=== PATIENT | female | born 1960 | race American Indian/Alaskan Native ===

== ENCOUNTER 2016-05-25 00:20 | Inpatient (IN) | payer MEDICAID ==
[2016-05-25] MEDS ORDERED: DILAUDID ONE ×2 (00:39→05:03)
[2016-05-25] MEDS ORDERED: ZOFRAN ONE (00:39)
[2016-05-25] MEDS ORDERED: DILAUDID IV ONE ×4 (00:43→17:12)
[2016-05-25] MEDS ORDERED: ZOFRAN IV ONE (00:43)
[2016-05-25] MEDS ORDERED: HEPARIN 10,000 UNITS/10 ML IV ONE (01:00)
--- NOTE | 2016-05-25 01:03 | Emergency Department Report ---
ED Chest Pain HPI - General Chief Complaint: Chest Pain Stated Complaint: CP/SOB Time Seen by Provider: 05/25/16 00:33 Source: patient, old records reviewed Mode of arrival: Stretcher Limitations: No Limitations - History of Present Illness Initial Comments: 55-year-old female with a past medical history obesity, CAD/MA, diabetes, hypertension, and elevated cholesterol presents to the hospital with complaints of abdominal pain and chest pain. Abdominal pain has been ongoing for 2 days, aching, and constant. Pain is primarily in the mid and upper abdomen and radiates to the right flank. Worse palpation. No alleviating factors. Pain is moderate to severe in intensity. She denies associated melena, hematochezia , hematemesis, fever, or diarrhea. Patient as she complains of constipation with last bowel movement 2 days ago. Patient developed chest pain today approximately 6 PM. Pain is in the right lower chest and radiates across the middle and to the left side. This pain is intermittent and described as a pressure. Positive associated shortness of breath. Patient's cardiologists affiliated with [facility]. Patient has a history of MA in 2005 and 2008 but denies bypass or stent placement. Patient was seen and evaluated here in October 2015. Had negative stress test , echocardiogram with an EF 55%, and normal EKG. MD Complaint: other Severity scale (0 -10): 5 - Related Data Home Medications Medication Instructions Recorded Confirmed Last Taken Atorvastatin [Lipitor] 40 mg PO QHS 05/19/13 05/25/16 10/13/13 21:00 Insulin NPH Hum/Reg Insulin Hm 80 unit SQ QAM 05/19/13 05/25/16 05/18/13 [NovoLIN 70-30 100 Unit/ml Vial] Insulin NPH/Regular [NovoLIN 70/30] 70 units SUB-Q QHS 05/19/13 05/25/16 Isosorbide Mononitrate 10 mg PO DAILY 05/19/13 05/25/16 10/14/13 10:30 10 Sertraline [Zoloft] 50 mg PO QDAY 05/19/13 05/25/16 10/14/13 10:30 50 metFORMIN XR [Glucophage XR] 1,000 mg PO BID 05/19/13 05/25/16 05/18/13 AtorvaSTATin [Lipitor] 40 mg PO QDAY 11/01/15 05/25/16 Unknown Furosemide [Lasix TAB] 40 mg PO DAILY 11/01/15 05/25/16 Unknown Gabapentin [Neurontin] 400 mg PO Q8HR 11/01/15 05/25/16 Unknown Promethazine [Phenergan TAB] 25 mg PO Q6HR PRN 11/01/15 05/25/16 Unknown Vitamin D 1 tab PO DAILY 11/01/15 05/25/16 Unknown Previous Rx's Medication Instructions Recorded Last Taken Type Hyoscyamine Subl [Levsin Sl 0.125 0.125 mg SL Q6HR PRN #14 tablet 05/20/13 Unknown Rx TAB] Promethazine [Phenergan TAB] 25 mg PO Q6H PRN #10 tablet 05/20/13 Unknown Rx HYDROcodone/APAP 5-325 [[place] 1 each PO Q6HR PRN #14 tablet 09/14/15 Unknown Rx 5-325 mg TAB] Aspirin EC [Aspirin Enteric Coated 81 mg PO QDAY #30 tablet. 11/03/15 Unknown Rx TAB] Carvedilol [Coreg] 3.125 mg PO BID #60 tablet 11/03/15 Unknown Rx Famotidine [Pepcid] 20 mg PO BID #60 tablet 11/03/15 Unknown Rx Allergies Allergy/AdvReac Type Severity Reaction Status Date / Time No Known Allergies Allergy Verified 05/25/16 00:37 GREGG score - Gregg Score Age > 65: (1) Yes Aspirin use within the Past 7 Days: (1) Yes 3 or more CAD Risk Factors: (1) Yes 2 or more Angina events in past 24 hrs: (1) Yes Known CAD with more than 50% Stenosis: (0) No Elevated Cardiac Markers: (0) No ST Deviation Greater than 0.5mm: (0) No GREGG Score: 4 ED Review of Systems ROS: Stated complaint: CP/SOB Other details as noted in HPI Comment: All other systems reviewed and negative Other: Constitutional: No fevers chills Eyes: No eye pain visual changes ENT: No ear pain or throat pain Neck: Denies pain Respiratory: Denies cough wheezing shortness of breath Cardiovascular: As per HPI GI: As per HPI : Denies dysuria Musculoskeletal: Denies back pain Skin: Denies rash, lesions, erythema Neurologic: Denies headache, numbness, weakness Psychiatric: Denies suicidal ideation, hallucinations ED Past Medical Hx - Past Medical History Hx Hypertension: Yes Hx Heart Attack/AMI: Yes Hx Congestive Heart Failure: Yes Hx Diabetes: Yes Hx Asthma: No Hx COPD: Yes Hx HIV: No Additional medical history: neuropathy - Surgical History Hx Coronary Stent: No Additional Surgical History: Infection right great toe. Cataract surgery - Social History Smoking Status: Never Smoker Substance Use Type: None - Medications Home Medications: Home Medications Medication Instructions Recorded Confirmed Last Taken Type Atorvastatin [Lipitor] 40 mg PO QHS 05/19/13 05/25/16 10/13/13 21:00 History Insulin NPH Hum/Reg Insulin Hm 80 unit SQ QAM 05/19/13 05/25/16 05/18/13 History [NovoLIN 70-30 100 Unit/ml Vial] Insulin NPH/Regular [NovoLIN 70/30] 70 units SUB-Q QHS 05/19/13 05/25/16 History Isosorbide Mononitrate 10 mg PO DAILY 05/19/13 05/25/16 10/14/13 10:30 History 10 Sertraline [Zoloft] 50 mg PO QDAY 05/19/13 05/25/16 10/14/13 10:30 History 50 metFORMIN XR [Glucophage XR] 1,000 mg PO BID 05/19/13 05/25/16 05/18/13 History Hyoscyamine Subl [Levsin Sl 0.125 0.125 mg SL Q6HR PRN #14 tablet 05/20/1305/25 Unknown Rx TAB] Promethazine [Phenergan TAB] 25 mg PO Q6H PRN #10 tablet 05/20/13 05/25/16 Unknown Rx HYDROcodone/APAP 5-325 [[place] 1 each PO Q6HR PRN #14 tablet 09/14/15 05/25/16 Unknown Rx 5-325 mg TAB] AtorvaSTATin [Lipitor] 40 mg PO QDAY 11/01/15 05/25/16 Unknown History Furosemide [Lasix TAB] 40 mg PO DAILY 11/01/15 05/25/16 Unknown History Gabapentin [Neurontin] 400 mg PO Q8HR 11/01/15 05/25/16 Unknown History Promethazine [Phenergan TAB] 25 mg PO Q6HR PRN 11/01/15 05/25/16 Unknown History Vitamin D 1 tab PO DAILY 11/01/15 05/25/16 Unknown History Aspirin EC [Aspirin Enteric Coated 81 mg PO QDAY #30 tablet. 11/03/15 Unknown Rx TAB] Carvedilol [Coreg] 3.125 mg PO BID #60 tablet 11/03/15 05/25/16 Unknown Rx Famotidine [Pepcid] 20 mg PO BID #60 tablet 11/03/15 05/25/16 Unknown Rx ED Physical Exam - General Limitations: No Limitations - Other Other exam information: General: No limitations, patient is alert in no acute distress Head exam: Atraumatic, normocephalic Eyes exam: Normal appearance ENT: Moist mucous membrane, normal oropharynx Neck exam: Normal inspection, full range of motion, no meningismus nontender Respiratory exam: Basilar crackles, no tachypnea or accessory muscle use Cardiovascular: Normal rate and rhythm, normal heart sounds Abdomen: Soft, nondistended, right upper quadrant and epigastric tenderness. Normal bowel sounds. No rebound or guarding. Actively vomiting during evaluation Extremity: Full range of motion normal inspection no deformity Back: Normal Inspection, full range of motion, no tenderness Neurologic: Alert, oriented x3, cranial nerves intact, no motor or sensory deficit Psychiatric: normal affect, normal mood Skin: Warm, dry, intact ED Course Vital Signs 05/25/16 05/25/16 00:40 02:07 Temperature 98 F Pulse Rate 74 80 Respiratory 16 16 Rate Blood Pressure 105/70 Blood Pressure 105/60 [Left] O2 Sat by Pulse 95 97 Oximetry - Reevaluation(s) Reevaluation #1: 05/25/16 04:59 Patient receives multiple doses of Dilaudid for pain, Zofran, and regular insulin for hyperglycemia. Heparin drip initiated - Consultations Consultation #1: 05/25/16 01:[address] Ramires. He reviewed EKG. Recommends heparin drip and cardiac evaluation as an outpt ED Medical Decision Making - Lab Data Result diagrams: 05/25/16 00:57 05/25/16 00:57 Lab Results 05/25/16 05/25/16 05/25/16 Range/Units 00:31 00:57 00:57 WBC 13.2 H (4.5-11.0) K/mm3 RBC 4.49 (3.65-5.03) M/mm3 Hgb 11.3 (10.1-14.3) gm/dl Hct 35.2 (30.3-42.9) % MCV 78 L (79-97) fl MCH 25 L (28-32) pg MCHC 32 (30-34) % RDW 14.1 (13.2-15.2) % Plt Count 178 (140-440) K/mm3 Lymph % (Auto) 17.7 (13.4-35.0) % [place] % (Auto) 9.1 H (0.0-7.3) % Eos % (Auto) 0.6 (0.0-4.3) % Baso % (Auto) 0.6 (0.0-1.8) % Lymph # 2.3 (1.2-5.4) K/mm3 [place] # 1.2 H (0.0-0.8) K/mm3 Eos # 0.1 (0.0-0.4) K/mm3 Baso # 0.1 (0.0-0.1) K/mm3 Seg Neutrophils % 72.0 H (40.0-70.0) % Seg Neutrophils # 9.5 H (1.8-7.7) K/mm3 PT 13.6 (12.2-14.9) Sec. INR 1.05 (0.87-1.13) APTT 30.6 (24.2-36.6) Sec. Sodium (137-145) mmol/L Potassium (3.6-5.0) mmol/L Chloride (98-107) mmol/L Carbon Dioxide (22-30) mmol/L Anion Gap mmol/L BUN (7-17) mg/dL Creatinine (0.7-1.2) mg/dL Estimated GFR ml/min BUN/Creatinine Ratio % Glucose (65-100) mg/dL POC Glucose 383 H (70-105) Calcium (8.4-10.2) mg/dL Total Bilirubin (0.1-1.2) mg/dL Direct Bilirubin (0-0.2) mg/dL Indirect Bilirubin mg/dL AST (5-40) units/L ALT (7-56) units/L Alkaline Phosphatase (35-129) units/L Total Creatine Kinase (30-135) units/L CK-MB (CK-2) (0.0-4.0) ng/mL CK-MB (CK-2) Rel Index (0-4) Troponin T (0.00-0.029) ng/mL NT-Pro-B Natriuret Pep (0-900) pg/mL Total Protein (6.3-8.2) g/dL Albumin (3.9-5) g/dL Albumin/Globulin Ratio % Triglycerides (2-149) mg/dL Cholesterol (50-199) mg/dL LDL Cholesterol Direct (50-130) mg/dL HDL Cholesterol (40-59) mg/dL Cholesterol/HDL Ratio % Lipase (13-60) units/L Urine Color (Yellow) Urine Turbidity (Clear) Urine pH (5.0-7.0) Ur Specific [place] (1.003-1.030) Urine Protein (Negative) mg/dL Urine Glucose (UA) (Negative) mg/dL Urine Ketones (Negative) mg/dL Urine Blood (Negative) Urine Nitrite (Negative) Urine Bilirubin (Negative) Urine Urobilinogen (<2.0) mg/dL Ur Leukocyte Esterase (Negative) Urine WBC (Auto) (0.0-6.0) /HPF Urine RBC (Auto) (0.0-6.0) /HPF U Epithel Cells (Auto) (0-13.0) /HPF 05/25/16 05/25/16 05/25/16 Range/Units 00:57 00:57 00:57 WBC (4.5-11.0) K/mm3 RBC (3.65-5.03) M/mm3 Hgb (10.1-14.3) gm/dl Hct (30.3-42.9) % MCV (79-97) fl MCH (28-32) pg MCHC (30-34) % RDW (13.2-15.2) % Plt Count (140-440) K/mm3 Lymph % (Auto) (13.4-35.0) % [place] % (Auto) (0.0-7.3) % Eos % (Auto) (0.0-4.3) % Baso % (Auto) (0.0-1.8) % Lymph # (1.2-5.4) K/mm3 [place] # (0.0-0.8) K/mm3 Eos # (0.0-0.4) K/mm3 Baso # (0.0-0.1) K/mm3 Seg Neutrophils % (40.0-70.0) % Seg Neutrophils # (1.8-7.7) K/mm3 PT (12.2-14.9) Sec. INR (0.87-1.13) APTT (24.2-36.6) Sec. Sodium 126 L (137-145) mmol/L Potassium 4.4 (3.6-5.0) mmol/L Chloride 90.5 L (98-107) mmol/L Carbon Dioxide 26 (22-30) mmol/L Anion Gap 14 mmol/L BUN 25 H (7-17) mg/dL Creatinine 0.9 (0.7-1.2) mg/dL Estimated GFR > 60 ml/min BUN/Creatinine Ratio 27.77 % Glucose 352 H (65-100) mg/dL POC Glucose (70-105) Calcium 8.4 (8.4-10.2) mg/dL Total Bilirubin 0.2 (0.1-1.2) mg/dL Direct Bilirubin < 0.2 (0-0.2) mg/dL Indirect Bilirubin 0.0 mg/dL AST 19 (5-40) units/L ALT 10 (7-56) units/L Alkaline Phosphatase 81 (35-129) units/L Total Creatine Kinase 163 H (30-135) units/L CK-MB (CK-2) 5.8 H (0.0-4.0) ng/mL CK-MB (CK-2) Rel Index 3.5 (0-4) Troponin T 0.311 H* (0.00-0.029) ng/mL NT-Pro-B Natriuret Pep (0-900) pg/mL Total Protein 7.0 (6.3-8.2) g/dL Albumin 3.4 L (3.9-5) g/dL Albumin/Globulin Ratio 0.9 % Triglycerides 284 H (2-149) mg/dL Cholesterol 231 H (50-199) mg/dL LDL Cholesterol Direct 144 H (50-130) mg/dL HDL Cholesterol 31 L (40-59) mg/dL Cholesterol/HDL Ratio 7.45 % Lipase 9 L (13-60) units/L Urine Color (Yellow) Urine Turbidity (Clear) Urine pH (5.0-7.0) Ur Specific [place] (1.003-1.030) Urine Protein (Negative) mg/dL Urine Glucose (UA) (Negative) mg/dL Urine Ketones (Negative) mg/dL Urine Blood (Negative) Urine Nitrite (Negative) Urine Bilirubin (Negative) Urine Urobilinogen (<2.0) mg/dL Ur Leukocyte Esterase (Negative) Urine WBC (Auto) (0.0-6.0) /HPF Urine RBC (Auto) (0.0-6.0) /HPF U Epithel Cells (Auto) (0-13.0) /HPF 05/25/16 05/25/16 Range/Units 00:57 04:16 WBC (4.5-11.0) K/mm3 RBC (3.65-5.03) M/mm3 Hgb (10.1-14.3) gm/dl Hct (30.3-42.9) % MCV (79-97) fl MCH (28-32) pg MCHC (30-34) % RDW (13.2-15.2) % Plt Count (140-440) K/mm3 Lymph % (Auto) (13.4-35.0) % [place] % (Auto) (0.0-7.3) % Eos % (Auto) (0.0-4.3) % Baso % (Auto) (0.0-1.8) % Lymph # (1.2-5.4) K/mm3 [place] # (0.0-0.8) K/mm3 Eos # (0.0-0.4) K/mm3 Baso # (0.0-0.1) K/mm3 Seg Neutrophils % (40.0-70.0) % Seg Neutrophils # (1.8-7.7) K/mm3 PT (12.2-14.9) Sec. INR (0.87-1.13) APTT (24.2-36.6) Sec. Sodium (137-145) mmol/L Potassium (3.6-5.0) mmol/L Chloride (98-107) mmol/L Carbon Dioxide (22-30) mmol/L Anion Gap mmol/L BUN (7-17) mg/dL Creatinine (0.7-1.2) mg/dL Estimated GFR ml/min BUN/Creatinine Ratio % Glucose (65-100) mg/dL POC Glucose (70-105) Calcium (8.4-10.2) mg/dL Total Bilirubin (0.1-1.2) mg/dL Direct Bilirubin (0-0.2) mg/dL Indirect Bilirubin mg/dL AST (5-40) units/L ALT (7-56) units/L Alkaline Phosphatase (35-129) units/L Total Creatine Kinase (30-135) units/L CK-MB (CK-2) (0.0-4.0) ng/mL CK-MB (CK-2) Rel Index (0-4) Troponin T (0.00-0.029) ng/mL NT-Pro-B Natriuret Pep 987.1 H (0-900) pg/mL Total Protein (6.3-8.2) g/dL Albumin (3.9-5) g/dL Albumin/Globulin Ratio % Triglycerides (2-149) mg/dL Cholesterol (50-199) mg/dL LDL Cholesterol Direct (50-130) mg/dL HDL Cholesterol (40-59) mg/dL Cholesterol/HDL Ratio % Lipase (13-60) units/L Urine Color Yellow (Yellow) Urine Turbidity Clear (Clear) Urine pH 5.0 (5.0-7.0) Ur Specific [place] 1.017 (1.003-1.030) Urine Protein 100 mg/dl (Negative) mg/dL Urine Glucose (UA) >=500 (Negative) mg/dL Urine Ketones Neg (Negative) mg/dL Urine Blood Sm (Negative) Urine Nitrite Neg (Negative) Urine Bilirubin Neg (Negative) Urine Urobilinogen < 2.0 (<2.0) mg/dL Ur Leukocyte Esterase Neg (Negative) Urine WBC (Auto) 2.0 (0.0-6.0) /HPF Urine RBC (Auto) 3.0 (0.0-6.0) /HPF U Epithel Cells (Auto) 5.0 (0-13.0) /HPF - EKG Data -: EKG Interpreted by Me (sinus rate 81 ST depressions inferior and lateral no ST elevation MA) - EKG Data When compared to previous EKG there are: changes noted (compared to October 2015) - Radiology Data Radiology results: report reviewed, image reviewed (cxr: mild pulm edema/chf read by me) - Medical Decision Making CT abdomen and pelvis IV contrast only: Bilateral pleural effusions larger on the right. Calcified plaque in the abdominal aorta. Calcified and soft plaque of the superior mesenteric artery with partial occlusion of the lumen. There is no evidence of acute bowel ischemia. Large pelvic mass which appears to arise from the uterine fundus and extends superiorly an to the left. This mass is solid and measures 15 x 13 x 14 cm likely a exophytic subserosal uterine fibroid. Ovarian tumor is considered less likely - Differential Diagnosis MA, gastritis, hepatitis, gallstones, unstable angina Critical Care Time: No Critical care attestation.: If time is entered above; I have spent that time in minutes in the direct care of this critically ill patient, excluding procedure time. ED Disposition Clinical Impression: Chest pain, Abdominal pain, ST segment depression, Acute on chronic diastolic ( congestive) heart failure, Bilateral pleural effusion, Uncontrolled diabetes mellitus, Uterine fibroid Disposition: OP ADMITTED IP TO THIS HOSP Is pt being admited?: Yes Condition: Stable Instructions: Chest Pain (ED) Time of Disposition: 04:59 (Dr Pimentel/hosp)
[2016-05-25] MEDS: HEPARIN/ 0.45% NACL-25,000 UNIT/500 ML 25,000 UNIT/500 ML BAG IV SCH (01:11)
[2016-05-25 01:23] LABS: Basophils % (Auto) 0.6 % (0.0-1.8); Eosinophils % (Auto) 0.6 % (0.0-4.3); Hematocrit 35.2 % (30.3-42.9); Hemoglobin 11.3 gm/dl (10.1-14.3); Mean Corpuscular HGB Conc 32 % (30-34); Mean Corpuscular Volume 78 fl (79-97); Platelet Count 178 K/mm3 (140-440); Red Blood Count 4.49 M/mm3 (3.65-5.03); Red Cell Distribution Width 14.1 % (13.2-15.2); White Blood Count 13.2 K/mm3 (4.5-11.0)
[2016-05-25 01:24] LABS: Anion Gap 14 mmol/L; BUN/Creatinine Ratio 27.77; Blood Urea Nitrogen 25 mg/dL (7-17); Calcium 8.4 mg/dL (8.4-10.2); Carbon Dioxide 26 mmol/L (22-30); Chloride 90.5 mmol/L (98-107); Glucose 352 mg/dL (65-100); Potassium 4.4 mmol/L (3.6-5.0); Sodium 126 mmol/L (137-145)
[2016-05-25 01:29] LABS: Alanine Aminotransferase 10 units/L (7-56); Albumin 3.4 g/dL (3.9-5); Albumin/Globulin Ratio 0.9 %; Alkaline Phosphatase 81 units/L (35-129); Bilirubin,Direct < 0.2 mg/dL (0-0.2); Bilirubin,Total 0.2 mg/dL (0.1-1.2); Lipase 9 units/L (13-60); Mean Corpuscular Hemoglobin 25 pg (28-32)
[2016-05-25 01:41] LABS: Creatine Kinase MB 5.8 ng/mL (0.0-4.0); INR 1.05 (0.87-1.13); Partial Thromboplastin Time 30.6 Sec. (24.2-36.6)
[2016-05-25] MEDS ORDERED: NACL ONE (03:03)
[2016-05-25 04:33] LABS: Bilirubin,Urine NEG (Negative); Blood,Urine SM (Negative); Ketones,Urine NEG (Negative); Leukocyte Esterase,Urine NEG (Negative); Nitrite,Urine NEG (Negative); Urobilinogen,Urine < 2.0 mg/dL (<2.0)
--- NOTE | 2016-05-25 04:39 | Cat Scan Report ---
FINAL REPORT PROCEDURE: CT ABDOMEN PELVIS W CON TECHNIQUE: Computerized axial tomography of the abdomen and pelvis was performed after the IV injection of iodinated nonionic contrast. HISTORY: upper abd pain, n,v COMPARISON: No prior studies are available for comparison. FINDINGS: Visualized lower thorax: There are bilateral pleural effusions larger on the right.. Liver: Liver is enlarged and fatty. There is no mass.. Spleen: Normal size and attenuation. Gallbladder and biliary system: Normal. Pancreas: Normal. Adrenals: Normal. Kidneys: There are no kidney stones. There is no hydronephrosis.. GI tract: There is no bowel obstruction, colitis or enteritis. The appendix is normal.. Lymph nodes and mesentery: Normal. Vasculature: There is calcified plaque in the abdominal aorta. There is no aortic aneurysm or dissection. There is calcified and soft plaque of the superior mesenteric artery with partial occlusion of the lumen. There is no evidence of acute bowel ischemia.. Bladder: Normal. Reproductive organs: There is the large pelvic mass which appears to arise from the uterine fundus and extends superiorly and to the left. The mass is solid and measures 15 x 13 x 14 centimeters. There are numerous calcifications. This is most likely an exophytic sub serosal uterine fibroid. Ovarian tumor is considered less likely.. Peritoneum: There is no ascites, free air, abscess or adenopathy.. Musculoskeletal structures: No significant abnormality. Other: None. IMPRESSION: There are bilateral pleural effusions larger on the right.. Liver is enlarged and fatty. There is no mass.. There are no kidney stones. There is no hydronephrosis.. There is no bowel obstruction, colitis or enteritis. The appendix is normal.. There is calcified plaque in the abdominal aorta. There is no aortic aneurysm or dissection. There is calcified and soft plaque of the superior mesenteric artery with partial occlusion of the lumen. There is no evidence of acute bowel ischemia.. There is the large pelvic mass which appears to arise from the uterine fundus and extends superiorly and to the left. The mass is solid and measures 15 x 13 x 14 centimeters. There are numerous calcifications. This is most likely an exophytic sub serosal uterine fibroid. Ovarian tumor is considered less likely.. There is no ascites, free air, abscess or adenopathy..
[2016-05-25] MEDS ORDERED: D50W (25GM) IV PRN (05:40)
[2016-05-25] MEDS: NITRO-BID 2% TP SCH ×3 (06:56→13:13)
--- NOTE | 2016-05-25 07:14 | History and Physical Report ---
CHIEF COMPLAINT: Chest pain. Other complaint includes abdominal pain. HISTORY OF PRESENT ILLNESS: The patient is a 55-year-old female who has been having abdominal pain going on for about 2-3 days. Pain is in the epigastric and right upper quadrant, and right flank area. Pain is moderate to severe in intensity and associated with nausea and vomiting. Also, the patient had chest pain in the retrosternal area associated with shortness of breath and also the patient's chest pain is associated with dizziness and diaphoresis. The patient was seen in the Emergency Room where she was evaluated and found to have elevated troponin and based on that resident services manager, Dr. Rondon was consulted and requested to start the patient on IV heparin. The patient had a CAT scan done that shows a pelvic mass suspicious to be uterine fibroid. PAST MEDICAL HISTORY: The patient's past medical history is pertinent for hypertension, diabetes mellitus, COPD, gastritis, neuropathy. Also the patient has past medical history of coronary artery disease status post acute myocardial infarction and congestive heart failure. PAST SURGICAL HISTORY: Pertinent for surgery involving the right big toe and cataract surgery. FAMILY HISTORY: There is family history of coronary artery disease in the father. SOCIAL HISTORY: The patient does not smoke, does not drink alcohol and does not use illicit drug. MEDICATIONS: The patient is on atorvastatin 40 mg at bedtime, insulin NPH/regular insulin, Novolin 70/30 80 units in the morning and 70 units at the evening, isosorbide mononitrate 10 mg daily, Zoloft 50 mg daily, metformin 1000 mg twice daily, hyoscyamine sublingual 0.125 q.6h. p.r.n. Also, the patient is on Phenergan 25 mg by mouth every 6 hours as needed for nausea and vomiting and [place] 5/325 mg one by mouth every 6 hours as needed for pain. Also, the patient is on Lasix 40 mg by mouth daily; Neurontin 400 mg by mouth every 8 hours; vitamin D, dose unknown, but frequency is 1 daily. The patient is also on aspirin enteric coated 81 mg by mouth daily and carvedilol 3.125 mg by mouth twice daily as well as famotidine 20 mg by mouth twice daily. ALLERGIES: There are no known drug allergies. REVIEW OF SYSTEMS: CONSTITUTIONAL: There is no fever, no chills. Diaphoresis present. HEENT: There is no headache or sore throat. CARDIOVASCULAR: There is chest pain but no orthopnea. RESPIRATORY: There is shortness of breath and no cough. GASTROINTESTINAL: There is nausea, vomiting, and abdominal pain but no diarrhea, no constipation. NEUROLOGIC: There is dizziness but no altered mental status. MUSCULOSKELETAL: There is no joint pain or swelling. DERMATOLOGICAL: There is no skin rash or itching. GENITOURINARY: There is no dysuria, hematuria or flank pain. Rest of system review is normal. PHYSICAL EXAMINATION: GENERAL: At the time of exam, the patient was found to be alert, oriented x 3 and not in acute distress. VITAL SIGNS: Shows temperature of 98 degrees Fahrenheit, pulse of 80, respirations 16, blood pressure 105/60, O2 sat of 97% on room air. HEENT: Eyes show pupils to be equal, round, reactive to light and accommodation. Extraocular muscles are intact. NECK: Supple with no JVD or carotid bruit. CARDIOVASCULAR SYSTEM: Show first and second heart sounds with no gallops or murmur. RESPIRATORY: Showed good air entry on both sides of the lung with no abnormal breath sounds. GASTROINTESTINAL SYSTEM: Show abdomen to be full, soft with tenderness in the epigastric area, but no rigidity, no organomegaly was elicited. NEUROLOGIC: Showed no focal deficit. MUSCULOSKELETAL: Show no joint swelling or tenderness. DERMATOLOGICAL SYSTEM: Show no skin rash. GENITOURINARY: Showing no costovertebral angle tenderness. PERTINENT LABORATORY AND IMAGING STUDIES: The patient had the following lab test done: CBC showed elevated white count with normal hemoglobin and normal hematocrit. CBC differential shows slightly elevated neutrophil count of 72%. Coagulation studies were unremarkable. Chemistry showed low sodium of 126 and a slightly elevated BUN of 25 with low chloride of 90.5 and elevated glucose of 352. Cardiac enzymes showed elevated total CK of 163 with elevated CK-MB of 5.8 and elevated troponin of 0.311. ProBNP or brain natriuretic peptide is slightly elevated with a value of 987. The patient's lipid panel showed high triglyceride of 284, high total cholesterol of 231, high LDL cholesterol of 144 and low HDL of 31 with low lipase of 9. DIAGNOSES: 1. Chest pain. 2. Non-ST elevation myocardial infarction. 3. Abdominal pain. 4. Hyponatremia, low sodium. PLAN: The patient will be admitted to medical floor and continue IV heparin as ordered by the Emergency Room. Also, continue Cardiology consult with Dr. Rondon. The patient will have cardiac enzymes, troponin, total CK and CK-MB checked q.6h. x 2 more levels. The patient will be on nitro paste 1 inch to anterior chest wall q.6h. and will be on Dilaudid 0.5 mg IV q.4h. as needed for pain. The patient will be on IV Zofran 4 mg every 6 hours as needed for nausea and vomiting and Tylenol 650 mg by mouth every 4 hours for fever and headache. The patient will be n.p.o. for possible cardiac catheterization and will be on Accu-Chek q.4h., followed by low-dose sliding scale using regular insulin dose. The patient will also be on monitoring analyst and will remain n.p.o. JOB# [id number] OCN/NTS
[2016-05-25] MEDS: ZOFRAN IV PRN ×2 (07:57→20:12)
[2016-05-25] MEDS ORDERED: COMPAZINE IV PRN (09:57)
[2016-05-25] MEDS ORDERED: PROTONIX IV SCH (10:00)
--- NOTE | 2016-05-25 10:04 | XRay Report ---
Single view chest: Compared to 11/01/15. History: Shortness of breath. Findings: Cardiomegaly. Trachea is midline. Pulmonary venous congestion bilaterally. No consolidation or pleural effusion. Impression: Probable early CHF.
[2016-05-25] MEDS: PEPCID IV SCH ×2 (11:00→21:07)
--- NOTE | 2016-05-25 11:59 | Consultation ---
History of Present Illness Consult date: 05/25/16 Requesting physician: KANDICE CARUSO Consult reason: chest pain History of present illness: The patient is a 55YO female with a past medical history significant for HTN, HLP, DM, [place] x 2, nonobstructive CAD, obesity. She presented with c/o abdominal pain, n/v x 4 days [employer] and chest pain x 2 days [employer]. She describes her abdominal pain as a diffuse aching pain. She describes her chest pain as a constant, nonexertional, nonradiating, right-sided stabbing pain and left-sided pressure. The left-sided chest pressure is aggravated by palpation. She denies any precipitating factors associated with her symptoms and reports that she was at rest when she noted the onset of her chest pain. She reports that the pain is sometimes associated with SOB, n/v, and palpitations. She denies any diaphoresis , dizziness, or syncope. She has not been compliant with her OP cardiology follow up. She underwent LHC in 09/[address] Jacinto which revealed distal LAD diffuse disease, 60% mid LAD stenosis, luminal irregularities in left circ and RCA. Past History Past Medical History: acute [place], CAD, diabetes, heart failure, hypertension, hyperlipidemia Social history: denies: smoking, alcohol abuse, prescription drug abuse Medications and Allergies Allergies Allergy/AdvReac Type Severity Reaction Status Date / Time No Known Allergies Allergy Verified 05/25/16 00:37 Home Medications Medication Instructions Recorded Confirmed Last Taken Type Atorvastatin [Lipitor] 40 mg PO QHS 05/19/13 05/25/16 10/13/13 21:00 History Insulin NPH Hum/Reg Insulin Hm 80 unit SQ QAM 05/19/13 05/25/16 05/18/13 History [NovoLIN 70-30 100 Unit/ml Vial] Insulin NPH/Regular [NovoLIN 70/30] 70 units SUB-Q QHS 05/19/13 05/25/16 History Isosorbide Mononitrate 10 mg PO DAILY 05/19/13 05/25/16 10/14/13 10:30 History 10 Sertraline [Zoloft] 50 mg PO QDAY 05/19/13 05/25/16 10/14/13 10:30 History 50 metFORMIN XR [Glucophage XR] 1,000 mg PO BID 0405/25/16 05/18/13 History Hyoscyamine Subl [Levsin Sl 0.125 0.125 mg SL Q6HR PRN #14 tablet 05/20/1305/25 Unknown Rx TAB] Promethazine [Phenergan TAB] 25 mg PO Q6H PRN #10 tablet 05/20/13 05/25/16 Unknown Rx HYDROcodone/APAP 5-325 [[place] 1 each PO Q6HR PRN #14 tablet 09/14/15 05/25/16 Unknown Rx 5-325 mg TAB] AtorvaSTATin [Lipitor] 40 mg PO QDAY 11/01/15 05/25/16 Unknown History Furosemide [Lasix TAB] 40 mg PO DAILY 11/01/15 05/25/16 Unknown History Gabapentin [Neurontin] 400 mg PO Q8HR 11/01/15 05/25/16 Unknown History Promethazine [Phenergan TAB] 25 mg PO Q6HR PRN 11/01/15 05/25/16 Unknown History Vitamin D 1 tab PO DAILY 11/01/15 05/25/16 Unknown History Aspirin EC [Aspirin Enteric Coated 81 mg PO QDAY #30 tablet. 11/03/15 Unknown Rx TAB] Carvedilol [Coreg] 3.125 mg PO BID #60 tablet 11/03/15 05/25/16 Unknown Rx Famotidine [Pepcid] 20 mg PO BID #60 tablet 11/03/15 05/25/16 Unknown Rx Active Meds: Active Medications Acetaminophen (Tylenol) 650 mg PO Q4H PRN PRN Reason: For Pain/Fever/Headache Dextrose (D50w (25gm)) 50 ml IV PRN PRN PRN Reason: Hypoglycemia Famotidine (Pepcid) 20 mg IV BID BRINA Last Admin: 05/25/16 11:00 Dose: 20 mg Hydromorphone HCl (Dilaudid) 0.5 mg IV Q4H PRN PRN Reason: Pain Heparin Sodium/Sodium Chloride (Heparin/ 0.45% Nacl-25,000 Unit/500 Ml) 25,000 unit in 500 mls @ 20 mls/hr IV TITRATE BRINA; 1,000 UNITS/HR PRN Reason: Protocol Last Titration: 05/25/16 09:49 Dose: 1,200 units/hr, 24 mls/hr Sodium Chloride (Nacl 0.9% 1000 Ml) 1,000 mls @ 100 mls/hr IV DIRECT BRINA Insulin Human Regular (Novolin R) 0 units SUB-Q Q4HR BRINA PRN Reason: Protocol Last Admin: 05/25/16 10:58 Dose: 6 units Nitroglycerin (Nitrostat) 0.4 mg SL Q5M PRN PRN Reason: Chest pain Nitroglycerin (Nitro-Bid 2%) 1 inch TP QIDNTG BRINA PRN Reason: Protocol Last Admin: 05/25/16 10:59 Dose: 1 inch Ondansetron HCl (Zofran) 4 mg IV Q6H PRN PRN Reason: Nausea Last Admin: 05/25/16 07:57 Dose: 4 mg Prochlorperazine Edisylate (Compazine) 10 mg IV Q6H PRN PRN Reason: Nausea And Vomiting Review of Systems Constitutional: no weight loss, no weight gain, no fever, no chills, no sweats Ears, nose, mouth and throat: no ear pain, no nose pain, no nasal congestion, no nasal discharge, no sinus pressure, no sinus pain, no dental pain, no mouth pain, no dysphagia, no hoarseness, no sore throat Cardiovascular: chest pain, palpitations, shortness of breath, high blood pressure, no orthopnea, no rapid/irregular heart beat, no edema, no syncope, no lightheadedness, no dyspnea on exertion, no paroxysmal nocturnal dyspnea, no leg edema Respiratory: shortness of breath, no cough, no dyspnea on exertion, no congestion, no wheezing, no pain Gastrointestinal: abdominal pain, nausea, vomiting, no diarrhea, no constipation , no change in bowel habits, no hematemesis, no coffee ground emesis, no melena , no hematochezia Genitourinary Female: no pelvic pain, no flank pain, no dysuria, no urinary frequency, no urgency Musculoskeletal: no neck stiffness, no neck pain Integumentary: no rash, no pruritis, no redness, no sores, no wounds Neurological: no paralysis, no weakness, no parathesias, no numbness, no tingling, no seizures Endocrine: no cold intolerance, no heat intolerance Hematologic/Lymphatic: no easy bruising, no easy bleeding, no lymphadenopathy Allergic/Immunologic: no urticaria, no wheezing, no persistent infections Physical Examination Last Vital Signs Temp 99.1 F 05/25/16 08:00 Pulse 78 05/25/16 11:21 Resp 18 05/25/16 10:47 BP 105/60 05/25/16 08:00 Pulse Ox 97 05/25/16 10:00 General appearance: no acute distress HEENT: Positive: PERRL, Normocephaly, Mucus Membranes Moist Neck: Positive: neck supple, trachea midline Cardiac: Positive: Reg Rate and Rhythm, S1/S2 Lungs: Positive: Normal Exam, clear to auscultation, Normal Breath Sounds Neuro: Positive: Grossly Intact, Cranial Nerve 2-12 Intact Abdomen: Positive: Unremarkable, Soft, Active Bowel Sounds Skin: Positive: Clear. Negative: Rash, Wound Musculoskeletal: No Fluid Collection, No Pain, Normal Range of Motion Extremities: Present: normal, upper extr. pulses, lower extr. pulses. Absent: edema Results 05/25/16 00:57 05/25/16 00:57 Cardiac Enzymes 05/25/16 Range/Units 07:07 CK-MB (CK-2) 4.0 (0.0-4.0) ng/mL - Imaging and Cardiology Echo: report reviewed (03/2015: EF 50 - 55%, mild MR, RVSP 46.7) Cardiac cath: report reviewed EKG: report reviewed, image reviewed EKG interpretations - Telemetry EKG Rhythm: Sinus Rhythm - EKG Sinus rhythms and dysrhythmias: sinus rhythm Repolarization changes or abnormalities: ST or T wave suggestive of ischemia, ST suggestive of injury Myocardial infarction: inferior [place] (old age inde Assessment and Plan Assessment: NSTEMI Abdominal pain / n/v - abdominal CT with NAF, large pelvic mass most likely uterine fibroid per radiology. Nonobstructive CAD H/o HTN HLP DM Obesity Noncompliance with OP follow up Plan: Agree with heparin gtt. Initiate ASA 81, plavix, and lipitor. Hold on BB at this time in setting of borderline hypotension. F/u echo. Cont tele. Repeat EKG in AM. Plan for lexiscan MPI stress test on Saturday, 05/27. Will consider LHC if troponins trend upwards and/or pt becomes clinically or hemodynamically unstable. Assessment and plan reviewed with pt at bedside. The patient has been seen in conjunction with Dr. LEILA Carolina who agrees with the assessment and plan of care.
--- NOTE | 2016-05-25 12:31 | Admit Criteria Form ---
Admission Criteria Documentation: MYOCARDIAL INFARCTION Clinical Indications for Admission to Inpatient Care (Place 'X' for any and all applicable criteria): Admission is indicated for 1 or more of the following (1)(2)(3)(4): [X ]I. Acute IL [ ]II. Contraindications and/or Inappropriate clinical situations for Observational Care in patients with Myocardial Infarction, when ANY ONE of the following is required: [ ]a) Patient with High risk of cardiac embolism (e.g, patients with previous cardiac embolism, LVEF < 40%, age >75 and patients with prosthetic valve) 18 [ ]b) Patient with Moderate risk including DM patient, CAD and patient aged 65-75 18 [ ]c) Patient with any change in cardiac biomarker especially troponin should be managed as high risk in an inpatient setting 19 [ ]d) Physician judgement irrespective of ECG and other diagnostic findings 20 [ ]III.General contraindications and/or Inappropriate clinical situations for Observational Care in patients with Myocardial Infarction, when ANY ONE of the following is required: [ ]a) Prediction of prolongation of LOS based on ANY ONE of the following may be considered as a contraindication for observational care 2, 3, 4, 5, 6, 7, 8, 9, 10, 11 [ ]i) Age > 65 yrs. [ ]ii) Patient arriving by ambulance [ ]iii) Patient with high acuity [ ]iv) Patient requiring vital sign monitoring [ ]v) Patient on IV medication [ ]b) Systolic blood pressures greater than or equal to 180mmHg 3,12 [ ]c) Patient with altered mental status including delirium and other alteration of consciousness, (3) [ ]d) Patient whose discharge disposition will be to a snf home or rehabilitation home should not be managed in Emergency Department Observation Unit. CMS rule requires 3 days hospital stay before such placement. 3,13 [ ]e) Patient with failure to thrive due to broad array of etiologies 3 ,16,17 [ ]f) Inability to ambulate 3,14 Extended stay beyond goal length of stay may be needed for (1)(18)(20)(24)(25): [ ]a) Hemodynamic instability, persisting symptoms after intensive medical management, or recurring severe, prolonged symptoms [ ]b) Intravascular procedural complications such as acute vessel closure, stent thrombosis, stent malposition, or vessel dissection (26)(27)(28) [ ]c) Extravascular procedural complications such as retroperitoneal hematoma , pericardial effusion, or cardiac tamponade [ ]d) Entry site complications causing bleeding, hematoma or distal ischemia and requiring ongoing monitoring, surgical repair or surgical thrombectomy. Dangerous arrhythmia [ ]e) Complicated percutaneous coronary intervention (e.g., unsuccessful percutaneous coronary intervention or percutaneous coronary intervention of non- [place] vessel) [ ]f) Urgent or emergent surgery for complications of IL (e.g., ventricular rupture, valvular insufficiency) [ ]g) Surgical revascularization via coronary artery bypass graft [ ]h) Heart failure (e.g., pulmonary edema) [ ]i) Unstable pulmonary comorbidities, including COPD or pneumonia (31) [ ]j) Acute renal failure The original [employer] content created by [employer] has been revised. The portions of the content which have been revised are identified through the use of italic text or in bold, and [employer] has neither reviewed nor approved the modified material. All other unmodified content is copyright [facility] Please see references footnoted in the original [facility] edition 2016 Admission Criteria Met: Yes
[2016-05-25 12:33] LABS: Creatine Kinase MB 5.6 ng/mL (0.0-4.0)
[2016-05-25] MEDS: NITROSTAT SL PRN ×3 (13:10→13:22)
[2016-05-25] MEDS: PLAVIX PO SCH (13:11)
[2016-05-25] MEDS: BABY ASPIRIN PO SCH (13:11)
--- NOTE | 2016-05-25 14:31 | Event Note ---
Date: 05/25/16 Patient reevaluated at primary MDs request due to persistent chest pain. On initial examination, patient reports that she is experiencing "intense" left- sided chest pressure, 8/10 on a 0-10 numerical pain scale. The patient ate a full lunch tray 15 minutes prior to evaluation. In setting of elevated cardiac enzymes, abnormal EKG, and persistent chest pain, coronary angiography this afternoon was recommended to patient. However, patient was informed that she would be unable to receive sedation for the procedure due to recent food consumption. The patient states, "I don't want to have the procedure if I can' t have sedation. I've had a cath before and know what the procedure involves. I understand your recommendation and refuse this procedure right now without sedation. I am willing to wait until Saturday morning for cath. I just received nitroglycerin under my tongue and my pain is getting better come to think of it. " Will initiate nitro gtt and tx to ICU. Obtain STAT 12-lead EKG. Cont tele and close observation. Maintain NPO status in the event that pt becomes clinically or hemodynamically unstable and emergent LHC is warranted. Primary MD updated. Sherrill ALBRIGHT, CONSTRUCTION ACCOUNTANT / DR. LEILA KERR
--- NOTE | 2016-05-25 14:36 | Progress Note ---
Assessment and Plan Assessment and plan: 55F with pmh of CAD who presents with chest pain 1. NSTEMI continue heparin drip, CP is worsening and troponin is trending up, she is refusing cath today, therefore will transfer to ICU and initiate nitrate drip, keep NPO for now as might need emergent Cath should she clinically decline 2. DM continue insulins 3. HTN monitor BP, optimize meds 4,. HLD continue statin Critical care time: 32 minutes Hospitalist Physical - Physical exam Narrative exam: General: Moderate distress due to pain HEENT: MMM, EOMI cardiac: S1-S2 heard lungs: clear to auscultation, abdomen: soft, nontender, nondistended bowel sounds positive extremities: no edema clubbing or cyanosis Skin: no rash or lesion Neuro: no focal deficit Psych: appropriate behavior and mood, cognition intact - Constitutional Vitals: Temp Pulse Resp BP Pulse Ox 99.1 F 78 18 105/60 97 05/25/16 08:00 05/25/16 11:21 05/25/16 10:47 05/25/16 08:00 05/25/16 10:00 General appearance: Present: no acute distress Results - Labs CBC & Chem 7: 05/25/16 00:57 05/25/16 00:57 Labs: Laboratory Last Values WBC 13.2 K/mm3 (4.5-11.0) H 05/25/16 00:57 RBC 4.49 M/mm3 (3.65-5.03) 05/25/16 00:57 Hgb 11.3 gm/dl (10.1-14.3) 05/25/16 00:57 Hct 35.2 % (30.3-42.9) 05/25/16 00:57 MCV 78 fl (79-97) L 05/25/16 00:57 MCH 25 pg (28-32) L 05/25/16 00:57 MCHC 32 % (30-34) 05/25/16 00:57 RDW 14.1 % (13.2-15.2) 05/25/16 00:57 Plt Count 178 K/mm3 (140-440) 05/25/16 00:57 Lymph % (Auto) 17.7 % (13.4-35.0) 05/25/16 00:57 [place] % (Auto) 9.1 % (0.0-7.3) H 05/25/16 00:57 Eos % (Auto) 0.6 % (0.0-4.3) 05/25/16 00:57 Baso % (Auto) 0.6 % (0.0-1.8) 05/25/16 00:57 Lymph # 2.3 K/mm3 (1.2-5.4) 05/25/16 00:57 [place] # 1.2 K/mm3 (0.0-0.8) H 05/25/16 00:57 Eos # 0.1 K/mm3 (0.0-0.4) 05/25/16 00:57 Baso # 0.1 K/mm3 (0.0-0.1) 05/25/16 00:57 Seg Neutrophils % 72.0 % (40.0-70.0) H 05/25/16 00:57 Seg Neutrophils # 9.5 K/mm3 (1.8-7.7) H 05/25/16 00:57 PT 13.6 Sec. (12.2-14.9) 05/25/16 00:57 INR 1.05 (0.87-1.13) 05/25/16 00:57 APTT 30.6 Sec. (24.2-36.6) 05/25/16 00:57 Heparin Anti-Xa Level 0.13 U.I./ml (0.3-0.7) L 05/25/16 13:23 Sodium 126 mmol/L (137-145) L 05/25/16 00:57 Potassium 4.4 mmol/L (3.6-5.0) 05/25/16 00:57 Chloride 90.5 mmol/L (98-107) L 05/25/16 00:57 Carbon Dioxide 26 mmol/L (22-30) 05/25/16 00:57 Anion Gap 14 mmol/L 05/25/16 00:57 BUN 25 mg/dL (7-17) H 05/25/16 00:57 Creatinine 0.9 mg/dL (0.7-1.2) 05/25/16 00:57 Estimated GFR > 60 ml/min 05/25/16 00:57 BUN/Creatinine Ratio 27.77 % 05/25/16 00:57 Glucose 352 mg/dL (65-100) H 05/25/16 00:57 POC Glucose 383 (70-105) H 05/25/16 00:31 Calcium 8.4 mg/dL (8.4-10.2) 05/25/16 00:57 Total Bilirubin 0.2 mg/dL (0.1-1.2) 05/25/16 00:57 Direct Bilirubin < 0.2 mg/dL (0-0.2) 05/25/16 00:57 Indirect Bilirubin 0.0 mg/dL 05/25/16 00:57 AST 19 units/L (5-40) 05/25/16 00:57 ALT 10 units/L (7-56) 05/25/16 00:57 Alkaline Phosphatase 81 units/L (35-129) 05/25/16 00:57 Total Creatine Kinase 167 units/L (30-135) H 05/25/16 11:41 CK-MB (CK-2) 5.6 ng/mL (0.0-4.0) H 05/25/16 11:41 CK-MB (CK-2) Rel Index 3.3 (0-4) 05/25/16 11:41 Troponin T 0.381 ng/mL (0.00-0.029) H* D 05/25/16 11:41 NT-Pro-B Natriuret Pep 987.1 pg/mL (0-900) H 05/25/16 00:57 Total Protein 7.0 g/dL (6.3-8.2) 05/25/16 00:57 Albumin 3.4 g/dL (3.9-5) L 05/25/16 00:57 Albumin/Globulin Ratio 0.9 % 05/25/16 00:57 Triglycerides 284 mg/dL (2-149) H 05/25/16 00:57 Cholesterol 231 mg/dL (50-199) H 05/25/16 00:57 LDL Cholesterol Direct 144 mg/dL (50-130) H 05/25/16 00:57 HDL Cholesterol 31 mg/dL (40-59) L 05/25/16 00:57 Cholesterol/HDL Ratio 7.45 % 05/25/16 00:57 Lipase 9 units/L (13-60) L 05/25/16 00:57 Urine Color Yellow (Yellow) 05/25/16 04:16 Urine Turbidity Clear (Clear) 05/25/16 04:16 Urine pH 5.0 (5.0-7.0) 05/25/16 04:16 Ur Specific [place] 1.017 (1.003-1.030) 05/25/16 04:16 Urine Protein 100 mg/dl mg/dL (Negative) 05/25/16 04:16 Urine Glucose (UA) >=500 mg/dL (Negative) 05/25/16 04:16 Urine Ketones Neg mg/dL (Negative) 05/25/16 04:16 Urine Blood Sm (Negative) 05/25/16 04:16 Urine Nitrite Neg (Negative) 05/25/16 04:16 Urine Bilirubin Neg (Negative) 05/25/16 04:16 Urine Urobilinogen < 2.0 mg/dL (<2.0) 05/25/16 04:16 Ur Leukocyte Esterase Neg (Negative) 05/25/16 04:16 Urine WBC (Auto) 2.0 /HPF (0.0-6.0) 05/25/16 04:16 Urine RBC (Auto) 3.0 /HPF (0.0-6.0) 05/25/16 04:16 U Epithel Cells (Auto) 5.0 /HPF (0-13.0) 05/25/16 04:16
--- NOTE | 2016-05-25 15:03 | Event Note ---
Date: 05/25/16 12-lead EKG reviewed - no acute changes when compared to EKG from 0:30 this AM. Pt now states, "I can't tell if I'm in pain or just having a panic attack." Continues to decline [facility]. Sherrill ALBRIGHT, VISHAL / DR. LEILA KERR
[2016-05-25] MEDS ORDERED: TRIDIL DRIP 50MG/250ML 50 MG/250 ML BOTTLE IV SCH (16:00)
[2016-05-25] MEDS: DILAUDID IV PRN ×2 (16:23→20:30)
[2016-05-25 20:30] LABS: Creatine Kinase MB 7.3 ng/mL (0.0-4.0)
[2016-05-25 20:31] LABS: Anion Gap 17 mmol/L; Blood Urea Nitrogen 29 mg/dL (7-17); Carbon Dioxide 25 mmol/L (22-30); Chloride 93.6 mmol/L (98-107); Creatine Kinase 234 units/L (30-135); Glucose 221 mg/dL (65-100); Potassium 4.7 mmol/L (3.6-5.0); Sodium 131 mmol/L (137-145)
[2016-05-26] MEDS: TYLENOL PO PRN (00:35)
[2016-05-26] MEDS: DILAUDID IV PRN ×7 (00:41→21:02)
[2016-05-26] MEDS ORDERED: MYLICON PO ONE (03:02)
[2016-05-26] MEDS: ZOFRAN IV PRN ×3 (03:15→21:02)
[2016-05-26 08:12] LABS: Anion Gap 19 mmol/L; BUN/Creatinine Ratio 28.18; Blood Urea Nitrogen 31 mg/dL (7-17); Calcium 8.6 mg/dL (8.4-10.2); Carbon Dioxide 22 mmol/L (22-30); Chloride 95.9 mmol/L (98-107); Glucose 289 mg/dL (65-100); Potassium 5.3 mmol/L (3.6-5.0); Sodium 132 mmol/L (137-145)
[2016-05-26] MEDS: PEPCID IV SCH ×2 (09:51→21:03)
[2016-05-26] MEDS: PLAVIX PO SCH (09:52)
[2016-05-26] MEDS: BABY ASPIRIN PO SCH (09:52)
[2016-05-26] MEDS ORDERED: DILAUDID IV STA (12:21)
[2016-05-26] MEDS: ATIVAN IV PRN ×2 (13:07→17:30)
[2016-05-26] MEDS ORDERED: LEVSIN SL SL PRN (13:24)
--- NOTE | 2016-05-26 13:24 | Progress Note ---
Assessment and Plan Assessment and plan: 55F with pmh of CAD who presents with chest pain 1. NSTEMI continue heparin drip, she refused cath on Saturday, but is willing to do it on Saturday, Cardiology input appreciated, Nitrate drip on standby as needed 2. DM continue insulins 3. HTN monitor BP, optimize meds 4,. HLD continue statin 5. Abdominal Pain has a hx of gastritis rx with pain meds, pepcid, hyoscamine, - will benefit from GI consult CT A/P image reviewed; no acute abnormalities Critical care time: 32 minutes History Interval history: She denies shortness of breath, continues to complain of abdominal pain which is in the hypogastrium, the pain is 10 out of 10 sharp and exacerbated by eating. Hospitalist Physical - Physical exam Narrative exam: General: Moderate distress due to pain HEENT: MMM, EOMI cardiac: S1-S2 heard lungs: clear to auscultation, abdomen: soft, nontender, nondistended bowel sounds positive extremities: no edema clubbing or cyanosis Skin: no rash or lesion Neuro: no focal deficit Psych: appropriate behavior and mood, cognition intact - Constitutional Vitals: Temp Pulse Resp BP Pulse Ox 98.2 F 86 20 143/98 92 05/26/16 08:00 05/26/16 12:00 05/26/16 12:00 05/26/16 12:00 05/26/16 12:00 General appearance: Present: no acute distress Results - Labs CBC & Chem 7: 05/28/16 05:23 05/28/16 09:10 Labs: Laboratory Last Values WBC 13.2 K/mm3 (4.5-11.0) H 05/25/16 00:57 RBC 4.49 M/mm3 (3.65-5.03) 05/25/16 00:57 Hgb 11.3 gm/dl (10.1-14.3) 05/25/16 00:57 Hct 35.2 % (30.3-42.9) 05/25/16 00:57 MCV 78 fl (79-97) L 05/25/16 00:57 MCH 25 pg (28-32) L 05/25/16 00:57 MCHC 32 % (30-34) 05/25/16 00:57 RDW 14.1 % (13.2-15.2) 05/25/16 00:57 Plt Count 178 K/mm3 (140-440) 05/25/16 00:57 Lymph % (Auto) 17.7 % (13.4-35.0) 05/25/16 00:57 Early % (Auto) 9.1 % (0.0-7.3) H 05/25/16 00:57 Eos % (Auto) 0.6 % (0.0-4.3) 05/25/16 00:57 Baso % (Auto) 0.6 % (0.0-1.8) 05/25/16 00:57 Lymph # 2.3 K/mm3 (1.2-5.4) 05/25/16 00:57 Early # 1.2 K/mm3 (0.0-0.8) H 05/25/16 00:57 Eos # 0.1 K/mm3 (0.0-0.4) 05/25/16 00:57 Baso # 0.1 K/mm3 (0.0-0.1) 05/25/16 00:57 Seg Neutrophils % 72.0 % (40.0-70.0) H 05/25/16 00:57 Seg Neutrophils # 9.5 K/mm3 (1.8-7.7) H 05/25/16 00:57 PT 13.6 Sec. (12.2-14.9) 05/25/16 00:57 INR 1.05 (0.87-1.13) 05/25/16 00:57 APTT 30.6 Sec. (24.2-36.6) 05/25/16 00:57 Heparin Anti-Xa Level < 0.10 U.I./ml (0.3-0.7) L 05/26/16 04:59 Sodium 132 mmol/L (137-145) L 05/26/16 07:32 Potassium 5.3 mmol/L (3.6-5.0) H 05/26/16 07:32 Chloride 95.9 mmol/L (98-107) L 05/26/16 07:32 Carbon Dioxide 22 mmol/L (22-30) 05/26/16 07:32 Anion Gap 19 mmol/L 05/26/16 07:32 BUN 31 mg/dL (7-17) H 05/26/16 07:32 Creatinine 1.1 mg/dL (0.7-1.2) 05/26/16 07:32 Estimated GFR > 60 ml/min 05/26/16 07:32 BUN/Creatinine Ratio 28.18 % 05/26/16 07:32 Glucose 289 mg/dL (65-100) H 05/26/16 07:32 POC Glucose 246 (70-105) H 05/26/16 05:34 Calcium 8.6 mg/dL (8.4-10.2) 05/26/16 07:32 Total Bilirubin 0.2 mg/dL (0.1-1.2) 05/25/16 00:57 Direct Bilirubin < 0.2 mg/dL (0-0.2) 05/25/16 00:57 Indirect Bilirubin 0.0 mg/dL 05/25/16 00:57 AST 19 units/L (5-40) 05/25/16 00:57 ALT 10 units/L (7-56) 05/25/16 00:57 Alkaline Phosphatase 81 units/L (35-129) 05/25/16 00:57 Total Creatine Kinase 234 units/L (30-135) H 05/25/16 19:42 CK-MB (CK-2) 7.3 ng/mL (0.0-4.0) H 05/25/16 19:42 CK-MB (CK-2) Rel Index 3.1 (0-4) 05/25/16 19:42 Troponin T 0.455 ng/mL (0.00-0.029) H* 05/25/16 19:42 NT-Pro-B Natriuret Pep 987.1 pg/mL (0-900) H 05/25/16 00:57 Total Protein 7.0 g/dL (6.3-8.2) 05/25/16 00:57 Albumin 3.4 g/dL (3.9-5) L 05/25/16 00:57 Albumin/Globulin Ratio 0.9 % 05/25/16 00:57 Triglycerides 284 mg/dL (2-149) H 05/25/16 00:57 Cholesterol 231 mg/dL (50-199) H 05/25/16 00:57 LDL Cholesterol Direct 144 mg/dL (50-130) H 05/25/16 00:57 HDL Cholesterol 31 mg/dL (40-59) L 05/25/16 00:57 Cholesterol/HDL Ratio 7.45 % 05/25/16 00:57 Lipase 9 units/L (13-60) L 05/25/16 00:57 Urine Color Yellow (Yellow) 05/25/16 04:16 Urine Turbidity Clear (Clear) 05/25/16 04:16 Urine pH 5.0 (5.0-7.0) 05/25/16 04:16 Ur Specific [place] 1.017 (1.003-1.030) 05/25/16 04:16 Urine Protein 100 mg/dl mg/dL (Negative) 05/25/16 04:16 Urine Glucose (UA) >=500 mg/dL (Negative) 05/25/16 04:16 Urine Ketones Neg mg/dL (Negative) 05/25/16 04:16 Urine Blood Sm (Negative) 05/25/16 04:16 Urine Nitrite Neg (Negative) 05/25/16 04:16 Urine Bilirubin Neg (Negative) 05/25/16 04:16 Urine Urobilinogen < 2.0 mg/dL (<2.0) 05/25/16 04:16 Ur Leukocyte Esterase Neg (Negative) 05/25/16 04:16 Urine WBC (Auto) 2.0 /HPF (0.0-6.0) 05/25/16 04:16 Urine RBC (Auto) 3.0 /HPF (0.0-6.0) 05/25/16 04:16 U Epithel Cells (Auto) 5.0 /HPF (0-13.0) 05/25/16 04:16
[2016-05-26] MEDS ORDERED: ISOSORBIDE MONONITRATE 10 MG PO SCH (13:30)
[2016-05-26] MEDS: ALUM-MAG HYDROX-SIMETH 200-200-20MG/5ML PO PRN (14:13)
[2016-05-26] MEDS: NEURONTIN PO SCH ×2 (14:13→21:04)
--- NOTE | 2016-05-26 15:54 | Progress Note ---
Assessment and Plan The patient is a 55YO female with a past medical history significant for HTN, HLP, DM, CO x 2, nonobstructive CAD, obesity. She presented with c/o abdominal pain, n/v x 4 days [employer] and chest pain x 2 days [employer]. She describes her abdominal pain as a diffuse aching pain. She describes her chest pain as a constant, nonexertional, nonradiating, right-sided stabbing pain and left-sided pressure. The left-sided chest pressure is aggravated by palpation. She denies any precipitating factors associated with her symptoms and reports that she was at rest when she noted the onset of her chest pain. She reports that the pain is sometimes associated with SOB, n/v, and palpitations. She denies any diaphoresis , dizziness, or syncope. She has not been compliant with her OP cardiology follow up. She underwent LHC in 09/[address] Jacinto which revealed distal LAD diffuse disease, 60% mid LAD stenosis, luminal irregularities in left circ and RCA. Assessment: NSTEMI Abdominal pain / n/v - abdominal CT with NAF, large pelvic mass most likely uterine fibroid per radiology. Nonobstructive CAD H/o HTN HLP DM Obesity Noncompliance with OP follow up Plan: Agree with heparin gtt. Initiate ASA 81, plavix, and lipitor. Hold on BB at this time in setting of borderline hypotension. F/u echo. 05/26/2016>patient continues to epigastric/chest pain intermittently,after adjusting her medications including Ativan/Narco,dilaudid her symptoms are better .denies any chest pain at this time,has mildly elevated,significance o fthis is not clear. Would plan for cath on Saturday. Subjective Date of service: 05/26/16 Objective Vital Signs Temp Pulse Pulse Resp BP Pulse Ox 05/26/16 15:11 79 25 H 129/76 92 05/26/16 15:09 20 05/26/16 15:00 82 27 H 129/76 91 05/26/16 14:51 83 27 H 120/72 95 05/26/16 14:41 82 27 H 120/72 94 05/26/16 14:30 80 17 120/72 80 L 05/26/16 14:21 78 17 133/63 93 05/26/16 14:15 22 05/26/16 14:11 78 20 133/63 89 04/15/17 14:01 79 22 133/63 90 05/26/16 14:00 82 20 98 05/26/16 13:51 77 25 H 117/73 87 05/26/16 13:41 75 29 H 117/73 92 05/26/16 13:30 77 25 H 117/73 93 05/26/16 13:21 78 26 H 125/74 94 05/26/16 13:11 79 28 H 125/74 91 05/26/16 13:00 79 11 L 125/74 96 05/26/16 12:51 78 18 127/75 96 05/26/16 12:41 77 28 H 127/75 94 05/26/16 12:30 78 28 H 127/75 94 05/26/16 12:21 83 10 L 143/98 92 05/26/16 12:11 87 16 143/98 91 05/26/16 12:00 84 86 28 H 143/98 95 05/26/16 11:51 89 26 H 141/89 95 05/26/16 11:41 81 30 H 141/89 93 05/26/16 11:30 87 28 H 141/89 95 05/26/16 11:21 80 28 H 132/77 92 05/26/16 11:11 81 22 132/77 93 05/26/16 11:00 81 24 132/77 95 05/26/16 10:51 83 25 H 120/65 93 05/26/16 10:41 81 18 120/65 95 05/26/16 10:31 84 33 H 120/65 91 05/26/16 10:21 84 28 H 137/84 93 05/26/16 10:11 81 18 137/84 94 05/26/16 10:00 83 87 33 H 137/84 91 05/26/16 09:51 94 H 11 L 152/86 98 05/26/16 09:41 88 18 152/86 94 05/26/16 09:31 84 27 H 152/86 93 05/26/16 09:21 84 31 H 135/81 91 05/26/16 09:11 80 22 135/81 92 05/26/16 09:00 86 24 144/82 92 05/26/16 08:51 82 30 H 135/81 86 05/26/16 08:40 82 36 H 127/79 91 04/15/17 08:30 80 17 135/81 94 05/26/16 08:21 87 16 127/79 05/26/16 08:13 81 18 127/79 05/26/16 08:00 98.2 F 79 87 33 H 127/79 95 05/26/16 07:51 81 23 118/73 95 05/26/16 07:41 82 23 118/73 97 05/26/16 07:31 80 28 H 115/67 93 05/26/16 07:21 78 28 H 115/67 93 05/26/16 07:11 76 28 H 115/67 91 05/26/16 07:00 76 23 115/67 92 05/26/16 06:51 84 19 163/64 87 05/26/16 06:41 80 33 H 163/64 89 05/26/16 06:30 84 29 H 122/76 92 05/26/16 06:21 84 34 H 163/64 87 05/26/16 06:11 86 30 H 163/64 81 L 05/26/16 06:01 102 H 14 163/64 91 05/26/16 05:51 88 37 H 126/56 93 05/26/16 05:41 83 27 H 126/56 97 05/26/16 05:30 84 27 H 126/56 95 05/26/16 05:21 81 27 H 120/66 90 05/26/16 05:11 81 27 H 120/66 95 05/26/16 05:00 80 28 H 120/66 95 05/26/16 04:51 80 27 H 114/73 93 05/26/16 04:41 78 24 114/73 93 05/26/16 04:30 79 20 114/73 93 05/26/16 04:21 78 27 H 121/73 94 05/26/16 04:11 78 30 H 121/73 93 05/26/16 04:00 99.3 F 79 29 H 121/73 93 05/26/16 03:51 76 33 H 111/87 92 05/26/16 03:41 82 16 111/87 94 05/26/16 03:30 93 H 18 111/87 95 05/26/16 03:21 77 25 H 147/124 93 05/26/16 03:11 79 17 147/124 94 05/26/16 03:00 75 30 H 147/124 96 05/26/16 02:51 81 18 142/110 99 05/26/16 02:41 79 10 L 142/110 97 05/26/16 02:31 79 21 142/110 96 05/26/16 02:21 93 H 17 127/75 96 05/26/16 02:11 76 31 H 117/69 96 05/26/16 02:00 72 21 117/69 92 05/26/16 01:51 73 27 H 108/68 93 05/26/16 01:41 73 27 H 132/72 94 05/26/16 01:31 74 25 H 132/72 94 05/26/16 01:21 73 24 132/72 94 05/26/16 01:11 73 19 126/48 97 05/26/16 01:00 72 21 126/48 97 05/26/16 00:51 72 22 113/73 95 05/26/16 00:41 72 14 124/72 94 05/26/16 00:35 18 05/26/16 00:30 72 26 H 124/72 94 05/26/16 00:21 74 25 H 118/78 98 05/26/16 00:11 70 25 H 125/69 98 05/26/16 00:00 77 17 125/69 96 05/25/16 23:51 73 24 125/86 99 05/25/16 23:41 75 21 126/77 99 05/25/16 23:30 76 19 126/77 91 05/25/16 23:21 74 22 127/78 82 L 05/25/16 23:11 73 21 126/82 84 05/25/16 23:00 75 21 126/82 85 05/25/16 22:51 70 23 122/87 97 05/25/16 22:41 70 22 121/81 98 05/25/16 22:30 74 26 H 121/81 96 05/25/16 22:21 71 22 120/80 97 05/25/16 22:11 71 22 126/81 97 05/25/16 22:00 98.5 F 71 21 126/81 98 05/25/16 21:51 70 26 H 116/72 98 05/25/16 21:41 72 20 119/75 97 05/25/16 21:31 70 12 119/75 98 05/25/16 21:21 74 15 119/75 98 05/25/16 21:11 73 25 H 121/74 96 05/25/16 21:00 74 17 121/74 97 05/25/16 20:51 72 22 124/75 99 05/25/16 20:41 70 20 112/72 99 05/25/16 20:30 71 28 H 112/72 88 05/25/16 20:21 71 24 118/74 98 05/25/16 20:11 71 21 115/75 92 05/25/16 20:00 70 72 22 115/75 90 05/25/16 19:51 71 29 H 106/67 89 05/25/16 19:41 71 14 98/68 94 05/25/16 19:31 73 12 98/68 93 05/25/16 19:21 71 13 106/67 95 05/25/16 19:11 72 18 106/68 92 05/25/16 19:00 78 12 106/68 96 05/25/16 18:51 71 13 98/64 97 05/25/16 18:41 74 13 110/68 95 05/25/16 18:32 99.5 F 05/25/16 18:31 75 19 110/68 92 05/25/16 18:27 75 05/25/16 16:23 14 - Physical Examination HEENT: Positive: PERRL, Normocephaly, Mucus Membranes Moist Neck: Positive: neck supple, trachea midline Neuro: Positive: Grossly Intact, Cranial Nerve 2-12 Intact Abdomen: Positive: Unremarkable, Soft, Active Bowel Sounds Skin: Positive: Clear. Negative: Rash, Wound Musculoskeletal: No Fluid Collection, No Pain, Normal Range of Motion Extremities: Present: normal, upper extr. pulses, lower extr. pulses. Absent: edema - Labs and Meds Cardiac Enzymes 05/25/16 Range/Units 19:42 CK-MB (CK-2) 7.3 H (0.0-4.0) ng/mL Comprehensive Metabolic Panel 05/25/16 05/26/16 Range/Units 19:42 07:32 Sodium 131 L 132 L (137-145) mmol/L Potassium 4.7 5.3 H (3.6-5.0) mmol/L Chloride 93.6 L 95.9 L (98-107) mmol/L Carbon Dioxide 25 22 (22-30) mmol/L BUN 29 H 31 H (7-17) mg/dL Creatinine 1.0 1.1 (0.7-1.2) mg/dL Glucose 221 H 289 H (65-100) mg/dL Calcium 8.0 L 8.6 (8.4-10.2) mg/dL - Imaging and Cardiology EKG: report reviewed, image reviewed Echo: report reviewed (03/2015: EF 50 - 55%, mild MR, RVSP 46.7) Cardiac cath: report reviewed - EKG Sinus rhythms and dysrhythmias: sinus rhythm Repolarization changes or abnormalities: ST or T wave suggestive of ischemia, ST suggestive of injury Myocardial infarction: inferior CO (old age inde
[2016-05-26] MEDS ORDERED: HEPARIN 10,000 UNITS/10 ML IV ONE (16:48)
[2016-05-26] MEDS: HEPARIN/ 0.45% NACL-25,000 UNIT/500 ML 25,000 UNIT/500 ML BAG IV SCH (21:18)
[2016-05-27] MEDS: DILAUDID IV PRN ×7 (00:26→20:40)
[2016-05-27] MEDS: ATIVAN IV PRN (00:28)
[2016-05-27] MEDS: NEURONTIN PO SCH ×3 (05:35→22:48)
[2016-05-27 05:52] LABS: Hematocrit 31.5 % (30.3-42.9); Hemoglobin 10.2 gm/dl (10.1-14.3)
[2016-05-27] MEDS: PLAVIX PO SCH (09:51)
[2016-05-27] MEDS: PEPCID IV SCH ×2 (09:51→22:48)
[2016-05-27] MEDS: BABY ASPIRIN PO SCH (09:51)
[2016-05-27] MEDS: MONOKET PO SCH (09:51)
--- NOTE | 2016-05-27 11:13 | Progress Note ---
Assessment and Plan The patient is a 55YO female with a past medical history significant for HTN, HLP, DM, [place] x 2, nonobstructive CAD, obesity. She presented with c/o abdominal pain, n/v x 4 days [employer] and chest pain x 2 days [employer]. She describes her abdominal pain as a diffuse aching pain. She describes her chest pain as a constant, nonexertional, nonradiating, right-sided stabbing pain and left-sided pressure. The left-sided chest pressure is aggravated by palpation. She denies any precipitating factors associated with her symptoms and reports that she was at rest when she noted the onset of her chest pain. She reports that the pain is sometimes associated with SOB, n/v, and palpitations. She denies any diaphoresis , dizziness, or syncope. She has not been compliant with her OP cardiology follow up. She underwent LHC in 09/[address] Jacinto which revealed distal LAD diffuse disease, 60% mid LAD stenosis, luminal irregularities in left circ and RCA. Assessment: NSTEMI Abdominal pain / n/v - abdominal CT with NAF, large pelvic mass most likely uterine fibroid per radiology. Nonobstructive CAD H/o HTN HLP DM Obesity Noncompliance with OP follow up Plan: Agree with heparin gtt. Initiate ASA 81, plavix, and lipitor. Hold on BB at this time in setting of borderline hypotension. F/u echo. 05/26/2016>patient continues to epigastric/chest pain intermittently,after adjusting her medications including Ativan/Narco,dilaudid her symptoms are better .denies any chest pain at this time,has mildly elevated,significance o fthis is not clear. 05/27/2016>continues to have abdominal discomfort,no chest pain,Patient is agreeable for cath. Would plan for cath on Saturday. Subjective Date of service: 05/27/16 Interval history: c/o of abdominal discomfort and right flank pain,no chest pain. Objective Vital Signs Temp Pulse Pulse Pulse Pulse Resp Resp 05/27/16 08:00 99.9 F H 79 79 24 05/27/16 07:51 77 26 H 05/27/16 07:41 79 28 H 05/27/16 07:30 81 23 05/27/16 07:21 80 27 H 05/27/16 07:11 76 24 05/27/16 07:00 76 26 H 05/27/16 06:51 75 31 H 05/27/16 06:41 74 25 H 05/27/16 06:30 76 27 H 05/27/16 06:21 81 28 H 05/27/16 06:11 79 27 H 05/27/16 06:00 78 26 H 05/27/16 05:51 77 24 05/27/16 05:41 77 24 05/27/16 05:30 78 26 H 05/27/16 05:21 77 25 H 05/27/16 05:16 26 H 05/27/16 05:11 77 26 H 05/27/16 05:00 77 25 H 05/27/16 04:51 78 27 H 05/27/16 04:46 20 05/27/16 04:41 81 24 05/27/16 04:31 85 15 05/27/16 04:21 88 78 32 H 05/27/16 04:11 81 19 05/27/16 04:01 79 15 05/27/16 04:00 99.9 F H 05/27/16 03:51 79 26 H 05/27/16 03:41 81 28 H 05/27/16 03:30 78 24 05/27/16 03:21 76 26 H 05/27/16 03:11 77 24 05/27/16 03:00 82 24 05/27/16 02:51 77 24 05/27/16 02:41 77 25 H 05/27/16 02:30 75 24 05/27/16 02:21 76 23 05/27/16 02:11 76 23 05/27/16 02:00 76 23 05/27/16 01:51 76 23 05/27/16 01:41 75 23 05/27/16 01:30 75 22 05/27/16 01:21 75 23 05/27/16 01:11 75 23 05/27/16 01:00 75 22 05/27/16 00:56 22 05/27/16 00:51 74 25 H 05/27/16 00:41 76 22 05/27/16 00:39 75 24 05/27/16 00:36 84 22 05/27/16 00:30 82 25 H 05/27/16 00:27 20 05/27/16 00:26 20 05/27/16 00:21 83 16 05/27/16 00:11 81 28 H 05/27/16 00:00 99.3 F 81 27 H 05/26/16 23:51 80 27 H 05/26/16 23:41 79 26 H 05/26/16 23:30 80 27 H 05/26/16 23:21 80 27 H 05/26/16 23:11 82 28 H 05/26/16 23:00 85 23 05/26/16 22:51 83 29 H 05/26/16 22:41 81 28 H 05/26/16 22:30 83 26 H 05/26/16 22:21 80 24 05/26/16 22:11 78 24 05/26/16 22:00 79 26 H 05/26/16 21:51 80 26 H 05/26/16 21:41 80 25 H 05/26/16 21:30 82 26 H 05/26/16 21:21 81 28 H 05/26/16 21:11 84 29 H 05/26/16 21:02 31 H 05/26/16 21:01 91 H 31 H 05/26/16 21:00 91 H 31 H 24 05/26/16 20:53 05/26/16 20:51 94 H 15 05/26/16 20:41 87 24 05/26/16 20:31 87 35 H 05/26/16 20:21 05/26/16 20:11 86 16 05/26/16 20:01 87 28 H 05/26/16 19:51 98.9 F 77 25 H 05/26/16 19:41 77 23 05/26/16 19:30 76 24 05/26/16 19:21 76 25 H 05/26/16 19:11 76 26 H 05/26/16 19:00 76 25 H 05/26/16 18:51 77 25 H 05/26/16 18:41 79 26 H 05/26/16 18:30 79 25 H 05/26/16 18:21 78 25 H 05/26/16 18:11 78 24 05/26/16 18:00 78 27 H 05/26/16 17:51 78 23 05/26/16 17:44 22 05/26/16 17:41 78 31 H 05/26/16 17:30 83 27 H 05/26/16 17:23 88 15 05/26/16 17:11 81 14 05/26/16 17:00 80 24 05/26/16 16:51 79 28 H 05/26/16 16:41 79 10 L 05/26/16 16:30 81 19 05/26/16 16:21 78 27 H 05/26/16 16:11 79 22 05/26/16 16:01 84 20 05/26/16 16:00 99.1 F 97 H 23 05/26/16 15:51 81 20 05/26/16 15:41 79 28 H 05/26/16 15:39 22 05/26/16 15:30 77 22 05/26/16 15:21 78 25 H 05/26/16 15:11 79 25 H 05/26/16 15:09 20 05/26/16 15:00 82 27 H 05/26/16 14:51 83 27 H 05/26/16 14:41 82 27 H 05/26/16 14:30 80 17 05/26/16 14:21 78 17 05/26/16 14:15 22 05/26/16 14:11 78 20 05/26/16 14:01 79 22 05/26/16 14:00 82 20 05/26/16 13:51 77 25 H 05/26/16 13:41 75 29 H 05/26/16 13:30 77 25 H 05/26/16 13:21 78 26 H 05/26/16 13:11 79 28 H 05/26/16 13:00 79 11 L 05/26/16 12:51 78 18 05/26/16 12:41 77 28 H 05/26/16 12:30 78 28 H 05/26/16 12:21 83 10 L 05/26/16 12:11 87 16 05/26/16 12:00 99.3 F 84 86 28 H 05/26/16 11:51 89 26 H 05/26/16 11:41 81 30 H 05/26/16 11:30 87 28 H 05/26/16 11:21 80 28 H 05/26/16 11:11 81 22 BP Pulse Ox 05/27/16 08:00 114/58 95 05/27/16 07:51 112/55 93 05/27/16 07:41 112/55 94 05/27/16 07:30 112/55 92 17 07:21 112/63 96 1617 07:11 112/63 96 17 07:00 96/49 94 17 06:51 86/47 96 1617 06:41 86/47 96 1617 06:30 112/63 94 1617 06:21 93/33 97 1617 06:11 93/33 96 17 06:00 86/47 92 17 05:51 93/33 94 1617 05:41 93/33 94 1617 05:30 93/33 92 1617 05:21 92/59 94 05/27/16 05:16 05/27/16 05:11 92/59 95 17 05:00 92/59 93 05/27/16 04:51 101/50 94 1617 04:46 05/27/16 04:41 101/50 94 05/27/16 04:31 104/41 17 04:21 104/41 97 17 04:11 104/41 98 17 04:01 104/41 96 05/27/16 04:00 05/27/16 03:51 115/77 96 05/27/16 03:41 115/77 98 1617 03:30 115/77 97 05/27/16 03:21 109/69 97 1617 03:11 109/69 97 05/27/16 03:00 109/69 98 05/27/16 02:51 115/66 97 17 02:41 115/66 96 17 02:30 115/66 96 17 02:21 111/76 96 17 02:11 111/76 97 05/27/16 02:00 111/76 96 05/27/16 01:51 103/49 98 1617 01:41 103/49 98 1617 01:30 103/49 97 1617 01:21 112/38 98 17 01:11 112/38 98 17 01:00 112/38 97 05/27/16 00:56 05/27/16 00:51 131/73 98 05/27/16 00:41 131/73 97 05/27/16 00:39 131/73 97 05/27/16 00:36 98 05/27/16 00:30 131/73 95 05/27/16 00:27 05/27/16 00:26 05/27/16 00:21 126/78 96 05/27/16 00:11 126/78 96 05/27/16 00:00 126/78 96 05/26/16 23:51 125/73 98 05/26/16 23:41 125/73 98 05/26/16 23:30 120/63 100 05/26/16 23:21 125/73 96 05/26/16 23:11 125/73 96 05/26/16 23:00 125/73 96 05/26/16 22:51 128/73 95 05/26/16 22:41 128/73 96 05/26/16 22:30 128/73 96 05/26/16 22:21 115/65 96 05/26/16 22:11 115/65 97 05/26/16 22:00 115/65 98 05/26/16 21:51 114/58 95 05/26/16 21:41 114/58 94 05/26/16 21:30 114/58 94 05/26/16 21:21 127/78 94 05/26/16 21:11 127/78 93 05/26/16 21:02 05/26/16 21:01 122/67 93 05/26/16 21:00 93 05/26/16 20:53 94 05/26/16 20:51 122/67 95 05/26/16 20:41 122/67 94 05/26/16 20:31 122/67 94 05/26/16 20:21 134/100 93 05/26/16 20:11 134/100 95 05/26/16 20:01 134/100 96 05/26/16 19:51 136/69 96 05/26/16 19:41 136/69 95 05/26/16 19:30 136/69 93 05/26/16 19:21 121/77 96 05/26/16 19:11 121/77 96 05/26/16 19:00 121/77 94 05/26/16 18:51 131/84 96 05/26/16 18:41 131/84 95 05/26/16 18:30 131/84 93 05/26/16 18:21 130/73 95 05/26/16 18:11 130/73 95 05/26/16 18:00 130/73 93 05/26/16 17:51 123/81 93 05/26/16 17:44 05/26/16 17:41 137/79 91 05/26/16 17:30 137/79 92 05/26/16 17:23 123/81 95 05/26/16 17:11 123/81 97 05/26/16 17:00 123/81 95 05/26/16 16:51 124/70 94 05/26/16 16:41 124/70 96 05/26/16 16:30 124/70 96 05/26/16 16:21 123/86 96 05/26/16 16:11 123/86 91 05/26/16 16:01 124/82 94 05/26/16 16:00 97 05/26/16 15:51 124/82 96 05/26/16 15:41 124/82 95 05/26/16 15:39 05/26/16 15:30 124/82 96 05/26/16 15:21 129/76 96 05/26/16 15:11 129/76 92 05/26/16 15:09 05/26/16 15:00 129/76 91 05/26/16 14:51 120/72 95 05/26/16 14:41 120/72 94 05/26/16 14:30 120/72 80 L 05/26/16 14:21 133/63 93 05/26/16 14:15 05/26/16 14:11 133/63 89 05/26/16 14:01 133/63 90 05/26/16 14:00 98 05/26/16 13:51 117/73 87 05/26/16 13:41 117/73 92 05/26/16 13:30 117/73 93 05/26/16 13:21 125/74 94 05/26/16 13:11 125/74 91 05/26/16 13:00 125/74 96 05/26/16 12:51 127/75 96 05/26/16 12:41 127/75 94 05/26/16 12:30 127/75 94 05/26/16 12:21 143/98 92 05/26/16 12:11 143/98 91 05/26/16 12:00 143/98 95 05/26/16 11:51 141/89 95 05/26/16 11:41 141/89 93 05/26/16 11:30 141/89 95 05/26/16 11:21 132/77 92 05/26/16 11:11 132/77 93 - Physical Examination HEENT: Positive: PERRL, Normocephaly, Mucus Membranes Moist Neck: Positive: neck supple, trachea midline Cardiac: Positive: Reg Rate and Rhythm Lungs: Positive: Normal Breath Sounds Neuro: Positive: Grossly Intact, Cranial Nerve 2-12 Intact Abdomen: Positive: Unremarkable, Soft, Active Bowel Sounds Skin: Positive: Clear. Negative: Rash, Wound Musculoskeletal: No Fluid Collection, No Pain, Normal Range of Motion Extremities: Present: normal, upper extr. pulses, lower extr. pulses. Absent: edema - Labs and Meds CBC 05/27/16 Range/Units 04:48 Hgb 10.2 (10.1-14.3) gm/dl Hct 31.5 (30.3-42.9) % Plt Count 169 (140-440) K/mm3 - Imaging and Cardiology EKG: report reviewed, image reviewed Echo: report reviewed (03/2015: EF 50 - 55%, mild MR, RVSP 46.7) Cardiac cath: report reviewed - EKG Sinus rhythms and dysrhythmias: sinus rhythm Repolarization changes or abnormalities: ST or T wave suggestive of ischemia, ST suggestive of injury Myocardial infarction: inferior IN (old age inde
[2016-05-27] MEDS: HEPARIN/ 0.45% NACL-25,000 UNIT/500 ML 25,000 UNIT/500 ML BAG IV SCH (11:37)
[2016-05-27] MEDS ORDERED: NACL 0.9% 500 ML 500 ML IV SCH (12:00)
--- NOTE | 2016-05-27 16:54 | Gastroenterology Consultation ---
History of Present Illness - Reason for Consult Consult date: 05/27/16 chest/epigastric pain Requesting physician: DAPHNE VELA - History of Present Illness Ms Flores is a 55 yo aaf with h/o CAD presents with epigastric/substernal chest pain and nausea/vomitting. Pt states she first had intermittent episodes of epigastric/chest pain starting several months ago, however persisted and worsened over the last 2-4 days. The pain occurs at rest and exertion, occasionally associated with meals. Denies dysphagia. + significant chronic nsaid use (daily aleve for headaches). Denies signs of gi bleeding. Pt found to have elevated troponin/ekg changes and is being treated for nstemi. Past History Past Medical History: acute AR, CAD, diabetes, heart failure, hypertension, hyperlipidemia Social history: denies: smoking, alcohol abuse, prescription drug abuse Medications and Allergies Allergies Allergy/AdvReac Type Severity Reaction Status Date / Time No Known Allergies Allergy Verified 05/25/16 00:37 Home Medications Medication Instructions Recorded Confirmed Last Taken Type Atorvastatin [Lipitor] 40 mg PO QHS 05/19/13 05/25/16 10/13/13 21:00 History Insulin NPH Hum/Reg Insulin Hm 80 unit SQ QAM 05/19/13 05/25/16 05/18/13 History [NovoLIN 70-30 100 Unit/ml Vial] Insulin NPH/Regular [NovoLIN 70/30] 70 units SUB-Q QHS 05/19/13 05/25/16 History Isosorbide Mononitrate 10 mg PO DAILY 05/19/13 05/25/16 10/14/13 10:30 History 10 Sertraline [Zoloft] 50 mg PO QDAY 05/19/13 05/25/16 10/14/13 10:30 History 50 metFORMIN XR [Glucophage XR] 1,000 mg PO BID 05/19/13 05/25/16 05/18/13 History Hyoscyamine Subl [Levsin Sl 0.125 0.125 mg SL Q6HR PRN #14 tablet 05/20/1305/25 Unknown Rx TAB] Promethazine [Phenergan TAB] 25 mg PO Q6H PRN #10 tablet 05/20/13 05/25/16 Unknown Rx HYDROcodone/APAP 5-325 [[place] 1 each PO Q6HR PRN #14 tablet 09/14/15 05/25/16 Unknown Rx 5-325 mg TAB] AtorvaSTATin [Lipitor] 40 mg PO QDAY 11/01/15 05/25/16 Unknown History Furosemide [Lasix TAB] 40 mg PO DAILY 11/01/15 05/25/16 Unknown History Gabapentin [Neurontin] 400 mg PO Q8HR 11/01/15 05/25/16 Unknown History Promethazine [Phenergan TAB] 25 mg PO Q6HR PRN 11/01/15 05/25/16 Unknown History Vitamin D 1 tab PO DAILY 11/01/15 05/25/16 Unknown History Aspirin EC [Aspirin Enteric Coated 81 mg PO QDAY #30 tablet. 11/03/15 Unknown Rx TAB] Carvedilol [Coreg] 3.125 mg PO BID #60 tablet 11/03/15 05/25/16 Unknown Rx Famotidine [Pepcid] 20 mg PO BID #60 tablet 11/03/15 05/25/16 Unknown Rx Active Meds: Active Medications Acetaminophen (Tylenol) 650 mg PO Q4H PRN PRN Reason: For Pain/Fever/Headache Last Admin: 05/26/16 00:35 Dose: 650 mg Acetaminophen/Hydrocodone Bitart ([place] 5/325) 1 each PO Q6HR PRN PRN Reason: Pain Al Hydrox/Mg Hydrox/Simethicone (Alum-Mag Hydrox-Simeth [id number]/5ml) 30 ml PO Q4H PRN PRN Reason: Indigestion Last Admin: 05/26/16 14:13 Dose: 30 ml Aspirin (Baby Aspirin) 81 mg PO QDAY [facility] Last Admin: 05/27/16 09:51 Dose: 81 mg Atorvastatin Calcium (Lipitor) 40 mg PO QHS [facility] Last Admin: 05/26/16 21:04 Dose: 40 mg Clopidogrel Bisulfate (Plavix) 75 mg PO QDAY [facility] Last Admin: 05/27/16 09:51 Dose: 75 mg Dextrose (D50w (25gm)) 50 ml IV PRN PRN PRN Reason: Hypoglycemia Famotidine (Pepcid) 20 mg IV BID [facility] Last Admin: 05/27/16 09:51 Dose: 20 mg Gabapentin (Neurontin) 400 mg PO Q8HR [facility] Last Admin: 05/27/16 13:46 Dose: 400 mg Hydromorphone HCl (Dilaudid) 1 mg IV Q2H PRN PRN Reason: Pain , Severe (7-10) Last Admin: 05/27/16 14:46 Dose: 1 mg Hyoscyamine (Levsin Sl) 0.125 mg SL Q6HR PRN PRN Reason: Pain Heparin Sodium/Sodium Chloride (Heparin/ 0.45% Nacl-25,000 Unit/500 Ml) 25,000 unit in 500 mls @ 20 mls/hr IV TITRATE [facility]; 1,000 UNITS/HR PRN Reason: Protocol Last Admin: 05/27/16 11:37 Dose: 1,750 units/hr, 35 mls/hr Sodium Chloride (Nacl 0.9% 1000 Ml) 1,000 mls @ 100 mls/hr IV DIRECT [facility] Nitroglycerin/Dextrose (Tridil Drip 50mg/250ml) 50 mg in 250 mls @ 3 mls/hr IV TITR [facility] PRN Reason: 10 MCG/MIN Sodium Chloride (Nacl 0.9% 500 Ml) 500 mls @ 50 mls/hr IV DIRECT BRINA Stop: 05/27/16 21:59 Last Admin: 05/27/16 11:32 Dose: 50 mls/hr Insulin Human Regular (Novolin R) 0 units SUB-Q Q4HR BRINA PRN Reason: Protocol Last Admin: 05/27/16 13:46 Dose: 4 units Isosorbide Mononitrate (Monoket) 10 mg PO DAILY BRINA Last Admin: 05/27/16 09:51 Dose: 10 mg Lorazepam (Ativan) 0.5 mg IV Q4H PRN PRN Reason: Anxiety Last Admin: 05/27/16 00:28 Dose: 0.5 mg Nitroglycerin (Nitrostat) 0.4 mg SL Q5M PRN PRN Reason: Chest pain Last Admin: 05/25/16 13:22 Dose: 0.4 mg Ondansetron HCl (Zofran) 4 mg IV Q6H PRN PRN Reason: Nausea Last Admin: 05/26/16 21:02 Dose: 4 mg Prochlorperazine Edisylate (Compazine) 10 mg IV Q6H PRN PRN Reason: Nausea And Vomiting Review of Systems - Review of Systems All systems: negative (per HPI) Exam - Constitutional Vital Signs: Temp Pulse Resp BP Pulse Ox 98.5 F 74 25 H 111/63 93 05/27/16 12:00 05/27/16 15:51 05/27/16 15:51 05/27/16 15:51 05/27/16 15:51 General appearance: no acute distress, well-nourished - EENT Eyes: PERRL, EOM intact ENT: hearing intact, clear oral mucosa - Neck Neck: supple, normal ROM - Respiratory Respiratory effort: normal Respiratory: bilateral: CTA - Cardiovascular Rhythm: regular Heart Sounds: Present: S1 & S2 Extremities: No edema - Gastrointestinal General gastrointestinal: Present: soft, non-tender, non-distended, normal bowel sounds - Integumentary Integumentary: Present: clear, warm - Musculoskeletal Musculoskeletal: deferred - Neurologic Neurological: alert and oriented x3 - Psychiatric Psychiatric: appropriate mood/affect - Labs CBC & Chem 7: 05/27/16 04:48 05/26/16 07:32 Lab Results: Laboratory Results - last 24 hr 05/26/16 05/26/16 05/26/16 09:40 14:04 17:38 Hgb Hct Plt Count Heparin Anti-Xa Level POC Glucose 334 H 320 H 301 H 05/26/16 05/26/16 05/27/16 21:43 22:52 02:56 Hgb Hct Plt Count Heparin Anti-Xa Level 0.28 L POC Glucose 307 H 202 H 05/27/16 05/27/16 05/27/16 04:48 05:27 05:32 Hgb 10.2 Hct 31.5 Plt Count 169 Heparin Anti-Xa Level POC Glucose 199 H 222 H 05/27/16 05/27/16 07:45 10:11 Hgb Hct Plt Count Heparin Anti-Xa Level 0.33 POC Glucose 228 H Assessment and Plan 55 yo aaf with h/o CAD/prior AR presents with epigastric/chest pain and found to have nstemi. Noted plans for LHC tomorrow. Pt's pain was felt to be atypical for ACS, and GI consulted to assess for other possible etiologies. Would still favor cardiac etiology however, and must be ruled out prior to GI work-up. If symptoms persists, and felt to be unrelated to cardiac source, can consider further work-up (PUD evaluation given significant nsaid use, pancreatic /biliary source, vascular etiology, etc). Will f/u after cath, and provide further recommendations at that time.
[2016-05-27] MEDS: ZOFRAN IV PRN (17:16)
[2016-05-27] MEDS: TYLENOL PO PRN (20:37)
[2016-05-27] MEDS: ALUM-MAG HYDROX-SIMETH 200-200-20MG/5ML PO PRN (20:41)
[2016-05-27] MEDS: NACL 0.9% 1000 ML 1,000 ML IV SCH (20:55)
[2016-05-28] MEDS: DILAUDID IV PRN ×7 (02:55→23:38)
[2016-05-28] MEDS: ATIVAN IV PRN ×2 (03:05→23:38)
[2016-05-28] MEDS: HEPARIN/ 0.45% NACL-25,000 UNIT/500 ML 25,000 UNIT/500 ML BAG IV SCH (03:10)
[2016-05-28 05:52] LABS: Hematocrit 30.2 % (30.3-42.9); Hemoglobin 9.6 gm/dl (10.1-14.3); Mean Corpuscular HGB Conc 32 % (30-34); Mean Corpuscular Volume 80 fl (79-97); Platelet Count 163 K/mm3 (140-440); Red Blood Count 3.79 M/mm3 (3.65-5.03); White Blood Count 12.5 K/mm3 (4.5-11.0)
[2016-05-28 05:59] LABS: Mean Corpuscular Hemoglobin 25 pg (28-32)
[2016-05-28 06:06] LABS: BUN/Creatinine Ratio 27.64; Calcium 8.4 mg/dL (8.4-10.2); Chloride 94.4 mmol/L (98-107); INR 1.21 (0.87-1.13); Potassium 5.3 mmol/L (3.6-5.0)
[2016-05-28] MEDS: NEURONTIN PO SCH ×2 (06:13→22:04)
[2016-05-28 06:26] LABS: Partial Thromboplastin Time 73.5 Sec. (24.2-36.6)
--- NOTE | 2016-05-28 09:10 | Progress Note ---
Assessment and Plan Assessment: NSTEMI Abdominal pain / n/v - abdominal CT with NAF, large pelvic mass most likely uterine fibroid per radiology; GI following. Nonobstructive CAD - LHC in 09/[address] Jacinto which revealed distal LAD diffuse disease, 60% mid LAD stenosis, luminal irregularities in left circ and RCA H/o HTN HLP DM Obesity Noncompliance with OP follow up Anxiety Plan: Cont current medical management, including heparin gtt, ASA 81, plavix, Imdur, and lipitor. BB held at this time in setting of borderline hypotension. Pt has been NPO since CO with plans for LHC today. However, serum Cr is elevated at 1.7. Will repeat STAT BUN/CR and depending on results, may either proceed or post-pone LHC this AM. Assessment and plan reviewed with pt at bedside. The patient has been seen in conjunction with Dr. LEILA Carolina who agrees with the assessment and plan of care. Subjective Date of service: 05/28/16 Principal diagnosis: NSTEMI Interval history: Pt resting in bed, c/o epigastric pain. VSS. Has been NPO since CO for possible LHC today. Objective Vital Signs Temp Pulse Pulse Pulse Pulse Resp Resp 05/28/16 08:13 100.5 F H 76 18 05/28/16 06:40 18 05/28/16 06:22 98.5 F 83 18 05/28/16 06:10 20 05/28/16 03:25 20 05/28/16 02:55 22 05/28/16 01:29 99.5 F 71 20 05/27/16 22:00 05/27/16 21:37 20 05/27/16 21:34 101.3 F H 77 20 05/27/16 21:10 20 05/27/16 20:41 24 05/27/16 20:40 70 24 22 05/27/16 20:37 24 05/27/16 19:24 79 05/27/16 17:16 18 05/27/16 17:00 99.4 F 77 20 05/27/16 15:51 74 25 H 05/27/16 15:41 76 25 H 05/27/16 15:30 80 19 05/27/16 15:21 78 22 05/27/16 15:11 74 21 05/27/16 15:00 74 22 05/27/16 14:51 72 16 05/27/16 14:41 76 15 05/27/16 14:30 75 24 05/27/16 14:21 77 18 05/27/16 14:11 76 25 H 05/27/16 14:00 77 21 05/27/16 13:51 79 22 05/27/16 13:41 75 17 05/27/16 13:30 74 20 05/27/16 13:20 77 16 05/27/16 13:11 73 21 05/27/16 13:00 73 21 05/27/16 12:51 73 22 05/27/16 12:41 74 22 05/27/16 12:30 74 20 05/27/16 12:21 74 22 05/27/16 12:11 74 25 H 05/27/16 12:00 98.5 F 77 77 11 L 05/27/16 11:51 76 11 L 05/27/16 11:41 75 17 05/27/16 11:30 73 16 05/27/16 11:21 05/27/16 11:11 05/27/16 11:00 75 05/27/16 10:51 05/27/16 10:41 05/27/16 10:30 79 25 H 05/27/16 10:21 79 25 H 05/27/16 10:11 77 29 H 05/27/16 10:00 79 26 H 26 H 05/27/16 09:51 77 24 05/27/16 09:41 74 22 05/27/16 09:30 74 29 H 05/27/16 09:21 75 19 05/27/16 09:11 74 19 BP BP Pulse Ox 05/28/16 08:13 102/85 94 05/28/16 06:40 05/28/16 06:22 121/73 98 05/28/16 06:10 05/28/16 03:25 05/28/16 02:55 05/28/16 01:29 101/69 100 05/27/16 22:00 100 05/27/16 21:37 05/27/16 21:34 93/59 97 05/27/16 21:10 05/27/16 20:41 05/27/16 20:40 98 05/27/16 20:37 05/27/16 19:24 05/27/16 17:16 16 17:00 105/64 100 1617 15:51 111/63 93 1617 15:41 111/63 97 1617 15:30 111/63 88 16/17 15:21 111/74 94 1617 15:11 111/74 96 1617 15:00 111/74 95 16 14:51 117/73 97 16 14:41 117/73 98 1617 14:30 117/73 97 16 14:21 116/67 98 16 14:11 116/67 98 16 14:00 116/67 95 16 13:51 109/65 97 16 13:41 109/65 99 16 13:30 109/65 96 16 13:20 104/64 98 05/27/16 13:11 104/64 96 05/27/16 13:00 104/64 95 05/27/16 12:51 109/68 96 05/27/16 12:41 109/68 95 16 12:30 109/68 94 05/27/16 12:21 119/72 94 16 12:11 119/72 95 16 12:00 119/72 96 05/27/16 11:51 101/59 95 1617 11:41 101/59 97 05/27/16 11:30 101/59 94 05/27/16 11:21 104/66 98 05/27/16 11:11 104/66 95 1617 11:00 104/66 96 05/27/16 10:51 123/73 97 1617 10:41 123/73 94 1617 10:30 123/73 95 1617 10:21 118/65 96 16 10:11 118/65 97 1617 10:00 118/65 94 16 09:51 104/50 96 1617 09:41 104/50 95 1617 09:30 104/50 93 16 09:21 101/57 95 05/27/16 09:11 95 - Physical Examination HEENT: Positive: PERRL, Normocephaly, Mucus Membranes Moist Neck: Positive: neck supple, trachea midline Neuro: Positive: Grossly Intact, Cranial Nerve 2-12 Intact Abdomen: Positive: Unremarkable, Soft, Active Bowel Sounds Skin: Positive: Clear. Negative: Rash, Wound Musculoskeletal: No Fluid Collection, No Pain, Normal Range of Motion Extremities: Present: normal, upper extr. pulses, lower extr. pulses. Absent: edema - Labs and Meds Coagulation 05/28/16 Range/Units 05:23 PT 15.2 H (12.2-14.9) Sec. INR 1.21 H (0.87-1.13) APTT 73.5 H* (24.2-36.6) Sec. CBC 05/28/16 Range/Units 05:23 WBC 12.5 H (4.5-11.0) K/mm3 RBC 3.79 (3.65-5.03) M/mm3 Hgb 9.6 L (10.1-14.3) gm/dl Hct 30.2 L (30.3-42.9) % Plt Count 163 (140-440) K/mm3 Comprehensive Metabolic Panel 05/28/16 Range/Units 05:23 Sodium 131 L (137-145) mmol/L Potassium 5.3 H (3.6-5.0) mmol/L Chloride 94.4 L (98-107) mmol/L Carbon Dioxide 23 (22-30) mmol/L BUN 47 H (7-17) mg/dL Creatinine 1.7 H D (0.7-1.2) mg/dL Glucose 192 H (65-100) mg/dL Calcium 8.4 (8.4-10.2) mg/dL - Imaging and Cardiology EKG: report reviewed, image reviewed Echo: report reviewed (05/25/2016: EF 50 - 55%, mild to moderate MR, LA mildly dilated, mild TR) Cardiac cath: report reviewed - EKG Sinus rhythms and dysrhythmias: sinus rhythm Repolarization changes or abnormalities: ST or T wave suggestive of ischemia, ST suggestive of injury Myocardial infarction: inferior VA (old age inde
[2016-05-28] MEDS: PEPCID IV SCH (09:39)
--- NOTE | 2016-05-28 09:49 | Event Note ---
Date: 05/28/16 Repeat BUN/Cr remain elevated. Will post-pone LHC and reschedule for tomorrow AM. NPO after MN. D/c heparin gtt and initiate SQ heparin for DVT prophylaxis. Cont NS @ 100mL/ hr. Repeat AM labs. Plan reviewed with pt and primary RN at bedside. Sherrill ALBRIGHT NP / DR. SPARKS
[2016-05-28] MEDS: BABY ASPIRIN PO SCH (09:50)
[2016-05-28] MEDS: MONOKET PO SCH (09:50)
[2016-05-28] MEDS: PLAVIX PO SCH (09:51)
[2016-05-28] MEDS: NORCO 5/325 PO PRN (11:10)
[2016-05-28] MEDS ORDERED: KIONEX PO ONE ×2 (11:24→14:00)
--- NOTE | 2016-05-28 11:24 | Consultation ---
History of Present Illness - Reason for Consult Consult date: 05/28/16 acute renal failure, hyperkalemia - History of Present Illness Patient is a 55-year-old AAf with medical history significant for Obesity, CAD/ IL, Type 2 DM, Hypertension, and Hyperlipidemia presented to the hospital with complaints of abdominal pain and chest pain. Abdominal pain has been ongoing since 2-3 days prior to presentation. The pain is across the upper abdomen and right flank area, aching in nature and fairly constant. She reports having intermittent having nausea and vomiting for the past 2-3 weeks, became constant for 2-3 days prior to presentation. There is ongoing dry heeves. Her poor PO intake for both solids and liquids has been poor for several days. Patient developed chest pain today approximately 6 PM on the day of presentation. Pain was in the right lower chest and radiated across the middle and to the left side. She was found to have NSTEMI. Preschool Adviser wants to do Cardiac cath. No h/o fever, diarrhea, melena, hematochezia, hematemesis, dysuria, hematuria, rash, leg swelling, sob, dizziness or syncope. Her creatinine increased to 1.7 today from 0.9 on admission. Potassium level is 5.3 today. patient was using NSAIDs on a daily basis. Her BP is intermittently low. Past History Past Medical History: acute IL, CAD, diabetes, heart failure, hypertension, hyperlipidemia Social history: denies: smoking, alcohol abuse, prescription drug abuse Medications and Allergies Allergies Allergy/AdvReac Type Severity Reaction Status Date / Time No Known Allergies Allergy Verified 05/25/16 00:37 Home Medications Medication Instructions Recorded Confirmed Last Taken Type Atorvastatin [Lipitor] 40 mg PO QHS 05/19/13 05/25/16 10/13/13 21:00 History Insulin NPH Hum/Reg Insulin Hm 80 unit SQ QAM 05/19/13 05/25/16 05/18/13 History [NovoLIN 70-30 100 Unit/ml Vial] Insulin NPH/Regular [NovoLIN 70/30] 70 units SUB-Q QHS 05/19/13 05/25/16 History Isosorbide Mononitrate 10 mg PO DAILY 05/19/13 05/25/16 10/14/13 10:30 History 10 Sertraline [Zoloft] 50 mg PO QDAY 05/19/13 05/25/16 10/14/13 10:30 History 50 metFORMIN XR [Glucophage XR] 1,000 mg PO BID 05/19/13 05/25/16 05/18/13 History Hyoscyamine Subl [Levsin Sl 0.125 0.125 mg SL Q6HR PRN #14 tablet 05/20/1305/25 Unknown Rx TAB] Promethazine [Phenergan TAB] 25 mg PO Q6H PRN #10 tablet 05/20/13 05/25/16 Unknown Rx HYDROcodone/APAP 5-325 [[place] 1 each PO Q6HR PRN #14 tablet 09/14/15 05/25/16 Unknown Rx 5-325 mg TAB] AtorvaSTATin [Lipitor] 40 mg PO QDAY 11/01/15 05/25/16 Unknown History Furosemide [Lasix TAB] 40 mg PO DAILY 11/01/15 05/25/16 Unknown History Gabapentin [Neurontin] 400 mg PO Q8HR 11/01/15 05/25/16 Unknown History Promethazine [Phenergan TAB] 25 mg PO Q6HR PRN 11/01/15 05/25/16 Unknown History Vitamin D 1 tab PO DAILY 11/01/15 05/25/16 Unknown History Aspirin EC [Aspirin Enteric Coated 81 mg PO QDAY #30 tablet. 11/03/15 Unknown Rx TAB] Carvedilol [Coreg] 3.125 mg PO BID #60 tablet 11/03/15 05/25/16 Unknown Rx Famotidine [Pepcid] 20 mg PO BID #60 tablet 11/03/15 05/25/16 Unknown Rx Active Meds: Active Medications Acetaminophen (Tylenol) 650 mg PO Q4H PRN PRN Reason: For Pain/Fever/Headache Last Admin: 05/27/16 20:37 Dose: 650 mg Acetaminophen/Hydrocodone Bitart ([place] 5/325) 1 each PO Q6HR PRN PRN Reason: Pain Al Hydrox/Mg Hydrox/Simethicone (Alum-Mag Hydrox-Simeth [id number]/5ml) 30 ml PO Q4H PRN PRN Reason: Indigestion Last Admin: 05/27/16 20:41 Dose: 30 ml Aspirin (Baby Aspirin) 81 mg PO QDAY BRINA Last Admin: 05/28/16 09:50 Dose: 81 mg Atorvastatin Calcium (Lipitor) 40 mg PO QHS [facility] Last Admin: 05/27/16 22:48 Dose: 40 mg Clopidogrel Bisulfate (Plavix) 75 mg PO QDAY [facility] Last Admin: 05/28/16 09:51 Dose: 75 mg Dextrose (D50w (25gm)) 50 ml IV PRN PRN PRN Reason: Hypoglycemia Famotidine (Pepcid) 20 mg IV BID [facility] Last Admin: 05/28/16 09:39 Dose: 20 mg Gabapentin (Neurontin) 400 mg PO Q8HR [facility] Last Admin: 05/28/16 06:13 Dose: 400 mg Heparin Sodium (Porcine) (Heparin) 5,000 unit SUB-Q Q8H [facility] Hydromorphone HCl (Dilaudid) 1 mg IV Q2H PRN PRN Reason: Pain , Severe (7-10) Last Admin: 05/28/16 09:39 Dose: 1 mg Hyoscyamine (Levsin Sl) 0.125 mg SL Q6HR PRN PRN Reason: Pain Sodium Chloride (Nacl 0.9% 1000 Ml) 1,000 mls @ 100 mls/hr IV DIRECT [facility] Last Admin: 05/27/16 20:55 Dose: 100 mls/hr Nitroglycerin/Dextrose (Tridil Drip 50mg/250ml) 50 mg in 250 mls @ 3 mls/hr IV TITR [facility] PRN Reason: 10 MCG/MIN Insulin Human Regular (Novolin R) 0 units SUB-Q Q4HR [facility] PRN Reason: Protocol Last Admin: 05/28/16 09:51 Dose: 3 units Isosorbide Mononitrate (Monoket) 10 mg PO DAILY [facility] Last Admin: 05/28/16 09:50 Dose: 10 mg Lorazepam (Ativan) 0.5 mg IV Q4H PRN PRN Reason: Anxiety Last Admin: 05/28/16 03:05 Dose: 0.5 mg Nitroglycerin (Nitrostat) 0.4 mg SL Q5M PRN PRN Reason: Chest pain Last Admin: 05/25/16 13:22 Dose: 0.4 mg Ondansetron HCl (Zofran) 4 mg IV Q6H PRN PRN Reason: Nausea Last Admin: 05/27/16 17:16 Dose: 4 mg Prochlorperazine Edisylate (Compazine) 10 mg IV Q6H PRN PRN Reason: Nausea And Vomiting Review of Systems Constitutional: anorexia, fatigue, poor appetite, no weight loss, no weight gain , no fever, no chills, no weakness Ears, nose, mouth and throat: no sinus pain, no epistaxis Breasts: deferred Cardiovascular: chest pain, no orthopnea, no palpitations, no edema, no lightheadedness, no shortness of breath Respiratory: no cough, no hemoptysis, no shortness of breath, no dyspnea on exertion Gastrointestinal: abdominal pain, nausea, vomiting, no diarrhea, no hematemesis , no melena Genitourinary Female: no dysuria, no hematuria Rectal: no bleeding Musculoskeletal: no neck stiffness, no neck pain Integumentary: no rash, no wounds, no boils Neurological: no paralysis, no weakness, no seizures, no syncope Psychiatric: change in appetite, no disorientation, no hallucinations Hematologic/Lymphatic: no easy bleeding Allergic/Immunologic: no urticaria Exam - Vital Signs Vital signs: Vital Signs Temp Pulse Resp BP Pulse Ox 98 F 74 16 105/70 95 05/25/16 00:40 05/25/16 00:40 05/25/16 00:40 05/25/16 00:40 05/25/16 00:40 - General Appearance General appearance: well-developed, well-nourished, appears stated age, obese, other (no distress) EENT: ATNC, PERRL, mucous membranes dry, hearing intact, vision intact Neck: Present: neck supple, trachea midline Respiratory: Clear to Ascultation Heart: regular, S1S2, no murmurs Gastrointestinal: Present: normoactive bowel sounds. Absent: tenderness, distended Integumentary: no rash, warm and dry Neurologic: no focal deficit, no asterixis, alert and oriented x3, CN 3-12 intact Musculoskeletal: Present: other (no edema) Psychiatric: mood/affect appropriate, cooperative Results - Lab Results 05/28/16 05:23 05/28/16 09:10 Most recent lab results Calcium 8.4 mg/dL (8.4-10.2) 05/28/16 05:23 - Image Kidney/bladder ultrasound: report reviewed Assessment and Plan - Patient Problems (1) DONAL (acute kidney injury) Current Visit: Yes Status: Acute Plan to address problem: Acute Kidney Injury is hemodynamicaly mediated due to volume depletion. Increase NS drip to 150 ml/hr. Monitor renal function. (2) Hyperkalemia Current Visit: Yes Status: Acute Plan to address problem: Hyperkalemia secondary to DONAL. Kayexalate ordered. Monitor potassium level. (3) NSTEMI (non-ST elevated myocardial infarction) Current Visit: Yes Status: Acute Plan to address problem: Followed by Preschool Adviser. (4) Diabetes mellitus type 2 in obese Current Visit: No Status: Chronic (5) Abdominal pain Current Visit: Yes Status: Acute Qualifiers: Abdominal location: A Plan to address problem: Followed by GI.
[2016-05-28] MEDS: HEPARIN SUB-Q SCH ×2 (14:08→20:11)
[2016-05-28] MEDS: NACL 0.9% 1000 ML 1,000 ML IV SCH ×2 (14:17→23:40)
--- NOTE | 2016-05-28 14:21 | Progress Note ---
Assessment and Plan Assessment and plan: 55F with pmh of CAD who presents with chest pain 1. NSTEMI continue heparin drip, she refused cath on Saturday, but is willing to do it on Saturday, Cardiology input appreciated, Nitrate drip on standby as needed 2. DM continue insulins 3. HTN monitor BP, optimize meds 4,. HLD continue statin 5. Abdominal Pain has a hx of gastritis rx with pain meds, pepcid, hyoscamine, - GI consult appreciated; will be considered for EGD after she has completed cardiac risk stratification CT A/P image reviewed; no acute abnormalities If she continues to improve we'll consider transferring to the floors later today Critical care time: 32 minutes History Interval history: Abdominal pain is slightly improved today, she's no longer having chest pain. Hospitalist Physical - Physical exam Narrative exam: General: Moderate distress due to pain HEENT: MMM, EOMI cardiac: S1-S2 heard lungs: clear to auscultation, abdomen: soft, nontender, nondistended bowel sounds positive extremities: no edema clubbing or cyanosis Skin: no rash or lesion Neuro: no focal deficit Psych: appropriate behavior and mood, cognition intact - Constitutional Vitals: Temp Pulse Resp BP Pulse Ox 99.8 F H 85 18 110/65 99 05/28/16 12:37 05/28/16 12:37 05/28/16 12:37 05/28/16 12:37 05/28/16 12:37 General appearance: Present: no acute distress Results - Labs CBC & Chem 7: 05/28/16 05:23 05/28/16 09:10 Labs: Laboratory Last Values WBC 12.5 K/mm3 (4.5-11.0) H 05/28/16 05:23 RBC 3.79 M/mm3 (3.65-5.03) 05/28/16 05:23 Hgb 9.6 gm/dl (10.1-14.3) L 05/28/16 05:23 Hct 30.2 % (30.3-42.9) L 05/28/16 05:23 MCV 80 fl (79-97) 05/28/16 05:23 MCH 25 pg (28-32) L 05/28/16 05:23 MCHC 32 % (30-34) 05/28/16 05:23 RDW 14.0 % (13.2-15.2) 05/28/16 05:23 Plt Count 163 K/mm3 (140-440) 05/28/16 05:23 Lymph % (Auto) 17.7 % (13.4-35.0) 05/25/16 00:57 [place] % (Auto) 9.1 % (0.0-7.3) H 05/25/16 00:57 Eos % (Auto) 0.6 % (0.0-4.3) 05/25/16 00:57 Baso % (Auto) 0.6 % (0.0-1.8) 05/25/16 00:57 Lymph # 2.3 K/mm3 (1.2-5.4) 05/25/16 00:57 [place] # 1.2 K/mm3 (0.0-0.8) H 05/25/16 00:57 Eos # 0.1 K/mm3 (0.0-0.4) 05/25/16 00:57 Baso # 0.1 K/mm3 (0.0-0.1) 05/25/16 00:57 Seg Neutrophils % 72.0 % (40.0-70.0) H 05/25/16 00:57 Seg Neutrophils # 9.5 K/mm3 (1.8-7.7) H 05/25/16 00:57 PT 15.2 Sec. (12.2-14.9) H 05/28/16 05:23 INR 1.21 (0.87-1.13) H 05/28/16 05:23 APTT 73.5 Sec. (24.2-36.6) H* 05/28/16 05:23 Heparin Anti-Xa Level 0.16 U.I./ml (0.3-0.7) L 05/28/16 07:34 Sodium 131 mmol/L (137-145) L 05/28/16 05:23 Potassium 5.3 mmol/L (3.6-5.0) H 05/28/16 05:23 Chloride 94.4 mmol/L (98-107) L 05/28/16 05:23 Carbon Dioxide 23 mmol/L (22-30) 05/28/16 05:23 Anion Gap 19 mmol/L 05/28/16 05:23 BUN 48 mg/dL (7-17) H 05/28/16 09:10 Creatinine 1.6 mg/dL (0.7-1.2) H 05/28/16 09:10 Estimated GFR 41 ml/min 05/28/16 09:10 BUN/Creatinine Ratio 27.64 % 05/28/16 05:23 Glucose 192 mg/dL (65-100) H 05/28/16 05:23 POC Glucose 221 (70-105) H 05/28/16 06:17 Calcium 8.4 mg/dL (8.4-10.2) 05/28/16 05:23 Total Bilirubin 0.2 mg/dL (0.1-1.2) 05/25/16 00:57 Direct Bilirubin < 0.2 mg/dL (0-0.2) 05/25/16 00:57 Indirect Bilirubin 0.0 mg/dL 05/25/16 00:57 AST 19 units/L (5-40) 05/25/16 00:57 ALT 10 units/L (7-56) 05/25/16 00:57 Alkaline Phosphatase 81 units/L (35-129) 05/25/16 00:57 Total Creatine Kinase 234 units/L (30-135) H 05/25/16 19:42 CK-MB (CK-2) 7.3 ng/mL (0.0-4.0) H 05/25/16 19:42 CK-MB (CK-2) Rel Index 3.1 (0-4) 05/25/16 19:42 Troponin T 0.371 ng/mL (0.00-0.029) H* 05/26/16 14:53 NT-Pro-B Natriuret Pep 987.1 pg/mL (0-900) H 05/25/16 00:57 Total Protein 7.0 g/dL (6.3-8.2) 05/25/16 00:57 Albumin 3.4 g/dL (3.9-5) L 05/25/16 00:57 Albumin/Globulin Ratio 0.9 % 05/25/16 00:57 Triglycerides 284 mg/dL (2-149) H 05/25/16 00:57 Cholesterol 231 mg/dL (50-199) H 05/25/16 00:57 LDL Cholesterol Direct 144 mg/dL (50-130) H 05/25/16 00:57 HDL Cholesterol 31 mg/dL (40-59) L 05/25/16 00:57 Cholesterol/HDL Ratio 7.45 % 05/25/16 00:57 Lipase 9 units/L (13-60) L 05/25/16 00:57 Urine Color Yellow (Yellow) 05/25/16 04:16 Urine Turbidity Clear (Clear) 05/25/16 04:16 Urine pH 5.0 (5.0-7.0) 05/25/16 04:16 Ur Specific [place] 1.017 (1.003-1.030) 05/25/16 04:16 Urine Protein 100 mg/dl mg/dL (Negative) 05/25/16 04:16 Urine Glucose (UA) >=500 mg/dL (Negative) 05/25/16 04:16 Urine Ketones Neg mg/dL (Negative) 05/25/16 04:16 Urine Blood Sm (Negative) 05/25/16 04:16 Urine Nitrite Neg (Negative) 05/25/16 04:16 Urine Bilirubin Neg (Negative) 05/25/16 04:16 Urine Urobilinogen < 2.0 mg/dL (<2.0) 05/25/16 04:16 Ur Leukocyte Esterase Neg (Negative) 05/25/16 04:16 Urine WBC (Auto) 2.0 /HPF (0.0-6.0) 05/25/16 04:16 Urine RBC (Auto) 3.0 /HPF (0.0-6.0) 05/25/16 04:16 U Epithel Cells (Auto) 5.0 /HPF (0-13.0) 05/25/16 04:16
--- NOTE | 2016-05-28 14:22 | Progress Note ---
Assessment and Plan Assessment and plan: 55F with pmh of CAD who presents with chest pain 1. NSTEMI Was planned for left heart cath today, however the procedure is being postponed as she has a right in her creatinine. Cath has been rescheduled for tomorrow pending improvement of creatinine 2. DM continue insulins 3. HTN monitor BP, optimize meds 4,. HLD continue statin 5. Abdominal Pain has a hx of gastritis rx with pain meds, pepcid, hyoscamine, - GI consult appreciated; will be considered for EGD after she has completed cardiac risk stratification CT A/P image reviewed; no acute abnormalities 6. Vasomotor nephropathy Rising creatinine is most likely due to poor by mouth intake over the weekend as eating and drinking well exacerbating her belly pain. Patient has input on IV fluids, nephrology input appreciated If she continues to improve we'll consider transferring to the floors later today Critical care time: 32 minutes History Interval history: Abdominal pain is slightly improved today, she's no longer having chest pain. Hospitalist Physical - Physical exam Narrative exam: General: Moderate distress due to pain HEENT: MMM, EOMI cardiac: S1-S2 heard lungs: clear to auscultation, abdomen: soft, nontender, nondistended bowel sounds positive extremities: no edema clubbing or cyanosis Skin: no rash or lesion Neuro: no focal deficit Psych: appropriate behavior and mood, cognition intact - Constitutional Vitals: Temp Pulse Resp BP Pulse Ox 99.8 F H 85 18 110/65 99 05/28/16 12:37 05/28/16 12:37 05/28/16 12:37 05/28/16 12:37 05/28/16 12:37 General appearance: Present: no acute distress Results - Labs CBC & Chem 7: 05/28/16 05:23 05/28/16 09:10 Labs: Laboratory Last Values WBC 12.5 K/mm3 (4.5-11.0) H 05/28/16 05:23 RBC 3.79 M/mm3 (3.65-5.03) 05/28/16 05:23 Hgb 9.6 gm/dl (10.1-14.3) L 05/28/16 05:23 Hct 30.2 % (30.3-42.9) L 05/28/16 05:23 MCV 80 fl (79-97) 05/28/16 05:23 MCH 25 pg (28-32) L 05/28/16 05:23 MCHC 32 % (30-34) 05/28/16 05:23 RDW 14.0 % (13.2-15.2) 05/28/16 05:23 Plt Count 163 K/mm3 (140-440) 05/28/16 05:23 Lymph % (Auto) 17.7 % (13.4-35.0) 05/25/16 00:57 [place] % (Auto) 9.1 % (0.0-7.3) H 05/25/16 00:57 Eos % (Auto) 0.6 % (0.0-4.3) 05/25/16 00:57 Baso % (Auto) 0.6 % (0.0-1.8) 05/25/16 00:57 Lymph # 2.3 K/mm3 (1.2-5.4) 05/25/16 00:57 [place] # 1.2 K/mm3 (0.0-0.8) H 05/25/16 00:57 Eos # 0.1 K/mm3 (0.0-0.4) 05/25/16 00:57 Baso # 0.1 K/mm3 (0.0-0.1) 05/25/16 00:57 Seg Neutrophils % 72.0 % (40.0-70.0) H 05/25/16 00:57 Seg Neutrophils # 9.5 K/mm3 (1.8-7.7) H 05/25/16 00:57 PT 15.2 Sec. (12.2-14.9) H 05/28/16 05:23 INR 1.21 (0.87-1.13) H 05/28/16 05:23 APTT 73.5 Sec. (24.2-36.6) H* 05/28/16 05:23 Heparin Anti-Xa Level 0.16 U.I./ml (0.3-0.7) L 05/28/16 07:34 Sodium 131 mmol/L (137-145) L 05/28/16 05:23 Potassium 5.3 mmol/L (3.6-5.0) H 05/28/16 05:23 Chloride 94.4 mmol/L (98-107) L 05/28/16 05:23 Carbon Dioxide 23 mmol/L (22-30) 05/28/16 05:23 Anion Gap 19 mmol/L 05/28/16 05:23 BUN 48 mg/dL (7-17) H 05/28/16 09:10 Creatinine 1.6 mg/dL (0.7-1.2) H 05/28/16 09:10 Estimated GFR 41 ml/min 05/28/16 09:10 BUN/Creatinine Ratio 27.64 % 05/28/16 05:23 Glucose 192 mg/dL (65-100) H 05/28/16 05:23 POC Glucose 221 (70-105) H 05/28/16 06:17 Calcium 8.4 mg/dL (8.4-10.2) 05/28/16 05:23 Total Bilirubin 0.2 mg/dL (0.1-1.2) 05/25/16 00:57 Direct Bilirubin < 0.2 mg/dL (0-0.2) 05/25/16 00:57 Indirect Bilirubin 0.0 mg/dL 05/25/16 00:57 AST 19 units/L (5-40) 05/25/16 00:57 ALT 10 units/L (7-56) 05/25/16 00:57 Alkaline Phosphatase 81 units/L (35-129) 05/25/16 00:57 Total Creatine Kinase 234 units/L (30-135) H 05/25/16 19:42 CK-MB (CK-2) 7.3 ng/mL (0.0-4.0) H 05/25/16 19:42 CK-MB (CK-2) Rel Index 3.1 (0-4) 05/25/16 19:42 Troponin T 0.371 ng/mL (0.00-0.029) H* 05/26/16 14:53 NT-Pro-B Natriuret Pep 987.1 pg/mL (0-900) H 05/25/16 00:57 Total Protein 7.0 g/dL (6.3-8.2) 05/25/16 00:57 Albumin 3.4 g/dL (3.9-5) L 05/25/16 00:57 Albumin/Globulin Ratio 0.9 % 05/25/16 00:57 Triglycerides 284 mg/dL (2-149) H 05/25/16 00:57 Cholesterol 231 mg/dL (50-199) H 05/25/16 00:57 LDL Cholesterol Direct 144 mg/dL (50-130) H 05/25/16 00:57 HDL Cholesterol 31 mg/dL (40-59) L 05/25/16 00:57 Cholesterol/HDL Ratio 7.45 % 05/25/16 00:57 Lipase 9 units/L (13-60) L 05/25/16 00:57 Urine Color Yellow (Yellow) 05/25/16 04:16 Urine Turbidity Clear (Clear) 05/25/16 04:16 Urine pH 5.0 (5.0-7.0) 05/25/16 04:16 Ur Specific [place] 1.017 (1.003-1.030) 05/25/16 04:16 Urine Protein 100 mg/dl mg/dL (Negative) 05/25/16 04:16 Urine Glucose (UA) >=500 mg/dL (Negative) 05/25/16 04:16 Urine Ketones Neg mg/dL (Negative) 05/25/16 04:16 Urine Blood Sm (Negative) 05/25/16 04:16 Urine Nitrite Neg (Negative) 05/25/16 04:16 Urine Bilirubin Neg (Negative) 05/25/16 04:16 Urine Urobilinogen < 2.0 mg/dL (<2.0) 05/25/16 04:16 Ur Leukocyte Esterase Neg (Negative) 05/25/16 04:16 Urine WBC (Auto) 2.0 /HPF (0.0-6.0) 05/25/16 04:16 Urine RBC (Auto) 3.0 /HPF (0.0-6.0) 05/25/16 04:16 U Epithel Cells (Auto) 5.0 /HPF (0-13.0) 05/25/16 04:16
--- NOTE | 2016-05-28 15:13 | Gastroenterology Progress Note ---
Assessment and Plan - Patient Problems (1) Epigastric pain Current Visit: Yes Status: Acute Plan to address problem: EGD is currently deferred due to NSTEMI. LHC is planned tomorrow. Will continue PPI. (2) DONAL (acute kidney injury) Current Visit: Yes Status: Acute (3) NSTEMI (non-ST elevated myocardial infarction) Current Visit: Yes Status: Acute Subjective Date of service: 05/28/16 Principal diagnosis: Epigastric pain Interval history: The patient still has moderate epigastric pain radiating to the back. Objective - Constitutional Vitals: Temp Pulse Resp BP Pulse Ox 99.8 F H 85 18 110/65 99 05/28/16 12:37 05/28/16 12:37 05/28/16 12:37 05/28/16 12:37 05/28/16 12:37 General appearance: no acute distress - EENT ENT: hearing intact, clear oral mucosa - Respiratory Respiratory effort: normal Respiratory: bilateral: CTA - Cardiovascular Rhythm: regular Heart Sounds: Present: S1 & S2. Absent: systolic murmur - Gastrointestinal General gastrointestinal: Present: soft, non-tender, non-distended, normal bowel sounds, other (obese) - Neurologic Neurological: alert and oriented x3 - Labs CBC & Chem 7: 05/28/16 05:23 05/28/16 09:10 Labs: Laboratory Results - last 24 hr 05/27/16 05/27/16 05/27/16 13:38 16:46 22:04 WBC RBC Hgb Hct MCV MCH MCHC RDW Plt Count PT INR APTT Heparin Anti-Xa Level Sodium Potassium Chloride Carbon Dioxide Anion Gap BUN Creatinine Estimated GFR BUN/Creatinine Ratio Glucose POC Glucose 252 H 342 H 191 H Calcium 05/28/16 05/28/16 05/28/16 02:58 05:23 05:23 WBC 12.5 H RBC 3.79 Hgb 9.6 L Hct 30.2 L MCV 80 MCH 25 L MCHC 32 RDW 14.0 Plt Count 163 PT 15.2 H INR 1.21 H APTT 73.5 H* Heparin Anti-Xa Level Sodium Potassium Chloride Carbon Dioxide Anion Gap BUN Creatinine Estimated GFR BUN/Creatinine Ratio Glucose POC Glucose 210 H Calcium 05/28/16 05/28/16 05/28/16 05:23 06:17 07:34 WBC RBC Hgb Hct MCV MCH MCHC RDW Plt Count PT INR APTT Heparin Anti-Xa Level 0.16 L Sodium 131 L Potassium 5.3 H Chloride 94.4 L Carbon Dioxide 23 Anion Gap 19 BUN 47 H Creatinine 1.7 H D Estimated GFR 38 BUN/Creatinine Ratio 27.64 Glucose 192 H POC Glucose 221 H Calcium 8.4 05/28/16 09:10 WBC RBC Hgb Hct MCV MCH MCHC RDW Plt Count PT INR APTT Heparin Anti-Xa Level Sodium Potassium Chloride Carbon Dioxide Anion Gap BUN 48 H Creatinine 1.6 H Estimated GFR 41 BUN/Creatinine Ratio Glucose POC Glucose Calcium
[2016-05-28 19:23] LABS: Bilirubin,Urine NEG (Negative); Blood,Urine NEG (Negative); Ketones,Urine NEG (Negative); Leukocyte Esterase,Urine NEG (Negative); Mucus,Urine FEW /HPF; Nitrite,Urine NEG (Negative); Urobilinogen,Urine < 2.0 mg/dL (<2.0)
[2016-05-28] MEDS: PEPCID PO SCH (22:05)
[2016-05-29] MEDS: HEPARIN SUB-Q SCH ×2 (03:06→18:42)
[2016-05-29] MEDS: DILAUDID IV PRN ×6 (03:07→21:43)
[2016-05-29 06:14] LABS: Hematocrit 26.7 % (30.3-42.9); Hemoglobin 8.8 gm/dl (10.1-14.3); Mean Corpuscular HGB Conc 33 % (30-34); Mean Corpuscular Volume 79 fl (79-97); Platelet Count 179 K/mm3 (140-440); Red Cell Distribution Width 13.9 % (13.2-15.2)
[2016-05-29 06:28] LABS: Mean Corpuscular Hemoglobin 26 pg (28-32)
[2016-05-29 06:34] LABS: Chloride 95.6 mmol/L (98-107); Potassium 4.8 mmol/L (3.6-5.0)
[2016-05-29 06:41] LABS: INR 1.19 (0.87-1.13)
--- NOTE | 2016-05-29 07:01 | Progress Note ---
Assessment and Plan - Patient Problems (1) DONAL (acute kidney injury) Current Visit: Yes Status: Acute Plan to address problem: Acute Kidney Injury is hemodynamicaly mediated due to volume depletion. Renal function is better. Continue IV fluids. Monitor renal function. (2) Hyperkalemia Current Visit: Yes Status: Acute Plan to address problem: Improved. Hyperkalemia secondary to DONAL. Monitor potassium level. (3) NSTEMI (non-ST elevated myocardial infarction) Current Visit: Yes Status: Acute Plan to address problem: Followed by [employer]. (4) Diabetes mellitus type 2 in obese Current Visit: No Status: Chronic (5) Abdominal pain Current Visit: Yes Status: Acute Qualifiers: Abdominal location: A Plan to address problem: Followed by GI. (6) Anemia Current Visit: Yes Status: Acute Qualifiers: Anemia type: A Iron deficiency anemia type: I Vitamin B12 deficiency anemia type: V Folate deficiency anemia type: F Bone marrow failure anemia type: B Hemolytic anemia type: H Other causes of anemia: O Subjective Date of service: 05/29/16 Principal diagnosis: Epigastric pain Interval history: Patient continues to have epigastric pain. Objective - Vital Signs Vital signs: Vital Signs - 12hr 05/28/16 05/28/16 05/28/16 19:15 19:59 20:00 Temperature Pulse Rate 68 Pulse Rate [ Apical] Pulse Rate [ Right Radial] Respiratory 20 20 Rate Respiratory Rate [Bilateral Leg] Blood Pressure [Left Arm] O2 Sat by Pulse Oximetry 05/28/16 05/28/16 05/28/16 20:01 20:06 20:12 Temperature 98.7 F Pulse Rate Pulse Rate [ Apical] Pulse Rate [ 72 Right Radial] Respiratory 20 18 Rate Respiratory 20 Rate [Bilateral Leg] Blood Pressure 113/70 [Left Arm] O2 Sat by Pulse 97 Oximetry 05/28/16 05/28/16 05/28/16 20:29 20:30 21:16 Temperature Pulse Rate Pulse Rate [ 72 Apical] Pulse Rate [ Right Radial] Respiratory 20 24 Rate Respiratory Rate [Bilateral Leg] Blood Pressure [Left Arm] O2 Sat by Pulse 95 96 Oximetry 05/28/16 05/29/16 05/29/16 23:38 00:00 00:08 Temperature 98.4 F Pulse Rate Pulse Rate [ Apical] Pulse Rate [ 72 Right Radial] Respiratory 20 18 20 Rate Respiratory Rate [Bilateral Leg] Blood Pressure 105/57 [Left Arm] O2 Sat by Pulse 98 Oximetry 05/29/16 05/29/16 05/29/16 03:07 03:37 05:49 Temperature 98.3 F Pulse Rate Pulse Rate [ Apical] Pulse Rate [ 68 Right Radial] Respiratory 22 20 18 Rate Respiratory Rate [Bilateral Leg] Blood Pressure 105/74 [Left Arm] O2 Sat by Pulse 98 Oximetry 05/29/16 05/29/16 05:57 06:27 Temperature Pulse Rate Pulse Rate [ Apical] Pulse Rate [ Right Radial] Respiratory 22 20 Rate Respiratory Rate [Bilateral Leg] Blood Pressure [Left Arm] O2 Sat by Pulse Oximetry - General Appearance General appearance: well-developed, well-nourished, appears stated age, obese, other (no distress) EENT: ATNC, mucous membranes dry, hearing intact, vision intact Neck: no JVD, no carotid bruit, supple Respiratory: Present: Clear to Ascultation Cardiology: regular, S1S2, no murmurs Gastrointestinal: normoactive bowel sounds, tenderness (epigastric), no distended Integumentary: no rash, warm and dry Neurologic: no focal deficit, no asterixis, CN 3-12 intact Musculoskeletal: other (no edema) Psychiatric: mood/affect appropriate, cooperative - Lab 05/29/16 05:52 05/29/16 05:52 Most recent lab results Calcium 8.0 mg/dL (8.4-10.2) L 05/29/16 05:52 Urine Creatinine 170.3 mg/dL (0.1-20.0) H 05/28/16 18:08 Urine Sodium 16 mEq/L 05/28/16 18:08
[2016-05-29] MEDS: PLAVIX PO SCH (09:03)
[2016-05-29] MEDS: MONOKET PO SCH (09:03)
[2016-05-29] MEDS: NEURONTIN PO SCH ×2 (09:04→21:43)
[2016-05-29] MEDS: PEPCID PO SCH (09:04)
[2016-05-29] MEDS: BABY ASPIRIN PO SCH (09:04)
[2016-05-29] MEDS: PROTONIX IV SCH ×2 (09:36→21:43)
[2016-05-29] MEDS: ATIVAN IV PRN (09:45)
[2016-05-29] MEDS ORDERED: PROTONIX IV SCH (10:00)
--- NOTE | 2016-05-29 11:29 | Progress Note ---
Assessment and Plan Assessment: NSTEMI Persistent abdominal pain / n/v - initial abdominal CT with NAF, large pelvic mass most likely uterine fibroid per radiology; GI following; for repeat CT today; Pt now on Protonix and pepcid. Anemia DONAL - renal indices improved this AM; on IVF per nephrology. Nonobstructive CAD - LHC in 09/[address] Jacinto which revealed distal LAD diffuse disease, 60% mid LAD stenosis, luminal irregularities in left circ and RCA H/o HTN HLP DM Obesity Noncompliance with OP follow up Anxiety Plan: Nephrology consultation noted and appreciated. Hold ASA and plavix at this time in setting of worsening anemia and abdominal pain. Consider resuming if/when cleared by GI to resume anti-platelets. Await repeat abdomen CT. Repeat H/H this afternoon. BB held at this time in setting of borderline hypotension. Pt has been NPO since SD with plans for LHC today. However, pt with c/o 10/10 abdominal pain. GI and primary MD notified. Will post-pone LHC. Currently, there are no immediate cardiac contraindications to proceeding with EGD/ colonoscopy if deemed necessary per GI. Assessment and plan reviewed with pt at bedside. The patient has been seen in conjunction with Dr. Pa who agrees with the assessment and plan of care. Subjective Date of service: 05/29/16 Principal diagnosis: Epigastric pain Interval history: Pt resting in bed, c/o 10/10 epigastric pain and nausea, no vomiting, abdomen noted to be firm and distended today. VSS. Has been NPO since SD for possible LHC today. However, in setting of current abdominal pain complaints, will defer LHC pending GI evaluation. Objective Last Vital Signs Temp 98.7 F 05/29/16 08:25 Pulse 72 05/29/16 08:25 Resp 22 05/29/16 08:25 BP 108/79 05/29/16 08:25 Pulse Ox 96 05/29/16 09:51 - Physical Examination General: Other (mild distress) HEENT: Positive: PERRL, Normocephaly, Mucus Membranes Moist Neck: Positive: neck supple, trachea midline Cardiac: Positive: Reg Rate and Rhythm, S1/S2 Lungs: Positive: Normal Exam, clear to auscultation, Normal Breath Sounds Neuro: Positive: Grossly Intact, Cranial Nerve 2-12 Intact Abdomen: Positive: Unremarkable, Soft, Active Bowel Sounds Skin: Positive: Clear. Negative: Rash, Wound Musculoskeletal: No Fluid Collection, No Pain, Normal Range of Motion Extremities: Present: normal, upper extr. pulses, lower extr. pulses. Absent: edema - Labs and Meds Coagulation 05/29/16 Range/Units 05:52 PT 15.0 H (12.2-14.9) Sec. INR 1.19 H (0.87-1.13) CBC 05/29/16 Range/Units 05:52 WBC 9.0 (4.5-11.0) K/mm3 RBC 3.40 L (3.65-5.03) M/mm3 Hgb 8.8 L (10.1-14.3) gm/dl Hct 26.7 L (30.3-42.9) % Plt Count 179 (140-440) K/mm3 Comprehensive Metabolic Panel 05/28/16 05/29/16 Range/Units 20:44 05:52 Sodium 131 L (137-145) mmol/L Potassium 5.0 4.8 (3.6-5.0) mmol/L Chloride 95.6 L (98-107) mmol/L Carbon Dioxide 23 (22-30) mmol/L BUN 52 H (7-17) mg/dL Creatinine 1.3 H (0.7-1.2) mg/dL Glucose 304 H (65-100) mg/dL Calcium 8.0 L (8.4-10.2) mg/dL - Imaging and Cardiology EKG: report reviewed, image reviewed Echo: report reviewed (05/25/2016: EF 50 - 55%, mild to moderate MR, LA mildly dilated, mild TR) Cardiac cath: report reviewed - Telemetry EKG Rhythm: Sinus Rhythm - EKG Sinus rhythms and dysrhythmias: sinus rhythm Repolarization changes or abnormalities: ST or T wave suggestive of ischemia, ST suggestive of injury Myocardial infarction: inferior MT (old age inde
[2016-05-29] MEDS: MUCOMYST INHALATION PO SCH ×2 (13:30→21:44)
[2016-05-29] MEDS ORDERED: PROVENTIL IH ONE (13:42)
[2016-05-29] MEDS ORDERED: NACL ONE (14:09)
--- NOTE | 2016-05-29 14:50 | Cat Scan Report ---
CT of the abdomen and pelvis with IV and oral contrast. History: Abdominal pain. Findings: Comparison is made to the previous study on May 25, 2016. Bilateral pleural effusions and bibasilar atelectasis persists unchanged. The upper abdominal viscera are unchanged. The kidneys are normal in size and configuration with no evidence of mass or hydronephrosis. Atheromatous calcifications in the abdominal aorta and superior mesenteric artery are again noted. There is no radiographic evidence of ischemic colitis. Extensive calcified uterine fibroids in a markedly enlarged uterus are again noted. There is no free air. No abnormal fluid collections are seen. Impression: No significant interval changes have occurred since the study on May 25. Persistent bilateral pleural effusions, bibasilar atelectasis, markedly large uterine fibroids, and other findings are stable.
--- NOTE | 2016-05-29 15:15 | Progress Note ---
Assessment and Plan Assessment and plan: 55F with pmh of CAD who presents with chest pain 1. NSTEMI Was planned for left heart cath today, however the procedure is being postponed as she appears to be having an acute GI malady, Cardiology input appreciated, as per cardiology she is optimized for EGD. Will need to restart aspirin/plavix after EGD 2. DM continue insulins 3. HTN monitor BP, optimize meds 4,. HLD continue statin 5. Abdominal Pain has a hx of gastritis rx with pain meds, pepcid, hyoscamine, - GI consult appreciated; CT A/P image reviewed; no acute abnormalities Obtain CT Angio A/P to rule out ischemic colitis planned for EGD tomorrow 6. Vasomotor nephropathy improving with IVF, nephrology input appreciated History Interval history: Abdominal pain is worse today, 11/20, sharp in the hypogastrium, she's no longer having chest pain. Hospitalist Physical - Physical exam Narrative exam: General: Moderate distress due to pain HEENT: MMM, EOMI cardiac: S1-S2 heard lungs: clear to auscultation, abdomen: soft, nontender, nondistended bowel sounds positive extremities: no edema clubbing or cyanosis Skin: no rash or lesion Neuro: no focal deficit Psych: appropriate behavior and mood, cognition intact - Constitutional Vitals: Temp Pulse Resp BP Pulse Ox 98.7 F 72 22 108/79 96 05/29/16 08:25 05/29/16 08:25 05/29/16 08:25 05/29/16 08:25 05/29/16 09:51 General appearance: Present: no acute distress Results - Labs CBC & Chem 7: 05/29/16 05:52 05/29/16 05:52 Labs: Laboratory Last Values WBC 9.0 K/mm3 (4.5-11.0) 05/29/16 05:52 RBC 3.40 M/mm3 (3.65-5.03) L 05/29/16 05:52 Hgb 8.8 gm/dl (10.1-14.3) L 05/29/16 05:52 Hct 26.7 % (30.3-42.9) L 05/29/16 05:52 MCV 79 fl (79-97) 05/29/16 05:52 MCH 26 pg (28-32) L 05/29/16 05:52 MCHC 33 % (30-34) 05/29/16 05:52 RDW 13.9 % (13.2-15.2) 05/29/16 05:52 Plt Count 179 K/mm3 (140-440) 05/29/16 05:52 Lymph % (Auto) 17.7 % (13.4-35.0) 05/25/16 00:57 [place] % (Auto) 9.1 % (0.0-7.3) H 05/25/16 00:57 Eos % (Auto) 0.6 % (0.0-4.3) 05/25/16 00:57 Baso % (Auto) 0.6 % (0.0-1.8) 05/25/16 00:57 Lymph # 2.3 K/mm3 (1.2-5.4) 05/25/16 00:57 Becker # 1.2 K/mm3 (0.0-0.8) H 05/25/16 00:57 Eos # 0.1 K/mm3 (0.0-0.4) 05/25/16 00:57 Baso # 0.1 K/mm3 (0.0-0.1) 05/25/16 00:57 Seg Neutrophils % 72.0 % (40.0-70.0) H 05/25/16 00:57 Seg Neutrophils # 9.5 K/mm3 (1.8-7.7) H 05/25/16 00:57 PT 15.0 Sec. (12.2-14.9) H 05/29/16 05:52 INR 1.19 (0.87-1.13) H 05/29/16 05:52 APTT 73.5 Sec. (24.2-36.6) H* 05/28/16 05:23 Heparin Anti-Xa Level 0.16 U.I./ml (0.3-0.7) L 05/28/16 07:34 Sodium 131 mmol/L (137-145) L 05/29/16 05:52 Potassium 4.8 mmol/L (3.6-5.0) 05/29/16 05:52 Chloride 95.6 mmol/L (98-107) L 05/29/16 05:52 Carbon Dioxide 23 mmol/L (22-30) 05/29/16 05:52 Anion Gap 17 mmol/L 05/29/16 05:52 BUN 52 mg/dL (7-17) H 05/29/16 05:52 Creatinine 1.3 mg/dL (0.7-1.2) H 05/29/16 05:52 Estimated GFR 52 ml/min 05/29/16 05:52 BUN/Creatinine Ratio 40.00 % 05/29/16 05:52 Glucose 304 mg/dL (65-100) H 05/29/16 05:52 POC Glucose 205 (70-105) H 05/29/16 12:16 Calcium 8.0 mg/dL (8.4-10.2) L 05/29/16 05:52 Total Bilirubin 0.2 mg/dL (0.1-1.2) 05/25/16 00:57 Direct Bilirubin < 0.2 mg/dL (0-0.2) 05/25/16 00:57 Indirect Bilirubin 0.0 mg/dL 05/25/16 00:57 AST 19 units/L (5-40) 05/25/16 00:57 ALT 10 units/L (7-56) 05/25/16 00:57 Alkaline Phosphatase 81 units/L (35-129) 05/25/16 00:57 Total Creatine Kinase 234 units/L (30-135) H 05/25/16 19:42 CK-MB (CK-2) 7.3 ng/mL (0.0-4.0) H 05/25/16 19:42 CK-MB (CK-2) Rel Index 3.1 (0-4) 05/25/16 19:42 Troponin T 0.371 ng/mL (0.00-0.029) H* 05/26/16 14:53 NT-Pro-B Natriuret Pep 987.1 pg/mL (0-900) H 05/25/16 00:57 Total Protein 7.0 g/dL (6.3-8.2) 05/25/16 00:57 Albumin 3.4 g/dL (3.9-5) L 05/25/16 00:57 Albumin/Globulin Ratio 0.9 % 05/25/16 00:57 Triglycerides 284 mg/dL (2-149) H 05/25/16 00:57 Cholesterol 231 mg/dL (50-199) H 05/25/16 00:57 LDL Cholesterol Direct 144 mg/dL (50-130) H 05/25/16 00:57 HDL Cholesterol 31 mg/dL (40-59) L 05/25/16 00:57 Cholesterol/HDL Ratio 7.45 % 05/25/16 00:57 Lipase 9 units/L (13-60) L 05/25/16 00:57 Urine Color Yellow (Yellow) 05/28/16 18:08 Urine Turbidity Clear (Clear) 05/28/16 18:08 Urine pH 5.0 (5.0-7.0) 05/28/16 18:08 Ur Specific [place] 1.016 (1.003-1.030) 05/28/16 18:08 Urine Protein 100 mg/dl mg/dL (Negative) 05/28/16 18:08 Urine Glucose (UA) 150 mg/dL (Negative) 05/28/16 18:08 Urine Ketones Neg mg/dL (Negative) 05/28/16 18:08 Urine Blood Neg (Negative) 05/28/16 18:08 Urine Nitrite Neg (Negative) 05/28/16 18:08 Urine Bilirubin Neg (Negative) 05/28/16 18:08 Urine Urobilinogen < 2.0 mg/dL (<2.0) 05/28/16 18:08 Ur Leukocyte Esterase Neg (Negative) 05/28/16 18:08 Urine WBC (Auto) 1.0 /HPF (0.0-6.0) 05/28/16 18:08 Urine RBC (Auto) 1.0 /HPF (0.0-6.0) 05/28/16 18:08 U Epithel Cells (Auto) < 1.0 /HPF (0-13.0) 05/28/16 18:08 Urine Mucus Few /HPF 05/28/16 18:08 Urine Eosinophils None seen (None Seen) 05/28/16 18:08 Urine Creatinine 170.3 mg/dL (0.1-20.0) H 05/28/16 18:08 Urine Sodium 16 mEq/L 05/28/16 18:08
--- NOTE | 2016-05-29 16:22 | Gastroenterology Progress Note ---
Assessment and Plan 1. abdominal/epigastric pain 2. worsening anemia 3. NSTEMI 4. DONAL -pt reports more significant pain in abdomen, not felt to be cardiac related per cardiology. Unclear etiology for pain, recommend CTA of abd if okay with renal given DONAL (improved). Regarding worsening anemia, etiology is unclear, pt denies signs of overt GI bleeding. Discussed with primary team, and LHC is being postponed given abdominal pain/following EGD. Will plan for EGD tomorrow if cleared by cardiology. Subjective Date of service: 05/29/16 Principal diagnosis: Epigastric pain Interval history: pt reports worsening in abdominal pain, primarily in right side/epigastric region. unable to tolerate po, and has persistent nausea symptoms. Denies melena/hematochezia. Objective - Constitutional Vitals: Temp Pulse Resp BP Pulse Ox 98.7 F 72 22 108/79 96 05/29/16 08:25 05/29/16 08:25 05/29/16 08:25 05/29/16 08:25 05/29/16 09:51 General appearance: mild distress - Respiratory Respiratory effort: normal Respiratory: bilateral: CTA - Cardiovascular Rhythm: regular Heart Sounds: Present: S1 & S2 - Gastrointestinal General gastrointestinal: Present: soft, tender (ttp in upper abdomen, no rebound/guarding), non-distended - Neurologic Neurological: alert and oriented x3 - Psychiatric Psychiatric: appropriate mood/affect - Labs CBC & Chem 7: 05/29/16 05:52 05/29/16 05:52 Labs: Laboratory Results - last 24 hr 05/28/16 05/28/16 05/28/16 08:45 11:30 17:07 WBC RBC Hgb Hct MCV MCH MCHC RDW Plt Count PT INR Sodium Potassium Chloride Carbon Dioxide Anion Gap BUN Creatinine Estimated GFR BUN/Creatinine Ratio Glucose POC Glucose 207 H 160 H 291 H Calcium Urine Color Urine Turbidity Urine pH Ur Specific [place] Urine Protein Urine Glucose (UA) Urine Ketones Urine Blood Urine Nitrite Urine Bilirubin Urine Urobilinogen Ur Leukocyte Esterase Urine WBC (Auto) Urine RBC (Auto) U Epithel Cells (Auto) Urine Mucus Urine Eosinophils Urine Creatinine Urine Sodium 05/28/16 05/28/16 05/28/16 18:08 18:08 18:08 WBC RBC Hgb Hct MCV MCH MCHC RDW Plt Count PT INR Sodium Potassium Chloride Carbon Dioxide Anion Gap BUN Creatinine Estimated GFR BUN/Creatinine Ratio Glucose POC Glucose Calcium Urine Color Yellow Urine Turbidity Clear Urine pH 5.0 Ur Specific [place] 1.016 Urine Protein 100 mg/dl Urine Glucose (UA) 150 Urine Ketones Neg Urine Blood Neg Urine Nitrite Neg Urine Bilirubin Neg Urine Urobilinogen < 2.0 Ur Leukocyte Esterase Neg Urine WBC (Auto) 1.0 Urine RBC (Auto) 1.0 U Epithel Cells (Auto) < 1.0 Urine Mucus Few Urine Eosinophils None seen Urine Creatinine 170.3 H Urine Sodium 16 05/28/16 05/28/16 05/28/16 18:54 19:49 20:44 WBC RBC Hgb Hct MCV MCH MCHC RDW Plt Count PT INR Sodium Potassium 5.0 Chloride Carbon Dioxide Anion Gap BUN Creatinine Estimated GFR BUN/Creatinine Ratio Glucose POC Glucose 326 H 310 H Calcium Urine Color Urine Turbidity Urine pH Ur Specific [place] Urine Protein Urine Glucose (UA) Urine Ketones Urine Blood Urine Nitrite Urine Bilirubin Urine Urobilinogen Ur Leukocyte Esterase Urine WBC (Auto) Urine RBC (Auto) U Epithel Cells (Auto) Urine Mucus Urine Eosinophils Urine Creatinine Urine Sodium 05/29/16 05/29/16 05/29/16 03:04 05:48 05:52 WBC 9.0 RBC 3.40 L Hgb 8.8 L Hct 26.7 L MCV 79 MCH 26 L MCHC 33 RDW 13.9 Plt Count 179 PT INR Sodium Potassium Chloride Carbon Dioxide Anion Gap BUN Creatinine Estimated GFR BUN/Creatinine Ratio Glucose POC Glucose 350 H 342 H Calcium Urine Color Urine Turbidity Urine pH Ur Specific [place] Urine Protein Urine Glucose (UA) Urine Ketones Urine Blood Urine Nitrite Urine Bilirubin Urine Urobilinogen Ur Leukocyte Esterase Urine WBC (Auto) Urine RBC (Auto) U Epithel Cells (Auto) Urine Mucus Urine Eosinophils Urine Creatinine Urine Sodium 05/29/16 05/29/16 05/29/16 05:52 05:52 12:16 WBC RBC Hgb Hct MCV MCH MCHC RDW Plt Count PT 15.0 H INR 1.19 H Sodium 131 L Potassium 4.8 Chloride 95.6 L Carbon Dioxide 23 Anion Gap 17 BUN 52 H Creatinine 1.3 H Estimated GFR 52 BUN/Creatinine Ratio 40.00 Glucose 304 H POC Glucose 205 H Calcium 8.0 L Urine Color Urine Turbidity Urine pH Ur Specific [place] Urine Protein Urine Glucose (UA) Urine Ketones Urine Blood Urine Nitrite Urine Bilirubin Urine Urobilinogen Ur Leukocyte Esterase Urine WBC (Auto) Urine RBC (Auto) U Epithel Cells (Auto) Urine Mucus Urine Eosinophils Urine Creatinine Urine Sodium - Imaging CT scan: report reviewed
[2016-05-29 16:48] LABS: Hematocrit 27.5 % (30.3-42.9); Hemoglobin 8.8 gm/dl (10.1-14.3)
[2016-05-30] MEDS: HEPARIN SUB-Q SCH ×4 (00:03→21:54)
[2016-05-30] MEDS: DILAUDID IV PRN ×6 (00:04→21:53)
[2016-05-30] MEDS: ATIVAN IV PRN (02:25)
[2016-05-30] MEDS: NACL 0.9% 1000 ML 1,000 ML IV SCH ×3 (02:28→13:02)
[2016-05-30 05:57] LABS: INR 1.23 (0.87-1.13)
[2016-05-30 06:14] LABS: Hematocrit 26.8 % (30.3-42.9); Hemoglobin 8.7 gm/dl (10.1-14.3); Mean Corpuscular HGB Conc 32 % (30-34); Mean Corpuscular Volume 80 fl (79-97); Platelet Count 194 K/mm3 (140-440); Red Blood Count 3.36 M/mm3 (3.65-5.03); Red Cell Distribution Width 13.8 % (13.2-15.2); White Blood Count 10.5 K/mm3 (4.5-11.0)
[2016-05-30 06:24] LABS: Mean Corpuscular Hemoglobin 26 pg (28-32)
[2016-05-30 06:27] LABS: Anion Gap 19 mmol/L; Blood Urea Nitrogen 42 mg/dL (7-17); Calcium 8.3 mg/dL (8.4-10.2); Carbon Dioxide 23 mmol/L (22-30); Chloride 97.5 mmol/L (98-107); Glucose 201 mg/dL (65-100); Magnesium 2.5 mg/dL (1.7-2.3); Potassium 4.2 mmol/L (3.6-5.0); Sodium 135 mmol/L (137-145)
--- NOTE | 2016-05-30 06:57 | Progress Note ---
Assessment and Plan - Patient Problems (1) DONAL (acute kidney injury) Current Visit: Yes Status: Acute Plan to address problem: Acute Kidney Injury is hemodynamicaly mediated due to volume depletion. Renal function has improved. Continue IV fluids for now. Monitor renal function. (2) Hyperkalemia Current Visit: Yes Status: Acute Plan to address problem: Improved. Hyperkalemia secondary to DONAL. Monitor potassium level. (3) NSTEMI (non-ST elevated myocardial infarction) Current Visit: Yes Status: Acute Plan to address problem: Followed by [employer]. (4) Diabetes mellitus type 2 in obese Current Visit: No Status: Chronic (5) Abdominal pain Current Visit: Yes Status: Acute Qualifiers: Abdominal location: A Plan to address problem: Followed by GI. (6) Anemia Current Visit: Yes Status: Acute Qualifiers: Anemia type: A Iron deficiency anemia type: I Vitamin B12 deficiency anemia type: V Folate deficiency anemia type: F Bone marrow failure anemia type: B Hemolytic anemia type: H Other causes of anemia: O Subjective Date of service: 05/30/16 Principal diagnosis: Epigastric pain Interval history: Patient continues to have epigastric pain. Objective - Vital Signs Vital signs: Vital Signs - 12hr 05/29/16 05/29/16 05/30/16 20:00 22:00 00:05 Temperature 98.3 F 98.4 F Pulse Rate 70 Pulse Rate [ 70 Apical] Pulse Rate [ 70 From Monitor] Pulse Rate [ 73 Right Radial] Respiratory 18 20 18 Rate Blood Pressure 117/71 115/65 [Left Arm] O2 Sat by Pulse 98 98 Oximetry 05/30/16 05:38 Temperature 98.1 F Pulse Rate Pulse Rate [ Apical] Pulse Rate [ From Monitor] Pulse Rate [ 69 Right Radial] Respiratory 18 Rate Blood Pressure 118/80 [Left Arm] O2 Sat by Pulse 97 Oximetry - General Appearance General appearance: well-developed, well-nourished, appears stated age, obese, other (no distress) EENT: ATNC, PERRL, mucous membranes moist, hearing intact, vision intact Neck: no carotid bruit, supple Respiratory: Present: Clear to Ascultation Cardiology: regular, S1S2, no murmurs Gastrointestinal: normoactive bowel sounds, no tenderness, no distended Integumentary: no rash Neurologic: no focal deficit, no asterixis, alert and oriented x3, CN 3-12 intact Musculoskeletal: other (no edema) Psychiatric: mood/affect appropriate, cooperative - Lab 05/30/16 05:33 05/30/16 05:33 Most recent lab results Calcium 8.3 mg/dL (8.4-10.2) L 05/30/16 05:33 Phosphorus 3.0 mg/dL (2.5-4.5) 05/30/16 05:33 Magnesium 2.5 mg/dL (1.7-2.3) H 05/30/16 05:33 Urine Creatinine 170.3 mg/dL (0.1-20.0) H 05/28/16 18:08 Urine Sodium 16 mEq/L 05/28/16 18:08
[2016-05-30] MEDS: MONOKET PO SCH (09:17)
[2016-05-30] MEDS: NEURONTIN PO SCH ×2 (09:17→21:51)
[2016-05-30] MEDS: PROTONIX IV SCH (09:18)
[2016-05-30] MEDS ORDERED: WATER FOR IRRIG STERILE IR ONE (10:08)
[2016-05-30] MEDS ORDERED: DIPRIVAN 10 MG/ML IV ONE (10:37)
--- NOTE | 2016-05-30 11:08 | Operative Report ---
Operative Report Operative Report: Date of procedure: 05/30/2016 Procedure: Esophagogastroduodenoscopy with antral biopsies for H. pylori Preprocedure diagnosis: Persistent epigastric pain Post procedure diagnosis: Mild antral gastritis.. Normal duodenum and esophagus Endoscopist: Dr. Herrmann Anesthesia: Monitored anesthesia care per anesthesia department Medications: Propofol per anesthesia Estimated blood loss: 0 After careful discussion of the nature and purpose of the procedure as well as details the technique risks benefits and alternatives consent was obtained. The patient was placed in the left lateral decubitus position and medicated per anesthesia. The tip of the Zoom EQ 570 video scope was passed per orum under direct vision into the esophagus and advanced into the stomach and descending duodenum. The descending duodenum the duodenal bulb and pylorus were symmetrical and normal. The scope was withdrawn into the stomach and the stomach then gently insufflated with air. The antrum revealed patchy erythema but no ulcers or erosions. 3 biopsies were taken to assess for possible H. pylori infection. The stomach was further insufflated and the scope was then retroflexed and partially withdrawn. The cardia, fundus, and body of the stomach were within normal limits and easily distensible.The scope was then withdrawn in the forward position. The esophagogastric junction was at 40 centimeters. The esophageal body was normal throughout. The procedure was was well tolerated and the patient was observed in recovery. Impressions: Mild antral gastritis. No ulcers or erosions. Plan: PPI therapy. Await pathology. No contraindication to anticoagulation in the upper digestive tract. Electronically signed: Mitul Herrmann MD
--- NOTE | 2016-05-30 11:10 | Event Note ---
Date: 05/30/16 EGD revealed minimal gastritis. No ulcers or other contraindications to anticoagulation/antiplatelet therapy.
--- NOTE | 2016-05-30 13:12 | Progress Note ---
Assessment and Plan Assessment: NSTEMI Persistent abdominal pain / n/v - GI following. Anemia DONAL - improving. Nonobstructive CAD - LHC in 09/[address] Jacinto which revealed distal LAD diffuse disease, 60% mid LAD stenosis, luminal irregularities in left circ and RCA H/o HTN HLP DM Obesity Noncompliance with OP follow up Anxiety Plan: s/p EGD this AM revealed minimal gastritis, no ulcers or other contraindications to anticoagulation/antiplatelet therapy per GI. Will resume ASA and plan for LHC in AM. Assessment and plan reviewed with pt at bedside. The patient has been seen in conjunction with Dr. Saez who agrees with the assessment and plan of care. Subjective Date of service: 05/30/16 Principal diagnosis: Epigastric pain Interval history: Pt resting in bed, c/o epigastric pain. s/p EGD this AM. VSS. Objective Last Vital Signs Temp 98.2 F 05/30/16 11:06 Pulse 69 05/30/16 11:36 Resp 22 05/30/16 11:36 BP 125/82 05/30/16 11:36 Pulse Ox 100 05/30/16 11:36 - Physical Examination General: Other (mild distress) HEENT: Positive: PERRL, Normocephaly, Mucus Membranes Moist Neck: Positive: neck supple, trachea midline Cardiac: Positive: Reg Rate and Rhythm, S1/S2 Lungs: Positive: Normal Exam, clear to auscultation, Normal Breath Sounds Neuro: Positive: Grossly Intact, Cranial Nerve 2-12 Intact Abdomen: Positive: Unremarkable, Soft, Active Bowel Sounds. Negative: Tender Skin: Positive: Clear. Negative: Rash, Wound Musculoskeletal: No Fluid Collection, No Pain, Normal Range of Motion Extremities: Present: normal, upper extr. pulses, lower extr. pulses. Absent: edema - Labs and Meds Coagulation 05/30/16 Range/Units 05:33 PT 15.4 H (12.2-14.9) Sec. INR 1.23 H (0.87-1.13) CBC 05/29/16 05/30/16 Range/Units 15:40 05:33 WBC 10.5 (4.5-11.0) K/mm3 RBC 3.36 L (3.65-5.03) M/mm3 Hgb 8.8 L 8.7 L (10.1-14.3) gm/dl Hct 27.5 L 26.8 L (30.3-42.9) % Plt Count 194 (140-440) K/mm3 Comprehensive Metabolic Panel 05/30/16 Range/Units 05:33 Sodium 135 L (137-145) mmol/L Potassium 4.2 (3.6-5.0) mmol/L Chloride 97.5 L (98-107) mmol/L Carbon Dioxide 23 (22-30) mmol/L BUN 42 H (7-17) mg/dL Creatinine 1.0 (0.7-1.2) mg/dL Glucose 201 H (65-100) mg/dL Calcium 8.3 L (8.4-10.2) mg/dL - Imaging and Cardiology EKG: report reviewed, image reviewed Echo: report reviewed (05/25/2016: EF 50 - 55%, mild to moderate MR, LA mildly dilated, mild TR) Cardiac cath: report reviewed - Telemetry EKG Rhythm: Sinus Rhythm - EKG Sinus rhythms and dysrhythmias: sinus rhythm Repolarization changes or abnormalities: ST or T wave suggestive of ischemia, ST suggestive of injury Myocardial infarction: inferior [place] (old age inde
--- NOTE | 2016-05-30 13:27 | Post Anesthesia Evaluation ---
- Post Anesthesia Evaluation Patient Participated: Yes Airway Patent: Yes Stable Respiratory Function: Yes Nausea/Vomiting: No Temp > 96.8F: Yes Pain Manageable: Yes Adequeate Hydration: Yes Anesthesia Complications: No Block Receding Appropriately: Not Applicable Patient on Ventilator: No
--- NOTE | 2016-05-30 13:37 | Anesthesia Day of Surgery ---
Anesthesia Day of Surgery - Day of Surgery Patient Examined: Yes Patient H&P Reviewed: Yes Patient is NPO: Yes
--- NOTE | 2016-05-30 13:39 | Anesthesia Consultation ---
Anesthesia Consult and Med Hx Date of service: 05/30/16 - Pulmonary Exam CTA: Yes - Cardiac Exam Cardiac Exam: RRR - Pre-Operative Health Status ASA Pre-Surgery Classification: ASA3 Proposed Anesthetic Plan: MAC - Pulmonary Hx Asthma: No Hx Respiratory Symptoms: Yes (bilateral pleural effusion) COPD: Yes Hx Pneumonia: No - Cardiovascular System Hx Hypertension: Yes Hx Coronary Artery Disease: Yes (EJ 50-55%, CHF) Hx Heart Attack/AMI: Yes (2x, NSTEMI, '06, ') Hx Angina: Yes - Central Nervous System CVA: No Hx Psychiatric Problems: No - Gastrointestinal Hx Gastroesophageal Reflux Disease: Yes - Endocrine Hx Renal Disease: Yes (DONAL) Hx End Stage Renal Disease: No Hx Liver Disease: No Hx Non-Insulin Dependent Diabetes: No - Other Systems Hx Cancer: No Hx Obesity: Yes - Additional Comments Anesthesia Medical History Comments: NAC
[2016-05-30] MEDS: BABY ASPIRIN PO SCH (13:51)
[2016-05-30] MEDS: NORCO 5/325 PO PRN (15:51)
--- NOTE | 2016-05-30 16:51 | Progress Note ---
Assessment and Plan Assessment and plan: 55F with pmh of CAD who presents with chest pain 1. NSTEMI , Cardiology input appreciated, [facility] tomorrow am Will need to restart aspirin/plavix after EGD 2. DM continue insulins 3. HTN monitor BP, optimize meds 4,. HLD continue statin 5. Abdominal Pain has a hx of gastritis Gi input appreiciated EGD 05/30 shows only mild gastritis and no clear etiology for severe pain rx with pain meds, pepcid, hyoscamine, will add bentyl today has now had CT Abdomen and pelvis x 2 , CT A/P image reviewed; no acute abnormalities 6. Vasomotor nephropathy improving with IVF, nephrology input appreciated History Interval history: continues to have unrelenting abdominal pain Hospitalist Physical - Physical exam Narrative exam: General: Moderate distress due to pain HEENT: MMM, EOMI cardiac: S1-S2 heard lungs: clear to auscultation, abdomen: soft, nontender, nondistended bowel sounds positive extremities: no edema clubbing or cyanosis Skin: no rash or lesion Neuro: no focal deficit Psych: appropriate behavior and mood, cognition intact - Constitutional Vitals: Temp Pulse Resp BP Pulse Ox 98.2 F 69 22 125/82 100 05/30/16 11:06 05/30/16 11:36 05/30/16 11:36 05/30/16 11:36 05/30/16 11:36 General appearance: Present: no acute distress Results - Labs CBC & Chem 7: 05/30/16 05:33 05/30/16 05:33 Labs: Laboratory Last Values WBC 10.5 K/mm3 (4.5-11.0) 05/30/16 05:33 RBC 3.36 M/mm3 (3.65-5.03) L 05/30/16 05:33 Hgb 8.7 gm/dl (10.1-14.3) L 05/30/16 05:33 Hct 26.8 % (30.3-42.9) L 05/30/16 05:33 MCV 80 fl (79-97) 05/30/16 05:33 MCH 26 pg (28-32) L 05/30/16 05:33 MCHC 32 % (30-34) 05/30/16 05:33 RDW 13.8 % (13.2-15.2) 05/30/16 05:33 Plt Count 194 K/mm3 (140-440) 05/30/16 05:33 Lymph % (Auto) 17.7 % (13.4-35.0) 05/25/16 00:57 [place] % (Auto) 9.1 % (0.0-7.3) H 05/25/16 00:57 Eos % (Auto) 0.6 % (0.0-4.3) 05/25/16 00:57 Baso % (Auto) 0.6 % (0.0-1.8) 05/25/16 00:57 Lymph # 2.3 K/mm3 (1.2-5.4) 05/25/16 00:57 [place] # 1.2 K/mm3 (0.0-0.8) H 05/25/16 00:57 Eos # 0.1 K/mm3 (0.0-0.4) 05/25/16 00:57 Baso # 0.1 K/mm3 (0.0-0.1) 05/25/16 00:57 Seg Neutrophils % 72.0 % (40.0-70.0) H 05/25/16 00:57 Seg Neutrophils # 9.5 K/mm3 (1.8-7.7) H 05/25/16 00:57 PT 15.4 Sec. (12.2-14.9) H 05/30/16 05:33 INR 1.23 (0.87-1.13) H 05/30/16 05:33 APTT 73.5 Sec. (24.2-36.6) H* 05/28/16 05:23 Heparin Anti-Xa Level 0.16 U.I./ml (0.3-0.7) L 05/28/16 07:34 Sodium 135 mmol/L (137-145) L 05/30/16 05:33 Potassium 4.2 mmol/L (3.6-5.0) 05/30/16 05:33 Chloride 97.5 mmol/L (98-107) L 05/30/16 05:33 Carbon Dioxide 23 mmol/L (22-30) 05/30/16 05:33 Anion Gap 19 mmol/L 05/30/16 05:33 BUN 42 mg/dL (7-17) H 05/30/16 05:33 Creatinine 1.0 mg/dL (0.7-1.2) 05/30/16 05:33 Estimated GFR > 60 ml/min 05/30/16 05:33 BUN/Creatinine Ratio 42.00 % 05/30/16 05:33 Glucose 201 mg/dL (65-100) H 05/30/16 05:33 POC Glucose 287 (70-105) H 05/30/16 15:13 Calcium 8.3 mg/dL (8.4-10.2) L 05/30/16 05:33 Phosphorus 3.0 mg/dL (2.5-4.5) 05/30/16 05:33 Magnesium 2.5 mg/dL (1.7-2.3) H 05/30/16 05:33 Total Bilirubin 0.2 mg/dL (0.1-1.2) 05/25/16 00:57 Direct Bilirubin < 0.2 mg/dL (0-0.2) 05/25/16 00:57 Indirect Bilirubin 0.0 mg/dL 05/25/16 00:57 AST 19 units/L (5-40) 05/25/16 00:57 ALT 10 units/L (7-56) 05/25/16 00:57 Alkaline Phosphatase 81 units/L (35-129) 05/25/16 00:57 Total Creatine Kinase 234 units/L (30-135) H 05/25/16 19:42 CK-MB (CK-2) 7.3 ng/mL (0.0-4.0) H 05/25/16 19:42 CK-MB (CK-2) Rel Index 3.1 (0-4) 05/25/16 19:42 Troponin T 0.371 ng/mL (0.00-0.029) H* 05/26/16 14:53 NT-Pro-B Natriuret Pep 987.1 pg/mL (0-900) H 05/25/16 00:57 Total Protein 7.0 g/dL (6.3-8.2) 05/25/16 00:57 Albumin 3.4 g/dL (3.9-5) L 05/25/16 00:57 Albumin/Globulin Ratio 0.9 % 05/25/16 00:57 Triglycerides 284 mg/dL (2-149) H 05/25/16 00:57 Cholesterol 231 mg/dL (50-199) H 05/25/16 00:57 LDL Cholesterol Direct 144 mg/dL (50-130) H 05/25/16 00:57 HDL Cholesterol 31 mg/dL (40-59) L 05/25/16 00:57 Cholesterol/HDL Ratio 7.45 % 05/25/16 00:57 Lipase 9 units/L (13-60) L 05/25/16 00:57 Urine Color Yellow (Yellow) 05/28/16 18:08 Urine Turbidity Clear (Clear) 05/28/16 18:08 Urine pH 5.0 (5.0-7.0) 05/28/16 18:08 Ur Specific [place] 1.016 (1.003-1.030) 05/28/16 18:08 Urine Protein 100 mg/dl mg/dL (Negative) 05/28/16 18:08 Urine Glucose (UA) 150 mg/dL (Negative) 05/28/16 18:08 Urine Ketones Neg mg/dL (Negative) 05/28/16 18:08 Urine Blood Neg (Negative) 05/28/16 18:08 Urine Nitrite Neg (Negative) 05/28/16 18:08 Urine Bilirubin Neg (Negative) 05/28/16 18:08 Urine Urobilinogen < 2.0 mg/dL (<2.0) 05/28/16 18:08 Ur Leukocyte Esterase Neg (Negative) 05/28/16 18:08 Urine WBC (Auto) 1.0 /HPF (0.0-6.0) 05/28/16 18:08 Urine RBC (Auto) 1.0 /HPF (0.0-6.0) 05/28/16 18:08 U Epithel Cells (Auto) < 1.0 /HPF (0-13.0) 05/28/16 18:08 Urine Mucus Few /HPF 05/28/16 18:08 Urine Eosinophils None seen (None Seen) 05/28/16 18:08 Urine Creatinine 170.3 mg/dL (0.1-20.0) H 05/28/16 18:08 Urine Sodium 16 mEq/L 05/28/16 18:08
[2016-05-30] MEDS: MUCOMYST INHALATION PO SCH ×2 (17:49→18:07)
[2016-05-30] MEDS: BENTYL PO SCH ×2 (18:30→21:51)
[2016-05-30] MEDS: ALUM-MAG HYDROX-SIMETH 200-200-20MG/5ML PO PRN (21:52)
[2016-05-30] MEDS ORDERED: MUCOMYST INHALATION PO SCH (22:00)
[2016-05-30] MEDS ORDERED: FLEET PR STA (22:29)
[2016-05-31] MEDS: HEPARIN SUB-Q SCH ×2 (05:00→11:16)
[2016-05-31] MEDS: DILAUDID IV PRN (05:44)
[2016-05-31] MEDS: NACL 0.9% 1000 ML 1,000 ML IV SCH (06:19)
[2016-05-31 06:38] LABS: Hematocrit 27.5 % (30.3-42.9); Hemoglobin 8.9 gm/dl (10.1-14.3); Mean Corpuscular HGB Conc 33 % (30-34); Mean Corpuscular Hemoglobin 26 pg (28-32); Mean Corpuscular Volume 80 fl (79-97); Platelet Count 208 K/mm3 (140-440); Red Blood Count 3.44 M/mm3 (3.65-5.03); White Blood Count 9.5 K/mm3 (4.5-11.0)
[2016-05-31 06:53] LABS: INR 1.22 (0.87-1.13)
[2016-05-31 06:58] LABS: Anion Gap 19 mmol/L; Blood Urea Nitrogen 39 mg/dL (7-17); Calcium 8.2 mg/dL (8.4-10.2); Carbon Dioxide 23 mmol/L (22-30); Chloride 94.3 mmol/L (98-107); Glucose 308 mg/dL (65-100); Potassium 4.3 mmol/L (3.6-5.0); Sodium 132 mmol/L (137-145)
[2016-05-31] MEDS ORDERED: HEPARIN 10,000 UNITS/10 ML ONE (07:39)
[2016-05-31] MEDS ORDERED: XYLOCAINE 2% INFILTRATI ONE (07:39)
[2016-05-31] MEDS ORDERED: CALAN ONE (07:39)
[2016-05-31] MEDS ORDERED: HEPARIN/NS 5000 UNIT/500ML(CATH LAB) 1,000 ML IR ONE (07:39)
[2016-05-31] MEDS ORDERED: NITROGLYCERIN SYRINGE 3 ML ONE (07:39)
[2016-05-31] MEDS ORDERED: SUBLIMAZE ONE (07:40)
[2016-05-31] MEDS ORDERED: VERSED ONE (07:40)
[2016-05-31] MEDS ORDERED: LASIX ONE (08:29)
[2016-05-31] MEDS ORDERED: AGGRASTAT DRIP (12.5 MG/250 ML) 0 MCG/0 ML BAG IV ONE (08:33)
--- NOTE | 2016-05-31 08:56 | Progress Note ---
Assessment and Plan NSTEMI Acute Diastolic dsyfunction Anemia Gastritis with abdominal pain Acute Renal failure Acute respiratory distress OBESITY DM-1 HTN CHOL rec : [facility] today 05/31/2016 lt main patent, lad mid 80% small vessel distal, lcx mid 95% and rca mid 100% normal lv function elevated lvedp 40-45mmhg cont asa, start iv lasix and transfer pt to [place] for possible bypass vs pci discuss with pt and family in detail. Subjective Date of service: 05/31/16 Principal diagnosis: Epigastric pain Interval history: pt having sob with exertion Objective Vital Signs Temp Pulse Pulse Pulse Pulse Resp Resp 05/31/16 05:30 97.9 F 69 20 05/30/16 22:18 97.8 F 69 22 05/30/16 22:00 69 22 05/30/16 21:40 05/30/16 17:52 87 18 05/30/16 17:50 89 18 05/30/16 16:30 97.5 F L 80 18 05/30/16 11:36 69 22 05/30/16 11:20 67 28 H 05/30/16 11:06 98.2 F 70 12 05/30/16 10:00 78 20 05/30/16 09:50 98.2 F 72 18 05/30/16 09:46 98.2 F 72 BP BP Pulse Ox 05/31/16 05:30 102/64 100 05/30/16 22:18 127/62 91 05/30/16 22:00 98 05/30/16 21:40 97 05/30/16 17:52 05/30/16 17:50 05/30/16 16:30 128/90 05/30/16 11:36 125/82 100 05/30/16 11:20 124/80 100 05/30/16 11:06 135/72 100 05/30/16 10:00 05/30/16 09:50 110/66 22 L 05/30/16 09:46 110/66 22 L - Physical Examination General: Other (mild distress) HEENT: Positive: PERRL, Normocephaly, Mucus Membranes Moist Neck: Positive: neck supple, trachea midline Cardiac: Positive: Reg Rate and Rhythm Lungs: Positive: Wheezes (mild ) Neuro: Positive: Grossly Intact, Cranial Nerve 2-12 Intact Abdomen: Positive: Unremarkable, Soft, Active Bowel Sounds. Negative: Tender Skin: Positive: Clear. Negative: Rash, Wound Musculoskeletal: No Fluid Collection, No Pain, Normal Range of Motion Extremities: Present: normal, upper extr. pulses, lower extr. pulses. Absent: edema - Labs and Meds Coagulation 05/31/16 Range/Units 06:19 PT 15.3 H (12.2-14.9) Sec. INR 1.22 H (0.87-1.13) CBC 05/31/16 Range/Units 06:19 WBC 9.5 (4.5-11.0) K/mm3 RBC 3.44 L (3.65-5.03) M/mm3 Hgb 8.9 L (10.1-14.3) gm/dl Hct 27.5 L (30.3-42.9) % Plt Count 208 (140-440) K/mm3 Comprehensive Metabolic Panel 05/31/16 Range/Units 06:19 Sodium 132 L (137-145) mmol/L Potassium 4.3 (3.6-5.0) mmol/L Chloride 94.3 L (98-107) mmol/L Carbon Dioxide 23 (22-30) mmol/L BUN 39 H (7-17) mg/dL Creatinine 1.0 (0.7-1.2) mg/dL Glucose 308 H (65-100) mg/dL Calcium 8.2 L (8.4-10.2) mg/dL - Imaging and Cardiology EKG: report reviewed, image reviewed Echo: report reviewed (05/25/2016: EF 50 - 55%, mild to moderate MR, LA mildly dilated, mild TR) Cardiac cath: report reviewed, other (05/31/2016 lt main patent, lad mid 80% small vessel distal, lcx mid 95% and rca mid 100% normal lv function elevated lvedp 40-45mmhg) - Telemetry EKG Rhythm: Sinus Rhythm - EKG Sinus rhythms and dysrhythmias: sinus rhythm Repolarization changes or abnormalities: ST or T wave suggestive of ischemia, ST suggestive of injury Myocardial infarction: inferior [place] (old age inde
--- NOTE | 2016-05-31 09:11 | Progress Note ---
Assessment and Plan - Patient Problems (1) DONAL (acute kidney injury) Current Visit: Yes Status: Acute Plan to address problem: Acute Kidney Injury is hemodynamicaly mediated due to volume depletion. Renal function has improved. Hemodynamically stable. (2) Hyperkalemia Current Visit: Yes Status: Acute Plan to address problem: Improved. Hyperkalemia secondary to DONAL. (3) NSTEMI (non-ST elevated myocardial infarction) Current Visit: Yes Status: Acute Plan to address problem: Cath showed 3V disease. (4) Diabetes mellitus type 2 in obese Current Visit: No Status: Chronic (5) Abdominal pain Current Visit: Yes Status: Acute Qualifiers: Abdominal location: A Plan to address problem: Gastritis. (6) Anemia Current Visit: Yes Status: Acute Qualifiers: Anemia type: A Iron deficiency anemia type: I Vitamin B12 deficiency anemia type: V Folate deficiency anemia type: F Bone marrow failure anemia type: B Hemolytic anemia type: H Other causes of anemia: O Subjective Date of service: 05/31/16 Principal diagnosis: Epigastric pain Interval history: Patient c/o wheezing. Objective - Vital Signs Vital signs: Vital Signs - 12hr 05/30/16 05/30/16 05/30/16 21:40 22:00 22:18 Temperature 97.8 F Pulse Rate 69 Pulse Rate [ 69 Apical] Respiratory 22 22 Rate Blood Pressure 127/62 [Left Arm] O2 Sat by Pulse 97 98 91 Oximetry 05/31/16 05:30 Temperature 97.9 F Pulse Rate Pulse Rate [ 69 Apical] Respiratory 20 Rate Blood Pressure 102/64 [Left Arm] O2 Sat by Pulse 100 Oximetry - General Appearance General appearance: well-developed, well-nourished, appears stated age, obese, other (not in distress) EENT: ATNC, PERRL, hearing intact, vision intact Neck: no carotid bruit, supple Respiratory: Present: Ronchi Cardiology: regular, S1S2, no murmurs Gastrointestinal: normoactive bowel sounds, no tenderness, no distended, obese Integumentary: no rash, warm and dry Neurologic: no focal deficit, no asterixis, alert and oriented x3, CN 3-12 intact Musculoskeletal: other (no edema) Psychiatric: mood/affect appropriate, cooperative - Lab 05/31/16 06:19 05/31/16 06:19 Most recent lab results Calcium 8.2 mg/dL (8.4-10.2) L 05/31/16 06:19 Phosphorus 3.0 mg/dL (2.5-4.5) 05/30/16 05:33 Magnesium 2.5 mg/dL (1.7-2.3) H 05/30/16 05:33 Urine Creatinine 170.3 mg/dL (0.1-20.0) H 05/28/16 18:08 Urine Sodium 16 mEq/L 05/28/16 18:08
[2016-05-31] MEDS: PROVENTIL IH PRN ×2 (09:41→14:00)
[2016-05-31] MEDS: BABY ASPIRIN PO SCH (09:57)
[2016-05-31] MEDS: BENTYL PO SCH (09:58)
[2016-05-31] MEDS ORDERED: LASIX IV SCH (10:00)
[2016-05-31] MEDS ORDERED: COREG PO SCH (10:00)
[2016-05-31] MEDS ORDERED: IMDUR PO SCH (10:00)
[2016-05-31] MEDS ORDERED: PROTONIX PO SCH (10:00)
--- NOTE | 2016-05-31 10:16 | Discharge Summary ---
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 05/27/16 13:37 Consult to Physician [CONS] Routine Consulting Provider: DEVIKA TORRES Reason For Exam: ICU Management Place consult to:: Dr. Torres Notified:: Yes 05/31/16 08:52 Consult to Cardiac Rehabilitation [CONS] Routine Reason For Exam: Cardiac Rehab Evaluation Primary care physician: KARINA BHATT MD Hospitalization Condition: Stable Procedures: rec : [facility] today 05/31/2016 lt main patent, lad mid 80% small vessel distal, lcx mid 95% and rca mid 100% normal lv function elevated lvedp 40-45mmhg Hospital course: 55F with pmh of CAD who presents with chest pain 1. NSTEMI , Cardiology input appreciated, [facility] tomorrow am Will need to restart aspirin/plavix after EGD 2. DM continue insulins 3. HTN monitor BP, optimize meds 4,. HLD continue statin 5. Abdominal Pain has a hx of gastritis Gi input appreiciated EGD 05/30 shows only mild gastritis and no clear etiology for severe pain rx with pain meds, pepcid, hyoscamine, will add bentyl today has now had CT Abdomen and pelvis x 2 , CT A/P image reviewed; no acute abnormalities 6. Vasomotor nephropathy improving with IVF, nephrology input appreciated Disposition: DC/TX SHORT-TERM GEN HOSP INPT Time spent for discharge: 35 minutes Exam - Constitutional Vitals: Temp Pulse Resp BP Pulse Ox 97.9 F 79 20 102/64 97 05/31/16 05:30 05/31/16 09:52 05/31/16 09:52 05/31/16 05:30 05/31/16 09:42 Plan Follow up with: KARINA BHATT MD [Primary Care Provider] - 7 Days
[2016-05-31] MEDS: NEURONTIN PO SCH (10:38)
[2016-05-31] MEDS ORDERED: DILAUDID IV PRN (11:04)
--- NOTE | 2016-05-31 11:05 | Cardiac Catherization Report ---
LEFT HEART CATHETERIZATION CLINICAL INFORMATION: This is a 55-year-old female with diabetes, hypertension, obesity, known coronary artery disease, was treated medically; presents to the hospital with non-ST elevation TN and also shortness of breath on exertion. Left heart catheterization performed via the right radial artery, sterile technique, local anesthesia, 5-[place] radial sheath inserted, left system engaged with a Marcos catheter. FINDINGS: Left main is large caliber vessel, patent. LAD becomes a small caliber vessel with diffuse disease with focal areas of 80% in the mid prior to a small diagonal 1 and rest of the LAD is a 2-0 vessel, but diffusely diseased. Circumflex is a medium caliber vessel, proximal is patent, mid with focal 95% with GREGG 2 flow into the OM1, which is a medium caliber vessel, you see left to right collaterals feeding into the small PDA and PLV from the septals. RCA was engaged with JR4, a left dominant vessel, large caliber, mid is 100%. LV gram done in GAMBIAN and SON view shows normal LV function. LVEDP of 40 to 45 mmHg, LV is 157, aortic is 157/92. No gradient across the aortic valve. EF is approximately 55% to 60%. A 5-[place] catheters were taken over a guidewire, 5-[place] radial sheath was discontinued. Radial dressing applied. No hematoma, no bleeding. The patient received 40 mg of IV Lasix for elevated left end-diastolic pressure. SUMMARY: 1. Significant triple-vessel disease, left main patent, LAD diffuse disease, small caliber vessel, 2-0 vessel with a focal area of 80% in midsection. Circumflex is a culprit vessel, mid has a 95% lesion with GREGG 2 flow going to medium caliber OM1 and left to right collaterals noted as the RCA mid is 100%. 2. The patient will be transferred to [place] for possible bypass surgery versus high risk angioplasty. JOB# [id number] CHUY/LUIS
[2016-05-31 12:19] VITALS: BP 135/70
== END 2016-05-31 15:01 | disposition short-term general hospital (02) | DRG 280 ==
LOC: ED 00:20 → 4A 05:29 → CC1 18:15 → 4A 05-27 17:02
PROVIDERS: ADMIT Internal Medicine; ATTEND Internal Medicine
PROC: 0DB68ZX Excision of Stomach, Via Natural or Artificial Opening Endoscopic, Diagnostic (ICD-10-PCS; principal; 2016-05-30)
PROC: 4A023N7 Measurement of Cardiac Sampling and Pressure, Left Heart, Percutaneous Approach (ICD-10-PCS; 2016-05-31)
PROC: B2111ZZ Fluoroscopy of Multiple Coronary Arteries using Low Osmolar Contrast (ICD-10-PCS; 2016-05-31)
PROC: B2151ZZ Fluoroscopy of Left Heart using Low Osmolar Contrast (ICD-10-PCS; 2016-05-31)
DX: I21.4 Non-ST elevation (NSTEMI) myocardial infarction (principal); N17.0 Acute kidney failure with tubular necrosis; I50.31 Acute diastolic (congestive) heart failure; E87.1 Hypo-osmolality and hyponatremia; E78.5 Hyperlipidemia, unspecified; E87.5 Hyperkalemia; K29.60 Other gastritis without bleeding; J80 Acute respiratory distress syndrome; E66.9 Obesity, unspecified; Z68.41 Body mass index [BMI] 40.0-44.9, adult; I25.10 Atherosclerotic heart disease of native coronary artery without angina pectoris; J44.9 Chronic obstructive pulmonary disease, unspecified; D25.9 Leiomyoma of uterus, unspecified; F41.9 Anxiety disorder, unspecified; D64.9 Anemia, unspecified; K21.9 Gastro-esophageal reflux disease without esophagitis; E10.40 Type 1 diabetes mellitus with diabetic neuropathy, unspecified; I25.2 Old myocardial infarction; Z79.4 Long term (current) use of insulin; Z91.14 Patient's other noncompliance with medication regimen
CPT/HCPCS: 36415; 71010; 74177; 80048; 80061; 80074; 81001; 82550; 82553; 82565; 82570; 82962; 83690; 83735; 83880; 84100; 84132; 84300; 84484; 84520; 85014; 85018; 85025; 85027; 85049; 85520; 85610; 85730; 88305; 88342; 89050; 93005; 93010; 93306; 93458; 94640; 94760; 96374; 96375; 96376; A9270-GY; C1887; C1894; C9113; J0780; J1170; J1644; J1815; J1940; J2060; J2250; J2405; J2704; J3010; J3246; J7030; J7040; Q9967

== ENCOUNTER 2017-03-08 08:25 | Outpatient (CLI) | payer MEDICAID | END 2017-03-08 08:26 | disposition home or self-care (01) | LOC: WOUND 08:25 | PROVIDERS: ATTEND Podiatrist | DX: L03.116 Cellulitis of left lower limb (principal); E11.40 Type 2 diabetes mellitus with diabetic neuropathy, unspecified; R60.9 Edema, unspecified; E66.3 Overweight | CPT/HCPCS: 99211; G0463 ==

== ENCOUNTER 2018-06-30 23:15 | Inpatient (IN) | payer MEDICAID ==
[2018-07-01] MEDS ORDERED: ZOFRAN IV ONE ×2 (00:10→02:16)
[2018-07-01] MEDS ORDERED: MORPHINE IV ONE (00:10)
--- NOTE | 2018-07-01 00:15 | Emergency Department Report ---
ED Chest Pain HPI - General Chief Complaint: Chest Pain Stated Complaint: CHEST PAIN Time Seen by Provider: 07/01/18 00:04 Source: patient, EMS Mode of arrival: Stretcher Limitations: No Limitations - History of Present Illness Initial Comments: Patient is a 57 years old with history of coronary artery disease status post stent in 2017. Patient presented to the ER complaining of left-sided chest pain started 2 hours ago, 9 out of 10 with radiation to the left arm. Patient stated that she took aspirin 325 mg at home and she received nitroglycerin by EMS which helped the pain but is not completely resolved. Patient denied any shortness of breath, cough, fever or chills. MD Complaint: chest pain -: hour(s) Onset: during rest Pain Location: left chest Pain Radiation: LUE Severity: moderate Severity scale (0 -10): 9 Quality: tightness Consistency: constant - Related Data Home Medications Medication Instructions Recorded Confirmed Last Taken Insulin NPH Hum/Reg Insulin Hm 40 unit SQ WMHS 05/19/13 02/28/17 02/27/17 10:00 [NovoLIN 70-30 100 Unit/ml Vial] 40units Isosorbide Mononitrate 10 mg PO DAILY 05/19/13 02/28/17 02/27/17 10:00 10mg metFORMIN XR [Glucophage XR] 1,000 mg PO BID 05/19/13 02/28/17 05/18/13 AtorvaSTATin [Lipitor] 40 mg PO QDAY 11/01/15 02/28/17 02/27/17 10:00 40mg Furosemide [Lasix TAB] 40 mg PO DAILY 11/01/15 02/28/17 Unknown Gabapentin [Neurontin] 800 mg PO Q8HR 11/01/15 02/28/17 02/27/17 10:00 800mg Vitamin D 1 tab PO DAILY 11/01/15 02/28/17 02/27/17 10:00 1 tab Carvedilol [Coreg] 12.5 mg PO BID 02/28/17 02/28/17 02/27/17 10:00 12.5mg Clopidogrel [Plavix] 75 mg PO QDAY 02/28/17 02/28/17 02/27/17 10:00 75mg Cyclobenzaprine [Flexeril 10 MG 10 mg PO TID PRN 02/28/17 02/28/17 02/26/17 22:00 TAB] 10mg Escitalopram [Lexapro] 20 mg PO DAILY 02/28/17 02/28/17 02/27/17 10:00 20mg Insulin Glargine,Hum.rec.anlog 60 units SQ QHS 02/28/17 02/28/17 02/26/17 20:30 [Lantus] 60units Lisinopril [Zestril TAB] 20 mg PO QDAY 02/28/17 02/28/17 02/27/17 10:00 20mg Torsemide [Demadex] 20 mg PO DAILY 02/28/17 02/28/17 02/27/17 10:00 20mg traMADol [Ultram 50 MG tab] 100 mg PO Q8HR 02/28/17 02/28/17 02/27/17 10:00 100mg Previous Rx's Medication Instructions Recorded Last Taken Type Hyoscyamine Subl [Levsin Sl 0.125 0.125 mg SL Q6HR PRN #14 tablet 05/20/13 Unknown Rx TAB] Aspirin EC [Aspirin Enteric Coated 81 mg PO QDAY #30 tablet. 11/03/15 02/27/17 10:00 Rx TAB] 81mg Famotidine [Pepcid] 20 mg PO BID #60 tablet 11/03/15 02/27/17 23:15 Rx 20mg Ciprofloxacin HCl [Ciprofloxacin 500 mg PO BID #20 tablet 03/04/17 Unknown Rx TAB] Clindamycin [Clindamycin CAP] 300 mg PO QID #40 capsule 03/04/17 Unknown Rx Allergies Allergy/AdvReac Type Severity Reaction Status Date / Time No Known Allergies Allergy Verified 05/25/16 00:37 Heart Score - HEART Score History: Moderately suspicious EKG: Significant ST-depression Age: 45-65 Risk factors: > 3 risk factors or hx of atherosclerotic disease Troponin: < normal limit HEART Score: 6 - Critical Actions Critical Actions: 4-6 pts:12-16.6% risk of adverse cardiac event. Should be admitted ED Review of Systems ROS: Stated complaint: CHEST PAIN Other details as noted in HPI Comment: All other systems reviewed and negative Constitutional: denies: chills, fever Respiratory: denies: cough, orthopnea, shortness of breath, SOB with exertion, SOB at rest Cardiovascular: chest pain. denies: palpitations, dyspnea on exertion Gastrointestinal: denies: abdominal pain, nausea, vomiting, diarrhea, constipation, hematemesis, melena, hematochezia Musculoskeletal: denies: back pain Neurological: denies: headache, weakness, numbness, paresthesias, confusion ED Past Medical Hx - Past Medical History Hx Hypertension: Yes Hx Heart Attack/AMI: Yes () Hx Congestive Heart Failure: Yes Hx Diabetes: Yes Hx Liver Disease: No Hx Renal Disease: Yes (DONAL) Hx Asthma: No Hx COPD: Yes Hx HIV: No Additional medical history: neuropathy - Surgical History Hx Coronary Stent: No Additional Surgical History: Infection right great toe. Cataract surgery - Social History Smoking Status: Never Smoker Substance Use Type: None - Medications Home Medications: Home Medications Medication Instructions Recorded Confirmed Last Taken Type Insulin NPH Hum/Reg Insulin Hm 40 unit SQ WMHS 05/19/13 02/28/17 02/27/17 10:00 History [NovoLIN 70-30 100 Unit/ml Vial] 40units Isosorbide Mononitrate 10 mg PO DAILY 05/19/13 02/28/17 02/27/17 10:00 History 10mg metFORMIN XR [Glucophage XR] 1,000 mg PO BID 05/19/13 02/28/17 05/18/13 History Hyoscyamine Subl [Levsin Sl 0.125 0.125 mg SL Q6HR PRN #14 tablet 05/20/1302/11 Unknown Rx TAB] AtorvaSTATin [Lipitor] 40 mg PO QDAY 11/01/15 02/28/17 02/27/17 10:00 History 40mg Furosemide [Lasix TAB] 40 mg PO DAILY 11/01/15 02/28/17 Unknown History Gabapentin [Neurontin] 800 mg PO Q8HR 11/01/15 02/28/17 02/27/17 10:00 History 800mg Vitamin D 1 tab PO DAILY 11/01/15 02/28/17 02/27/17 10:00 History 1 tab Aspirin EC [Aspirin Enteric Coated 81 mg PO QDAY #30 tablet. 11/03/15 02/28/17 02/27/17 10:00 Rx TAB] 81mg Famotidine [Pepcid] 20 mg PO BID #60 tablet 11/03/15 02/28/17 02/27/17 23:15 Rx 20mg Carvedilol [Coreg] 12.5 mg PO BID 02/28/17 02/28/17 02/27/17 10:00 History 12.5mg Clopidogrel [Plavix] 75 mg PO QDAY 02/28/17 02/28/17 02/27/17 10:00 History 75mg Cyclobenzaprine [Flexeril 10 MG 10 mg PO TID PRN 02/28/17 02/28/17 02/26/17 22:00 History TAB] 10mg Escitalopram [Lexapro] 20 mg PO DAILY 02/28/17 02/28/17 02/27/17 10:00 History 20mg Insulin Glargine,Hum.rec.anlog 60 units SQ QHS 02/28/17 02/28/17 02/26/17 20:30 History [Lantus] 60units Lisinopril [Zestril TAB] 20 mg PO QDAY 02/28/17 02/28/17 02/27/17 10:00 History 20mg Torsemide [Demadex] 20 mg PO DAILY 02/28/17 02/28/17 02/27/17 10:00 History 20mg traMADol [Ultram 50 MG tab] 100 mg PO Q8HR 02/28/17 02/28/17 02/27/17 10:00 History 100mg Ciprofloxacin HCl [Ciprofloxacin 500 mg PO BID #20 tablet 03/04/17 Unknown Rx TAB] Clindamycin [Clindamycin CAP] 300 mg PO QID #40 capsule 03/04/17 Unknown Rx ED Physical Exam - General Limitations: No Limitations General appearance: alert, in no apparent distress - Head Head exam: Present: atraumatic, normocephalic, normal inspection - Eye Eye exam: Present: normal appearance - ENT ENT exam: Present: normal exam, normal orophraynx, mucous membranes moist - Neck Neck exam: Present: normal inspection, full ROM. Absent: tenderness, meningismus, lymphadenopathy, thyromegaly - Respiratory Respiratory exam: Present: normal lung sounds bilaterally - Cardiovascular Cardiovascular Exam: Present: regular rate, normal rhythm, normal heart sounds - GI/Abdominal GI/Abdominal exam: Present: soft, normal bowel sounds. Absent: distended, tenderness, guarding, rebound, rigid, organomegaly, mass, bruit, pulsatile mass - Extremities Exam Extremities exam: Present: normal inspection, full ROM, normal capillary refill. Absent: pedal edema, calf tenderness - Back Exam Back exam: Present: normal inspection, full ROM. Absent: CVA tenderness (R), CVA tenderness (L), muscle spasm, paraspinal tenderness, vertebral tenderness - Neurological Exam Neurological exam: Present: alert, oriented X3, CN II-XII intact, normal gait, reflexes normal - Skin Skin exam: Present: warm, intact, normal color ED Course Vital Signs 06/30/18 07/01/18 23:40 00:40 Temperature 98.4 F Pulse Rate 63 Respiratory 18 18 Rate Blood Pressure 122/62 Blood Pressure 122/62 [Left] O2 Sat by Pulse 95 Oximetry GREGG score - Gregg Score Age > 65: (1) Yes Aspirin use within the Past 7 Days: (1) Yes 3 or more CAD Risk Factors: (1) Yes 2 or more Angina events in past 24 hrs: (1) Yes Known CAD with more than 50% Stenosis: (0) No Elevated Cardiac Markers: (0) No ST Deviation Greater than 0.5mm: (0) No GREGG Score: 4 ED Medical Decision Making - Lab Data Result diagrams: 07/01/18 00:12 07/01/18 00:12 - EKG Data -: EKG Interpreted by Me Rate: normal - EKG Data Interpretation: no acute changes - Radiology Data Radiology results: report reviewed Chest x-ray is unremarkable. - Medical Decision Making Patient is a 57 years old with history of coronary artery disease status post stent in 2017. Patient presented to the ER complaining of left-sided chest pain started 2 hours ago, 9 out of 10 with radiation to the left arm. Patient stated that she took aspirin 325 mg at home and she received nitroglycerin by EMS which helped the pain but is not completely resolved. Patient denied any shortness of breath, cough, fever or chills. EKG with no evidence of ST elevation. Chest x-ray is normal. First troponin is 0.150. I discussed the patient is Dr. Hinds, he advised to admit to the hospital and he will follow-up with the patient in the morning. Discussed the patient is Dr. Knott, she agreed to admit the patient to medical service. Critical care attestation.: If time is entered above; I have spent that time in minutes in the direct care of this critically ill patient, excluding procedure time. ED Disposition Clinical Impression: Unstable angina, Chest pain Disposition: [id number] OP ADMIT IP TO THIS HOSP Is pt being admited?: Yes Condition: Stable Instructions: Angina (ED), Chest Pain (ED) Referrals: EMMA ISRAEL MD [Primary Care Provider] - 3-5 Days
[2018-07-01 00:25] LABS: Hematocrit 29.7 % (30.3-42.9); Hemoglobin 10.2 gm/dl (10.1-14.3); Mean Corpuscular HGB Conc 34 % (30-34); Mean Corpuscular Volume 81 fl (79-97); Platelet Count 144 K/mm3 (140-440); Red Blood Count 3.65 M/mm3 (3.65-5.03)
[2018-07-01 00:39] LABS: INR 1.09 (0.87-1.13)
--- NOTE | 2018-07-01 00:39 | XRay Report ---
PROCEDURE: XR CHEST 1V AP TECHNIQUE: Chest radiograph single view. HISTORY: Chest Pain COMPARISONS: None . FINDINGS: Heart: Normal. Mediastinum/Vessels: Normal. Lungs/Pleural space: Normal. Bony thorax: No acute osseous abnormality. Life support devices: None. IMPRESSION: No acute cardiopulmonary abnormality. This document is electronically signed by Nohemi Pride DO., Jul 01 2018 12:37:05 AM ET
[2018-07-01 00:40] LABS: Partial Thromboplastin Time 32.4 Sec. (24.2-36.6)
[2018-07-01 00:48] LABS: Calcium 8.4 mg/dL (8.4-10.2)
[2018-07-01] MEDS ORDERED: HumuLIN R IV ONE (01:40)
[2018-07-01 02:19] LABS: Chol/HDL Ratio 6.71 %
[2018-07-01] MEDS ORDERED: ZOFRAN ONE (02:19)
[2018-07-01] MEDS ORDERED: TYLENOL PO PRN (03:24)
[2018-07-01] MEDS ORDERED: SODIUM CHLORIDE FLUSH SYRINGE 10 ML IV PRN ×2 (03:24)
[2018-07-01] MEDS ORDERED: HEPARIN 10,000 UNITS/10 ML IV ONE (03:34)
[2018-07-01] MEDS ORDERED: D50W (25GM) Syringe IV PRN (03:40)
--- NOTE | 2018-07-01 03:46 | History and Physical Report ---
<NATHALIA ARROYO - Last Filed: 07/01/18 04:20> History of Present Illness Date of examination: 07/01/18 Date of admission: 07/01/2018 Chief complaint: Acute chest pain radiating to the left upper extremity History of present illness: 57-year-old -[place] female with history of insulin-dependent diabetes, hypertension, CAD status post stent placement, RI 3 (2002, 2005, 2008) CHF, chronic neuropathy, MARCELLUS noncompliant with CPAP, presents to [facility] ED via EMS with complaints of left-sided chest pain. Patient states that around 9 PM yesterday she started experiencing substernal left-sided chest pain that radiated under her breasts and to left upper extremity. She took an aspirin 325 mg to relieve her pain. She waited an hour with no improvement of her symptoms she decided to call EMS. She was given nitroglycerin by EMS which provided some relief. She describes her pain as sharp and aching and rates it 8/10. Admits nausea, and diaphoresis. Denies emesis, cough, hemoptysis, or fever. Past History Past Medical History: acute RI (3 ( 2002, 2005, 2008), s/p stent placement), diabetes (insulin-dependent), heart failure, hypertension Past Surgical History: Other (stent placement) Social history: lives with family Family history: no significant family history Medications and Allergies Allergies Allergy/AdvReac Type Severity Reaction Status Date / Time No Known Allergies Allergy Verified 05/25/16 00:37 Home Medications Medication Instructions Recorded Confirmed Last Taken Type Insulin NPH Hum/Reg Insulin Hm 40 unit SQ TIDAC 05/19/13 07/01/18 02/27/17 10:00 History [NovoLIN 70-30 100 Unit/ml Vial] 40units Isosorbide Mononitrate 60 mg PO DAILY 05/19/13 07/01/18 02/27/17 10:00 History 10mg Gabapentin [Neurontin] 800 mg PO Q8HR 11/01/15 07/01/18 02/27/17 10:00 History 800mg Aspirin EC 81 mg PO QDAY #30 tablet. 11/03/15 07/01/18 02/27/17 10:00 Rx 81mg Carvedilol [Coreg] 12.5 mg PO BID 02/28/17 07/01/18 02/27/17 10:00 History 12.5mg Clopidogrel [Plavix] 75 mg PO QDAY 02/28/17 07/01/18 02/27/17 10:00 History 75mg Escitalopram [Lexapro] 20 mg PO DAILY 02/28/17 07/01/18 02/27/17 10:00 History 20mg Lisinopril [Zestril TAB] 20 mg PO QDAY 02/28/17 07/01/18 02/27/17 10:00 History 20mg Torsemide [Demadex] 20 mg PO DAILY 02/28/17 07/01/18 02/27/17 10:00 History 20mg traMADol [Ultram 50 MG tab] 100 mg PO Q8HR 02/28/17 07/01/18 02/27/17 10:00 History 100mg Baclofen [Lioresal] 10 mg PO HS 07/01/18 07/01/18 Unknown History Brimonidine Tartrate/Timolol 1 drop OP BID 07/01/18 07/01/18 Unknown History [Combigan 0.2%-0.5% Eye Drops] Buspirone HCl [busPIRone] 15 mg PO BID 07/01/18 07/01/18 Unknown History Insulin Detemir [Levemir] 100 unit SQ HS 07/01/18 07/01/18 Unknown History Lispro Insulin [HumaLOG] 100 unit SQ QHS 07/01/18 07/01/18 Unknown History Active Meds: Active Medications Acetaminophen (Tylenol) 650 mg PO Q4H PRN PRN Reason: Pain MILD(1-3)/Fever >100.5/SHARPE Aspirin (Baby Aspirin) 81 mg PO QDAY [facility] Atorvastatin Calcium (Lipitor) 40 mg PO QHS [facility] Dextrose (D50w (25gm) Syringe) 50 ml IV PRN PRN PRN Reason: Hypoglycemia Heparin Sodium (Porcine) (Heparin 10,000 Units/10 Ml) 6,800 unit 60 unit/kg (6800 unit) IV ONCE ONE Stop: 07/01/18 03:35 Sodium Chloride (Nacl 0.9% 1000 Ml) 1,000 mls @ 75 mls/hr IV DIRECT [facility] Heparin Sodium/Sodium Chloride (Heparin/ 0.45% Nacl-25,000 Unit/500 Ml) 25,000 unit in 500 mls @ 34.019 mls/hr IV TITRATE [facility]; Protocol Insulin Human Lispro (Humalog) 0 unit SUB-Q Q6HR [facility]; Protocol Morphine Sulfate (Morphine) 2 mg IV Q4H PRN PRN Reason: Pain, Moderate (4-6) Stop: 07/02/18 23:59 Ondansetron HCl (Zofran) 4 mg IV Q8H PRN PRN Reason: Nausea And Vomiting Sodium Chloride (Sodium Chloride Flush Syringe 10 Ml) 10 ml IV BID [facility] Sodium Chloride (Sodium Chloride Flush Syringe 10 Ml) 10 ml IV PRN PRN PRN Reason: LINE FLUSH Sodium Chloride (Sodium Chloride Flush Syringe 10 Ml) 10 ml IV PRN PRN PRN Reason: LINE FLUSH Tramadol HCl (Ultram) 50 mg PO Q6H PRN PRN Reason: Pain, Moderate (4-6) Review of Systems All systems: negative (reviewed and no additional remarkable complaints except as noted below) Eyes: right: loss of vision (1 month ago) Cardiovascular: chest pain (left-sided substernal with radiation to left upper extremity), edema (BLE), high blood pressure Respiratory: sleep apnea (compliant with CPAP) Gastrointestinal: nausea Musculoskeletal: other (chronic neuropathy to BLE) Psychiatric: depression Exam - Physical Exam Narrative exam: Physical exam General appearance: Present: No acute distress, obese, pleasant, oriented 3 - EENT Eyes: Present: PERRL, EOM intact ENT: hearing intact, poor dentition - Neck Neck: Present: supple, normal ROM - Respiratory Respiratory effort: Non-labored Respiratory: bilateral: diminished (bases) - Cardiovascular Heart rate: 59 (bpm) Rhythm: regular Heart Sounds: Present: S1 & S2. Absent: rub, click - Extremities Extremities: no ischemia, pulses intact, abnormal (right foot previous wound now healed, +1 pitting edema BLE) - Peripheral Assessment Peripheral Pulses: within normal limits - Abdominal General gastrointestinal: Obese, soft, non-tender, normal bowel sounds - Integumentary Integumentary: Present: warm, dry - Musculoskeletal Musculoskeletal: Able to move all extremities - Psychiatric Psychiatric: cooperative - Constitutional Vitals: Temp Pulse Resp BP Pulse Ox 98.4 F 63 18 122/62 95 06/30/18 23:40 06/30/18 23:40 07/01/18 00:40 06/30/18 23:40 06/30/18 23:40 Results - Labs CBC & Chem 7: 07/01/18 00:12 07/01/18 00:12 Labs: Laboratory Last Values WBC 9.7 K/mm3 (4.5-11.0) 07/01/18 00:12 RBC 3.65 M/mm3 (3.65-5.03) 07/01/18 00:12 Hgb 10.2 gm/dl (10.1-14.3) 07/01/18 00:12 Hct 29.7 % (30.3-42.9) L 07/01/18 00:12 MCV 81 fl (79-97) 07/01/18 00:12 MCH 28 pg (28-32) 07/01/18 00:12 MCHC 34 % (30-34) 07/01/18 00:12 RDW 14.0 % (13.2-15.2) 07/01/18 00:12 Plt Count 144 K/mm3 (140-440) 07/01/18 00:12 Hopkins % (Auto) Certified Teacher Assistant 07/01/18 00:12 PT 14.8 Sec. (12.2-14.9) 07/01/18 00:18 INR 1.09 (0.87-1.13) 07/01/18 00:18 APTT 32.4 Sec. (24.2-36.6) 07/01/18 00:18 Sodium 130 mmol/L (137-145) L 07/01/18 00:12 Potassium 4.3 mmol/L (3.6-5.0) 07/01/18 00:12 Chloride 92.0 mmol/L (98-107) L 07/01/18 00:12 Carbon Dioxide 27 mmol/L (22-30) 07/01/18 00:12 15 mmol/L 07/01/18 00:12 BUN 24 mg/dL (7-17) H 07/01/18 00:12 1.4 mg/dL (0.7-1.2) H 07/01/18 00:12 Estimated GFR 47 ml/min 07/01/18 00:12 17 % 07/01/18 00:12 Glucose 420 mg/dL (65-100) H 07/01/18 00:12 Calcium 8.4 mg/dL (8.4-10.2) 05/21/19 00:12 0.163 ng/mL (0.00-0.029) H* 07/01/18 02:48 NT-Pro-B Natriuret Pep 474.0 pg/mL (0-900) 07/01/18 00:18 Triglycerides 195 mg/dL (2-149) H 07/01/18 00:12 Cholesterol 188 mg/dL (50-199) 07/01/18 00:12 149 mg/dL (50-130) H 07/01/18 00:12 28 mg/dL (40-59) L 07/01/18 00:12 6.71 % 07/01/18 00:12 Short CBC 07/01/18 Range/Units 00:12 WBC 9.7 (4.5-11.0) K/mm3 Hgb 10.2 (10.1-14.3) gm/dl Hct 29.7 L (30.3-42.9) % Plt Count 144 (140-440) K/mm3 BMP 07/01/18 00:12 Sodium 130 L Potassium 4.3 Chloride 92.0 L Carbon Dioxide 27 BUN 24 H Creatinine 1.4 H Glucose 420 H Calcium 8.4 Cardiac Enzymes 07/01/18 07/01/18 Range/Units 00:12 02:48 Troponin T 0.159 H* 0.163 H* (0.00-0.029) ng/mL - Imaging and Cardiology EKG: image reviewed (59 bpm no evidence of ST elevation) Chest x-ray: report reviewed (no acute cardiopulmonary abnormalities), image reviewed Assessment and Plan Assessment and plan: 57-year-old -[place] female with history of insulin-dependent diabetes, hypertension, CAD status post stent placement, RI 3 (2002, 2005, 2008) CHF, chronic neuropathy, MARCELLUS noncompliant with CPAP, presents to [facility] ED via EMS with complaints of left-sided chest pain. She took an aspirin 325 mg to relieve her pain. She was given nitroglycerin by EMS which provided some relief. Troponin elevated 2 initially 0.159, repeat at 0.163. Dr. Hinds has been consult and then will see patient later on today. We will start on heparin drip. Patient will be admitted to telemetry. ACS Acute chest pain Hyponatremia- likely due to dehydration DONAL- likely secondary to dehydration Insulin-dependent diabetes Hypertension History of CHF Chronic neuropathy Obesity Depression History of RI x3 (2002, 2005, 2008) Plan: Continue supportive care Continuous monitoring monitoring Start heparin drip Monitor hemoglobin, hematocrit, and heparin assay per protocol Aspirin 81 mg daily Lipitor 40 mg daily Normal saline @ 42ml/hr Monitor troponin Nitroglycerin when necessary Pain management Monitor electrolytes NPO Hgb A1c pending POC BG monitoring Sliding scale coverage Resume home NPH70/30 40u 3 times a day Continue gabapentin 800 mg every 8 hours Monitor BP Resume home antihypertensive meds: Coreg 12.5 mg twice a day, isosorbide mononitrate 60 mg daily, lisinopril 20 mg daily, torsemide 20 mg daily Resume buspirone 50 mg twice a day Lexapro 20 mg daily Echo and Lexiscan pending Dr. Hinds consulted and following May benefit from outpatient weight management program DVT PPX on heparin drip and SCDs Advance Directives: No VTE prophylaxis?: Chemical Plan of care discussed with patient/family: Yes <RAUL SAUER - Last Filed: 07/01/18 21:44> History of Present Illness Date of admission: 07/01/18 03:46 Medications and Allergies Active Meds: Active Medications Acetaminophen (Tylenol) 650 mg PO Q4H PRN PRN Reason: Pain MILD(1-3)/Fever >100.5/SHARPE Aspirin (Baby Aspirin) 81 mg PO QDAY [facility] Atorvastatin Calcium (Lipitor) 40 mg PO QHS [facility] Last Admin: 07/01/18 21:34 Dose: 40 mg Documented by: Baclofen (Lioresal) 10 mg PO HS [facility] Last Admin: 07/01/18 21:35 Dose: 10 mg Documented by: Buspirone HCl (Buspar) 15 mg PO BID [facility] Last Admin: 07/01/18 21:34 Dose: 15 mg Documented by: Carvedilol (Coreg) 12.5 mg PO BID [facility] Last Admin: 07/01/18 21:36 Dose: 12.5 mg Documented by: Clopidogrel Bisulfate (Plavix) 75 mg PO QDAY [facility] Dextrose (D50w (25gm) Syringe) 50 ml IV PRN PRN PRN Reason: Hypoglycemia Escitalopram Oxalate (Lexapro) 20 mg PO DAILY [facility] Last Admin: 07/01/18 14:28 Dose: 20 mg Documented by: Gabapentin (Neurontin) 800 mg PO Q8HR [facility] Last Admin: 07/01/18 21:34 Dose: 800 mg Documented by: Sodium Chloride (Nacl 0.9% 1000 Ml) 1,000 mls @ 75 mls/hr IV DIRECT [facility] Last Admin: 07/01/18 04:15 Dose: 75 mls/hr Documented by: Heparin Sodium/Sodium Chloride (Heparin/ 0.45% Nacl-25,000 Unit/500 Ml) 25,000 unit in 500 mls @ 20 mls/hr IV TITRATE [facility]; Protocol Last Admin: 07/01/18 17:34 Dose: 1,000 units/hr, 20 mls/hr Documented by: Insulin Glargine (Lantus) 25 units SUB-Q BID@0600,1800 [facility] Last Admin: 07/01/18 18:44 Dose: 25 units Documented by: Insulin Human Lispro (Humalog) 0 unit SUB-Q Q6HR [facility]; Protocol Last Admin: 07/01/18 18:45 Dose: 6 unit Documented by: Isosorbide Mononitrate (Imdur) 60 mg PO DAILY [facility] Last Admin: 07/01/18 14:28 Dose: 60 mg Documented by: Lisinopril (Zestril) 20 mg PO QDAY [facility] Last Admin: 07/01/18 14:28 Dose: Not Given Documented by: Morphine Sulfate (Morphine) 2 mg IV Q4H PRN PRN Reason: Pain, Moderate (4-6) Stop: 07/02/18 23:59 Last Admin: 07/01/18 21:33 Dose: 2 mg Documented by: Nitroglycerin (Nitrostat) 0.4 mg SL Q5M PRN PRN Reason: Chest Pain Ondansetron HCl (Zofran) 4 mg IV Q8H PRN PRN Reason: Nausea And Vomiting Sodium Chloride (Sodium Chloride Flush Syringe 10 Ml) 10 ml IV BID [facility] Last Admin: 07/01/18 21:35 Dose: 10 ml Documented by: Sodium Chloride (Sodium Chloride Flush Syringe 10 Ml) 10 ml IV PRN PRN PRN Reason: LINE FLUSH Torsemide (Demadex) 20 mg PO DAILY [facility] Last Admin: 07/01/18 14:28 Dose: 20 mg Documented by: Tramadol HCl (Ultram) 50 mg PO Q6H PRN PRN Reason: Pain, Moderate (4-6) Last Admin: 07/01/18 14:30 Dose: 50 mg Documented by: Exam - Constitutional Vitals: Temp Pulse Resp BP Pulse Ox 97.9 F 68 20 114/56 99 07/01/18 17:02 07/01/18 21:36 07/01/18 21:33 07/01/18 21:36 07/01/18 17:02 Results - Labs CBC & Chem 7: 07/01/18 16:01 07/01/18 00:12 Labs: Laboratory Last Values WBC 9.7 K/mm3 (4.5-11.0) 07/01/18 00:12 RBC 3.65 M/mm3 (3.65-5.03) 07/01/18 00:12 Hgb 9.5 gm/dl (10.1-14.3) L 07/01/18 16:01 Hct 28.7 % (30.3-42.9) L 07/01/18 16:01 MCV 81 fl (79-97) 07/01/18 00:12 MCH 28 pg (28-32) 07/01/18 00:12 MCHC 34 % (30-34) 07/01/18 00:12 RDW 14.0 % (13.2-15.2) 07/01/18 00:12 Plt Count 140 K/mm3 (140-440) 07/01/18 16:01 Hopkins % (Auto) Certified Teacher Assistant 07/01/18 00:12 Add Manual Diff Complete 07/01/18 00:12 Total Counted 100 07/01/18 00:12 Seg Neuts % (Manual) 61.0 % (40.0-70.0) 07/01/18 00:12 1.0 % 07/01/18 00:12 25.0 % (13.4-35.0) 07/01/18 00:12 Reactive Lymphs % (Man) 1.0 % 07/01/18 00:12 10.0 % (0.0-7.3) H 07/01/18 00:12 0 % (0.0-4.3) 07/01/18 00:12 2.0 % (0.0-1.8) H 07/01/18 00:12 0 % 07/01/18 00:12 0 % 07/01/18 00:12 0 % 07/01/18 00:12 0 % 07/01/18 00:12 Nucleated RBC % Not Reportable 07/01/18 00:12 Seg Neutrophils # Man 5.9 K/mm3 (1.8-7.7) 07/01/18 00:12 Band Neutrophils # 0.1 K/mm3 07/01/18 00:12 2.4 K/mm3 (1.2-5.4) 07/01/18 00:12 Abs React Lymphs (Man) 0.1 K/mm3 07/01/18 00:12 1.0 K/mm3 (0.0-0.8) H 07/01/18 00:12 0.0 K/mm3 (0.0-0.4) 07/01/18 00:12 0.2 K/mm3 (0.0-0.1) H 07/01/18 00:12 0.0 K/mm3 07/01/18 00:12 0.0 K/mm3 07/01/18 00:12 0.0 K/mm3 07/01/18 00:12 Blast Cells # 0.0 K/mm3 07/01/18 00:12 WBC Morphology Not Reportable 07/01/18 00:12 Hypersegmented Neuts Not Reportable 07/01/18 00:12 Hyposegmented Neuts Not Reportable 07/01/18 00:12 Hypogranular Neuts Not Reportable 07/01/18 00:12 Not Reportable 07/01/18 00:12 Not Reportable 07/01/18 00:12 Not Reportable 07/01/18 00:12 Not Reportable 07/01/18 00:12 Not Reportable 07/01/18 00:12 Not Reportable 07/01/18 00:12 Consistent w auto 07/01/18 00:12 Not Reportable 07/01/18 00:12 Plt Clumps, EDTA Not Reportable 07/01/18 00:12 Not Reportable 07/01/18 00:12 Not Reportable 07/01/18 00:12 Not Reportable 07/01/18 00:12 Plt Morphology Comment Not Reportable 07/01/18 00:12 RBC Morphology Not Reportable 07/01/18 00:12 Dimorphic RBCs Not Reportable 07/01/18 00:12 Not Reportable 07/01/18 00:12 Not Reportable 07/01/18 00:12 Not Reportable 07/01/18 00:12 1+ 07/01/18 00:12 Not Reportable 07/01/18 00:12 Not Reportable 07/01/18 00:12 Not Reportable 07/01/18 00:12 Not Reportable 07/01/18 00:12 Not Reportable 07/01/18 00:12 Not Reportable 07/01/18 00:12 Not Reportable 07/01/18 00:12 Not Reportable 07/01/18 00:12 Not Reportable 07/01/18 00:12 Not Reportable 07/01/18 00:12 Not Reportable 07/01/18 00:12 Not Reportable 07/01/18 00:12 Not Reportable 07/01/18 00:12 Not Reportable 07/01/18 00:12 Not Reportable 07/01/18 00:12 Acanthocytes (Spur) Not Reportable 07/01/18 00:12 Rouleaux Not Reportable 07/01/18 00:12 Not Reportable 07/01/18 00:12 Not Reportable 07/01/18 00:12 Not Reportable 07/01/18 00:12 Not Reportable 07/01/18 00:12 Hem Pathologist Commnt No 07/01/18 00:12 PT 14.4 Sec. (12.2-14.9) 07/01/18 16:01 INR 1.05 (0.87-1.13) 07/01/18 16:01 APTT 39.4 Sec. (24.2-36.6) H 07/01/18 16:01 Heparin Anti-Xa Level < 0.10 U.I./ml (0.3-0.7) L 07/01/18 10:15 Sodium 130 mmol/L (137-145) L 07/01/18 00:12 Potassium 4.3 mmol/L (3.6-5.0) 07/01/18 00:12 Chloride 92.0 mmol/L (98-107) L 07/01/18 00:12 Carbon Dioxide 27 mmol/L (22-30) 07/01/18 00:12 15 mmol/L 07/01/18 00:12 BUN 24 mg/dL (7-17) H 07/01/18 00:12 1.4 mg/dL (0.7-1.2) H 07/01/18 00:12 Estimated GFR 47 ml/min 07/01/18 00:12 17 % 07/01/18 00:12 Glucose 420 mg/dL (65-100) H 07/01/18 00:12 POC Glucose 301 (70-105) H 07/01/18 16:09 Calcium 8.4 mg/dL (8.4-10.2) 07/01/18 00:12 162 units/L (30-135) H 07/01/18 16:01 CK-MB (CK-2) 1.6 ng/mL (0.0-4.0) 07/01/18 16:01 CK-MB (CK-2) Rel Index 0.9 (0-4) 07/01/18 16:01 0.168 ng/mL (0.00-0.029) H* 07/01/18 16:01 NT-Pro-B Natriuret Pep 474.0 pg/mL (0-900) 07/01/18 00:18 Triglycerides 195 mg/dL (2-149) H 07/01/18 00:12 Cholesterol 188 mg/dL (50-199) 07/01/18 00:12 149 mg/dL (50-130) H 07/01/18 00:12 28 mg/dL (40-59) L 07/01/18 00:12 6.71 % 07/01/18 00:12 Assessment and Plan Assessment and plan: I personally discussed the patient with the PARA EDUCATOR-C, I agree with the above assessment and plan
[2018-07-01] MEDS ORDERED: HEPARIN/ 0.45% NACL-25,000 UNIT/500 ML 25,000 UNIT/500 ML BAG IV SCH (04:00)
[2018-07-01] MEDS ORDERED: NITROSTAT SL PRN (04:10)
[2018-07-01] MEDS: MORPHINE IV PRN ×4 (04:10→21:33)
[2018-07-01] MEDS: NACL 0.9% 1000 ML 1,000 ML IV SCH ×2 (04:15→22:04)
[2018-07-01] MEDS ORDERED: NACL 0.9% 1000 ML 1,000 ML ONE (04:33)
[2018-07-01] MEDS ORDERED: NACL 0.9% 500 ML 500 ML IV ONE (04:57)
[2018-07-01 05:05] LABS: Band Neutrophils # (Manual) 0.1 K/mm3; Eosinophils % (Manual) 0 % (0.0-4.3); Total Cells Counted 100
[2018-07-01 05:06] LABS: Anisocytosis 1+; Platelet Estimate Consistent w Auto
[2018-07-01] MEDS: NEURONTIN PO SCH ×3 (05:55→21:34)
[2018-07-01] MEDS ORDERED: LANTUS SUB-Q SCH (06:00)
[2018-07-01] MEDS: HumaLOG SUB-Q SCH ×4 (06:52→23:14)
[2018-07-01] MEDS ORDERED: NACL 0.9% 500 ML 500 ML IV SCH ×2 (10:00)
[2018-07-01] MEDS ORDERED: HEPARIN/NS 5000 UNIT/500ML(CATH LAB) 1,000 ML IR ONE (10:53)
[2018-07-01] MEDS ORDERED: VERSED ONE (10:53)
[2018-07-01] MEDS ORDERED: XYLOCAINE 2% INFILTRATI ONE (10:54)
[2018-07-01] MEDS ORDERED: SUBLIMAZE ONE (10:54)
[2018-07-01] MEDS ORDERED: CALAN ONE (10:54)
--- NOTE | 2018-07-01 10:58 | Consultation ---
History of Present Illness Consult date: 07/01/18 Requesting physician: NATHALIA ARROYO Consult reason: chest pain, elevated troponin History of present illness: The pt is a 57 YO female with a past medical history of CAD s/p PCI, HTN, DM, HLP, obesity. She has been seen by our practice on prior hospitalizations. She presented with complaints of chest pain since yesterday. She describes her chest pain as a left-sided pressure which radiates down her left arm. She took aspirin 325 mg at home and she received nitroglycerin by EMS which helped the pain but is not completely resolved. Patient denies any shortness of breath, palpitations, n/v, diaphoresis, dizziness or syncope. Of note, pt was hospitalized here at [facility] in 05/2016 with NSTEMI. She underwent LHC on 05/31/[address] Pa which showed lt main patent, lad mid 80% small vessel distal, lcx mid 95% and rca mid 100% normal lv function elevated lvedp 40-45mmhg. She was transferred to [place] for possible bypass vs pci and subsequently underwent PTCA of mid LAD and LUZ to mid LAD on 06/11/2016. Echo done 06/12/2016 at [place] showed EF 55%, mild MR. Past History Past Medical History: acute [place] (3 ( 2002, 2005, 2008), s/p stent placement), CAD, diabetes (insulin-dependent), hypertension, hyperlipidemia Past Surgical History: PTCA Social history: lives with family Family history: no significant family history Medications and Allergies Allergies Allergy/AdvReac Type Severity Reaction Status Date / Time No Known Allergies Allergy Verified 05/25/16 00:37 Home Medications Medication Instructions Recorded Confirmed Last Taken Type Insulin NPH Hum/Reg Insulin Hm 40 unit SQ TIDAC 05/19/13 07/01/18 02/27/17 10:00 History [NovoLIN 70-30 100 Unit/ml Vial] 40units Isosorbide Mononitrate 60 mg PO DAILY 05/19/13 07/01/18 02/27/17 10:00 History 10mg Gabapentin [Neurontin] 800 mg PO Q8HR 11/01/15 07/01/18 02/27/17 10:00 History 800mg Aspirin EC [Aspirin Enteric Coated 81 mg PO QDAY #30 tablet. 11/03/15 07/01/18 02/27/17 10:00 Rx TAB] 81mg Carvedilol [Coreg] 12.5 mg PO BID 02/28/17 07/01/18 02/27/17 10:00 History 12.5mg Clopidogrel [Plavix] 75 mg PO QDAY 02/28/17 07/01/18 02/27/17 10:00 History 75mg Escitalopram [Lexapro] 20 mg PO DAILY 02/28/17 07/01/18 02/27/17 10:00 History 20mg Lisinopril [Zestril TAB] 20 mg PO QDAY 02/28/17 07/01/18 02/27/17 10:00 History 20mg Torsemide [Demadex] 20 mg PO DAILY 02/28/17 07/01/18 02/27/17 10:00 History 20mg traMADol [Ultram 50 MG tab] 100 mg PO Q8HR 02/28/17 07/01/18 02/27/17 10:00 History 100mg Baclofen [Lioresal] 10 mg PO HS 07/01/18 07/01/18 Unknown History Brimonidine Tartrate/Timolol 1 drop OP BID 07/01/18 07/01/18 Unknown History [Combigan 0.2%-0.5% Eye Drops] Buspirone HCl [busPIRone] 15 mg PO BID 07/01/18 07/01/18 Unknown History Insulin Detemir [Levemir] 100 unit SQ HS 07/01/18 07/01/18 Unknown History Lispro Insulin [HumaLOG] 100 unit SQ QHS 07/01/18 07/01/18 Unknown History Active Meds: Active Medications Acetaminophen (Tylenol) 650 mg PO Q4H PRN PRN Reason: Pain MILD(1-3)/Fever >100.5/SHARPE Aspirin (Baby Aspirin) 81 mg PO QDAY [facility] Atorvastatin Calcium (Lipitor) 40 mg PO QHS [facility] Baclofen (Lioresal) 10 mg PO HS [facility] Buspirone HCl (Buspar) 15 mg PO BID [facility] Carvedilol (Coreg) 12.5 mg PO BID [facility] Dextrose (D50w (25gm) Syringe) 50 ml IV PRN PRN PRN Reason: Hypoglycemia Escitalopram Oxalate (Lexapro) 20 mg PO DAILY [facility] Gabapentin (Neurontin) 800 mg PO Q8HR [facility] Last Admin: 07/01/18 05:55 Dose: 800 mg Documented by: Sodium Chloride (Nacl 0.9% 1000 Ml) 1,000 mls @ 75 mls/hr IV DIRECT [facility] Last Admin: 07/01/18 04:15 Dose: 75 mls/hr Documented by: Heparin Sodium/Sodium Chloride (Heparin/ 0.45% Nacl-25,000 Unit/500 Ml) 25,000 unit in 500 mls @ 20 mls/hr IV TITRATE BRINA; Protocol Last Admin: 07/01/18 04:15 Dose: 1,000 units/hr, 20 mls/hr Documented by: Sodium Chloride (Nacl 0.9% 500 Ml) 500 mls @ 50 mls/hr IV DIRECT [facility]INA Stop: 07/01/18 19:59 Insulin Glargine (Lantus) 15 units SUB-Q BID@0600,1800 [facility] Last Admin: 07/01/18 07:48 Dose: 15 units Documented by: Insulin Human Lispro (Humalog) 0 unit SUB-Q Q6HR [facility]; Protocol Last Admin: 07/01/18 06:52 Dose: 8 unit Documented by: Isosorbide Mononitrate (Imdur) 60 mg PO DAILY [facility] Lisinopril (Zestril) 20 mg PO QDAY [facility] Morphine Sulfate (Morphine) 2 mg IV Q4H PRN PRN Reason: Pain, Moderate (4-6) Stop: 07/02/18 23:59 Last Admin: 07/01/18 04:10 Dose: 2 mg Documented by: Nitroglycerin (Nitrostat) 0.4 mg SL Q5M PRN PRN Reason: Chest Pain Ondansetron HCl (Zofran) 4 mg IV Q8H PRN PRN Reason: Nausea And Vomiting Sodium Chloride (Sodium Chloride Flush Syringe 10 Ml) 10 ml IV BID [facility] Sodium Chloride (Sodium Chloride Flush Syringe 10 Ml) 10 ml IV PRN PRN PRN Reason: LINE FLUSH Torsemide (Demadex) 20 mg PO DAILY [facility] Tramadol HCl (Ultram) 50 mg PO Q6H PRN PRN Reason: Pain, Moderate (4-6) Review of Systems Constitutional: no fever, no chills, no sweats Ears, nose, mouth and throat: no ear pain, no nose pain, no sinus pressure, no sinus pain Cardiovascular: chest pain, no orthopnea, no palpitations, no rapid/irregular heart beat, no edema, no syncope, no lightheadedness, no shortness of breath, no dyspnea on exertion, no leg edema Respiratory: no cough, no shortness of breath, no dyspnea on exertion, no congestion, no wheezing, no pain on inspiration Gastrointestinal: no abdominal pain, no nausea, no vomiting, no diarrhea, no constipation, no change in bowel habits Genitourinary Female: no pelvic pain, no flank pain, no dysuria, no urinary frequency, no urgency Musculoskeletal: no neck stiffness, no neck pain Integumentary: no rash, no pruritis, no redness, no sores, no wounds Neurological: no head injury, no paralysis, no weakness, no parathesias, no numbness, no tingling, no seizures, no syncope Psychiatric: no anxiety Endocrine: no cold intolerance, no heat intolerance Hematologic/Lymphatic: no easy bruising, no easy bleeding Allergic/Immunologic: no urticaria, no wheezing Physical Examination Vital Signs Temp Pulse Resp BP Pulse Ox 98.4 F 63 20 122/62 99 06/30/18 23:40 06/30/18 23:40 06/30/18 23:40 06/30/18 23:40 06/30/18 23:40 General appearance: no acute distress HEENT: Positive: PERRL, Normocephaly, Mucus Membranes Moist Neck: Positive: neck supple, trachea midline Cardiac: Positive: Reg Rate and Rhythm, S1/S2 Lungs: Positive: clear to auscultation Neuro: Positive: Grossly Intact Abdomen: Positive: Soft. Negative: Tender Skin: Negative: Rash, Wound Musculoskeletal: No Pain Extremities: Absent: edema Results 07/01/18 00:12 07/01/18 00:12 Coagulation 07/01/18 Range/Units 00:18 PT 14.8 (12.2-14.9) Sec. INR 1.09 (0.87-1.13) APTT 32.4 (24.2-36.6) Sec. Lipids 07/01/18 Range/Units 00:12 Triglycerides 195 H (2-149) mg/dL Cholesterol 188 (50-199) mg/dL HDL Cholesterol 28 L (40-59) mg/dL Cholesterol/HDL Ratio 6.71 % CBC 07/01/18 Range/Units 00:12 WBC 9.7 (4.5-11.0) K/mm3 RBC 3.65 (3.65-5.03) M/mm3 Hgb 10.2 (10.1-14.3) gm/dl Hct 29.7 L (30.3-42.9) % Plt Count 144 (140-440) K/mm3 Comprehensive Metabolic Panel 07/01/18 Range/Units 00:12 Sodium 130 L (137-145) mmol/L Potassium 4.3 (3.6-5.0) mmol/L Chloride 92.0 L (98-107) mmol/L Carbon Dioxide 27 (22-30) mmol/L BUN 24 H (7-17) mg/dL Creatinine 1.4 H (0.7-1.2) mg/dL Glucose 420 H (65-100) mg/dL Calcium 8.4 (8.4-10.2) mg/dL - Imaging and Cardiology Echo: report reviewed (06/12/2016 at [place] showed EF 55%, mild MR. ) Cardiac cath: report reviewed ([facility] on 05/31/[address] Pa which showed lt main patent, lad mid 80% small vessel distal, lcx mid 95% and rca mid 100% normal lv function elevated lvedp 40-45mmhg. She was transferred to [place] for possible bypass vs pci and subsequently underwent PTCA of mid LAD and LUZ to mid LAD on 06/11/2016. ) EKG: report reviewed, image reviewed EKG interpretations - Telemetry EKG Rhythm: Sinus Rhythm - EKG Sinus rhythms and dysrhythmias: sinus rhythm Assessment and Plan Pt presented with NSTEMI type I. Coronary angiography recommended for definitive diagnosis. Indications, potential risks and benefits of [facility] reviewed with pt and she is agreeable to proceed. Await findings. The patient has been seen in conjunction with Dr. Hinds who agrees with the assessment and plan of care. - Patient Problems (1) NSTEMI (non-ST elevated myocardial infarction) Current Visit: Yes Status: Acute (2) CAD (coronary artery disease) Current Visit: Yes Status: Chronic (3) Stented coronary artery Current Visit: Yes Status: Chronic (4) HTN (hypertension) Current Visit: Yes Status: Chronic Qualifiers: Hypertension type: essential hypertension Qualified Code(s): I10 - Essential (primary) hypertension (5) Hyperlipidemia Current Visit: Yes Status: Chronic (6) Diabetes mellitus with hyperglycemia Current Visit: Yes Status: Acute (7) Renal insufficiency Current Visit: Yes Status: Acute (8) Obesity Current Visit: Yes Status: Chronic
[2018-07-01] MEDS: HEPARIN 10,000 UNITS/10 ML ONE ×2 (11:26→11:42)
[2018-07-01] MEDS ORDERED: NITROGLYCERIN SYRINGE 3 ML ONE (11:44)
[2018-07-01] MEDS ORDERED: PLAVIX ONE (11:55)
[2018-07-01] MEDS ORDERED: ALUM-MAG HYDROX-SIMETH 200-200-20MG/5ML ONE (11:55)
[2018-07-01] MEDS ORDERED: BABY ASPIRIN ONE ×2 (11:57→12:20)
--- NOTE | 2018-07-01 12:39 | Event Note ---
Date: 07/01/18 S/p C with PCI of left circ, see dictated cath report. Initiate DAPT with ASA and Plavix, d/c heparin gtt. Cont all other present cardiac management. F/u echo. Likely d/c home in AM. Sherrill ALBRIGHT NP / DR. RHOADES
[2018-07-01] MEDS: COREG PO SCH ×2 (14:27→21:36)
[2018-07-01] MEDS: DEMADEX PO SCH (14:28)
[2018-07-01] MEDS: LEXAPRO PO SCH (14:28)
[2018-07-01] MEDS: ZESTRIL PO SCH (14:28)
[2018-07-01] MEDS: IMDUR PO SCH (14:28)
[2018-07-01] MEDS: ULTRAM PO PRN (14:30)
[2018-07-01] MEDS: BUSPAR PO SCH ×2 (14:45→21:34)
--- NOTE | 2018-07-01 15:05 | Event Note ---
Date: 07/01/18 Pt c/o left arm aching pain which radiates into the left side of her chest, she appears anxious. ECG with SR, no acute ischemic changes. VSS. Will f/u Delaney and resume heparin gtt overnight. Pt also with c/o SOB - obtain CXR. Sherrill ALBRIGHT NP / DR. ESPINOSA
[2018-07-01 16:16] LABS: Hematocrit 28.7 % (30.3-42.9); Hemoglobin 9.5 gm/dl (10.1-14.3)
[2018-07-01 16:26] LABS: INR 1.05 (0.87-1.13)
[2018-07-01 16:27] LABS: Partial Thromboplastin Time 39.4 Sec. (24.2-36.6)
[2018-07-01 16:33] LABS: Creatine Kinase MB 1.6 ng/mL (0.0-4.0)
--- NOTE | 2018-07-01 17:05 | XRay Report ---
PROCEDURE: XR CHEST 1V AP TECHNIQUE: Chest radiograph single view. HISTORY: sob; post pci COMPARISONS: Chest x-ray July 01, 2018 . FINDINGS: Heart: Heart size top normal. Mediastinum/Vessels: Trachea midline. Lungs/Pleural space: Increase in bibasilar linear opacity compatible with atelectasis. No effusion. Bony thorax: No acute osseous abnormality. Life support devices: None. IMPRESSION: Increase in bilateral subsegmental atelectasis. This document is electronically signed by Philip Bellamy MD., Jul 01 2018 05:04:03 PM ET
--- NOTE | 2018-07-01 17:32 | Progress Note ---
Assessment and Plan Assessment and plan: --Non-ST elevation NC; status post cardiac catheterization s/p PCI of the left circumflex. On detailed platelets aspirin and Plavix, heparin drip discontinued Continue supportive care --History of coronary artery disease status post PCI; continue current cardiac medications --Hypernatremia; --Acute kidney injury; secondary to vasomotor nephropathy Avoid nephrotoxins, gentle hydration, monitor renal function --2 diabetes mellitus; uncontrolled , patient is on very high doses of Lantus at home Accu-Chek sliding scale coverage and ADA diet, increase Lantus to 25 units twice a day --Diabetic neuropathy; continue gabapentin --Hypertension; moderate control, continue current antihypertensives and when necessary medications --Dyslipidemia: continue statin. --DVT prophylaxis; patient on heparin drip --Full CODE STATUS Monitor closely and adjust management as needed History Interval history: Patient seen and examined medical records reviewed Patient underwent left heart catheterization status post PCI Complains of some pain in the hand Alert awake oriented 3 Morbidly obese Hospitalist Physical - Constitutional Vitals: Temp Pulse Resp BP Pulse Ox 97.9 F 55 L 18 114/58 99 07/01/18 17:02 07/01/18 17:02 07/01/18 17:02 07/01/18 17:02 07/01/18 17:02 General appearance: Present: no acute distress, well-nourished, obese (morbidly obese) - EENT Eyes: Present: PERRL, EOM intact - Neck Neck: Present: supple, normal ROM - Respiratory Respiratory effort: normal Respiratory: bilateral: diminished, negative: rales, rhonchi, wheezing - Cardiovascular Rhythm: regular Heart Sounds: Present: S1 & S2 - Extremities Extremities: no ischemia, No edema - Abdominal General gastrointestinal: soft, non-tender, non-distended, normal bowel sounds - Integumentary Integumentary: Present: clear, warm - Psychiatric Psychiatric: appropriate mood/affect, cooperative - Neurologic Neurologic: CNII-XII intact, moves all extremities Results - Labs CBC & Chem 7: 07/01/18 16:01 07/01/18 00:12 Labs: Laboratory Last Values WBC 9.7 K/mm3 (4.5-11.0) 07/01/18 00:12 RBC 3.65 M/mm3 (3.65-5.03) 07/01/18 00:12 Hgb 9.5 gm/dl (10.1-14.3) L 07/01/18 16:01 Hct 28.7 % (30.3-42.9) L 07/01/18 16:01 MCV 81 fl (79-97) 07/01/18 00:12 MCH 28 pg (28-32) 07/01/18 00:12 MCHC 34 % (30-34) 07/01/18 00:12 RDW 14.0 % (13.2-15.2) 07/01/18 00:12 Plt Count 140 K/mm3 (140-440) 07/01/18 16:01 Wilkin % (Auto) Software Engineering Specialist 07/01/18 00:12 Add Manual Diff Complete 07/01/18 00:12 Total Counted 100 07/01/18 00:12 Seg Neuts % (Manual) 61.0 % (40.0-70.0) 07/01/18 00:12 1.0 % 07/01/18 00:12 25.0 % (13.4-35.0) 07/01/18 00:12 Reactive Lymphs % (Man) 1.0 % 07/01/18 00:12 10.0 % (0.0-7.3) H 07/01/18 00:12 0 % (0.0-4.3) 07/01/18 00:12 2.0 % (0.0-1.8) H 07/01/18 00:12 0 % 07/01/18 00:12 0 % 07/01/18 00:12 0 % 07/01/18 00:12 0 % 07/01/18 00:12 Nucleated RBC % Not Reportable 07/01/18 00:12 Seg Neutrophils # Man 5.9 K/mm3 (1.8-7.7) 07/01/18 00:12 Band Neutrophils # 0.1 K/mm3 07/01/18 00:12 2.4 K/mm3 (1.2-5.4) 07/01/18 00:12 Abs React Lymphs (Man) 0.1 K/mm3 07/01/18 00:12 1.0 K/mm3 (0.0-0.8) H 07/01/18 00:12 0.0 K/mm3 (0.0-0.4) 07/01/18 00:12 0.2 K/mm3 (0.0-0.1) H 07/01/18 00:12 0.0 K/mm3 07/01/18 00:12 0.0 K/mm3 07/01/18 00:12 0.0 K/mm3 07/01/18 00:12 Blast Cells # 0.0 K/mm3 07/01/18 00:12 WBC Morphology Not Reportable 07/01/18 00:12 Hypersegmented Neuts Not Reportable 07/01/18 00:12 Hyposegmented Neuts Not Reportable 07/01/18 00:12 Hypogranular Neuts Not Reportable 07/01/18 00:12 Not Reportable 07/01/18 00:12 Not Reportable 07/01/18 00:12 Not Reportable 07/01/18 00:12 Not Reportable 07/01/18 00:12 Not Reportable 07/01/18 00:12 Not Reportable 07/01/18 00:12 Consistent w auto 07/01/18 00:12 Not Reportable 07/01/18 00:12 Plt Clumps, EDTA Not Reportable 07/01/18 00:12 Not Reportable 07/01/18 00:12 Not Reportable 07/01/18 00:12 Not Reportable 07/01/18 00:12 Plt Morphology Comment Not Reportable 07/01/18 00:12 RBC Morphology Not Reportable 07/01/18 00:12 Dimorphic RBCs Not Reportable 07/01/18 00:12 Not Reportable 07/01/18 00:12 Not Reportable 07/01/18 00:12 Not Reportable 07/01/18 00:12 1+ 07/01/18 00:12 Not Reportable 07/01/18 00:12 Not Reportable 07/01/18 00:12 Not Reportable 07/01/18 00:12 Not Reportable 07/01/18 00:12 Not Reportable 07/01/18 00:12 Not Reportable 07/01/18 00:12 Not Reportable 07/01/18 00:12 Not Reportable 07/01/18 00:12 Not Reportable 07/01/18 00:12 Not Reportable 07/01/18 00:12 Not Reportable 07/01/18 00:12 Not Reportable 07/01/18 00:12 Not Reportable 07/01/18 00:12 Not Reportable 07/01/18 00:12 Not Reportable 07/01/18 00:12 Acanthocytes (Spur) Not Reportable 07/01/18 00:12 Rouleaux Not Reportable 07/01/18 00:12 Not Reportable 07/01/18 00:12 Not Reportable 07/01/18 00:12 Not Reportable 07/01/18 00:12 Not Reportable 07/01/18 00:12 Hem Pathologist Commnt No 07/01/18 00:12 PT 14.4 Sec. (12.2-14.9) 07/01/18 16:01 INR 1.05 (0.87-1.13) 07/01/18 16:01 APTT 39.4 Sec. (24.2-36.6) H 07/01/18 16:01 Heparin Anti-Xa Level < 0.10 U.I./ml (0.3-0.7) L 07/01/18 10:15 Sodium 130 mmol/L (137-145) L 07/01/18 00:12 Potassium 4.3 mmol/L (3.6-5.0) 07/01/18 00:12 Chloride 92.0 mmol/L (98-107) L 07/01/18 00:12 Carbon Dioxide 27 mmol/L (22-30) 07/01/18 00:12 15 mmol/L 07/01/18 00:12 BUN 24 mg/dL (7-17) H 07/01/18 00:12 1.4 mg/dL (0.7-1.2) H 07/01/18 00:12 Estimated GFR 47 ml/min 07/01/18 00:12 17 % 07/01/18 00:12 Glucose 420 mg/dL (65-100) H 07/01/18 00:12 POC Glucose 301 (70-105) H 07/01/18 16:09 Calcium 8.4 mg/dL (8.4-10.2) 07/01/18 00:12 162 units/L (30-135) H 07/01/18 16:01 CK-MB (CK-2) 1.6 ng/mL (0.0-4.0) 07/01/18 16:01 CK-MB (CK-2) Rel Index 0.9 (0-4) 07/01/18 16:01 0.168 ng/mL (0.00-0.029) H* 07/01/18 16:01 NT-Pro-B Natriuret Pep 474.0 pg/mL (0-900) 07/01/18 00:18 Triglycerides 195 mg/dL (2-149) H 07/01/18 00:12 Cholesterol 188 mg/dL (50-199) 07/01/18 00:12 149 mg/dL (50-130) H 07/01/18 00:12 28 mg/dL (40-59) L 07/01/18 00:12 6.71 % 07/01/18 00:12 Active Medications - Current Medications Current Medications: Generic Name Dose Route Start Last Admin Trade Name Freq PRN Reason Stop Dose Admin Acetaminophen 650 mg 07/01/18 03:24 Tylenol PO Q4H PRN Pain MILD(1-3)/Fever >100.5/SHARPE Aspirin 81 mg 07/02/18 10:00 Baby Aspirin PO QDAY [facility] Atorvastatin Calcium 40 mg 07/01/18 22:00 Lipitor PO QHS [facility] Baclofen 10 mg 07/01/18 22:00 Lioresal PO HS [facility] Buspirone HCl 15 mg 07/01/18 10:00 Buspar PO BID [facility] Carvedilol 12.5 mg 07/01/18 10:00 07/01/18 14:27 Coreg PO Not Given BID [facility] Clopidogrel Bisulfate 75 mg 07/02/18 10:00 Plavix PO QDAY [facility] Dextrose 50 ml 07/01/18 03:40 D50w (25gm) Syringe IV PRN PRN Hypoglycemia Escitalopram Oxalate 20 mg 07/01/18 10:00 07/01/18 14:28 Lexapro PO 20 mg DAILY [facility] Administration Gabapentin 800 mg 07/01/18 06:00 07/01/18 14:29 Neurontin PO 800 mg Q8HR [facility] Administration Sodium Chloride 1,000 mls @ 75 mls/hr 07/01/18 04:00 07/01/18 04:15 Nacl 0.9% 1000 Ml IV 75 mls/hr DIRECT [facility] Administration Sodium Chloride 500 mls @ 50 mls/hr 07/01/18 10:00 Nacl 0.9% 500 Ml IV 05/21/19 19:59 DIRECT [facility] Heparin Sodium/Sodium Chloride 25,000 unit in 500 mls @ 20 mls/hr 07/01/18 15:00 Heparin/ 0.45% Nacl-25,000 Unit/500 Ml IV TITRATE [facility] Protocol 1,000 UNITS/HR Insulin Glargine 15 units 07/01/18 06:00 07/01/18 07:48 Lantus SUB-Q 15 units BID@0600,1800 [facility] Administration Insulin Human Lispro 0 unit 07/01/18 06:00 07/01/18 14:32 Humalog SUB-Q 3 unit Q6HR [facility] Administration Protocol Isosorbide Mononitrate 60 mg 07/01/18 10:00 07/01/18 14:28 Imdur PO 60 mg DAILY [facility] Administration Lisinopril 20 mg 07/01/18 10:00 07/01/18 14:28 Zestril PO Not Given QDAY [facility] Morphine Sulfate 2 mg 07/01/18 03:24 07/01/18 12:56 Morphine IV 07/02/18 23:59 2 mg Q4H PRN Administration Pain, Moderate (4-6) Nitroglycerin 0.4 mg 07/01/18 04:10 Nitrostat SL Q5M PRN Chest Pain Ondansetron HCl 4 mg 07/01/18 03:24 Zofran IV Q8H PRN Nausea And Vomiting Sodium Chloride 10 ml 07/01/18 10:00 Sodium Chloride Flush Syringe 10 Ml IV BID [facility] Sodium Chloride 10 ml 07/01/18 03:24 Sodium Chloride Flush Syringe 10 Ml IV PRN PRN LINE FLUSH Torsemide 20 mg 07/01/18 10:00 07/01/18 14:28 Demadex PO 20 mg DAILY [facility] Administration Tramadol HCl 50 mg 07/01/18 03:26 Ultram PO Q6H PRN Pain, Moderate (4-6) Nutrition/Malnutrition Assess - Dietary Evaluation Nutrition/Malnutrition Findings: Nutrition Notes Start: 07/01/18 16:16 Freq: Status: Active Protocol: Document 07/01/18 16:16 RM (Rec: 07/01/18 16:17 RM [id number]) Nutrition Notes Need for Assessment generated from: MD Order Initial or Follow up Brief Note Subjective/Other Information Consulted for DM diet education. Screened for skin risk. No yaw in record. Procedure being done in room at time of visit. Nutrition Intervention Follow-Up By: 07/02/18 Additional Comments Follow for DM diet education
[2018-07-01] MEDS: HEPARIN/ 0.45% NACL-25,000 UNIT/500 ML 25,000 UNIT/500 ML BAG IV SCH (17:34)
[2018-07-01] MEDS: LANTUS SUB-Q SCH (18:44)
[2018-07-01] MEDS: SODIUM CHLORIDE FLUSH SYRINGE 10 ML IV SCH ×2 (20:07→21:35)
[2018-07-01] MEDS: LIORESAL PO SCH (21:35)
[2018-07-01] MEDS: ZOFRAN IV PRN (23:12)
[2018-07-02] MEDS: MORPHINE IV PRN ×3 (01:15→16:05)
[2018-07-02] MEDS: NEURONTIN PO SCH ×3 (06:28→21:57)
[2018-07-02] MEDS: HumaLOG SUB-Q SCH ×3 (06:30→18:51)
[2018-07-02] MEDS: LANTUS SUB-Q SCH ×2 (06:30→18:50)
[2018-07-02 07:17] LABS: Basophils % (Auto) 0.5 % (0.0-1.8); Eosinophils # (Auto) 0.2 K/mm3 (0.0-0.4); Eosinophils % (Auto) 2.2 % (0.0-4.3); Hemoglobin 10.2 gm/dl (10.1-14.3); Lymphocytes # (Auto) 1.7 K/mm3 (1.2-5.4); Lymphocytes % (Auto) 19.5 % (13.4-35.0); Mean Corpuscular HGB Conc 33 % (30-34); Mean Corpuscular Volume 82 fl (79-97); Monocytes # (Auto) 1.2 K/mm3 (0.0-0.8); Monocytes % (Auto) 13.4 % (0.0-7.3); Platelet Count 158 K/mm3 (140-440); Red Blood Count 3.79 M/mm3 (3.65-5.03); Red Cell Distribution Width 14.2 % (13.2-15.2)
[2018-07-02 07:38] LABS: Calcium 7.8 mg/dL (8.4-10.2)
[2018-07-02] MEDS ORDERED: HEPARIN IV ONE (08:47)
[2018-07-02] MEDS ORDERED: HEPARIN 10,000 UNITS/10 ML IV ONE ×2 (08:53→09:00)
[2018-07-02] MEDS: LEXAPRO PO SCH (09:17)
[2018-07-02] MEDS: BABY ASPIRIN PO SCH (09:17)
[2018-07-02] MEDS: PLAVIX PO SCH (09:17)
[2018-07-02] MEDS: BUSPAR PO SCH ×2 (09:17→23:11)
[2018-07-02] MEDS: COREG PO SCH ×2 (09:18→22:41)
[2018-07-02] MEDS: IMDUR PO SCH (09:18)
[2018-07-02] MEDS: ZESTRIL PO SCH (09:18)
[2018-07-02] MEDS: SODIUM CHLORIDE FLUSH SYRINGE 10 ML IV SCH ×2 (09:19→22:19)
[2018-07-02] MEDS: HEPARIN/ 0.45% NACL-25,000 UNIT/500 ML 25,000 UNIT/500 ML BAG IV SCH ×2 (09:20→13:24)
[2018-07-02] MEDS: DEMADEX PO SCH (09:33)
--- NOTE | 2018-07-02 10:42 | Cardiac Catherization Report ---
CARDIAC CATHETERIZATION AND CORONARY INTERVENTION REPORT INDICATION FOR PROCEDURE: The patient is a 57-year-old female with history of known coronary artery disease, underwent intervention of the mid LAD and mid circumflex in the past at [facility], presently admitted with chest pain and mildly elevated troponins consistent with acute coronary syndrome. Hence, she is scheduled for cardiac catheterization for definitive diagnosis and treatment. The patient is aware of the procedure, potential complications and alternatives of therapy available. DESCRIPTION OF PROCEDURE: The patient was brought to the catheterization laboratory in a fasting condition. The right wrist area and forearm thoroughly cleansed with Betadine solution. The patient was evaluated for moderate sedation and she was felt to be appropriate candidate. The patient received IV Versed and fentanyl. Subsequently, using 21-gauge arterial puncture needle, right radial artery puncture was made without difficulty. A 5-Andorran slender sheath was introduced and 5-Andorran multipurpose catheter was used to obtain the angiograms of the left ventricle done in SON projection followed by angiograms of the right coronary artery and left coronary artery in multiple views. At the end of the angiograms, procedure was converted intervention of the circumflex artery. Following findings were noted on cardiac catheterization. HEMODYNAMICS: 1. Opening aortic pressure was 147/77, left ventricular pressure 141/34. No gradient across the aortic valve. Estimated ejection fraction is 50-55%. 2. Left ventriculogram done in SON projection showed normal sized left ventricle with normal contractility. End-diastolic and systolic volumes were normal. Mitral regurgitation could not be evaluated because of limited amount of dye. 3. Right coronary artery dominant vessel arises normally from right coronary cusp. There is severe diffuse disease starting at the junction of the proximal and mid third extending into the distal part at which time it is completely occluded and then on LCA injection collaterals were noted to the distal LV branches and PDA. 4. Left coronary artery arises normally from left coronary cusp. Left main shows very mild disease. LAD shows a patent stent in the mid part. Otherwise, mild irregularities were noted. Circumflex artery shows 40-50% smooth long ostial proximal lesion. There is a patent stent in the mid part. Distal to the stent, there is a smooth, long 70-80% lesion prior to the origin of 2 small to medium sized obtuse marginal branches. 5. Collaterals as mentioned above were noted to the distal RCA on LCA injection. FINAL IMPRESSION: Normal sized left ventricle with normal contractility with occluded dominant RCA with excellent collaterals from left coronary system, patent mid LAD and patent mid third with a significant distal circumflex lesion. Considering her clinical picture, we will proceed with intervention of the distal circumflex lesion. INTERVENTIONAL PROCEDURE: Intervention of the distal circumflex lesion: Patient has indwelling 5-Andorran slender sheath, which can accommodate 6-Andorran guiding catheter. The patient received extra dose of heparin intravenously. Subsequently, EBU 3.5, 6-Andorran guiding catheter was advanced and engaged in the left coronary artery. A 0.014 inch Bradford XT guidewire was advanced into the distal circumflex artery without much difficulty. Under fluoroscopy, 2.75 x 15 mm Medtronic [place] stent was inflated up to 16 atmospheres with excellent result. No proximal or distal dissection noted. GREGG 3 flow was noted pre and post-procedure. No evidence of distal embolization noted. The patient tolerated the procedure well without any hemodynamic changes or arrhythmia or chest pain. The 70-80% smooth long lesion was reduced to 0%. FINAL IMPRESSION: Uncomplicated drug-eluting stent placement of the distal circumflex artery. The patient already had patent stents in the mid LAD and mid circumflex. She has occluded right coronary artery with excellent collaterals. This is a chronic occlusion. Considering this, the patient will be continued on medical therapy. The patient will be monitored in telemetry. The patient received 600 mg of Plavix in addition to heparin. The patient will be continued on statin. Findings were explained to the patient and her family. The patient tolerated the sedation well. Sedation started at 11:19 a.m. and ended at 11:50 a.m. Throughout the sedation, the patient was monitored with pulse oximetry, hemodynamic monitoring and EKG monitoring. At the end of the procedure, the patient is oriented x 3, moving all the extremities and breathing normally. No side effects were noted from sedation. JOB# [id number] CHICHI/LUIS ALEGRE
--- NOTE | 2018-07-02 10:58 | Progress Note ---
Assessment and Plan S/p LHC with PCI yesterday. Pt experienced chest pain and LUE yesterday evening and thus heparin gtt was resumed. ECG with no acute ischemic changes. Today, she states chest pain is improving, still with LUE pain. Her primary complaint today is abdominal swelling and constipation. She states she is passing flatus regularly but is known to have issues with chronic constipation and ? ileus. Will obtain abdomen CT w/o contrast and start miralax. Her serum Cr is noted to be significantly elevated in comparison to yesterday. Cont IVF and consider nephrology consultation per primary. Await echo. The patient has been seen in conjunction with Dr. Hinds who agrees with the assessment and plan of care. - Patient Problems (1) NSTEMI (non-ST elevated myocardial infarction) Current Visit: Yes Status: Acute (2) CAD (coronary artery disease) Current Visit: Yes Status: Chronic (3) Stented coronary artery Current Visit: Yes Status: Chronic (4) HTN (hypertension) Current Visit: Yes Status: Chronic Qualifiers: Hypertension type: essential hypertension Qualified Code(s): I10 - Essential (primary) hypertension (5) Hyperlipidemia Current Visit: Yes Status: Chronic (6) Diabetes mellitus with hyperglycemia Current Visit: Yes Status: Acute (7) Renal insufficiency Current Visit: Yes Status: Acute (8) Obesity Current Visit: Yes Status: Chronic Subjective Date of service: 07/02/18 Principal diagnosis: cp Interval history: pt seen in echo lab, states chest pain is improving, still with LUE pain. Her primary complaint today is abdominal swelling and constipation. She states she is passing flatus regularly but is known to have issues with chronic constipation and ? ileus. Objective Last Vital Signs Temp 100.0 F H 07/02/18 08:17 Pulse 66 07/02/18 09:18 Resp 20 07/02/18 08:17 BP 124/61 07/02/18 09:18 Pulse Ox 94 07/02/18 08:17 - Physical Examination HEENT: Positive: PERRL, Normocephaly, Mucus Membranes Moist Neck: Positive: neck supple, trachea midline Cardiac: Positive: Reg Rate and Rhythm, S1/S2 Lungs: Positive: Decreased Breath Sounds Neuro: Positive: Grossly Intact Abdomen: Positive: Distended Skin: Negative: Rash, Wound Musculoskeletal: No Pain Extremities: Absent: edema - Labs and Meds Cardiac Enzymes 07/01/18 Range/Units 16:01 CK-MB (CK-2) 1.6 (0.0-4.0) ng/mL Coagulation 07/01/18 Range/Units 16:01 PT 14.4 (12.2-14.9) Sec. INR 1.05 (0.87-1.13) APTT 39.4 H (24.2-36.6) Sec. CBC 07/01/18 07/02/18 Range/Units 16:01 06:23 WBC 8.7 (4.5-11.0) K/mm3 RBC 3.79 (3.65-5.03) M/mm3 Hgb 9.5 L 10.2 (10.1-14.3) gm/dl Hct 28.7 L 31.0 (30.3-42.9) % Plt Count 140 158 (140-440) K/mm3 Lymph # 1.7 (1.2-5.4) K/mm3 [place] # 1.2 H (0.0-0.8) K/mm3 Eos # 0.2 (0.0-0.4) K/mm3 Baso # 0.0 (0.0-0.1) K/mm3 Comprehensive Metabolic Panel 07/02/18 Range/Units 06:23 Sodium 136 L (137-145) mmol/L Potassium 4.8 (3.6-5.0) mmol/L Chloride 97.8 L (98-107) mmol/L Carbon Dioxide 23 (22-30) mmol/L BUN 37 H (7-17) mg/dL Creatinine 2.3 H D (0.7-1.2) mg/dL Glucose 216 H (65-100) mg/dL Calcium 7.8 L (8.4-10.2) mg/dL - Imaging and Cardiology EKG: report reviewed, image reviewed Echo: report reviewed (06/12/2016 at [place] showed EF 55%, mild MR. ) Cardiac cath: report reviewed ([facility] on 05/31/[address] Pa which showed lt main patent, lad mid 80% small vessel distal, lcx mid 95% and rca mid 100% normal lv function elevated lvedp 40-45mmhg. She was transferred to [place] for p ossible bypass vs pci and subsequently underwent PTCA of mid LAD and LUZ to mid LAD on 06/11/2016. ) - Telemetry EKG Rhythm: Sinus Rhythm - EKG Sinus rhythms and dysrhythmias: sinus rhythm
[2018-07-02] MEDS ORDERED: MIRALAX 3350 PO PRN (10:59)
[2018-07-02] MEDS: MIRALAX 3350 PO SCH (12:03)
--- NOTE | 2018-07-02 12:09 | Progress Note ---
Assessment and Plan Assessment and plan: --Non-ST elevation NE; status post cardiac catheterization s/p PCI of the left circumflex. On detailed platelets aspirin and Plavix, heparin drip discontinued Continue supportive care --Abdominal pain/mild distention; supportive care, abdominal ultrasound Consider GI evaluation if no improvement --History of coronary artery disease status post PCI; continue current cardiac medications --Hyponatremia; significantly improved --Acute kidney injury; worsening renal function ,secondary to vasomotor ne phropathy Avoid nephrotoxins, gentle hydration, nephrology consult , gentle hydration --2 diabetes mellitus; uncontrolled , patient is on very high doses of Lantus at home Accu-Chek sliding scale coverage and ADA diet, increase Lantus to 25 units twice a day --Diabetic neuropathy; continue gabapentin --Hypertension; moderate control, continue current antihypertensives and when necessary medications --Dyslipidemia: continue statin. --DVT prophylaxis; patient on heparin drip --Full CODE STATUS Monitor closely and adjust management as needed Consults and recommendations noted Follow abdominal ultrasound findings Plan of care is reviewed with the patient and multiple family members at the bedside I also discussed with nephrology request consult, discussed with the patient's nurse History Interval history: Patient seen and examined medical records reviewed Patient complains of abdominal pain and mild abdominal distention Denies chest pain or shortness of breath Alert awake oriented 3 Vital signs reviewed Hospitalist Physical - Constitutional Vitals: Temp Pulse Resp BP Pulse Ox 97.8 F 66 20 102/56 93 07/02/18 11:55 07/02/18 11:55 07/02/18 11:55 07/02/18 11:55 07/02/18 11:55 General appearance: Present: no acute distress, well-nourished, obese (morbidly obese) - EENT Eyes: Present: PERRL, EOM intact - Neck Neck: Present: supple, normal ROM - Respiratory Respiratory effort: normal Respiratory: bilateral: diminished, rhonchi, negative: rales, wheezing - Cardiovascular Rhythm: regular Heart Sounds: Present: S1 & S2 - Extremities Extremities: no ischemia, No edema - Abdominal General gastrointestinal: soft, non-tender, non-distended, normal bowel sounds - Integumentary Integumentary: Present: clear, warm - Psychiatric Psychiatric: appropriate mood/affect, cooperative - Neurologic Neurologic: moves all extremities Results - Labs CBC & Chem 7: 07/02/18 06:23 07/02/18 06:23 Labs: Laboratory Last Values WBC 8.7 K/mm3 (4.5-11.0) 07/02/18 06:23 RBC 3.79 M/mm3 (3.65-5.03) 07/02/18 06:23 Hgb 10.2 gm/dl (10.1-14.3) 07/02/18 06:23 Hct 31.0 % (30.3-42.9) 07/02/18 06:23 MCV 82 fl (79-97) 07/02/18 06:23 MCH 27 pg (28-32) L 07/02/18 06: MCHC 33 % (30-34) 07/02/18 06:23 RDW 14.2 % (13.2-15.2) 07/02/18 06:23 Plt Count 158 K/mm3 (140-440) 07/02/18 06:23 Lymph % (Auto) 19.5 % (13.4-35.0) 07/02/18 06:23 [place] % (Auto) 13.4 % (0.0-7.3) H 07/02/18 06:23 Eos % (Auto) 2.2 % (0.0-4.3) 07/02/18 06:23 Baso % (Auto) 0.5 % (0.0-1.8) 07/02/18 06:23 Lymph # 1.7 K/mm3 (1.2-5.4) 07/02/18 06:23 [place] # 1.2 K/mm3 (0.0-0.8) H 07/02/18 06:23 Eos # 0.2 K/mm3 (0.0-0.4) 07/02/18 06:23 Baso # 0.0 K/mm3 (0.0-0.1) 07/02/18 06:23 Add Manual Diff Complete 07/01/18 00:12 Total Counted 100 07/01/18 00:12 Seg Neutrophils % 64.4 % (40.0-70.0) 07/02/18 06:23 Seg Neuts % (Manual) 61.0 % (40.0-70.0) 07/01/18 00:12 1.0 % 07/01/18 00:12 25.0 % (13.4-35.0) 07/01/18 00:12 Reactive Lymphs % (Man) 1.0 % 07/01/18 00:12 10.0 % (0.0-7.3) H 07/01/18 00:12 0 % (0.0-4.3) 07/01/18 00:12 2.0 % (0.0-1.8) H 07/01/18 00:12 0 % 07/01/18 00:12 0 % 07/01/18 00:12 0 % 07/01/18 00:12 0 % 07/01/18 00:12 Nucleated RBC % Not Reportable 07/01/18 00:12 Seg Neutrophils # 5.6 K/mm3 (1.8-7.7) 07/02/18 06:23 Seg Neutrophils # Man 5.9 K/mm3 (1.8-7.7) 07/01/18 00:12 Band Neutrophils # 0.1 K/mm3 07/01/18 00:12 2.4 K/mm3 (1.2-5.4) 07/01/18 00:12 Abs React Lymphs (Man) 0.1 K/mm3 07/01/18 00:12 1.0 K/mm3 (0.0-0.8) H 07/01/18 00:12 0.0 K/mm3 (0.0-0.4) 07/01/18 00:12 0.2 K/mm3 (0.0-0.1) H 07/01/18 00:12 0.0 K/mm3 07/01/18 00:12 0.0 K/mm3 07/01/18 00:12 0.0 K/mm3 07/01/18 00:12 Blast Cells # 0.0 K/mm3 07/01/18 00:12 WBC Morphology Not Reportable 07/01/18 00:12 Hypersegmented Neuts Not Reportable 07/01/18 00:12 Hyposegmented Neuts Not Reportable 07/01/18 00:12 Hypogranular Neuts Not Reportable 07/01/18 00:12 Not Reportable 07/01/18 00:12 Not Reportable 07/01/18 00:12 Not Reportable 07/01/18 00:12 Not Reportable 07/01/18 00:12 Not Reportable 07/01/18 00:12 Not Reportable 07/01/18 00:12 Consistent w auto 07/01/18 00:12 Not Reportable 07/01/18 00:12 Plt Clumps, EDTA Not Reportable 07/01/18 00:12 Not Reportable 07/01/18 00:12 Not Reportable 07/01/18 00:12 Not Reportable 07/01/18 00:12 Plt Morphology Comment Not Reportable 07/01/18 00:12 RBC Morphology Not Reportable 07/01/18 00:12 Dimorphic RBCs Not Reportable 07/01/18 00:12 Not Reportable 07/01/18 00:12 Not Reportable 07/01/18 00:12 Not Reportable 07/01/18 00:12 1+ 07/01/18 00:12 Not Reportable 07/01/18 00:12 Not Reportable 07/01/18 00:12 Not Reportable 07/01/18 00:12 Not Reportable 07/01/18 00:12 Not Reportable 07/01/18 00:12 Not Reportable 07/01/18 00:12 Not Reportable 07/01/18 00:12 Not Reportable 07/01/18 00:12 Not Reportable 07/01/18 00:12 Not Reportable 07/01/18 00:12 Not Reportable 07/01/18 00:12 Not Reportable 07/01/18 00:12 Not Reportable 07/01/18 00:12 Not Reportable 07/01/18 00:12 Not Reportable 07/01/18 00:12 Acanthocytes (Spur) Not Reportable 07/01/18 00:12 Rouleaux Not Reportable 07/01/18 00:12 Not Reportable 07/01/18 00:12 Not Reportable 07/01/18 00:12 Not Reportable 07/01/18 00:12 Not Reportable 07/01/18 00:12 Hem Pathologist Commnt No 07/01/18 00:12 PT 14.4 Sec. (12.2-14.9) 07/01/18 16:01 INR 1.05 (0.87-1.13) 07/01/18 16:01 APTT 39.4 Sec. (24.2-36.6) H 07/01/18 16:01 241 (74-137) H 07/01/18 11:58 Heparin Anti-Xa Level < 0.10 U.I./ml (0.3-0.7) L 07/02/18 06:23 Sodium 136 mmol/L (137-145) L 07/02/18 06:23 Potassium 4.8 mmol/L (3.6-5.0) 07/02/18 06:23 Chloride 97.8 mmol/L (98-107) L 07/02/18 06:23 Carbon Dioxide 23 mmol/L (22-30) 07/02/18 06:23 20 mmol/L 07/02/18 06:23 BUN 37 mg/dL (7-17) H 07/02/18 06:23 2.3 mg/dL (0.7-1.2) H D 07/02/18 06:23 Estimated GFR 27 ml/min 07/02/18 06:23 16 % 07/02/18 06:23 Glucose 216 mg/dL (65-100) H 07/02/18 06:23 POC Glucose 236 (70-105) H 07/02/18 06:35 Calcium 7.8 mg/dL (8.4-10.2) L 07/02/18 06:23 162 units/L (30-135) H 07/01/18 16:01 CK-MB (CK-2) 1.6 ng/mL (0.0-4.0) 07/01/18 16:01 CK-MB (CK-2) Rel Index 0.9 (0-4) 07/01/18 16:01 0.317 ng/mL (0.00-0.029) H* D 07/02/18 06:23 NT-Pro-B Natriuret Pep 474.0 pg/mL (0-900) 07/01/18 00:18 Triglycerides 195 mg/dL (2-149) H 07/01/18 00:12 Cholesterol 188 mg/dL (50-199) 07/01/18 00:12 149 mg/dL (50-130) H 07/01/18 00:12 28 mg/dL (40-59) L 07/01/18 00:12 6.71 % 07/01/18 00:12 Active Medications - Current Medications Current Medications: Generic Name Dose Route Start Last Admin Trade Name Freq PRN Reason Stop Dose Admin Acetaminophen 650 mg 07/01/18 03:24 07/02/18 09:19 Tylenol PO 650 mg Q4H PRN Administration Pain MILD(1-3)/Fever >100.5/SHARPE Aspirin 81 mg 07/02/18 10:00 07/02/18 09:17 Baby Aspirin PO 81 mg QDAY [facility] Administration Atorvastatin Calcium 40 mg 07/01/18 22:00 07/01/18 21:34 Lipitor PO 40 mg QHS [facility] Administration Baclofen 10 mg 07/01/18 22:00 07/01/18 21:35 Lioresal PO 10 mg HS [facility]INA Administration Buspirone HCl 15 mg 07/01/18 10:00 07/02/18 09:17 Buspar PO 15 mg BID [facility] Administration Carvedilol 12.5 mg 07/01/18 10:00 07/02/18 09:18 Coreg PO 12.5 mg BID BRINA Administration Clopidogrel Bisulfate 75 mg 07/02/18 10:00 07/02/18 09:17 Plavix PO 75 mg QDAY [facility] Administration Dextrose 50 ml 07/01/18 03:40 D50w (25gm) Syringe IV PRN PRN Hypoglycemia Escitalopram Oxalate 20 mg 07/01/18 10:00 07/02/18 09:17 Lexapro PO 20 mg DAILY [facility] Administration Gabapentin 800 mg 07/01/18 06:00 07/02/18 06:28 Neurontin PO 800 mg Q8HR [facility]INA Administration Sodium Chloride 1,000 mls @ 75 mls/hr 07/01/18 04:00 07/01/18 22:04 Nacl 0.9% 1000 Ml IV 75 mls/hr DIRECT [facility] Administration Heparin Sodium/Sodium Chloride 25,000 unit in 500 mls @ 20 mls/hr 07/01/18 15:00 07/02/18 09:20 Heparin/ 0.45% Nacl-25,000 Unit/500 Ml IV 1,250 units/hr TITRATE BRINA 25 mls/hr Administration Protocol 1,000 UNITS/HR Insulin Glargine 25 units 07/01/18 17:30 07/02/18 06:30 Lantus SUB-Q 25 units BID@0600,1800 BRINA Administration Insulin Human Lispro 0 unit 07/01/18 06:00 07/02/18 06:30 Humalog SUB-Q 3 unit Q6HR BRINA Administration Protocol Isosorbide Mononitrate 60 mg 07/01/18 10:00 07/02/18 09:18 Imdur PO 60 mg DAILY BRINA Administration Lisinopril 20 mg 07/01/18 10:00 07/02/18 09:18 Zestril PO 20 mg QDAY BRINA Administration Morphine Sulfate 2 mg 07/01/18 03:24 07/02/18 11:13 Morphine IV 07/02/18 23:59 2 mg Q4H PRN Administration Pain, Moderate (4-6) Nitroglycerin 0.4 mg 07/01/18 04:10 Nitrostat SL Q5M PRN Chest Pain Ondansetron HCl 4 mg 07/01/18 03:24 07/01/18 23:12 Zofran IV 4 mg Q8H PRN Administration Nausea And Vomiting Polyethylene Glycol 17 gm 07/02/18 12:00 07/02/18 12:03 Miralax 3350 PO 17 gm QDAY [facility] Administration Sodium Chloride 10 ml 07/01/18 10:00 07/02/18 09:19 Sodium Chloride Flush Syringe 10 Ml IV 10 ml BID [facility]INA Administration Sodium Chloride 10 ml 07/01/18 03:24 Sodium Chloride Flush Syringe 10 Ml IV PRN PRN LINE FLUSH Torsemide 20 mg 07/01/18 10:00 07/02/18 09:33 Demadex PO 20 mg DAILY [facility]INA Administration Tramadol HCl 50 mg 07/01/18 03:26 07/01/18 14:30 Ultram PO 50 mg Q6H PRN Administration Pain, Moderate (4-6) Nutrition/Malnutrition Assess - Dietary Evaluation Nutrition/Malnutrition Findings: Nutrition Notes Start: 07/01/18 16:16 Freq: Status: Active Protocol: Document 07/01/18 16:16 RM (Rec: 07/01/18 16:17 RM [id number]) Nutrition Notes Need for Assessment generated from: MD Order Initial or Follow up Brief Note Labs/Tests BG 320 Subjective/Other Information Consulted for DM diet education. Screened for skin risk. No yaw in record. Procedure being done in room at time of visit. Nutrition Intervention Follow-Up By: 07/02/18 Additional Comments Follow for DM diet education
--- NOTE | 2018-07-02 13:12 | Cat Scan Report ---
CT abdomen and pelvis without contrast: Abdominal pain. Transverse images are obtained from lower chest to the ischium with coronal and sagittal reformatted images. Comparison is made to prior examination of May 29, 2016. There is a focal area of mild atelectasis in the lateral aspect of the left lung base. Coronary calcification is noted. The abdominal organs are unremarkable. There is residual contrast and a mild parenchyma gram of the kidneys apparently from recent catheter lab procedure. The kidneys and adrenal glands are not otherwise remarkable. The abdominal aorta is normal in size and contour. Scattered mural calcifications are noted as well as significant calcification of the larger aortic branches. The unopacified bowel appears normal as does the mesentery. There is a large abdominal mass arising from the right side of the uterine fundus measuring approximately 14 cm in diameter and containing diffusely distributed dystrophic appearing calcifications. There are no significant new changes identified when compared to prior examination which was performed with IV contrast. Impression: Large uterine fibroid. No acute change noted.
[2018-07-02] MEDS: ZOFRAN IV PRN ×2 (16:11→21:56)
--- NOTE | 2018-07-02 16:36 | Consultation ---
History of Present Illness - Reason for Consult Consult date: 07/02/18 acute renal failure - History of Present Illness The pt is a 57 YO female with a history significant for Morbid obesity, DM type 2, HTN, CAD s/p PCI and HLD who was seen by our practice on prior hospitalization. Pateint was not able to provide much history. Pt presented with complaints of chest pain of one day duration. Per mother she also have N & V and sob. Patient underwent Cardiac cath yesterday with stent placement. Creatinine was 1.4, increased to 2.3 today. Nephrology was consulted for further evaluation. Past History Past Medical History: acute [place] (3 ( 2002, 2005, 2008), s/p stent placement), anemia, CAD, diabetes (insulin-dependent), hypertension, hyperlipidemia Past Surgical History: PTCA Social history: lives with family Family history: no significant family history Medications and Allergies Allergies Allergy/AdvReac Type Severity Reaction Status Date / Time No Known Allergies Allergy Verified 05/25/16 00:37 Home Medications Medication Instructions Recorded Confirmed Last Taken Type Insulin NPH Hum/Reg Insulin Hm 40 unit SQ TIDAC 05/19/13 07/01/18 02/27/17 10:00 History [NovoLIN 70-30 100 Unit/ml Vial] 40units Isosorbide Mononitrate 60 mg PO DAILY 05/19/13 07/01/18 02/27/17 10:00 History 10mg Gabapentin [Neurontin] 800 mg PO Q8HR 11/01/15 07/01/18 02/27/17 10:00 History 800mg Aspirin EC 81 mg PO QDAY #30 tablet. 11/03/15 07/01/18 02/27/17 10:00 Rx 81mg Carvedilol [Coreg] 12.5 mg PO BID 02/28/17 07/01/18 02/27/17 10:00 History 12.5mg Clopidogrel [Plavix] 75 mg PO QDAY 02/28/17 07/01/18 02/27/17 10:00 History 75mg Escitalopram [Lexapro] 20 mg PO DAILY 02/28/17 07/01/18 02/27/17 10:00 History 20mg Lisinopril [Zestril TAB] 20 mg PO QDAY 02/28/17 07/01/18 02/27/17 10:00 History 20mg Torsemide [Demadex] 20 mg PO DAILY 02/28/17 07/01/18 02/27/17 10:00 History 20mg traMADol [Ultram 50 MG tab] 100 mg PO Q8HR 02/28/17 07/01/18 02/27/17 10:00 History 100mg Baclofen [Lioresal] 10 mg PO 07/01/18 07/01/18 Unknown History Brimonidine Tartrate/Timolol 1 drop OP BID 07/01/18 07/01/18 Unknown History [Combigan 0.2%-0.5% Eye Drops] Buspirone HCl [busPIRone] 15 mg PO BID 07/01/18 07/01/18 Unknown History Insulin Detemir [Levemir] 100 unit SQ 07/01/18 07/01/18 Unknown History Lispro Insulin [HumaLOG] 100 unit SQ QHS 07/01/18 07/01/18 Unknown History Active Meds: Active Medications Acetaminophen (Tylenol) 650 mg PO Q4H PRN PRN Reason: Pain MILD(1-3)/Fever >100.5/SHARPE Last Admin: 07/02/18 09:19 Dose: 650 mg Documented by: Aspirin (Baby Aspirin) 81 mg PO QDAY [facility] Last Admin: 07/02/18 09:17 Dose: 81 mg Documented by: Atorvastatin Calcium (Lipitor) 40 mg PO QHS [facility] Last Admin: 07/01/18 21:34 Dose: 40 mg Documented by: Baclofen (Lioresal) 10 mg PO [facility] Last Admin: 07/01/18 21:35 Dose: 10 mg Documented by: Buspirone HCl (Buspar) 15 mg PO BID [facility] Last Admin: 07/02/18 09:17 Dose: 15 mg Documented by: Carvedilol (Coreg) 12.5 mg PO BID [facility] Last Admin: 07/02/18 09:18 Dose: 12.5 mg Documented by: Clopidogrel Bisulfate (Plavix) 75 mg PO QDAY [facility] Last Admin: 07/02/18 09:17 Dose: 75 mg Documented by: Dextrose (D50w (25gm) Syringe) 50 ml IV PRN PRN PRN Reason: Hypoglycemia Escitalopram Oxalate (Lexapro) 20 mg PO DAILY [facility] Last Admin: 07/02/18 09:17 Dose: 20 mg Documented by: Gabapentin (Neurontin) 800 mg PO Q8HR [facility] Last Admin: 07/02/18 14:41 Dose: 800 mg Documented by: Sodium Chloride (Nacl 0.9% 1000 Ml) 1,000 mls @ 75 mls/hr IV DIRECT [facility] Last Admin: 07/01/18 22:04 Dose: 75 mls/hr Documented by: Heparin Sodium/Sodium Chloride (Heparin/ 0.45% Nacl-25,000 Unit/500 Ml) 25,000 unit in 500 mls @ 20 mls/hr IV TITRATE [facility]; Protocol Last Admin: 07/02/18 13:24 Dose: 1,650 units/hr, 33 mls/hr Documented by: Insulin Glargine (Lantus) 25 units SUB-Q BID@0600,1800 [facility] Last Admin: 07/02/18 06:30 Dose: 25 units Documented by: Insulin Human Lispro (Humalog) 0 unit SUB-Q Q6HR [facility]; Protocol Last Admin: 07/02/18 14:41 Dose: 3 unit Documented by: Isosorbide Mononitrate (Imdur) 60 mg PO DAILY [facility] Last Admin: 07/02/18 09:18 Dose: 60 mg Documented by: Lisinopril (Zestril) 20 mg PO QDAY [facility] Last Admin: 07/02/18 09:18 Dose: 20 mg Documented by: Morphine Sulfate (Morphine) 2 mg IV Q4H PRN PRN Reason: Pain, Moderate (4-6) Stop: 07/02/18 23:59 Last Admin: 07/02/18 16:05 Dose: 2 mg Documented by: Nitroglycerin (Nitrostat) 0.4 mg SL Q5M PRN PRN Reason: Chest Pain Ondansetron HCl (Zofran) 4 mg IV Q8H PRN PRN Reason: Nausea And Vomiting Last Admin: 07/02/18 16:11 Dose: 4 mg Documented by: Polyethylene Glycol (Miralax 3350) 17 gm PO QDAY [facility] Last Admin: 07/02/18 12:03 Dose: 17 gm Documented by: Sodium Chloride (Sodium Chloride Flush Syringe 10 Ml) 10 ml IV BID [facility] Last Admin: 07/02/18 09:19 Dose: 10 ml Documented by: Sodium Chloride (Sodium Chloride Flush Syringe 10 Ml) 10 ml IV PRN PRN PRN Reason: LINE FLUSH Torsemide (Demadex) 20 mg PO DAILY [facility] Last Admin: 07/02/18 09:33 Dose: 20 mg Documented by: Tramadol HCl (Ultram) 50 mg PO Q6H PRN PRN Reason: Pain, Moderate (4-6) Last Admin: 07/01/18 14:30 Dose: 50 mg Documented by: Review of Systems ROS unobtainable: due to mental status Exam - Vital Signs Vital signs: Vital Signs Temp Pulse Resp BP Pulse Ox 98.4 F 63 20 122/62 99 06/30/18 23:40 06/30/18 23:40 06/30/18 23:40 06/30/18 23:40 06/30/18 23:40 - General Appearance General appearance: well-developed, well-nourished, appears stated age, obese, other (not in distress) EENT: ATNC, PERRL, mucous membranes moist, hearing intact Neck: Present: neck supple, trachea midline Respiratory: Clear to Ascultation Heart: regular, S1S2, no murmurs Gastrointestinal: Present: normoactive bowel sounds. Absent: tenderness, distended Integumentary: no rash, warm and dry Neurologic: no focal deficit, other (sleeping, arousable) Musculoskeletal: Present: other (trace LE edema noted) Results - Lab Results 07/03/18 09:01 07/03/18 09:01 Most recent lab results Calcium 7.8 mg/dL (8.4-10.2) L 07/02/18 06:23 - Image Kidney/bladder ultrasound: other Assessment and Plan 1. Acute kidney injury: Acute kidney injury secondary to contrast induced nephropathy. Continue IV fluids. Urine studies pending. Imaging was negative for hydro. Monitor renal function. Avoid Nephrotoxic agents. 2. FEN: Hyponatremia, improving. Monitor lytes. 3. CAD s/p stent. 4. N & V. 5. DM type 2. 6. Anemia: POA.
[2018-07-02] MEDS ORDERED: NEURONTIN PO SCH (18:21)
[2018-07-02] MEDS ORDERED: CEPHULAC PO ONE (21:05)
[2018-07-02] MEDS: LIORESAL PO SCH (21:56)
[2018-07-03] MEDS: COMBIGAN 0.2-0.5% OD SCH ×3 (00:16→22:02)
[2018-07-03] MEDS: ULTRAM PO PRN (00:40)
[2018-07-03] MEDS: HumaLOG SUB-Q SCH ×5 (00:47→22:26)
[2018-07-03] MEDS: HEPARIN/ 0.45% NACL-25,000 UNIT/500 ML 25,000 UNIT/500 ML BAG IV SCH (01:09)
[2018-07-03] MEDS: LANTUS SUB-Q SCH ×2 (05:37→17:58)
[2018-07-03] MEDS: NEURONTIN PO SCH ×3 (05:42→22:02)
[2018-07-03] MEDS: ZOFRAN IV PRN (08:33)
[2018-07-03 09:16] LABS: Basophils % (Auto) 0.3 % (0.0-1.8); Eosinophils # (Auto) 0.2 K/mm3 (0.0-0.4); Eosinophils % (Auto) 1.8 % (0.0-4.3); Hemoglobin 10.4 gm/dl (10.1-14.3); Lymphocytes # (Auto) 1.6 K/mm3 (1.2-5.4); Lymphocytes % (Auto) 13.3 % (13.4-35.0); Mean Corpuscular HGB Conc 33 % (30-34); Mean Corpuscular Volume 81 fl (79-97); Monocytes # (Auto) 1.7 K/mm3 (0.0-0.8); Platelet Count 186 K/mm3 (140-440); Red Blood Count 3.96 M/mm3 (3.65-5.03); Red Cell Distribution Width 14.2 % (13.2-15.2)
--- NOTE | 2018-07-03 09:18 | Progress Note ---
Assessment and Plan Assessment and plan: --Intractable nausea vomiting and abdominal pain; CT abdomen findings consistent with fibroid IV fluids, antiemetics, ultrasound abdomen and pelvis, GI consult Supportive care --Acute kidney injury; worsening renal function ,secondary to vasomotor nephropathy Avoid nephrotoxins, gentle hydration, nephrology consulted , gentle hydration Patient is refusing IV fluids --Non-ST elevation OH; status post cardiac catheterization s/p PCI of the left circumflex. On detailed platelets aspirin and Plavix, heparin drip discontinued Continue supportive care --History of coronary artery disease status post PCI; continue current cardiac medications --Hyponatremia; significantly improved --2 diabetes mellitus; uncontrolled , patient is on very high doses of Lantus at home Accu-Chek sliding scale coverage and ADA diet, increase Lantus to 25 units twice a day --Diabetic neuropathy; continue gabapentin --Hypertension; moderate control, continue current antihypertensives and when necessary medications --Dyslipidemia: continue statin. --Moderate malnutrition/hypoalbuminemia; nutrition supplements, nutrition consult if needed --DVT prophylaxis; patient on heparin drip --Full CODE STATUS Monitor closely and adjust management as needed Consults and recommendations noted Follow abdominal ultrasound findings Plan of care is reviewed with the patient and multiple family members at the bedside I also discussed with nephrology History Interval history: Patient seen and examined medical records reviewed Patient's mother is at the bedside Complaints of intractable nausea vomiting abdominal pain No hematemesis melena Alert awake oriented mild distress, Hospitalist Physical - Constitutional Vitals: Temp Pulse Resp BP Pulse Ox 98.5 F 61 24 152/73 97 07/03/18 08:31 07/03/18 08:31 07/03/18 08:31 07/03/18 08:31 07/03/18 08:31 General appearance: Present: mild distress, well-nourished, obese (morbidly obese) - EENT Eyes: Present: PERRL, EOM intact - Neck Neck: Present: supple, normal ROM - Respiratory Respiratory effort: normal Respiratory: bilateral: diminished, rales, negative: rhonchi, wheezing - Cardiovascular Rhythm: regular Heart Sounds: Present: S1 & S2 - Extremities Extremities: no ischemia, No edema Peripheral Pulses: within normal limits - Abdominal General gastrointestinal: soft, non-tender, non-distended, normal bowel sounds - Integumentary Integumentary: Present: clear, warm - Psychiatric Psychiatric: appropriate mood/affect, cooperative - Neurologic Neurologic: CNII-XII intact, moves all extremities Results - Labs CBC & Chem 7: 07/03/18 09:01 07/04/18 05:31 Labs: Laboratory Last Values WBC 12.2 K/mm3 (4.5-11.0) H 07/03/18 09:01 RBC 3.96 M/mm3 (3.65-5.03) 07/03/18 09:01 Hgb 10.4 gm/dl (10.1-14.3) 07/03/18 09:01 Hct 32.0 % (30.3-42.9) 07/03/18 09:01 MCV 81 fl (79-97) 07/03/18 09: MCH 26 pg (28-32) L 07/03/18 09:01 MCHC 33 % (30-34) 07/03/18 09:01 RDW 14.2 % (13.2-15.2) 07/03/18 09:01 Plt Count 186 K/mm3 (140-440) 07/03/18 09:01 Lymph % (Auto) 13.3 % (13.4-35.0) L 07/03/18 09:01 [place] % (Auto) 14.0 % (0.0-7.3) H 07/03/18 09:01 Eos % (Auto) 1.8 % (0.0-4.3) 07/03/18 09:01 Baso % (Auto) 0.3 % (0.0-1.8) 07/03/18 09:01 Lymph # 1.6 K/mm3 (1.2-5.4) 07/03/18 09:01 [place] # 1.7 K/mm3 (0.0-0.8) H 07/03/18 09:01 Eos # 0.2 K/mm3 (0.0-0.4) 07/03/18 09:01 Baso # 0.0 K/mm3 (0.0-0.1) 07/03/18 09:01 Add Manual Diff Complete 07/01/18 00:12 Total Counted 100 07/01/18 00:12 Seg Neutrophils % 70.6 % (40.0-70.0) H 07/03/18 09:01 Seg Neuts % (Manual) 61.0 % (40.0-70.0) 07/01/18 00:12 1.0 % 07/01/18 00:12 25.0 % (13.4-35.0) 07/01/18 00:12 Reactive Lymphs % (Man) 1.0 % 07/01/18 00:12 10.0 % (0.0-7.3) H 07/01/18 00:12 0 % (0.0-4.3) 07/01/18 00:12 2.0 % (0.0-1.8) H 07/01/18 00:12 0 % 07/01/18 00:12 0 % 07/01/18 00:12 0 % 07/01/18 00:12 0 % 07/01/18 00:12 Nucleated RBC % Not Reportable 07/01/18 00:12 Seg Neutrophils # 8.6 K/mm3 (1.8-7.7) H 07/03/18 09:01 Seg Neutrophils # Man 5.9 K/mm3 (1.8-7.7) 07/01/18 00:12 Band Neutrophils # 0.1 K/mm3 07/01/18 00:12 2.4 K/mm3 (1.2-5.4) 07/01/18 00:12 Abs React Lymphs (Man) 0.1 K/mm3 07/01/18 00:12 1.0 K/mm3 (0.0-0.8) H 07/01/18 00:12 0.0 K/mm3 (0.0-0.4) 07/01/18 00:12 0.2 K/mm3 (0.0-0.1) H 07/01/18 00:12 0.0 K/mm3 07/01/18 00:12 0.0 K/mm3 07/01/18 00:12 0.0 K/mm3 07/01/18 00:12 Blast Cells # 0.0 K/mm3 07/01/18 00:12 WBC Morphology Not Reportable 07/01/18 00:12 Hypersegmented Neuts Not Reportable 07/01/18 00:12 Hyposegmented Neuts Not Reportable 07/01/18 00:12 Hypogranular Neuts Not Reportable 07/01/18 00:12 Not Reportable 07/01/18 00:12 Not Reportable 07/01/18 00:12 Not Reportable 07/01/18 00:12 Not Reportable 07/01/18 00:12 Not Reportable 07/01/18 00:12 Not Reportable 07/01/18 00:12 Consistent w auto 07/01/18 00:12 Not Reportable 07/01/18 00:12 Plt Clumps, EDTA Not Reportable 07/01/18 00:12 Not Reportable 07/01/18 00:12 Not Reportable 07/01/18 00:12 Not Reportable 07/01/18 00:12 Plt Morphology Comment Not Reportable 07/01/18 00:12 RBC Morphology Not Reportable 07/01/18 00:12 Dimorphic RBCs Not Reportable 07/01/18 00:12 Not Reportable 07/01/18 00:12 Not Reportable 07/01/18 00:12 Not Reportable 07/01/18 00:12 1+ 07/01/18 00:12 Not Reportable 07/01/18 00:12 Not Reportable 07/01/18 00:12 Not Reportable 07/01/18 00:12 Not Reportable 07/01/18 00:12 Not Reportable 07/01/18 00:12 Not Reportable 07/01/18 00:12 Not Reportable 07/01/18 00:12 Not Reportable 07/01/18 00:12 Not Reportable 07/01/18 00:12 Not Reportable 07/01/18 00:12 Not Reportable 07/01/18 00:12 Not Reportable 07/01/18 00:12 Not Reportable 07/01/18 00:12 Not Reportable 07/01/18 00:12 Not Reportable 07/01/18 00:12 Acanthocytes (Spur) Not Reportable 07/01/18 00:12 Rouleaux Not Reportable 07/01/18 00:12 Not Reportable 07/01/18 00:12 Not Reportable 07/01/18 00:12 Not Reportable 07/01/18 00:12 Not Reportable 07/01/18 00:12 Hem Pathologist Commnt No 07/01/18 00:12 PT 14.4 Sec. (12.2-14.9) 07/01/18 16:01 INR 1.05 (0.87-1.13) 07/01/18 16:01 APTT 39.4 Sec. (24.2-36.6) H 07/01/18 16:01 241 (74-137) H 07/01/18 11:58 Heparin Anti-Xa Level 0.41 U.I./ml (0.3-0.7) 07/02/18 22:55 Sodium 136 mmol/L (137-145) L 07/02/18 06:23 Potassium 4.8 mmol/L (3.6-5.0) 07/02/18 06:23 Chloride 97.8 mmol/L (98-107) L 07/02/18 06:23 Carbon Dioxide 23 mmol/L (22-30) 07/02/18 06:23 20 mmol/L 07/02/18 06:23 BUN 37 mg/dL (7-17) H 07/02/18 06:23 2.3 mg/dL (0.7-1.2) H D 07/02/18 06:23 Estimated GFR 27 ml/min 07/02/18 06:23 16 % 07/02/18 06:23 Glucose 216 mg/dL (65-100) H 07/02/18 06:23 POC Glucose 181 (70-105) H 07/03/18 05:23 Calcium 7.8 mg/dL (8.4-10.2) L 07/02/18 06:23 162 units/L (30-135) H 07/01/18 16:01 CK-MB (CK-2) 1.6 ng/mL (0.0-4.0) 07/01/18 16:01 CK-MB (CK-2) Rel Index 0.9 (0-4) 07/01/18 16:01 0.317 ng/mL (0.00-0.029) H* D 07/02/18 06:23 NT-Pro-B Natriuret Pep 474.0 pg/mL (0-900) 07/01/18 00:18 Triglycerides 195 mg/dL (2-149) H 07/01/18 00:12 Cholesterol 188 mg/dL (50-199) 07/01/18 00:12 149 mg/dL (50-130) H 07/01/18 00:12 28 mg/dL (40-59) L 07/01/18 00:12 6.71 % 07/01/18 00:12 Active Medications - Current Medications Current Medications: Generic Name Dose Route Start Last Admin Trade Name Freq PRN Reason Stop Dose Admin Acetaminophen 650 mg 07/01/18 03:24 07/02/18 09:19 Tylenol PO 650 mg Q4H PRN Administration Pain MILD(1-3)/Fever >100.5/SHARPE Aspirin 81 mg 07/02/18 10:00 07/02/18 09:17 Baby Aspirin PO 81 mg QDAY BRINA Administration Atorvastatin Calcium 40 mg 07/01/18 22:00 07/02/18 21:56 Lipitor PO 40 mg QHS BRINA Administration Baclofen 10 mg 07/01/18 22:00 07/02/18 21:56 Lioresal PO 10 mg HS BRINA Administration Brimonidine/Timolol 1 drops 07/02/18 23:00 07/03/18 00:16 Combigan 0.2-0.5% OD 1 drops BID BRINA Administration Buspirone HCl 15 mg 07/01/18 10:00 07/02/18 23:11 Buspar PO Not Given BID BRINA Carvedilol 12.5 mg 07/01/18 10:00 07/02/18 22:41 Coreg PO Not Given BID BRINA Clopidogrel Bisulfate 75 mg 07/02/18 10:00 07/02/18 09:17 Plavix PO 75 mg QDAY BRINA Administration Dextrose 50 ml 07/01/18 03:40 D50w (25gm) Syringe IV PRN PRN Hypoglycemia Escitalopram Oxalate 20 mg 07/01/18 10:00 07/02/18 09:17 Lexapro PO 20 mg DAILY BRINA Administration Gabapentin 300 mg 07/02/18 22:00 07/03/18 05:42 Neurontin PO 300 mg Q8HR BRINA Administration Sodium Chloride 1,000 mls @ 75 mls/hr 07/01/18 04:00 07/01/18 22:04 Nacl 0.9% 1000 Ml IV 75 mls/hr DIRECT BRINA Administration Heparin Sodium/Sodium Chloride 25,000 unit in 500 mls @ 20 mls/hr 07/01/18 15:00 07/03/18 01:09 Heparin/ 0.45% Nacl-25,000 Unit/500 Ml IV 82,500 units/hr TITRATE BRINA 1,650 mls/hr Administration Protocol 1,000 UNITS/HR Insulin Glargine 25 units 07/01/18 17:30 07/03/18 05:37 Lantus SUB-Q 25 units BID@0600,1800 BRINA Administration Insulin Human Lispro 0 unit 07/01/18 06:00 07/03/18 05:39 Humalog SUB-Q 2 unit Q6HR BRINA Administration Protocol Isosorbide Mononitrate 60 mg 07/01/18 10:00 07/02/18 09:18 Imdur PO 60 mg DAILY BRINA Administration Lisinopril 20 mg 07/01/18 10:00 07/02/18 09:18 Zestril PO 20 mg QDAY BRINA Administration Metoclopramide HCl 10 mg 07/03/18 09:13 Reglan IV Q6H PRN Nausea And Vomiting Nitroglycerin 0.4 mg 07/01/18 04:10 Nitrostat SL Q5M PRN Chest Pain Ondansetron HCl 4 mg 07/01/18 03:24 07/03/18 08:33 Zofran IV 4 mg Q8H PRN Administration Nausea And Vomiting Polyethylene Glycol 17 gm 07/02/18 12:00 07/02/18 12:03 Miralax 3350 PO 17 gm QDAY BRINA Administration Promethazine HCl 12.5 mg 07/03/18 09:13 Phenergan PO Q6H PRN Nausea And Vomiting Sodium Chloride 10 ml 07/01/18 10:00 07/02/18 22:19 Sodium Chloride Flush Syringe 10 Ml IV 10 ml BID BRINA Administration Sodium Chloride 10 ml 07/01/18 03:24 Sodium Chloride Flush Syringe 10 Ml IV PRN PRN LINE FLUSH Tramadol HCl 50 mg 07/01/18 03:26 07/03/18 00:40 Ultram PO 50 mg Q6H PRN Administration Pain, Moderate (4-6) Nutrition/Malnutrition Assess - Dietary Evaluation Nutrition/Malnutrition Findings: Nutrition Notes Start: 07/01/18 16:16 Freq: Status: Active Protocol: Document 07/02/18 17:09 RM (Rec: 07/02/18 17:11 RM [id number]) Nutrition Notes Initial or Follow up Brief Note Labs/Tests BG 216 Subjective/Other Information Pt requested sports writer come back tomorrow for DM diet education d/t stomach pain at time of visit. Nutrition Intervention Follow-Up By: 07/03/18 Additional Comments Follow for DM diet education
[2018-07-03 09:42] LABS: Albumin 3.3 g/dL (3.9-5); Calcium 7.7 mg/dL (8.4-10.2)
--- NOTE | 2018-07-03 10:02 | Progress Note ---
Assessment and Plan 1. Acute kidney injury: Acute kidney injury secondary to contrast induced nephropathy. Continue IV fluids. Urine studies pending. Imaging was negative for hydro. Creatinine level continue to increase. Renal prognosis is guarded. Monitor renal function. Avoid Nephrotoxic agents. 2. FEN: Hyponatremia, monitor. Monitor lytes. 3. CAD s/p stent. 4. N & V. 5. DM type 2. 6. Anemia: POA. Subjective Date of service: 07/03/18 Principal diagnosis: cp Interval history: Patient was seen and examined at the bedside. Mother was at the bedside yesterday and today. Had N & V. Objective - Vital Signs Vital signs: Vital Signs - 12hr 07/02/18 07/03/18 07/03/18 22:41 00:16 04:19 Temperature 98.2 F Pulse Rate 70 63 60 Respiratory 18 18 Rate Blood Pressure 105/59 143/68 126/69 O2 Sat by Pulse 99 99 Oximetry 07/03/18 08:31 Temperature 98.5 F Pulse Rate 61 Respiratory 24 Rate Blood Pressure 152/73 O2 Sat by Pulse 97 Oximetry - General Appearance General appearance: well-developed, well-nourished, appears stated age, obese, other (not in distress) EENT: ATNC, PERRL Neck: supple Respiratory: Present: Clear to Ascultation Cardiology: regular, S1S2, no murmurs Gastrointestinal: normoactive bowel sounds, no tenderness, no distended, obese Integumentary: no rash, warm and dry Neurologic: other (opens eyes and goes back to sleep, not talking) Musculoskeletal: other (1+ edema of both LEs noted) - Lab 07/03/18 09:01 07/03/18 09:01 Most recent lab results Calcium 7.7 mg/dL (8.4-10.2) L 07/03/18 09:01 Magnesium 2.10 mg/dL (1.7-2.3) 07/03/18 09:01 Medications & Allergies - Medications Allergies/Adverse Reactions: Allergies No Known Allergies Allergy (Verified 05/25/16 00:37) Home Medications: Home Medications Medication Instructions Recorded Confirmed Last Taken Type Insulin NPH Hum/Reg Insulin Hm 40 unit SQ TIDAC 05/19/13 07/01/18 02/27/17 10:00 History [NovoLIN 70-30 100 Unit/ml Vial] 40units Isosorbide Mononitrate 60 mg PO DAILY 05/19/13 07/01/18 02/27/17 10:00 History 10mg Gabapentin [Neurontin] 800 mg PO Q8HR 11/01/15 07/01/18 02/27/17 10:00 History 800mg Aspirin EC 81 mg PO QDAY #30 tablet. 11/03/15 07/01/18 02/27/17 10:00 Rx 81mg Carvedilol [Coreg] 12.5 mg PO BID 02/28/17 07/01/18 02/27/17 10:00 History 12.5mg Clopidogrel [Plavix] 75 mg PO QDAY 02/28/17 07/01/18 02/27/17 10:00 History 75mg Escitalopram [Lexapro] 20 mg PO DAILY 02/28/17 07/01/18 02/27/17 10:00 History 20mg Lisinopril [Zestril TAB] 20 mg PO QDAY 02/28/17 07/01/18 02/27/17 10:00 History 20mg Torsemide [Demadex] 20 mg PO DAILY 02/28/17 07/01/18 02/27/17 10:00 History 20mg traMADol [Ultram 50 MG tab] 100 mg PO Q8HR 02/28/17 07/01/18 02/27/17 10:00 History 100mg Baclofen [Lioresal] 10 mg PO HS 07/01/18 07/01/18 Unknown History Brimonidine Tartrate/Timolol 1 drop OP BID 07/01/18 07/01/18 Unknown History [Combigan 0.2%-0.5% Eye Drops] Buspirone HCl [busPIRone] 15 mg PO BID 07/01/18 07/01/18 Unknown History Insulin Detemir [Levemir] 100 unit SQ HS 07/01/18 07/01/18 Unknown History Lispro Insulin [HumaLOG] 100 unit SQ QHS 07/01/18 07/01/18 Unknown History Active Medications: Generic Name Dose Route Start Last Admin Trade Name Freq PRN Reason Stop Dose Admin Acetaminophen 650 mg 07/01/18 03:24 07/02/18 09:19 Tylenol PO 650 mg Q4H PRN Administration Pain MILD(1-3)/Fever >100.5/SHARPE Aspirin 81 mg 07/02/18 10:00 07/02/18 09:17 Baby Aspirin PO 81 mg QDAY BRINA Administration Atorvastatin Calcium 40 mg 07/01/18 22:00 07/02/18 21:56 Lipitor PO 40 mg QHS BRINA Administration Baclofen 10 mg 07/01/18 22:00 07/02/18 21:56 Lioresal PO 10 mg HS BRINA Administration Brimonidine/Timolol 1 drops 07/02/18 23:00 07/03/18 00:16 Combigan 0.2-0.5% OD 1 drops BID BRINA Administration Buspirone HCl 15 mg 07/01/18 10:00 07/02/18 23:11 Buspar PO Not Given BID BRINA Carvedilol 12.5 mg 07/01/18 10:00 07/02/18 22:41 Coreg PO Not Given BID BRINA Clopidogrel Bisulfate 75 mg 07/02/18 10:00 07/02/18 09:17 Plavix PO 75 mg QDAY BRINA Administration Dextrose 50 ml 07/01/18 03:40 D50w (25gm) Syringe IV PRN PRN Hypoglycemia Escitalopram Oxalate 20 mg 07/01/18 10:00 07/02/18 09:17 Lexapro PO 20 mg DAILY BRINA Administration Gabapentin 300 mg 07/02/18 22:00 07/03/18 05:42 Neurontin PO 300 mg Q8HR BRINA Administration Sodium Chloride 1,000 mls @ 75 mls/hr 07/01/18 04:00 07/01/18 22:04 Nacl 0.9% 1000 Ml IV 75 mls/hr DIRECT BRINA Administration Heparin Sodium/Sodium Chloride 25,000 unit in 500 mls @ 20 mls/hr 07/01/18 15:00 07/03/18 01:09 Heparin/ 0.45% Nacl-25,000 Unit/500 Ml IV 82,500 units/hr TITRATE BRINA 1,650 mls/hr Administration Protocol 1,000 UNITS/HR Insulin Glargine 25 units 07/01/18 17:30 07/03/18 05:37 Lantus SUB-Q 25 units BID@0600,1800 BRINA Administration Insulin Human Lispro 0 unit 07/01/18 06:00 07/03/18 05:39 Humalog SUB-Q 2 unit Q6HR BRINA Administration Protocol Isosorbide Mononitrate 60 mg 07/01/18 10:00 07/02/18 09:18 Imdur PO 60 mg DAILY BRINA Administration Lisinopril 20 mg 07/01/18 10:00 07/02/18 09:18 Zestril PO 20 mg QDAY BRINA Administration Metoclopramide HCl 10 mg 07/03/18 09:13 Reglan IV Q6H PRN Nausea And Vomiting Nitroglycerin 0.4 mg 07/01/18 04:10 Nitrostat SL Q5M PRN Chest Pain Ondansetron HCl 4 mg 07/01/18 03:24 07/03/18 08:33 Zofran IV 4 mg Q8H PRN Administration Nausea And Vomiting Polyethylene Glycol 17 gm 07/02/18 12:00 07/02/18 12:03 Miralax 3350 PO 17 gm QDAY BRINA Administration Promethazine HCl 12.5 mg 07/03/18 09:13 Phenergan PO Q6H PRN Nausea And Vomiting Sodium Chloride 10 ml 07/01/18 10:00 07/02/18 22:19 Sodium Chloride Flush Syringe 10 Ml IV 10 ml BID BRINA Administration Sodium Chloride 10 ml 07/01/18 03:24 Sodium Chloride Flush Syringe 10 Ml IV PRN PRN LINE FLUSH Tramadol HCl 50 mg 07/01/18 03:26 07/03/18 00:40 Ultram PO 50 mg Q6H PRN Administration Pain, Moderate (4-6)
[2018-07-03] MEDS: REGLAN IV PRN ×2 (10:16→15:51)
[2018-07-03] MEDS: DILAUDID IV PRN ×2 (10:33→15:51)
--- NOTE | 2018-07-03 11:19 | Progress Note ---
Assessment and Plan Serum Cr continues to trend upwards, nephrology is following. Pt with continued c/o abdominal swelling and pain with n/v this AM. She reports that she did have BM overnight. Abdomen CT w/o contrast yesterday showed large uterine fibroid, no acute changes noted. GI consultation is pending. Heparin gtt infusing. If pt is able to tolerate todays dosage of ASA and Plavix (she is currently with n/v), may discontinue heparin gtt today after she receives ASA and Plavix. Chest pain currently resolved. TTE reviewed with no significant abnormalities. Currently stable cardiac status. The patient has been seen in conjunction with Dr. Hinds who agrees with the assessment and plan of care. - Patient Problems (1) NSTEMI (non-ST elevated myocardial infarction) Current Visit: Yes Status: Acute (2) CAD (coronary artery disease) Current Visit: Yes Status: Chronic (3) Stented coronary artery Current Visit: Yes Status: Chronic (4) HTN (hypertension) Current Visit: Yes Status: Chronic Qualifiers: Hypertension type: essential hypertension Qualified Code(s): I10 - Essential (primary) hypertension (5) Hyperlipidemia Current Visit: Yes Status: Chronic (6) Diabetes mellitus with hyperglycemia Current Visit: Yes Status: Acute (7) Renal insufficiency Current Visit: Yes Status: Acute (8) Obesity Current Visit: Yes Status: Chronic Subjective Date of service: 07/03/18 Principal diagnosis: cp Interval history: pt sitting up in chair, c/o abdominal swelling and abdominal pain and n/v this AM, she states that she did have a BM overnight. no chest pain. Objective Last Vital Signs Temp 98.5 F 07/03/18 08:31 Pulse 61 07/03/18 08:31 Resp 24 07/03/18 08:31 BP 152/73 07/03/18 08:31 Pulse Ox 97 07/03/18 08:31 - Physical Examination General: Other (n/v) HEENT: Positive: PERRL, Normocephaly, Mucus Membranes Moist Neck: Positive: neck supple, trachea midline Cardiac: Positive: Reg Rate and Rhythm, S1/S2 Lungs: Positive: Decreased Breath Sounds Neuro: Positive: Grossly Intact Abdomen: Positive: Tender, Distended Skin: Negative: Rash, Wound Musculoskeletal: No Pain Extremities: Absent: edema - Labs and Meds Cardiac Enzymes 07/03/18 Range/Units 09:01 AST 14 (5-40) units/L CBC 07/03/18 Range/Units 09:01 WBC 12.2 H (4.5-11.0) K/mm3 RBC 3.96 (3.65-5.03) M/mm3 Hgb 10.4 (10.1-14.3) gm/dl Hct 32.0 (30.3-42.9) % Plt Count 186 (140-440) K/mm3 Lymph # 1.6 (1.2-5.4) K/mm3 [place] # 1.7 H (0.0-0.8) K/mm3 Eos # 0.2 (0.0-0.4) K/mm3 Baso # 0.0 (0.0-0.1) K/mm3 Comprehensive Metabolic Panel 07/03/18 Range/Units 09:01 Sodium 133 L (137-145) mmol/L Potassium 4.9 (3.6-5.0) mmol/L Chloride 94.9 L (98-107) mmol/L Carbon Dioxide 22 (22-30) mmol/L BUN 47 H (7-17) mg/dL Creatinine 3.0 H (0.7-1.2) mg/dL Glucose 119 H (65-100) mg/dL Calcium 7.7 L (8.4-10.2) mg/dL AST 14 (5-40) units/L ALT 12 (7-56) units/L Alkaline Phosphatase 73 (35-129) units/L Total Protein 7.0 (6.3-8.2) g/dL Albumin 3.3 L (3.9-5) g/dL - Imaging and Cardiology EKG: report reviewed, image reviewed Echo: report reviewed (06/12/2016 at [facility] showed EF 55%, mild MR. ) Cardiac cath: report reviewed ([facility] on 05/31/[address] Pa which showed lt main patent, lad mid 80% small vessel distal, lcx mid 95% and rca mid 100% normal lv function elevated lvedp 40-45mmhg. She was transferred to [facility] for possible bypass vs pci and subsequently underwent PTCA of mid LAD and LUZ to mid LAD on 06/11/2016. ) - Telemetry EKG Rhythm: Sinus Rhythm - EKG Sinus rhythms and dysrhythmias: sinus rhythm
[2018-07-03] MEDS: COREG PO SCH ×2 (12:25→22:00)
[2018-07-03] MEDS: LEXAPRO PO SCH (12:25)
[2018-07-03] MEDS: BABY ASPIRIN PO SCH (12:25)
[2018-07-03] MEDS: BUSPAR PO SCH ×2 (12:25→22:02)
[2018-07-03] MEDS: PLAVIX PO SCH (12:26)
[2018-07-03] MEDS: IMDUR PO SCH (12:26)
[2018-07-03] MEDS: MIRALAX 3350 PO SCH (12:26)
[2018-07-03] MEDS: SODIUM CHLORIDE FLUSH SYRINGE 10 ML IV SCH ×2 (12:27→22:03)
--- NOTE | 2018-07-03 15:03 | Ultrasound Report ---
ULTRASOUND ABDOMEN COMPLETE: TECHNIQUE: Transabdominal ultrasound with color Doppler interrogation. HISTORY: Abdominal pain, nausea, vomiting. COMPARISON: CT abdomen without contrast performed 07/02/18. FINDINGS: LIVER: Normal. BILIARY SYSTEM: There is a mild degree of sludge in the gallbladder. No shadowing gallstones, wall thickening or abnormal dilatation. The CBD is mildly dilated measuring 6.3 mm. PANCREAS: Obscured by bowel gas. SPLEEN: Normal. KIDNEYS: Normal. AORTA/IVC: Normal. ASCITES: None. IMPRESSION: There is a small amount of sludge in the gallbladder. The common bile duct is mildly dilated measuring 6.3 mm. No obvious choledocholithiasis on ultrasound.
--- NOTE | 2018-07-03 15:05 | Ultrasound Report ---
ULTRASOUND PELVIC COMPLETE HISTORY: Pelvic pain, fibroid. COMPARISON: CT abdomen without contrast dated 07/02/18. TECHNIQUE: Transabdominal and transvaginal ultrasound with color doppler interrogation. FINDINGS: Uterus: The uterus is enlarged measuring 17 x 11 x 10 cm. There appears to be a large fibroid near the uterine fundus with scattered calcific degeneration measuring up to 10 cm. Endometrium: The endometrium is poorly demonstrated on ultrasound secondary to calcifications. Right ovary: Not visualized. Left ovary: Not visualized. No pelvic fluid or mass is identified. Normal color doppler interrogation. IMPRESSION: Uterine fibroid disease as described. The endometrium and ovaries are obscured.
[2018-07-03] MEDS: PHENERGAN PO PRN (17:51)
[2018-07-03] MEDS: LIORESAL PO SCH (22:03)
[2018-07-04] MEDS: DILAUDID IV PRN ×3 (03:47→21:21)
[2018-07-04] MEDS: ZOFRAN IV PRN (03:47)
[2018-07-04] MEDS: NEURONTIN PO SCH ×3 (06:27→21:18)
[2018-07-04 06:53] LABS: Calcium 7.6 mg/dL (8.4-10.2)
--- NOTE | 2018-07-04 07:58 | Consultation ---
REFERRING PHYSICIAN: Alicia Guaman MD INDICATION: 1. Nausea, vomiting. 2. Abdominal pain. HISTORY OF PRESENT ILLNESS: The patient is a 57-year-old black female with history of diabetes, hypertension, coronary artery disease, status post stent placement in 04/16/2008 as well as CHF and obstructive sleep apnea and noncompliant with CPAP. The patient has had stents placed in the past as noted above. The patient presented with substernal chest pain under the left breast. Subsequently, was admitted for non-ST segment IN. The patient subsequently underwent cardiac stent placement 2 days ago. The patient reports for the last 2-3 days, she has been having nausea, vomiting with mid abdominal pain. She reports initially she felt she was constipated, but then had a bowel movement and symptoms persisted. She reports some food association. She denies any weight loss. She denies any NSAIDs or aspirin. Denies any other specific complaints. GI is consulted to aid in management. The patient reports she has never had a colonoscopy. She reports she had an endoscopy 2015. No other specific complaints. PAST MEDICAL HISTORY: 1. Coronary artery disease, status post multiple stents placement. 2. Hypertension. 3. Diabetes. 4. Obesity. 5. High cholesterol. PAST SURGICAL HISTORY: PTCA. ALLERGIES: No known drug allergies. MEDICATIONS: Reviewed and updated in chart. SOCIAL HISTORY: Denies alcohol, tobacco or drug abuse. FAMILY HISTORY: Negative for colon cancer, IBD, or liver disease. REVIEW OF SYSTEMS: GENERAL: Reports mild weakness. HEENT: No visual complaints or tinnitus. PULMONARY: No shortness of breath. No cough. CARDIOVASCULAR: No chest pain. GASTROINTESTINAL: Reports nausea, vomiting, abdominal pain. All points of 13-point review of systems otherwise negative. PHYSICAL EXAMINATION: VITAL SIGNS: Temperature of 98.5, pulse 60, respirations 16, blood pressure 125/65. GENERAL: Fairly somewhat obese black female in no acute distress. HEENT: Pupils equal, round and reactive. PULMONARY: Clear to auscultation bilaterally. CARDIOVASCULAR: Regular rate and rhythm. Normal S1, S2. ABDOMEN: Positive bowel sounds, soft. SKIN: No obvious rashes. LABORATORY DATA: Pertinent for white count of 12.2, hemoglobin and hematocrit 10.4 and 32.0, platelet count of 186. Chem-7, sodium of 133, potassium 4.9, chloride 95, CO2 22, BUN and creatinine of 47 and 3.0. LFTs within normal limits. DIAGNOSTIC DATA: Abdominal ultrasound shows sludge in the gallbladder, otherwise negative. CT scan showed fibroids, but otherwise negative. ASSESSMENT AND PLAN: A 57-year female with past medical history as noted above, presented with non-ST elevation myocardial infarction and had a stent placed two days ago, now since then has been having some nausea, vomiting and upper abdominal pain. Whether or not this may be functional pain versus musculoskeletal versus other underlying pathology is unknown. The patient did have some sludge in her gallbladder, though symptoms are not classic for gallbladder disease. Given the fact the patient has had stents placed, she is unlikely to get any endoscopic procedures at this time. PLAN: 1. Review CT scan and ultrasound previously done. 2. Antiemetics and pain medications as ordered. 3. We will start dicyclomine 20 mg p.o. q. 8 hours p.r.n. as the patient reports some gas and bloating. 4. HIDA scan if okay with surgery. 5. Given the patient's recent stent placement, would most likely defer endoscopic evaluation at this time. 6. We will follow further recommendations and progress and results of the above. JOB# [id number] CAB/NTS
--- NOTE | 2018-07-04 08:10 | Progress Note ---
Assessment and Plan 1. Acute kidney injury: Acute kidney injury secondary to contrast induced nephropathy. Continue IV fluids. Urine studies pending. Imaging was negative for hydro. Creatinine level continue to increase. Renal prognosis is guarded. Monitor renal function. Avoid Nephrotoxic agents. 2. FEN: Hyponatremia, monitor. Monitor lytes. 3. CAD s/p stent. 4. N & V. 5. DM type 2. 6. Anemia: POA. Subjective Date of service: 07/04/18 Principal diagnosis: cp Interval history: Patient was seen and examined at the bedside. Grand daughter at the bedside. Continue to have N & V. Objective - Vital Signs Vital signs: Vital Signs - 12hr 07/03/18 07/03/18 07/04/18 22:00 23:22 05:00 Temperature 98.5 F 98.0 F Pulse Rate 56 L 59 L 62 Respiratory 20 18 Rate Blood Pressure 96/45 Blood Pressure 134/62 [Left] O2 Sat by Pulse 99 91 Oximetry 07/04/18 07:29 Temperature 98.3 F Pulse Rate 56 L Respiratory 16 Rate Blood Pressure Blood Pressure 122/60 [Left] O2 Sat by Pulse 94 Oximetry - General Appearance General appearance: well-developed, well-nourished, appears stated age, obese, other (not in distress) EENT: ATNC, PERRL, mucous membranes moist, hearing intact, vision intact Neck: supple Respiratory: Present: Clear to Ascultation Cardiology: regular, S1S2, no murmurs Gastrointestinal: normoactive bowel sounds, no tenderness, no distended, obese Integumentary: no rash, warm and dry Neurologic: no focal deficit, no asterixis Musculoskeletal: other (1+ edema of both LEs noted) - Lab 07/05/18 04:02 07/06/18 07:45 Most recent lab results Calcium 7.6 mg/dL (8.4-10.2) L 07/04/18 05:31 Magnesium 2.10 mg/dL (1.7-2.3) 07/03/18 09:01 Medications & Allergies - Medications Allergies/Adverse Reactions: Allergies No Known Allergies Allergy (Verified 05/25/16 00:37) Home Medications: Home Medications Medication Instructions Recorded Confirmed Last Taken Type Insulin NPH Hum/Reg Insulin Hm 40 unit SQ TIDAC 05/19/13 07/01/18 02/27/17 10:00 History [NovoLIN 70-30 100 Unit/ml Vial] 40units Isosorbide Mononitrate 60 mg PO DAILY 05/19/13 07/01/18 02/27/17 10:00 History 10mg Gabapentin [Neurontin] 800 mg PO Q8HR 11/01/15 07/01/18 02/27/17 10:00 History 800mg Aspirin EC 81 mg PO QDAY #30 tablet. 11/03/15 07/01/18 02/27/17 10:00 Rx 81mg Carvedilol [Coreg] 12.5 mg PO BID 02/28/17 07/01/18 02/27/17 10:00 History 12.5mg Clopidogrel [Plavix] 75 mg PO QDAY 02/28/17 07/01/18 02/27/17 10:00 History 75mg Escitalopram [Lexapro] 20 mg PO DAILY 02/28/17 07/01/18 02/27/17 10:00 History 20mg Lisinopril [Zestril TAB] 20 mg PO QDAY 02/28/17 07/01/18 02/27/17 10:00 History 20mg Torsemide [Demadex] 20 mg PO DAILY 02/28/17 07/01/18 02/27/17 10:00 History 20mg traMADol [Ultram 50 MG tab] 100 mg PO Q8HR 02/28/17 07/01/18 02/27/17 10:00 History 100mg Baclofen [Lioresal] 10 mg PO HS 07/01/18 07/01/18 Unknown History Brimonidine Tartrate/Timolol 1 drop OP BID 07/01/18 07/01/18 Unknown History [Combigan 0.2%-0.5% Eye Drops] Buspirone HCl [busPIRone] 15 mg PO BID 07/01/18 07/01/18 Unknown History Insulin Detemir [Levemir] 100 unit SQ HS 07/01/18 07/01/18 Unknown History Lispro Insulin [HumaLOG] 100 unit SQ QHS 07/01/18 07/01/18 Unknown History Active Medications: Generic Name Dose Route Start Last Admin Trade Name Freq PRN Reason Stop Dose Admin Acetaminophen 650 mg 07/01/18 03:24 07/02/18 09:19 Tylenol PO 650 mg Q4H PRN Administration Pain MILD(1-3)/Fever >100.5/SHARPE Aspirin 81 mg 07/02/18 10:00 07/03/18 12:25 Baby Aspirin PO 81 mg QDAY BRINA Administration Atorvastatin Calcium 40 mg 07/01/18 22:00 07/03/18 22:02 Lipitor PO 40 mg QHS BRINA Administration Baclofen 10 mg 07/01/18 22:00 07/03/18 22:03 Lioresal PO 10 mg HS BRINA Administration Brimonidine/Timolol 1 drops 07/02/18 23:00 07/03/18 22:02 Combigan 0.2-0.5% OD 1 drops BID BRINA Administration Buspirone HCl 15 mg 07/01/18 10:00 07/03/18 22:02 Buspar PO 15 mg BID BRINA Administration Carvedilol 12.5 mg 07/01/18 10:00 07/03/18 22:00 Coreg PO Not Given BID BRINA Clopidogrel Bisulfate 75 mg 07/02/18 10:00 07/03/18 12:26 Plavix PO 75 mg QDAY BRINA Administration Dextrose 50 ml 07/01/18 03:40 D50w (25gm) Syringe IV PRN PRN Hypoglycemia Escitalopram Oxalate 20 mg 07/01/18 10:00 07/03/18 12:25 Lexapro PO 20 mg DAILY BRINA Administration Gabapentin 300 mg 07/02/18 22:00 07/04/18 06:27 Neurontin PO 300 mg Q8HR BRINA Administration Hydromorphone HCl 0.5 mg 07/03/18 10:04 07/04/18 03:47 Dilaudid IV 0.5 mg Q6H PRN Administration Pain , Severe (7-10) Sodium Chloride 1,000 mls @ 75 mls/hr 07/01/18 04:00 07/01/18 22:04 Nacl 0.9% 1000 Ml IV 75 mls/hr DIRECT BRINA Administration Heparin Sodium/Sodium Chloride 25,000 unit in 500 mls @ 20 mls/hr 07/01/18 15:00 07/03/18 01:09 Heparin/ 0.45% Nacl-25,000 Unit/500 Ml IV 82,500 units/hr TITRATE BRINA 1,650 mls/hr Administration Protocol 1,000 UNITS/HR Insulin Glargine 25 units 07/04/18 08:00 Lantus SUB-Q BID@0800,2000 [facility] Insulin Human Lispro 0 unit 07/03/18 22:00 07/03/18 22:26 Humalog SUB-Q Not Given [facility] Protocol Isosorbide Mononitrate 60 mg 07/01/18 10:00 07/03/18 12:26 Imdur PO 60 mg DAILY BRINA Administration Lisinopril 20 mg 07/01/18 10:00 07/02/18 09:18 Zestril PO 20 mg QDAY [facility] Administration Metoclopramide HCl 10 mg 07/03/18 09:13 07/03/18 15:51 Reglan IV 10 mg Q6H PRN Administration Nausea And Vomiting Nitroglycerin 0.4 mg 07/01/18 04:10 Nitrostat SL Q5M PRN Chest Pain Ondansetron HCl 4 mg 07/01/18 03:24 07/04/18 03:47 Zofran IV 4 mg Q8H PRN Administration Nausea And Vomiting Polyethylene Glycol 17 gm 07/02/18 12:00 07/03/18 12:26 Miralax 3350 PO 17 gm QDAY [facility] Administration Promethazine HCl 12.5 mg 07/03/18 09:13 07/03/18 17:51 Phenergan PO 12.5 mg Q6H PRN Administration Nausea And Vomiting Sodium Chloride 10 ml 07/01/18 10:00 07/03/18 22:03 Sodium Chloride Flush Syringe 10 Ml IV 10 ml BID BRINA Administration Sodium Chloride 10 ml 07/01/18 03:24 07/04/18 03:48 Sodium Chloride Flush Syringe 10 Ml IV 10 ml PRN PRN Administration LINE FLUSH Tramadol HCl 50 mg 07/01/18 03:26 07/03/18 00:40 Ultram PO 50 mg Q6H PRN Administration Pain, Moderate (4-6)
--- NOTE | 2018-07-04 09:53 | Progress Note ---
Assessment and Plan Serum Cr continues to trend upwards, nephrology is following. Pt with continued c/o abdominal swelling and pain with n/v. Abdomen CT w/o co ntrast showed large uterine fibroid, no acute changes noted. GI consultation is pending. Currently stable cardiac status. Pt is tolerating PO medications at this time. Cont present cardiac regimen. The patient has been seen in conjunction with Dr. Hinds who agrees with the assessment and plan of care. - Patient Problems (1) NSTEMI (non-ST elevated myocardial infarction) Current Visit: Yes Status: Acute (2) CAD (coronary artery disease) Current Visit: Yes Status: Chronic (3) Stented coronary artery Current Visit: Yes Status: Chronic (4) HTN (hypertension) Current Visit: Yes Status: Chronic Qualifiers: Hypertension type: essential hypertension Qualified Code(s): I10 - Essential (primary) hypertension (5) Hyperlipidemia Current Visit: Yes Status: Chronic (6) Diabetes mellitus with hyperglycemia Current Visit: Yes Status: Acute (7) Renal insufficiency Current Visit: Yes Status: Acute (8) Obesity Current Visit: Yes Status: Chronic (9) Nausea and vomiting Current Visit: Yes Status: Acute (10) Uterine fibroid Current Visit: Yes Status: Chronic Subjective Date of service: 07/04/18 Principal diagnosis: cp Interval history: pt laying in bed, c/o abdominal swelling and abdominal pain and n/v. no chest pain. Objective Last Vital Signs Temp 98.3 F 07/04/18 07:29 Pulse 56 L 07/04/18 07:29 Resp 16 07/04/18 07:29 BP 122/60 07/04/18 07:29 Pulse Ox 94 07/04/18 07:29 - Physical Examination General: Other (n/v) HEENT: Positive: PERRL, Normocephaly, Mucus Membranes Moist Neck: Positive: neck supple, trachea midline Cardiac: Positive: Reg Rate and Rhythm, S1/S2 Lungs: Positive: Decreased Breath Sounds Neuro: Positive: Grossly Intact Abdomen: Positive: Tender, Distended Skin: Negative: Rash, Wound Musculoskeletal: No Pain Extremities: Absent: edema - Labs and Meds Comprehensive Metabolic Panel 07/04/18 Range/Units 05:31 Sodium 133 L (137-145) mmol/L Potassium 4.8 (3.6-5.0) mmol/L Chloride 97.1 L (98-107) mmol/L Carbon Dioxide 20 L (22-30) mmol/L BUN 55 H (7-17) mg/dL Creatinine 3.4 H (0.7-1.2) mg/dL Glucose 100 (65-100) mg/dL Calcium 7.6 L (8.4-10.2) mg/dL - Imaging and Cardiology EKG: report reviewed, image reviewed Echo: report reviewed (06/12/2016 at [place] showed EF 55%, mild MR. ) Cardiac cath: report reviewed ([facility] on 05/31/[address] Pa which showed lt main patent, lad mid 80% small vessel distal, lcx mid 95% and rca mid 100% normal lv function elevated lvedp 40-45mmhg. She was transferred to [place] for possible bypass vs pci and subsequently underwent PTCA of mid LAD and LUZ to mid LAD on 06/11/2016. ) - EKG Sinus rhythms and dysrhythmias: sinus rhythm
[2018-07-04] MEDS: LEXAPRO PO SCH (10:52)
[2018-07-04] MEDS: PLAVIX PO SCH (10:52)
[2018-07-04] MEDS: COREG PO SCH ×2 (10:53→21:17)
[2018-07-04] MEDS: BUSPAR PO SCH ×2 (10:53→21:18)
[2018-07-04] MEDS: ZESTRIL PO SCH (10:53)
[2018-07-04] MEDS: BABY ASPIRIN PO SCH (10:53)
[2018-07-04] MEDS: PHENERGAN PO PRN ×2 (10:54→21:12)
[2018-07-04] MEDS: IMDUR PO SCH (10:54)
--- NOTE | 2018-07-04 10:54 | Nuclear Medicine Report ---
HEPATOBILIARY SCAN: History: Gallbladder disease. Following the injection of the radionuclide, serial scanning was obtained over the right upper quadrant. Initial imaging of the liver demonstrates a relatively normal activity pattern. Progressive concentration of the radionuclide in the bile ducts, with filling of both the gallbladder and small bowel, is identified within a normal time period. The gallbladder ejection fraction is mildly decreased measuring 28%. The patient reports these same symptoms were reproduced following ingestion of 8 ounces of Ensure. IMPRESSION: The cystic duct is patent. Mildly decreased gallbladder ejection fraction measuring 28%. Consider biliary dyskinesia.
[2018-07-04] MEDS: LANTUS SUB-Q SCH ×2 (10:55→21:12)
[2018-07-04] MEDS: COMBIGAN 0.2-0.5% OD SCH (10:55)
[2018-07-04] MEDS: HumaLOG SUB-Q SCH ×4 (10:55→23:06)
--- NOTE | 2018-07-04 12:15 | Progress Note ---
Assessment and Plan Assessment and plan: --Intractable nausea vomiting and abdominal pain; CT abdomen findings consistent with fibroid IV fluids, antiemetics, ultrasound abdomen and pelvis, GI evaluation noted and appreciated, HIDA scan today Diet as tolerated --Acute kidney injury; worsening renal function ,secondary to vasomotor nephropathy Avoid nephrotoxins, gentle hydration, nephrology following,Patient is refusing IV fluids --Non-ST elevation DE; status post cardiac catheterization s/p PCI of the left circumflex. On detailed platelets aspirin and Plavix, heparin drip discontinued Management per cardiology --History of coronary artery disease status post PCI; continue current cardiac medications --Hyponatremia; significantly improved --2 diabetes mellitus; uncontrolled , patient is on very high doses of Lantus at home Accu-Chek sliding scale coverage and ADA diet, increase Lantus to 25 units twice a day --Diabetic neuropathy; continue gabapentin --Hypertension; moderate control, continue current antihypertensives and when necessary medications --Dyslipidemia: continue statin. --Moderate malnutrition/hypoalbuminemia; nutrition supplements, nutrition consult if needed --DVT prophylaxis; patient on heparin drip --Full CODE STATUS Monitor closely and adjust management as needed Consults and recommendations noted Follow abdominal ultrasound findings Plan of care is reviewed with the patient and multiple family members at the bedside I also discussed with nephrology History Interval history: Since seen and examined medical records reviewed Patient's nausea and vomiting slightly improved Continues to have some abdominal pain Patient looks slightly better, but reports she does not feel well Vital signs noted Hospitalist Physical - Constitutional Vitals: Temp Pulse Resp BP Pulse Ox 98.5 F 56 L 18 122/80 95 07/04/18 10:00 07/04/18 10:54 07/04/18 10:00 07/04/18 10:54 07/04/18 10:00 General appearance: Present: no acute distress, well-nourished, obese (morbidly obese) - EENT Eyes: Present: PERRL, EOM intact - Neck Neck: Present: supple, normal ROM - Respiratory Respiratory effort: normal Respiratory: bilateral: diminished, negative: rales, rhonchi, wheezing - Cardiovascular Rhythm: regular Heart Sounds: Present: S1 & S2 - Extremities Extremities: no ischemia Extremity abnormal: edema - Abdominal General gastrointestinal: soft, non-tender, non-distended, normal bowel sounds - Integumentary Integumentary: Present: clear, warm - Psychiatric Psychiatric: appropriate mood/affect, cooperative - Neurologic Neurologic: CNII-XII intact, moves all extremities Results - Labs CBC & Chem 7: 07/03/18 09:01 07/04/18 05:31 Labs: Laboratory Last Values WBC 12.2 K/mm3 (4.5-11.0) H 07/03/18 09:01 RBC 3.96 M/mm3 (3.65-5.03) 07/03/18 09:01 Hgb 10.4 gm/dl (10.1-14.3) 07/03/18 09:01 Hct 32.0 % (30.3-42.9) 07/03/18 09: MCV 81 fl (79-97) 07/03/18 09: MCH 26 pg (28-32) L 07/03/18 09: MCHC 33 % (30-34) 07/03/18 09: RDW 14.2 % (13.2-15.2) 07/03/18 09: Plt Count 186 K/mm3 (140-440) 07/03/18 09:01 Lymph % (Auto) 13.3 % (13.4-35.0) L 07/03/18 09:01 [place] % (Auto) 14.0 % (0.0-7.3) H 07/03/18 09:01 Eos % (Auto) 1.8 % (0.0-4.3) 07/03/18 09:01 Baso % (Auto) 0.3 % (0.0-1.8) 07/03/18 09:01 Lymph # 1.6 K/mm3 (1.2-5.4) 07/03/18 09:01 [place] # 1.7 K/mm3 (0.0-0.8) H 07/03/18 09:01 Eos # 0.2 K/mm3 (0.0-0.4) 07/03/18 09:01 Baso # 0.0 K/mm3 (0.0-0.1) 07/03/18 09:01 Add Manual Diff Complete 07/01/18 00:12 Total Counted 100 07/01/18 00:12 Seg Neutrophils % 70.6 % (40.0-70.0) H 07/03/18 09:01 Seg Neuts % (Manual) 61.0 % (40.0-70.0) 07/01/18 00:12 1.0 % 07/01/18 00:12 25.0 % (13.4-35.0) 07/01/18 00:12 Reactive Lymphs % (Man) 1.0 % 07/01/18 00:12 10.0 % (0.0-7.3) H 07/01/18 00:12 0 % (0.0-4.3) 07/01/18 00:12 2.0 % (0.0-1.8) H 07/01/18 00:12 0 % 07/01/18 00:12 0 % 07/01/18 00:12 0 % 07/01/18 00:12 0 % 07/01/18 00:12 Nucleated RBC % Not Reportable 07/01/18 00:12 Seg Neutrophils # 8.6 K/mm3 (1.8-7.7) H 07/03/18 09:01 Seg Neutrophils # Man 5.9 K/mm3 (1.8-7.7) 07/01/18 00:12 Band Neutrophils # 0.1 K/mm3 07/01/18 00:12 2.4 K/mm3 (1.2-5.4) 07/01/18 00:12 Abs React Lymphs (Man) 0.1 K/mm3 07/01/18 00:12 1.0 K/mm3 (0.0-0.8) H 07/01/18 00:12 0.0 K/mm3 (0.0-0.4) 07/01/18 00:12 0.2 K/mm3 (0.0-0.1) H 07/01/18 00:12 0.0 K/mm3 07/01/18 00:12 0.0 K/mm3 07/01/18 00:12 0.0 K/mm3 07/01/18 00:12 Blast Cells # 0.0 K/mm3 07/01/18 00:12 WBC Morphology Not Reportable 07/01/18 00:12 Hypersegmented Neuts Not Reportable 07/01/18 00:12 Hyposegmented Neuts Not Reportable 07/01/18 00:12 Hypogranular Neuts Not Reportable 07/01/18 00:12 Not Reportable 07/01/18 00:12 Not Reportable 07/01/18 00:12 Not Reportable 07/01/18 00:12 Not Reportable 07/01/18 00:12 Not Reportable 07/01/18 00:12 Not Reportable 07/01/18 00:12 Consistent w auto 07/01/18 00:12 Not Reportable 07/01/18 00:12 Plt Clumps, EDTA Not Reportable 07/01/18 00:12 Not Reportable 07/01/18 00:12 Not Reportable 07/01/18 00:12 Not Reportable 07/01/18 00:12 Plt Morphology Comment Not Reportable 07/01/18 00:12 RBC Morphology Not Reportable 07/01/18 00:12 Dimorphic RBCs Not Reportable 07/01/18 00:12 Not Reportable 07/01/18 00:12 Not Reportable 07/01/18 00:12 Not Reportable 07/01/18 00:12 1+ 07/01/18 00:12 Not Reportable 07/01/18 00:12 Not Reportable 07/01/18 00:12 Not Reportable 07/01/18 00:12 Not Reportable 07/01/18 00:12 Not Reportable 07/01/18 00:12 Not Reportable 07/01/18 00:12 Not Reportable 07/01/18 00:12 Not Reportable 07/01/18 00:12 Not Reportable 07/01/18 00:12 Not Reportable 07/01/18 00:12 Not Reportable 07/01/18 00:12 Not Reportable 07/01/18 00:12 Not Reportable 07/01/18 00:12 Not Reportable 07/01/18 00:12 Not Reportable 07/01/18 00:12 Acanthocytes (Spur) Not Reportable 07/01/18 00:12 Rouleaux Not Reportable 07/01/18 00:12 Not Reportable 07/01/18 00:12 Not Reportable 07/01/18 00:12 Not Reportable 07/01/18 00:12 Not Reportable 07/01/18 00:12 Hem Pathologist Commnt No 07/01/18 00:12 PT 14.4 Sec. (12.2-14.9) 07/01/18 16:01 INR 1.05 (0.87-1.13) 07/01/18 16:01 APTT 39.4 Sec. (24.2-36.6) H 07/01/18 16:01 241 (74-137) H 07/01/18 11:58 Heparin Anti-Xa Level < 0.10 U.I./ml (0.3-0.7) L 07/04/18 00:24 Sodium 133 mmol/L (137-145) L 07/04/18 05:31 Potassium 4.8 mmol/L (3.6-5.0) 07/04/18 05:31 Chloride 97.1 mmol/L (98-107) L 07/04/18 05:31 Carbon Dioxide 20 mmol/L (22-30) L 07/04/18 05:31 21 mmol/L 07/04/18 05:31 BUN 55 mg/dL (7-17) H 07/04/18 05:31 3.4 mg/dL (0.7-1.2) H 07/04/18 05:31 Estimated GFR 17 ml/min 07/04/18 05:31 16 % 07/04/18 05:31 Glucose 100 mg/dL (65-100) 07/04/18 05:31 POC Glucose 206 (70-105) H 07/04/18 11:42 Calcium 7.6 mg/dL (8.4-10.2) L 07/04/18 05:31 Magnesium 2.10 mg/dL (1.7-2.3) 07/03/18 09:01 0.30 mg/dL (0.1-1.2) 07/03/18 09:01 AST 14 units/L (5-40) 07/03/18 09:01 ALT 12 units/L (7-56) 07/03/18 09:01 73 units/L (35-129) 07/03/18 09:01 162 units/L (30-135) H 07/01/18 16:01 CK-MB (CK-2) 1.6 ng/mL (0.0-4.0) 07/01/18 16:01 CK-MB (CK-2) Rel Index 0.9 (0-4) 07/01/18 16:01 0.265 ng/mL (0.00-0.029) H* 07/04/18 05:31 NT-Pro-B Natriuret Pep 474.0 pg/mL (0-900) 07/01/18 00:18 7.0 g/dL (6.3-8.2) 07/03/18 09:01 3.3 g/dL (3.9-5) L 07/03/18 09:01 0.9 % 07/03/18 09:01 Triglycerides 195 mg/dL (2-149) H 07/01/18 00:12 Cholesterol 188 mg/dL (50-199) 07/01/18 00:12 149 mg/dL (50-130) H 07/01/18 00:12 28 mg/dL (40-59) L 07/01/18 00:12 6.71 % 07/01/18 00:12 Active Medications - Current Medications Current Medications: Generic Name Dose Route Start Last Admin Trade Name Freq PRN Reason Stop Dose Admin Acetaminophen 650 mg 07/01/18 03:24 07/02/18 09:19 Tylenol PO 650 mg Q4H PRN Administration Pain MILD(1-3)/Fever >100.5/SHARPE Aspirin 81 mg 07/02/18 10:00 07/04/18 10:53 Baby Aspirin PO 81 mg QDAY BRINA Administration Atorvastatin Calcium 40 mg 07/01/18 22:00 07/03/18 22:02 Lipitor PO 40 mg QHS BRINA Administration Baclofen 10 mg 07/01/18 22:00 07/03/18 22:03 Lioresal PO 10 mg HS BRINA Administration Brimonidine/Timolol 1 drops 07/02/18 23:00 07/04/18 10:55 Combigan 0.2-0.5% OD 1 drops BID BRINA Administration Buspirone HCl 15 mg 07/01/18 10:00 07/04/18 10:53 Buspar PO 15 mg BID BRINA Administration Carvedilol 12.5 mg 07/04/18 11:00 07/04/18 10:53 Coreg PO 12.5 mg BID BRINA Administration Clopidogrel Bisulfate 75 mg 07/02/18 10:00 07/04/18 10:52 Plavix PO 75 mg QDAY BRINA Administration Dextrose 50 ml 07/01/18 03:40 D50w (25gm) Syringe IV PRN PRN Hypoglycemia Dicyclomine HCl 20 mg 07/04/18 14:00 Bentyl PO QID COUNT INCLUDES THE [facility] Escitalopram Oxalate 20 mg 07/01/18 10:00 07/04/18 10:52 Lexapro PO 20 mg DAILY BRINA Administration Gabapentin 300 mg 07/02/18 22:00 07/04/18 06:27 Neurontin PO 300 mg Q8HR BRINA Administration Hydromorphone HCl 0.5 mg 07/03/18 10:04 07/04/18 10:54 Dilaudid IV 0.5 mg Q6H PRN Administration Pain , Severe (7-10) Sodium Chloride 1,000 mls @ 75 mls/hr 07/01/18 04:00 07/01/18 22:04 Nacl 0.9% 1000 Ml IV 75 mls/hr DIRECT BRINA Administration Insulin Glargine 25 units 07/04/18 08:00 07/04/18 10:55 Lantus SUB-Q Not Given BID@0800,2000 COUNT INCLUDES THE [facility] Insulin Human Lispro 0 unit 07/03/18 22:00 07/04/18 10:55 Humalog SUB-Q Not Given [facility] Protocol Isosorbide Mononitrate 60 mg 07/01/18 10:00 07/04/18 10:54 Imdur PO 60 mg DAILY COUNT INCLUDES THE [facility] Administration Metoclopramide HCl 10 mg 07/03/18 09:13 07/03/18 15:51 Reglan IV 10 mg Q6H PRN Administration Nausea And Vomiting Nitroglycerin 0.4 mg 07/01/18 04:10 Nitrostat SL Q5M PRN Chest Pain Ondansetron HCl 4 mg 07/01/18 03:24 07/04/18 03:47 Zofran IV 4 mg Q8H PRN Administration Nausea And Vomiting Polyethylene Glycol 17 gm 07/02/18 12:00 07/03/18 12:26 Miralax 3350 PO 17 gm QDAY COUNT INCLUDES THE [facility] Administration Promethazine HCl 12.5 mg 07/03/18 09:13 07/04/18 10:54 Phenergan PO 12.5 mg Q6H PRN Administration Nausea And Vomiting Sodium Chloride 10 ml 07/01/18 10:00 07/03/18 22:03 Sodium Chloride Flush Syringe 10 Ml IV 10 ml BID BRINA Administration Sodium Chloride 10 ml 07/01/18 03:24 07/04/18 03:48 Sodium Chloride Flush Syringe 10 Ml IV 10 ml PRN PRN Administration LINE FLUSH Tramadol HCl 50 mg 07/01/18 03:26 07/03/18 00:40 Ultram PO 50 mg Q6H PRN Administration Pain, Moderate (4-6) Nutrition/Malnutrition Assess - Dietary Evaluation Nutrition/Malnutrition Findings: Nutrition Notes Start: 07/01/18 16:16 Freq: Status: Active Protocol: Document 07/03/18 16:52 RM (Rec: 07/03/18 16:52 RM [id number]) Nutrition Notes Initial or Follow up Brief Note Subjective/Other Information Pt already familiar with DM diet education. Nutrition Intervention Revisit per MD consult or patient Sign Off request:
[2018-07-04] MEDS: BENTYL PO SCH ×2 (14:47→18:54)
[2018-07-04] MEDS: SODIUM CHLORIDE FLUSH SYRINGE 10 ML IV SCH (14:47)
[2018-07-04] MEDS: MIRALAX 3350 PO SCH (14:47)
--- NOTE | 2018-07-04 17:58 | Gastroenterology Progress Note ---
Assessment and Plan GI: pt s/p recent stent placement now with non-specific abdominal pain - pt HIDA EF low 28% - reports still w/ nausea but improved - continue PPI qd, start Carafate, continue Dicyclomine (gas, bloating) - would consider endoscopic eval but given Cardiac event would need clearance - consider surgery consult for possible GB disease - no changes at this time, will follow Subjective Date of service: 07/04/18 Principal diagnosis: cp Interval history: - pt reports sleepy after nausea meds, pain somewhat improved Objective - Constitutional Vitals: Temp Pulse Resp BP Pulse Ox 97.9 F 100 H 18 100/47 100 07/04/18 16:49 07/04/18 16:49 07/04/18 16:49 07/04/18 16:49 07/04/18 16:49 General appearance: no acute distress - EENT Eyes: PERRL - Respiratory Respiratory: bilateral: CTA - Cardiovascular Rhythm: regular Heart Sounds: Present: S1 & S2 - Gastrointestinal General gastrointestinal: Present: soft, non-tender, non-distended - Labs CBC & Chem 7: 07/03/18 09:01 07/04/18 05:31 Labs: Laboratory Results - last 24 hr 07/03/18 07/03/18 07/04/18 18:00 22:32 00:24 Heparin Anti-Xa Level < 0.10 L Sodium Potassium Chloride Carbon Dioxide Anion Gap BUN Creatinine Estimated GFR BUN/Creatinine Ratio Glucose POC Glucose 115 H 109 H Calcium Troponin T 07/04/18 07/04/18 07/04/18 05:31 07:33 11:42 Heparin Anti-Xa Level Sodium 133 L Potassium 4.8 Chloride 97.1 L Carbon Dioxide 20 L Anion Gap 21 BUN 55 H Creatinine 3.4 H Estimated GFR 17 BUN/Creatinine Ratio 16 Glucose 100 POC Glucose 107 H 206 H Calcium 7.6 L Troponin T 0.265 H* 07/04/18 16:23 Heparin Anti-Xa Level Sodium Potassium Chloride Carbon Dioxide Anion Gap BUN Creatinine Estimated GFR BUN/Creatinine Ratio Glucose POC Glucose 168 H Calcium Troponin T
[2018-07-04] MEDS: CARAFATE PO SCH (18:54)
[2018-07-04] MEDS: LIORESAL PO SCH (21:17)
[2018-07-05] MEDS: BENTYL PO SCH ×6 (01:12→22:35)
[2018-07-05] MEDS: SODIUM CHLORIDE FLUSH SYRINGE 10 ML IV SCH ×3 (01:13→22:35)
[2018-07-05] MEDS: COMBIGAN 0.2-0.5% OD SCH ×3 (01:13→22:33)
[2018-07-05] MEDS: CARAFATE PO SCH ×5 (01:14→23:27)
[2018-07-05 05:02] LABS: Basophils % (Auto) 0.3 % (0.0-1.8); Eosinophils # (Auto) 0.1 K/mm3 (0.0-0.4); Eosinophils % (Auto) 1.4 % (0.0-4.3); Hemoglobin 8.8 gm/dl (10.1-14.3); Lymphocytes # (Auto) 2.1 K/mm3 (1.2-5.4); Lymphocytes % (Auto) 19.8 % (13.4-35.0); Mean Corpuscular HGB Conc 34 % (30-34); Mean Corpuscular Volume 81 fl (79-97); Monocytes # (Auto) 1.5 K/mm3 (0.0-0.8); Monocytes % (Auto) 13.7 % (0.0-7.3); Platelet Count 164 K/mm3 (140-440); Red Cell Distribution Width 14.1 % (13.2-15.2)
[2018-07-05 05:22] LABS: Alanine Aminotransferase 8 units/L (7-56); Albumin 2.7 g/dL (3.9-5); BUN/Creatinine Ratio 19; Blood Urea Nitrogen 66 mg/dL (7-17); Calcium 7.6 mg/dL (8.4-10.2); Hemolysis Index 9
[2018-07-05 05:42] LABS: Bilirubin,Direct < 0.2 mg/dL (0-0.2)
[2018-07-05] MEDS: DILAUDID IV PRN ×5 (05:50→22:36)
[2018-07-05] MEDS: HumaLOG SUB-Q SCH ×4 (09:10→22:41)
[2018-07-05] MEDS: LANTUS SUB-Q SCH ×2 (09:10→22:39)
[2018-07-05] MEDS: MIRALAX 3350 PO SCH (09:10)
[2018-07-05] MEDS: BABY ASPIRIN PO SCH (09:11)
[2018-07-05] MEDS: PLAVIX PO SCH (09:11)
[2018-07-05] MEDS: LEXAPRO PO SCH (09:11)
[2018-07-05] MEDS: BUSPAR PO SCH ×2 (09:11→22:34)
[2018-07-05] MEDS: ULTRAM PO PRN (09:12)
--- NOTE | 2018-07-05 10:17 | Gastroenterology Progress Note ---
Assessment and Plan 1. RUQ abdominal pain 2. CAD/NSTEMI s/p stent placement -pt with continued right sided abd pain; CT scan without acute findings; liver enzymes normal. RUQ US with sludge and HIDA with decreased EF. ? GB source. will check lipase to r/o pancreatitis. recommend surgery consult to see if they thing GB may be source of pain; however, given recent stent placement, any intervention would likely be reserved for urgent indications based on risks/benefits. this was explained in detail to patient and pt's family and they expressed understanding. Subjective Date of service: 07/05/18 Principal diagnosis: cp, abdominal pain Interval history: pt seen and examined; continues to have right sided/ruq abdominal pain. this is constant and has been unchanged. denies n/v but poor po intake Objective - Constitutional Vitals: Temp Pulse Resp BP Pulse Ox 98.2 F 58 L 20 105/55 94 07/05/18 07:44 07/05/18 07:44 07/05/18 09:12 07/05/18 07:44 07/05/18 07:44 General appearance: mild distress, obese - Respiratory Respiratory effort: normal Respiratory: bilateral: CTA - Cardiovascular Rhythm: regular Heart Sounds: Present: S1 & S2 - Gastrointestinal General gastrointestinal: Present: soft, tender (right sided/ruq ttp), non- distended - Neurologic Neurological: alert and oriented x3 - Psychiatric Psychiatric: appropriate mood/affect - Labs CBC & Chem 7: 07/05/18 04:02 07/05/18 04:02 Labs: Laboratory Results - last 24 hr 07/04/18 07/04/18 07/04/18 11:42 16:23 20:51 WBC RBC Hgb Hct MCV MCH MCHC RDW Plt Count Lymph % (Auto) [place] % (Auto) Eos % (Auto) Baso % (Auto) Lymph # [place] # Eos # Baso # Seg Neutrophils % Seg Neutrophils # Sodium Potassium Chloride Carbon Dioxide Anion Gap BUN Creatinine Estimated GFR BUN/Creatinine Ratio Glucose POC Glucose 206 H 168 H 152 H Calcium Phosphorus Magnesium Total Bilirubin Direct Bilirubin Indirect Bilirubin AST ALT Alkaline Phosphatase Total Protein Albumin Albumin/Globulin Ratio 07/05/18 07/05/18 07/05/18 04:02 04:02 08:06 WBC 10.6 RBC 3.20 L Hgb 8.8 L Hct 29.0 L MCV 81 MCH 28 MCHC 34 RDW 14.1 Plt Count 164 Lymph % (Auto) 19.8 [place] % (Auto) 13.7 H Eos % (Auto) 1.4 Baso % (Auto) 0.3 Lymph # 2.1 [place] # 1.5 H Eos # 0.1 Baso # 0.0 Seg Neutrophils % 64.8 Seg Neutrophils # 6.9 Sodium 134 L Potassium 4.6 Chloride 97.7 L Carbon Dioxide 20 L Anion Gap 21 BUN 66 H Creatinine 3.5 H Estimated GFR 16 BUN/Creatinine Ratio 19 Glucose 151 H POC Glucose 153 H Calcium 7.6 L Phosphorus 6.10 H Magnesium 2.30 Total Bilirubin 0.20 Direct Bilirubin < 0.2 Indirect Bilirubin 0.0 AST 9 ALT 8 Alkaline Phosphatase 64 Total Protein 6.0 L Albumin 2.7 L Albumin/Globulin Ratio 0.8 - Imaging CT scan: report reviewed Ultrasound: report reviewed HIDA Scan: report reviewed
[2018-07-05] MEDS: IMDUR PO SCH (10:19)
[2018-07-05] MEDS: COREG PO SCH ×2 (10:20→22:40)
--- NOTE | 2018-07-05 10:39 | Progress Note ---
Assessment and Plan Assessment and plan: --Intractable nausea vomiting and abdominal pain; CT abdomen findings consistent with fibroid IV fluids, antiemetics, HIDA scan; biliary dyskinesia GI evaluation noted recommend surgery consult Diet as tolerated --Acute kidney injury; worsening renal function ,secondary to vasomotor nephropathy Avoid nephrotoxins, gentle hydration, nephrology following,Patient is refusing IV fluids --Non-ST elevation MD; status post cardiac catheterization s/p PCI of the left circumflex. On detailed platelets aspirin and Plavix, heparin drip discontinued Management per cardiology --History of coronary artery disease status post PCI; continue current cardiac medications --Hyponatremia; significantly improved --2 diabetes mellitus; uncontrolled , patient is on very high doses of Lantus at home Accu-Chek sliding scale coverage and ADA diet, increase Lantus to 25 units twice a day --Diabetic neuropathy; continue gabapentin --Hypertension; moderate control, continue current antihypertensives and when necessary medications --Dyslipidemia: continue statin. --Moderate malnutrition/hypoalbuminemia; nutrition supplements, nutrition consult if needed --DVT prophylaxis; patient on heparin drip --Full CODE STATUS Monitor closely and adjust management as needed Consults and recommendations noted Follow abdominal ultrasound findings Plan of care is reviewed with the patient and multiple family members at the bedside I also discussed with nephrology History Interval history: Patient seen and examined medical records reviewed Patient has been having upper abdominal pain, surgery evaluated the patient Recommend IV fluids and clear liquid diet Not a candidate for surgery in view of recent PCI Conservative management Patient is alert awake oriented Mild distress Vital signs noted Hospitalist Physical - Constitutional Vitals: Temp Pulse Resp BP Pulse Ox 98.2 F 58 L 20 105/55 94 07/05/18 07:44 07/05/18 10:20 07/05/18 10:00 07/05/18 10:20 07/05/18 10:00 General appearance: Present: mild distress, well-nourished, obese (morbidly obe se) - EENT Eyes: Present: PERRL, EOM intact - Neck Neck: Present: supple, normal ROM - Respiratory Respiratory effort: normal Respiratory: bilateral: diminished, negative: rales, rhonchi, wheezing - Cardiovascular Rhythm: regular Heart Sounds: Present: S1 & S2 - Extremities Extremities: no ischemia, pulses intact - Abdominal General gastrointestinal: soft, non-tender, non-distended, normal bowel sounds - Integumentary Integumentary: Present: clear, warm - Psychiatric Psychiatric: appropriate mood/affect, cooperative - Neurologic Neurologic: CNII-XII intact, moves all extremities Results - Labs CBC & Chem 7: 07/05/18 04:02 07/06/18 07:45 Labs: Laboratory Last Values WBC 10.6 K/mm3 (4.5-11.0) 07/05/18 04:02 RBC 3.20 M/mm3 (3.65-5.03) L 07/05/18 04:02 Hgb 8.8 gm/dl (10.1-14.3) L 07/05/18 04:02 Hct 29.0 % (30.3-42.9) L 07/05/18 04:02 MCV 81 fl (79-97) 07/05/18 04:02 MCH 28 pg (28-32) 07/05/18 04:02 MCHC 34 % (30-34) 07/05/18 04:02 RDW 14.1 % (13.2-15.2) 07/05/18 04:02 Plt Count 164 K/mm3 (140-440) 07/05/18 04:02 Lymph % (Auto) 19.8 % (13.4-35.0) 07/05/18 04:02 [place] % (Auto) 13.7 % (0.0-7.3) H 07/05/18 04:02 Eos % (Auto) 1.4 % (0.0-4.3) 07/05/18 04:02 Baso % (Auto) 0.3 % (0.0-1.8) 07/05/18 04:02 Lymph # 2.1 K/mm3 (1.2-5.4) 07/05/18 04:02 [place] # 1.5 K/mm3 (0.0-0.8) H 07/05/18 04:02 Eos # 0.1 K/mm3 (0.0-0.4) 07/05/18 04:02 Baso # 0.0 K/mm3 (0.0-0.1) 07/05/18 04:02 Add Manual Diff Complete 07/01/18 00:12 Total Counted 100 07/01/18 00:12 Seg Neutrophils % 64.8 % (40.0-70.0) 07/05/18 04:02 Seg Neuts % (Manual) 61.0 % (40.0-70.0) 07/01/18 00:12 1.0 % 07/01/18 00:12 25.0 % (13.4-35.0) 07/01/18 00:12 Reactive Lymphs % (Man) 1.0 % 07/01/18 00:12 10.0 % (0.0-7.3) H 07/01/18 00:12 0 % (0.0-4.3) 07/01/18 00:12 2.0 % (0.0-1.8) H 07/01/18 00:12 0 % 07/01/18 00:12 0 % 07/01/18 00:12 0 % 07/01/18 00:12 0 % 07/01/18 00:12 Nucleated RBC % Not Reportable 07/01/18 00:12 Seg Neutrophils # 6.9 K/mm3 (1.8-7.7) 07/05/18 04:02 Seg Neutrophils # Man 5.9 K/mm3 (1.8-7.7) 07/01/18 00:12 Band Neutrophils # 0.1 K/mm3 07/01/18 00:12 2.4 K/mm3 (1.2-5.4) 07/01/18 00:12 Abs React Lymphs (Man) 0.1 K/mm3 07/01/18 00:12 1.0 K/mm3 (0.0-0.8) H 07/01/18 00:12 0.0 K/mm3 (0.0-0.4) 07/01/18 00:12 0.2 K/mm3 (0.0-0.1) H 07/01/18 00:12 0.0 K/mm3 07/01/18 00:12 0.0 K/mm3 07/01/18 00:12 0.0 K/mm3 07/01/18 00:12 Blast Cells # 0.0 K/mm3 07/01/18 00:12 WBC Morphology Not Reportable 07/01/18 00:12 Hypersegmented Neuts Not Reportable 07/01/18 00:12 Hyposegmented Neuts Not Reportable 07/01/18 00:12 Hypogranular Neuts Not Reportable 07/01/18 00:12 Not Reportable 07/01/18 00:12 Not Reportable 07/01/18 00:12 Not Reportable 07/01/18 00:12 Not Reportable 07/01/18 00:12 Not Reportable 07/01/18 00:12 Not Reportable 07/01/18 00:12 Consistent w auto 07/01/18 00:12 Not Reportable 07/01/18 00:12 Plt Clumps, EDTA Not Reportable 07/01/18 00:12 Not Reportable 07/01/18 00:12 Not Reportable 07/01/18 00:12 Not Reportable 07/01/18 00:12 Plt Morphology Comment Not Reportable 07/01/18 00:12 RBC Morphology Not Reportable 07/01/18 00:12 Dimorphic RBCs Not Reportable 07/01/18 00:12 Not Reportable 07/01/18 00:12 Not Reportable 07/01/18 00:12 Not Reportable 07/01/18 00:12 1+ 07/01/18 00:12 Not Reportable 07/01/18 00:12 Not Reportable 07/01/18 00:12 Not Reportable 07/01/18 00:12 Not Reportable 07/01/18 00:12 Not Reportable 07/01/18 00:12 Not Reportable 07/01/18 00:12 Not Reportable 07/01/18 00:12 Not Reportable 07/01/18 00:12 Not Reportable 07/01/18 00:12 Not Reportable 07/01/18 00:12 Not Reportable 07/01/18 00:12 Not Reportable 07/01/18 00:12 Not Reportable 07/01/18 00:12 Not Reportable 07/01/18 00:12 Not Reportable 07/01/18 00:12 Acanthocytes (Spur) Not Reportable 07/01/18 00:12 Rouleaux Not Reportable 07/01/18 00:12 Not Reportable 07/01/18 00:12 Not Reportable 07/01/18 00:12 Not Reportable 07/01/18 00:12 Not Reportable 07/01/18 00:12 Hem Pathologist Commnt No 07/01/18 00:12 PT 14.4 Sec. (12.2-14.9) 05/21/19 16:01 INR 1.05 (0.87-1.13) 07/01/18 16:01 APTT 39.4 Sec. (24.2-36.6) H 07/01/18 16:01 241 (74-137) H 07/01/18 11:58 Heparin Anti-Xa Level < 0.10 U.I./ml (0.3-0.7) L 07/04/18 00:24 Sodium 134 mmol/L (137-145) L 07/05/18 04:02 Potassium 4.6 mmol/L (3.6-5.0) 07/05/18 04:02 Chloride 97.7 mmol/L (98-107) L 07/05/18 04:02 Carbon Dioxide 20 mmol/L (22-30) L 07/05/18 04:02 21 mmol/L 07/05/18 04:02 BUN 66 mg/dL (7-17) H 07/05/18 04:02 3.5 mg/dL (0.7-1.2) H 07/05/18 04:02 Estimated GFR 16 ml/min 07/05/18 04:02 19 % 07/05/18 04:02 Glucose 151 mg/dL (65-100) H 07/05/18 04:02 POC Glucose 153 (70-105) H 07/05/18 08:06 Calcium 7.6 mg/dL (8.4-10.2) L 07/05/18 04:02 Phosphorus 6.10 mg/dL (2.5-4.5) H 07/05/18 04:02 Magnesium 2.30 mg/dL (1.7-2.3) 07/05/18 04:02 0.20 mg/dL (0.1-1.2) 07/05/18 04:02 < 0.2 mg/dL (0-0.2) 07/05/18 04:02 0.0 mg/dL 07/05/18 04:02 AST 9 units/L (5-40) 07/05/18 04:02 ALT 8 units/L (7-56) 07/05/18 04:02 64 units/L (35-129) 07/05/18 04:02 162 units/L (30-135) H 07/01/18 16:01 CK-MB (CK-2) 1.6 ng/mL (0.0-4.0) 07/01/18 16:01 CK-MB (CK-2) Rel Index 0.9 (0-4) 07/01/18 16:01 0.265 ng/mL (0.00-0.029) H* 07/04/18 05:31 NT-Pro-B Natriuret Pep 474.0 pg/mL (0-900) 07/01/18 00:18 6.0 g/dL (6.3-8.2) L 07/05/18 04:02 2.7 g/dL (3.9-5) L 07/05/18 04:02 0.8 % 07/05/18 04:02 Triglycerides 195 mg/dL (2-149) H 07/01/18 00:12 Cholesterol 188 mg/dL (50-199) 07/01/18 00:12 149 mg/dL (50-130) H 07/01/18 00:12 28 mg/dL (40-59) L 07/01/18 00:12 6.71 % 07/01/18 00:12 Active Medications - Current Medications Current Medications: Generic Name Dose Route Start Last Admin Trade Name Freq PRN Reason Stop Dose Admin Acetaminophen 650 mg 07/01/18 03:24 07/02/18 09:19 Tylenol PO 650 mg Q4H PRN Administration Pain MILD(1-3)/Fever >100.5/SHARPE Aspirin 81 mg 07/02/18 10:00 07/05/18 09:11 Baby Aspirin PO 81 mg QDAY BRINA Administration Atorvastatin Calcium 40 mg 07/01/18 22:00 07/04/18 21:18 Lipitor PO 40 mg QHS BRINA Administration Baclofen 10 mg 07/01/18 22:00 07/04/18 21:17 Lioresal PO 10 mg HS BRINA Administration Brimonidine/Timolol 1 drops 07/02/18 23:00 07/05/18 09:11 Combigan 0.2-0.5% OD 1 drops BID BRINA Administration Buspirone HCl 15 mg 07/01/18 10:00 07/05/18 09:11 Buspar PO 15 mg BID BRINA Administration Carvedilol 12.5 mg 07/04/18 11:00 07/05/18 10:20 Coreg PO Not Given BID [facility] Clopidogrel Bisulfate 75 mg 07/02/18 10:00 07/05/18 09:11 Plavix PO 75 mg QDAY BRINA Administration Dextrose 50 ml 07/01/18 03:40 D50w (25gm) Syringe IV PRN PRN Hypoglycemia Dicyclomine HCl 20 mg 07/04/18 14:00 07/05/18 05:57 Bentyl PO 20 mg QID BRINA Administration Escitalopram Oxalate 20 mg 07/01/18 10:00 07/05/18 09:11 Lexapro PO 20 mg DAILY BRINA Administration Hydromorphone HCl 0.5 mg 07/03/18 10:04 07/05/18 05:50 Dilaudid IV 0.5 mg Q6H PRN Administration Pain , Severe (7-10) Sodium Chloride 1,000 mls @ 75 mls/hr 07/01/18 04:00 07/01/18 22:04 Nacl 0.9% 1000 Ml IV 75 mls/hr DIRECT BRINA Administration Insulin Glargine 25 units 07/04/18 08:00 07/05/18 09:10 Lantus SUB-Q 25 units BID@0800,2000 [facility] Administration Insulin Human Lispro 0 unit 07/03/18 22:00 07/05/18 09:10 Humalog SUB-Q 2 unit ACHS BRINA Administration Protocol Isosorbide Mononitrate 60 mg 07/01/18 10:00 07/05/18 10:19 Imdur PO Not Given DAILY [facility] Metoclopramide HCl 10 mg 07/03/18 09:13 07/03/18 15:51 Reglan IV 10 mg Q6H PRN Administration Nausea And Vomiting Nitroglycerin 0.4 mg 07/01/18 04:10 Nitrostat SL Q5M PRN Chest Pain Ondansetron HCl 4 mg 07/01/18 03:24 07/04/18 03:47 Zofran IV 4 mg Q8H PRN Administration Nausea And Vomiting Polyethylene Glycol 17 gm 07/02/18 12:00 07/05/18 09:10 Miralax 3350 PO 17 gm QDAY BRINA Administration Promethazine HCl 12.5 mg 07/03/18 09:13 07/04/18 21:12 Phenergan PO 12.5 mg Q6H PRN Administration Nausea And Vomiting Sodium Chloride 10 ml 07/01/18 10:00 07/05/18 01:13 Sodium Chloride Flush Syringe 10 Ml IV Not Given BID BRINA Sodium Chloride 10 ml 07/01/18 03:24 07/04/18 03:48 Sodium Chloride Flush Syringe 10 Ml IV 10 ml PRN PRN Administration LINE FLUSH Sucralfate 1 gm 07/04/18 18:30 07/05/18 05:49 Carafate PO 1 gm Q6HR BRINA Administration Tramadol HCl 50 mg 07/01/18 03:26 07/05/18 09:12 Ultram PO 50 mg Q6H PRN Administration Pain, Moderate (4-6) Nutrition/Malnutrition Assess - Dietary Evaluation Nutrition/Malnutrition Findings: Nutrition Notes Start: 07/01/18 16:16 Freq: Status: Active Protocol: Document 07/03/18 16:52 RM (Rec: 07/03/18 16:52 RM [id number]) Nutrition Notes Initial or Follow up Brief Note Subjective/Other Information Pt already familiar with DM diet education. Nutrition Intervention Revisit per MD consult or patient Sign Off request:
--- NOTE | 2018-07-05 11:16 | Progress Note ---
Assessment and Plan Had a long discussion with the patient and family has no chest pain but needs to continue aspirin and Plavix and stenting was done June 11 minimal 30 days patient has worsening renal function has agreed now for IV fluids suggest normal saline 75 mL an hour holding carvedilol and Imdur in view of low blood pressure patient will be managed for pain management for abdominal pain - Patient Problems (1) Nausea and vomiting Current Visit: Yes Status: Acute (2) CAD (coronary artery disease) Current Visit: Yes Status: Chronic Qualifiers: Coronary Disease-Associated Artery/Lesion type: [place] artery [place] vs. transplanted heart: [place] heart Associated angina: with stable angina Qualified Code(s): I25.118 - Atherosclerotic heart disease of [place] coronary artery with other forms of angina pectoris (3) Diabetes Current Visit: Yes Status: Chronic Qualifiers: Diabetes mellitus type: type 1 Diabetes mellitus complication status: without complication Qualified Code(s): E10.9 - Type 1 diabetes mellitus without complications (4) HTN (hypertension) Current Visit: Yes Status: Chronic Qualifiers: Hypertension type: essential hypertension Qualified Code(s): I10 - Essential (primary) hypertension (5) Hyperlipidemia Current Visit: Yes Status: Chronic Qualifiers: Hyperlipidemia type: mixed hyperlipidemia Qualified Code(s): E78.2 - Mixed hyperlipidemia (6) Obesity Current Visit: Yes Status: Chronic Qualifiers: Obesity classification: adult class 2 (BMI 35 - 39.9) (7) ARF (acute renal failure) Current Visit: No Status: Acute Qualifiers: Acute renal failure type: with acute tubular necrosis Qualified Code(s): N17.0 - Acute kidney failure with tubular necrosis Subjective Date of service: 07/05/18 Principal diagnosis: cp, abdominal pain Interval history: no chest pain but abd pain Objective Vital Signs Temp Pulse Pulse Pulse Resp Resp BP 07/05/18 10:20 58 L 105/55 07/05/18 10:19 58 L 105/55 07/05/18 10:00 52 L 64 20 20 07/05/18 09:12 20 07/05/18 07:44 98.2 F 58 L 20 105/55 07/05/18 04:07 98.3 F 54 L 18 115/62 07/04/18 23:43 98.7 F 59 L 20 92/44 07/04/18 22:00 78 07/04/18 21:17 88 07/04/18 19:36 97.3 F L 58 L 20 93/46 07/04/18 16:49 97.9 F 100 H 18 07/04/18 11:38 98.2 F 20 115/56 BP Pulse Ox 07/05/18 10:20 07/05/18 10:19 07/05/18 10:00 94 07/05/18 09:12 07/05/18 07:44 94 07/05/18 04:07 96 07/04/18 23:43 94 07/04/18 22:00 07/04/18 21:17 07/04/18 19:36 91 07/04/18 16:49 100/47 100 07/04/18 11:38 - Physical Examination General: Other (n/v) HEENT: Positive: PERRL, Normocephaly, Mucus Membranes Moist Neck: Positive: neck supple, trachea midline Cardiac: Positive: Reg Rate and Rhythm Lungs: Positive: clear to auscultation Neuro: Positive: Grossly Intact Abdomen: Positive: Tender, Distended Skin: Negative: Rash, Wound Musculoskeletal: No Pain Extremities: Absent: edema - Labs and Meds Cardiac Enzymes 07/05/18 Range/Units 04:02 AST 9 (5-40) units/L CBC 07/05/18 Range/Units 04:02 WBC 10.6 (4.5-11.0) K/mm3 RBC 3.20 L (3.65-5.03) M/mm3 Hgb 8.8 L (10.1-14.3) gm/dl Hct 29.0 L (30.3-42.9) % Plt Count 164 (140-440) K/mm3 Lymph # 2.1 (1.2-5.4) K/mm3 [place] # 1.5 H (0.0-0.8) K/mm3 Eos # 0.1 (0.0-0.4) K/mm3 Baso # 0.0 (0.0-0.1) K/mm3 Comprehensive Metabolic Panel 07/05/18 Range/Units 04:02 Sodium 134 L (137-145) mmol/L Potassium 4.6 (3.6-5.0) mmol/L Chloride 97.7 L (98-107) mmol/L Carbon Dioxide 20 L (22-30) mmol/L BUN 66 H (7-17) mg/dL Creatinine 3.5 H (0.7-1.2) mg/dL Glucose 151 H (65-100) mg/dL Calcium 7.6 L (8.4-10.2) mg/dL Direct Bilirubin < 0.2 (0-0.2) mg/dL Indirect Bilirubin 0.0 mg/dL AST 9 (5-40) units/L ALT 8 (7-56) units/L Alkaline Phosphatase 64 (35-129) units/L Total Protein 6.0 L (6.3-8.2) g/dL Albumin 2.7 L (3.9-5) g/dL - Imaging and Cardiology EKG: report reviewed, image reviewed Echo: report reviewed (06/12/2016 at [place] showed EF 55%, mild MR. ) Cardiac cath: report reviewed ([facility] on 05/31/[address] Pa which showed lt main patent, lad mid 80% small vessel distal, lcx mid 95% and rca mid 100% normal lv function elevated lvedp 40-45mmhg. She was transferred to [place] for possible bypass vs pci and subsequently underwent PTCA of mid LAD and LUZ to mid LAD on 06/11/2016. ) - Telemetry EKG Rhythm: Sinus Rhythm - EKG Sinus rhythms and dysrhythmias: sinus rhythm
[2018-07-05] MEDS ORDERED: D5NS 1,000 ML IV SCH (12:00)
[2018-07-05] MEDS: ZOFRAN IV PRN (12:04)
[2018-07-05] MEDS ORDERED: NACL 0.9% 1000 ML 1,000 ML IV ONE (12:18)
[2018-07-05] MEDS: NACL 0.9% 1000 ML 1,000 ML IV SCH ×2 (12:28→18:31)
--- NOTE | 2018-07-05 12:57 | Consultation ---
History of Present Illness Consult date: 07/05/18 Reason for consult: gallstones Chief complaint: abdominal pain - History of present illness History of present illness: 57 yo F with hx of CAD with stent, recent IN with PCI and stent placement on 06/11/18 at [place]. She presents with 2 weeks of constant RUQ, flank pain that came on after last cardiac intervention. She states this is sharp and waxes and wanes in severity. She has a poor appetite. She was having NB/NB emesis which has now improved. She has been able to tolerate a small amount of food but states that she feels it gets stuck in her throat and she finds it hard to chew due to jaw pain. She is tolerating liquids without difficulty. No f/c, cp, sob. She has never had pain like this before. Past History Past Medical History: acute IN (3 ( 2002, 2005, 2008), s/p stent placement), anemia, CAD, diabetes (insulin-dependent), hypertension, hyperlipidemia Past Surgical History: PTCA Social history: lives with family Family history: no significant family history Medications and Allergies Allergies Allergy/AdvReac Type Severity Reaction Status Date / Time No Known Allergies Allergy Verified 05/25/16 00:37 Home Medications Medication Instructions Recorded Confirmed Last Taken Type Insulin NPH Hum/Reg Insulin Hm 40 unit SQ TIDAC 05/19/13 07/01/18 02/27/17 10:00 History [NovoLIN 70-30 100 Unit/ml Vial] 40units Isosorbide Mononitrate 60 mg PO DAILY 05/19/13 07/01/18 02/27/17 10:00 History 10mg Gabapentin [Neurontin] 800 mg PO Q8HR 11/01/15 07/01/18 02/27/17 10:00 History 800mg Aspirin EC 81 mg PO QDAY #30 tablet. 11/03/15 07/01/18 02/27/17 10:00 Rx 81mg Carvedilol [Coreg] 12.5 mg PO BID 02/28/17 07/01/18 02/27/17 10:00 History 12.5mg Clopidogrel [Plavix] 75 mg PO QDAY 02/28/17 07/01/18 02/27/17 10:00 History 75mg Escitalopram [Lexapro] 20 mg PO DAILY 02/28/17 07/01/18 02/27/17 10:00 History 20mg Lisinopril [Zestril TAB] 20 mg PO QDAY 02/28/17 07/01/18 02/27/17 10:00 History 20mg Torsemide [Demadex] 20 mg PO DAILY 02/28/17 07/01/18 02/27/17 10:00 History 20mg traMADol [Ultram 50 MG tab] 100 mg PO Q8HR 02/28/17 07/01/18 02/27/17 10:00 History 100mg Baclofen [Lioresal] 10 mg PO 07/01/18 07/01/18 Unknown History Brimonidine Tartrate/Timolol 1 drop OP BID 07/01/18 07/01/18 Unknown History [Combigan 0.2%-0.5% Eye Drops] Buspirone HCl [busPIRone] 15 mg PO BID 07/01/18 07/01/18 Unknown History Insulin Detemir [Levemir] 100 unit SQ 07/01/18 07/01/18 Unknown History Lispro Insulin [HumaLOG] 100 unit SQ QHS 07/01/18 07/01/18 Unknown History Active Meds: Active Medications Acetaminophen (Tylenol) 650 mg PO Q4H PRN PRN Reason: Pain MILD(1-3)/Fever >100.5/SHARPE Last Admin: 07/02/18 09:19 Dose: 650 mg Documented by: Aspirin (Baby Aspirin) 81 mg PO QDAY [facility] Last Admin: 07/05/18 09:11 Dose: 81 mg Documented by: Atorvastatin Calcium (Lipitor) 40 mg PO Q[facility] Last Admin: 07/04/18 21:18 Dose: 40 mg Documented by: Baclofen (Lioresal) 10 mg PO [facility] Last Admin: 07/04/18 21:17 Dose: 10 mg Documented by: Brimonidine/Timolol (Combigan 0.2-0.5%) 1 drops OD BID [facility] Last Admin: 07/05/18 09:11 Dose: 1 drops Documented by: Buspirone HCl (Buspar) 15 mg PO BID [facility] Last Admin: 07/05/18 09:11 Dose: 15 mg Documented by: Carvedilol (Coreg) 12.5 mg PO BID [facility] Last Admin: 07/05/18 10:20 Dose: Not Given Documented by: Clopidogrel Bisulfate (Plavix) 75 mg PO QDAY [facility] Last Admin: 07/05/18 09:11 Dose: 75 mg Documented by: Dextrose (D50w (25gm) Syringe) 50 ml IV PRN PRN PRN Reason: Hypoglycemia Dicyclomine HCl (Bentyl) 20 mg PO QID [facility] Last Admin: 07/05/18 12:28 Dose: 20 mg Documented by: Escitalopram Oxalate (Lexapro) 20 mg PO DAILY [facility] Last Admin: 07/05/18 09:11 Dose: 20 mg Documented by: Hydromorphone HCl (Dilaudid) 0.5 mg IV Q3H PRN PRN Reason: Pain , Severe (7-10) Sodium Chloride (Nacl 0.9% 1000 Ml) 1,000 mls @ 75 mls/hr IV DIRECT [facility] Last Admin: 07/05/18 12:28 Dose: 75 mls/hr Documented by: Sodium Chloride (Nacl 0.9% 1000 Ml) 1,000 mls @ 999 mls/hr IV BOLUS ONE Stop: 07/05/18 13:18 Insulin Glargine (Lantus) 25 units SUB-Q BID@0800,2000 [facility] Last Admin: 07/05/18 09:10 Dose: 25 units Documented by: Insulin Human Lispro (Humalog) 0 unit SUB-Q [facility]; Protocol Last Admin: 07/05/18 09:10 Dose: 2 unit Documented by: Isosorbide Mononitrate (Imdur) 60 mg PO DAILY [facility] Last Admin: 07/05/18 10:19 Dose: Not Given Documented by: Metoclopramide HCl (Reglan) 10 mg IV Q6H PRN PRN Reason: Nausea And Vomiting Last Admin: 07/03/18 15:51 Dose: 10 mg Documented by: Nitroglycerin (Nitrostat) 0.4 mg SL Q5M PRN PRN Reason: Chest Pain Ondansetron HCl (Zofran) 4 mg IV Q8H PRN PRN Reason: Nausea And Vomiting Last Admin: 07/05/18 12:04 Dose: 4 mg Documented by: Polyethylene Glycol (Miralax 3350) 17 gm PO QDAY [facility] Last Admin: 07/05/18 09:10 Dose: 17 gm Documented by: Promethazine HCl (Phenergan) 12.5 mg PO Q6H PRN PRN Reason: Nausea And Vomiting Last Admin: 07/04/18 21:12 Dose: 12.5 mg Documented by: Sodium Chloride (Sodium Chloride Flush Syringe 10 Ml) 10 ml IV BID [facility] Last Admin: 07/05/18 11:55 Dose: 10 ml Documented by: Sodium Chloride (Sodium Chloride Flush Syringe 10 Ml) 10 ml IV PRN PRN PRN Reason: LINE FLUSH Last Admin: 07/04/18 03:48 Dose: 10 ml Documented by: Sucralfate (Carafate) 1 gm PO Q6HR [facility] Last Admin: 07/05/18 05:49 Dose: 1 gm Documented by: Tramadol HCl (Ultram) 50 mg PO Q4H PRN PRN Reason: Pain, Moderate (4-6) Review of Systems All systems: negative (10 pt ROS performed and negative except for that listed in HPI) Exam Vital Signs Temp Pulse Resp BP Pulse Ox 98.4 F 63 20 122/62 99 06/30/18 23:40 06/30/18 23:40 06/30/18 23:40 06/30/18 23:40 06/30/18 23:40 Narrative exam: Gen: AAOx3. mild distress due to pain ENT: NO scleral icterus or conjunctival pallor CV: s1, S2+ Resp; even and unlabored Abd: soft, ND, obese, + TTP in right lateral abdomen and R CVA tenderness. no r/r/g Ext: no c/c/e Results - Labs 07/05/18 04:02 07/05/18 04:02 Abnormal lab results 07/04/18 07/04/18 07/05/18 Range/Units 16:23 20:51 04:02 RBC (3.65-5.03) M/mm3 Hgb (10.1-14.3) gm/dl Hct (30.3-42.9) % [place] % (Auto) (0.0-7.3) % [place] # (0.0-0.8) K/mm3 Sodium 134 L (137-145) mmol/L Chloride 97.7 L (98-107) mmol/L Carbon Dioxide 20 L (22-30) mmol/L BUN 66 H (7-17) mg/dL Creatinine 3.5 H (0.7-1.2) mg/dL Glucose 151 H (65-100) mg/dL POC Glucose 168 H 152 H (70-105) Calcium 7.6 L (8.4-10.2) mg/dL Phosphorus 6.10 H (2.5-4.5) mg/dL Total Protein 6.0 L (6.3-8.2) g/dL Albumin 2.7 L (3.9-5) g/dL Lipase (13-60) units/L 07/05/18 07/05/18 07/05/18 Range/Units 04:02 08:06 10:45 RBC 3.20 L (3.65-5.03) M/mm3 Hgb 8.8 L (10.1-14.3) gm/dl Hct 29.0 L (30.3-42.9) % [place] % (Auto) 13.7 H (0.0-7.3) % [place] # 1.5 H (0.0-0.8) K/mm3 Sodium (137-145) mmol/L Chloride (98-107) mmol/L Carbon Dioxide (22-30) mmol/L BUN (7-17) mg/dL Creatinine (0.7-1.2) mg/dL Glucose (65-100) mg/dL POC Glucose 153 H (70-105) Calcium (8.4-10.2) mg/dL Phosphorus (2.5-4.5) mg/dL Total Protein (6.3-8.2) g/dL Albumin (3.9-5) g/dL Lipase 11 L (13-60) units/L 07/05/18 Range/Units 11:51 RBC (3.65-5.03) M/mm3 Hgb (10.1-14.3) gm/dl Hct (30.3-42.9) % [place] % (Auto) (0.0-7.3) % [place] # (0.0-0.8) K/mm3 Sodium (137-145) mmol/L Chloride (98-107) mmol/L Carbon Dioxide (22-30) mmol/L BUN (7-17) mg/dL Creatinine (0.7-1.2) mg/dL Glucose (65-100) mg/dL POC Glucose 207 H (70-105) Calcium (8.4-10.2) mg/dL Phosphorus (2.5-4.5) mg/dL Total Protein (6.3-8.2) g/dL Albumin (3.9-5) g/dL Lipase (13-60) units/L Diabetes panel 07/05/18 Range/Units 04:02 Sodium 134 L (137-145) mmol/L Potassium 4.6 (3.6-5.0) mmol/L Chloride 97.7 L (98-107) mmol/L Carbon Dioxide 20 L (22-30) mmol/L BUN 66 H (7-17) mg/dL Creatinine 3.5 H (0.7-1.2) mg/dL Glucose 151 H (65-100) mg/dL Calcium 7.6 L (8.4-10.2) mg/dL AST 9 (5-40) units/L ALT 8 (7-56) units/L Alkaline Phosphatase 64 (35-129) units/L Total Protein 6.0 L (6.3-8.2) g/dL Albumin 2.7 L (3.9-5) g/dL Calcium panel 07/05/18 Range/Units 04:02 Calcium 7.6 L (8.4-10.2) mg/dL Phosphorus 6.10 H (2.5-4.5) mg/dL Albumin 2.7 L (3.9-5) g/dL Pituitary panel 07/05/18 Range/Units 04:02 Sodium 134 L (137-145) mmol/L Potassium 4.6 (3.6-5.0) mmol/L Chloride 97.7 L (98-107) mmol/L Carbon Dioxide 20 L (22-30) mmol/L BUN 66 H (7-17) mg/dL Creatinine 3.5 H (0.7-1.2) mg/dL Glucose 151 H (65-100) mg/dL Calcium 7.6 L (8.4-10.2) mg/dL Adrenal panel 07/05/18 Range/Units 04:02 Sodium 134 L (137-145) mmol/L Potassium 4.6 (3.6-5.0) mmol/L Chloride 97.7 L (98-107) mmol/L Carbon Dioxide 20 L (22-30) mmol/L BUN 66 H (7-17) mg/dL Creatinine 3.5 H (0.7-1.2) mg/dL Glucose 151 H (65-100) mg/dL Calcium 7.6 L (8.4-10.2) mg/dL Total Bilirubin 0.20 (0.1-1.2) mg/dL AST 9 (5-40) units/L ALT 8 (7-56) units/L Alkaline Phosphatase 64 (35-129) units/L Total Protein 6.0 L (6.3-8.2) g/dL Albumin 2.7 L (3.9-5) g/dL - Imaging CT scan - abdomen: report reviewed, image reviewed CT scan - pelvis: report reviewed, image reviewed US - abdomen: report reviewed, image reviewed Additional studies: HIDA scan Assessment and Plan 57 yo F with 1. biliary dyskenesia, RUQ abd pain 2. CAD s/p stent on 06/11/18 3. NSEMI 4. DONAL Plan; 1. clear liquid diet 2. IVF - patient on NS@75cc but has been refusing IVF. I have told the family and the patient that she needs IVF to get better. I ordered a NS bolus 1L and instructed RN to resume NS@75cc/hr 3. HIDA - GB EF 28% - mildly reduced but can be reason for patient's symptoms. Explained to patient and family that at this point there is no urgent need for cholecystectomy. Due to her heart issues and recent stent, anticoagulation cannot be held and she is at increased risk for another cardiac event if she underwent surgery. 4. adjusted pain medications 5. prn nausea control Discussed case with Dr. Guaman and Dr. Pa. Dr. Pa agrees that elective surgery is not an option for the patient at this time. Plan was discussed in detail with the patient and her family. Thank you, please call with questions.
--- NOTE | 2018-07-05 13:10 | Progress Note ---
Assessment and Plan 1. Acute kidney injury: Acute kidney injury secondary to contrast induced nephropathy. Urine studies pending. Imaging was negative for hydro. Continue IV fluids. Creatinine level continue to increase. Renal prognosis is guarded. Monitor renal function. Avoid Nephrotoxic agents. 2. FEN: Hyponatremia, monitor. Monitor lytes. 3. CAD s/p stent. 4. N & V: Followed by GI. 5. DM type 2. 6. Anemia: POA. Subjective Date of service: 07/05/18 Principal diagnosis: cp, abdominal pain Interval history: Patient was seen and examined at the bedside. Grand daughter at the bedside. N & V is better. Objective - Vital Signs Vital signs: Vital Signs - 12hr 07/05/18 07/05/18 07/05/18 04:07 07:44 09:12 Temperature 98.3 F 98.2 F Pulse Rate 54 L 58 L Pulse Rate [ Apical] Respiratory 18 20 20 Rate Respiratory Rate [Chest] Blood Pressure 115/62 105/55 O2 Sat by Pulse 96 94 Oximetry 07/05/18 07/05/18 07/05/18 10:00 10:19 10:20 Temperature Pulse Rate 52 L 58 L 58 L Pulse Rate [ 64 Apical] Respiratory 20 Rate Respiratory 20 Rate [Chest] Blood Pressure 105/55 105/55 O2 Sat by Pulse 94 Oximetry 07/05/18 07/05/18 11:21 11:46 Temperature 98.4 F Pulse Rate 56 L Pulse Rate [ Apical] Respiratory 20 20 Rate Respiratory Rate [Chest] Blood Pressure 120/61 O2 Sat by Pulse 95 Oximetry - General Appearance General appearance: well-developed, well-nourished, appears stated age, obese, other (not in distress) EENT: ATNC, PERRL, hearing intact, vision intact Neck: supple Respiratory: Present: Clear to Ascultation Cardiology: regular, S1S2, no murmurs Gastrointestinal: normoactive bowel sounds, no tenderness, no distended Integumentary: no rash, warm and dry Neurologic: no focal deficit, no asterixis Musculoskeletal: other (1+ edema of both LEs noted) - Lab 07/05/18 04:02 07/06/18 07:45 Most recent lab results Calcium 7.6 mg/dL (8.4-10.2) L 07/05/18 04:02 Phosphorus 6.10 mg/dL (2.5-4.5) H 07/05/18 04:02 Magnesium 2.30 mg/dL (1.7-2.3) 07/05/18 04:02 Medications & Allergies - Medications Allergies/Adverse Reactions: Allergies No Known Allergies Allergy (Verified 05/25/16 00:37) Home Medications: Home Medications Medication Instructions Recorded Confirmed Last Taken Type Insulin NPH Hum/Reg Insulin Hm 40 unit SQ TIDAC 05/19/13 07/01/18 02/27/17 10:00 History [NovoLIN 70-30 100 Unit/ml Vial] 40units Isosorbide Mononitrate 60 mg PO DAILY 05/19/13 07/01/18 02/27/17 10:00 History 10mg Gabapentin [Neurontin] 800 mg PO Q8HR 11/01/15 07/01/18 02/27/17 10:00 History 800mg Aspirin EC 81 mg PO QDAY #30 tablet. 11/03/15 07/01/18 02/27/17 10:00 Rx 81mg Carvedilol [Coreg] 12.5 mg PO BID 02/28/17 07/01/18 02/27/17 10:00 History 12.5mg Clopidogrel [Plavix] 75 mg PO QDAY 02/28/17 07/01/18 02/27/17 10:00 History 75mg Escitalopram [Lexapro] 20 mg PO DAILY 02/28/17 07/01/18 02/27/17 10:00 History 20mg Lisinopril [Zestril TAB] 20 mg PO QDAY 02/28/17 07/01/18 02/27/17 10:00 History 20mg Torsemide [Demadex] 20 mg PO DAILY 02/28/17 07/01/18 02/27/17 10:00 History 20mg traMADol [Ultram 50 MG tab] 100 mg PO Q8HR 02/28/17 07/01/18 02/27/17 10:00 History 100mg Baclofen [Lioresal] 10 mg PO HS 07/01/18 07/01/18 Unknown History Brimonidine Tartrate/Timolol 1 drop OP BID 07/01/18 07/01/18 Unknown History [Combigan 0.2%-0.5% Eye Drops] Buspirone HCl [busPIRone] 15 mg PO BID 07/01/18 07/01/18 Unknown History Insulin Detemir [Levemir] 100 unit SQ HS 07/01/18 07/01/18 Unknown History Lispro Insulin [HumaLOG] 100 unit SQ QHS 07/01/18 07/01/18 Unknown History Active Medications: Generic Name Dose Route Start Last Admin Trade Name Freq PRN Reason Stop Dose Admin Acetaminophen 650 mg 07/01/18 03:24 07/02/18 09:19 Tylenol PO 650 mg Q4H PRN Administration Pain MILD(1-3)/Fever >100.5/SHARPE Aspirin 81 mg 07/02/18 10:00 07/05/18 09:11 Baby Aspirin PO 81 mg QDAY [facility] Administration Atorvastatin Calcium 40 mg 07/01/18 22:00 07/04/18 21:18 Lipitor PO 40 mg QHS [facility] Administration Baclofen 10 mg 07/01/18 22:00 07/04/18 21:17 Lioresal PO 10 mg HS [facility] Administration Brimonidine/Timolol 1 drops 07/02/18 23:00 07/05/18 09:11 Combigan 0.2-0.5% OD 1 drops BID [facility] Administration Buspirone HCl 15 mg 07/01/18 10:00 07/05/18 09:11 Buspar PO 15 mg BID [facility] Administration Carvedilol 12.5 mg 07/04/18 11:00 07/05/18 10:20 Coreg PO Not Given BID [facility] Clopidogrel Bisulfate 75 mg 07/02/18 10:00 07/05/18 09:11 Plavix PO 75 mg QDAY [facility] Administration Dextrose 50 ml 07/01/18 03:40 D50w (25gm) Syringe IV PRN PRN Hypoglycemia Dicyclomine HCl 20 mg 07/04/18 14:00 07/05/18 12:28 Bentyl PO 20 mg QID [facility] Administration Escitalopram Oxalate 20 mg 07/01/18 10:00 07/05/18 09:11 Lexapro PO 20 mg DAILY [facility] Administration Hydromorphone HCl 0.5 mg 07/05/18 11:59 Dilaudid IV Q3H PRN Pain , Severe (7-10) Sodium Chloride 1,000 mls @ 75 mls/hr 07/01/18 04:00 07/05/18 12:28 Nacl 0.9% 1000 Ml IV 75 mls/hr DIRECT [facility] Administration Sodium Chloride 1,000 mls @ 999 mls/hr 07/05/18 12:18 Nacl 0.9% 1000 Ml IV 07/05/18 13:18 BOLUS ONE Insulin Glargine 25 units 07/04/18 08:00 07/05/18 09:10 Lantus SUB-Q 25 units BID@0800,2000 [facility] Administration Insulin Human Lispro 0 unit 07/03/18 22:00 07/05/18 09:10 Humalog SUB-Q 2 unit ACHS [facility] Administration Protocol Isosorbide Mononitrate 60 mg 07/01/18 10:00 07/05/18 10:19 Imdur PO Not Given DAILY [facility] Metoclopramide HCl 10 mg 07/03/18 09:13 07/03/18 15:51 Reglan IV 10 mg Q6H PRN Administration Nausea And Vomiting Nitroglycerin 0.4 mg 07/01/18 04:10 Nitrostat SL Q5M PRN Chest Pain Ondansetron HCl 4 mg 07/01/18 03:24 07/05/18 12:04 Zofran IV 4 mg Q8H PRN Administration Nausea And Vomiting Polyethylene Glycol 17 gm 07/02/18 12:00 07/05/18 09:10 Miralax 3350 PO 17 gm QDAY [facility] Administration Promethazine HCl 12.5 mg 07/03/18 09:13 07/04/18 21:12 Phenergan PO 12.5 mg Q6H PRN Administration Nausea And Vomiting Sodium Chloride 10 ml 07/01/18 10:00 07/05/18 11:55 Sodium Chloride Flush Syringe 10 Ml IV 10 ml BID [facility] Administration Sodium Chloride 10 ml 07/01/18 03:24 07/04/18 03:48 Sodium Chloride Flush Syringe 10 Ml IV 10 ml PRN PRN Administration LINE FLUSH Sucralfate 1 gm 07/04/18 18:30 07/05/18 05:49 Carafate PO 1 gm Q6HR [facility] Administration Tramadol HCl 50 mg 07/05/18 11:59 Ultram PO Q4H PRN Pain, Moderate (4-6)
[2018-07-05] MEDS: LIORESAL PO SCH (22:35)
[2018-07-06] MEDS: DILAUDID IV PRN ×2 (03:53→08:26)
[2018-07-06] MEDS: ZOFRAN IV PRN ×2 (04:23→20:27)
[2018-07-06] MEDS: CARAFATE PO SCH ×3 (05:36→23:25)
[2018-07-06] MEDS: NACL 0.9% 1000 ML 1,000 ML IV SCH (08:26)
[2018-07-06 08:50] LABS: Calcium 8.2 mg/dL (8.4-10.2)
[2018-07-06] MEDS ORDERED: NACL 0.9% 1000 ML 1,000 ML IV SCH (09:00)
[2018-07-06] MEDS: PLAVIX PO SCH (09:18)
[2018-07-06] MEDS: REGLAN IV PRN ×2 (09:19→23:25)
[2018-07-06] MEDS: LEXAPRO PO SCH (09:19)
[2018-07-06] MEDS: BABY ASPIRIN PO SCH (09:27)
--- NOTE | 2018-07-06 10:32 | Gastroenterology Progress Note ---
Assessment and Plan 1. Abdominal pain - primarily right/epigastric. evaluated by surgery for possible GB source but given recent stent placement, intervention not currently an option due to cardiac risks and inability to hold anti-platelets for surgery. symptoms are improved today and tolerating clears. of note, pt was in the hospital in 2017 with abdominal pain/chest pain and had egd at that time which just showed mild antral gastritis but otherwise unremarkable. -advance diet as tolerated and cont supportive care/symptomatic management -no further inpatient recommendations from gi at this time will sign off, please call as needed or with questions. Subjective Date of service: 07/06/18 Principal diagnosis: cp, abdominal pain Interval history: pt seen and examined; still with right sided abd pain but improved from yesterday. tolerating clears this morning. Objective - Constitutional Vitals: Temp Pulse Resp BP Pulse Ox 97.9 F 54 L 20 133/78 96 07/06/18 07:59 07/06/18 07:59 07/06/18 07:59 07/06/18 07:59 07/06/18 07:59 General appearance: no acute distress, obese - Respiratory Respiratory effort: normal Respiratory: bilateral: CTA - Cardiovascular Rhythm: regular Heart Sounds: Present: S1 & S2 - Gastrointestinal General gastrointestinal: Present: soft, tender (mild right sided ttp), normal bowel sounds - Neurologic Neurological: alert and oriented x3 - Psychiatric Psychiatric: appropriate mood/affect - Labs CBC & Chem 7: 07/05/18 04:02 07/06/18 07:45 Labs: Laboratory Results - last 24 hr 07/05/18 07/05/18 07/05/18 10:45 11:51 16:25 Sodium Potassium Chloride Carbon Dioxide Anion Gap BUN Creatinine Estimated GFR BUN/Creatinine Ratio Glucose POC Glucose 207 H 79 Hemoglobin A1c Calcium Lipase 11 L 07/05/18 07/06/18 07/06/18 21:08 07:45 08:00 Sodium 138 Potassium 5.0 Chloride 102.0 Carbon Dioxide 23 Anion Gap 18 BUN 65 H Creatinine 2.0 H Estimated GFR 31 BUN/Creatinine Ratio 33 Glucose 63 L POC Glucose 85 66 L Hemoglobin A1c Calcium 8.2 L Lipase 07/06/18 08:59 Sodium Potassium Chloride Carbon Dioxide Anion Gap BUN Creatinine Estimated GFR BUN/Creatinine Ratio Glucose POC Glucose Hemoglobin A1c 12.5 H Calcium Lipase
--- NOTE | 2018-07-06 10:32 | Progress Note ---
Assessment and Plan asked pt to ambulate or tremendous and increase diet as tolerated continue gentle IV fluids ambulate the patient follow-up labs continue dual antiplatelet discussed with patient and family - Patient Problems (1) Nausea and vomiting Current Visit: Yes Status: Acute (2) CAD (coronary artery disease) Current Visit: Yes Status: Chronic Qualifiers: Coronary Disease-Associated Artery/Lesion type: [place] artery [place] vs. transplanted heart: [place] heart Associated angina: with stable angina Q ualified Code(s): I25.118 - Atherosclerotic heart disease of [place] coronary artery with other forms of angina pectoris (3) Diabetes Current Visit: Yes Status: Chronic Qualifiers: Diabetes mellitus type: type 1 Diabetes mellitus complication status: without complication Qualified Code(s): E10.9 - Type 1 diabetes mellitus without complications (4) HTN (hypertension) Current Visit: Yes Status: Chronic Qualifiers: Hypertension type: essential hypertension Qualified Code(s): I10 - Essential (primary) hypertension (5) Hyperlipidemia Current Visit: Yes Status: Chronic Qualifiers: Hyperlipidemia type: mixed hyperlipidemia Qualified Code(s): E78.2 - Mixed hyperlipidemia (6) Obesity Current Visit: Yes Status: Chronic Qualifiers: Obesity classification: adult class 2 (BMI 35 - 39.9) (7) ARF (acute renal failure) Current Visit: No Status: Acute Qualifiers: Acute renal failure type: with acute tubular necrosis Qualified Code(s): N17.0 - Acute kidney failure with tubular necrosis (8) NSTEMI (non-ST elevated myocardial infarction) Current Visit: Yes Status: Acute Plan to address problem: type 2 Subjective Date of service: 07/06/18 Principal diagnosis: cp, abdominal pain Interval history: pt has no chest pain or abd pain on clear liquid Objective Vital Signs Temp Pulse Pulse Pulse Resp BP Pulse Ox 07/06/18 07:59 97.9 F 54 L 20 133/78 96 07/06/18 04:45 97.5 F L 49 L 16 93/39 100 07/06/18 00:21 51 L 116/63 98 07/06/18 00:00 98.7 F 16 07/05/18 22:40 52 L 119/63 07/05/18 22:00 52 L 52 L 52 L 20 94 07/05/18 19:54 98.4 F 17 110/52 07/05/18 19:00 96 H 93 07/05/18 18:31 20 05/25/19 16:21 98.7 F 53 L 18 116/69 95 07/05/18 15:37 20 07/05/18 11:46 20 07/05/18 11:21 98.4 F 56 L 20 120/61 95 - Physical Examination General: Other (n/v) HEENT: Positive: PERRL, Normocephaly, Mucus Membranes Moist Neck: Positive: neck supple, trachea midline Cardiac: Positive: Reg Rate and Rhythm Lungs: Positive: clear to auscultation Neuro: Positive: Grossly Intact Abdomen: Positive: Tender, Distended Skin: Negative: Rash, Wound Musculoskeletal: No Pain Extremities: Absent: edema - Labs and Meds Comprehensive Metabolic Panel 07/06/18 Range/Units 07:45 Sodium 138 (137-145) mmol/L Potassium 5.0 (3.6-5.0) mmol/L Chloride 102.0 (98-107) mmol/L Carbon Dioxide 23 (22-30) mmol/L BUN 65 H (7-17) mg/dL Creatinine 2.0 H (0.7-1.2) mg/dL Glucose 63 L (65-100) mg/dL Calcium 8.2 L (8.4-10.2) mg/dL - Imaging and Cardiology EKG: report reviewed, image reviewed Echo: report reviewed (06/12/2016 at [facility] showed EF 55%, mild MR. ) Cardiac cath: report reviewed ([facility] on 05/31/[address] Pa which showed lt main patent, lad mid 80% small vessel distal, lcx mid 95% and rca mid 100% normal lv function elevated lvedp 40-45mmhg. She was transferred to [facility] for possible bypass vs pci and subsequently underwent PTCA of mid LAD and LUZ to mid LAD on 06/11/2016. ) - Telemetry EKG Rhythm: Sinus Rhythm - EKG Sinus rhythms and dysrhythmias: sinus rhythm
[2018-07-06] MEDS ORDERED: DILAUDID IV PRN (10:54)
[2018-07-06] MEDS ORDERED: PERCOCET 5/325 PO PRN (10:54)
--- NOTE | 2018-07-06 11:14 | Progress Note ---
Assessment and Plan Assessment and plan: --Intractable nausea vomiting and abdominal pain; CT abdomen ; fibroid, HIDA scan; biliary dyskinesia IV fluids, antiemetics, GI and surgery following Diet as tolerated, wean off IV pain medications to PO --Acute kidney injury; secondary to vasomotor nephropathy, improving. Gentle IV hydration Avoid nephrotoxins, nephrology following --Non-ST elevation OK; status post cardiac catheterization s/p PCI of the left circumflex. On detailed platelets aspirin and Plavix, heparin drip discontinued Management per cardiology --History of coronary artery disease status post PCI; continue current cardiac m edications --Hyponatremia; significantly improved --2 diabetes mellitus; hypoglycemia, poor oral intake, on clear liquids Hold Lantus, sliding scale coverage, Accu-Chek sliding scale coverage and ADA diet, Start low-dose Lantus if needed --Diabetic neuropathy; continue gabapentin --Hypertension; moderate control, continue current antihypertensives and when necessary medications --Dyslipidemia: continue statin. --Moderate malnutrition/hypoalbuminemia; nutrition supplements, nutrition con sult if needed --DVT prophylaxis; patient on heparin drip --Full CODE STATUS Consults and recommendations noted and appreciated Increase ambulation, possible discharge tomorrow if stable Plan of care is reviewed with the patient and multiple family members at the bedside I also discussed with nephrology , and cardiology History Interval history: Patient seen and examined medical records reviewed Patient feels slightly better today, comfortable and cheerful Still has mild right upper quadrant pain, denies nausea vomiting Vital signs reviewed Hospitalist Physical - Constitutional Vitals: Temp Pulse Resp BP Pulse Ox 97.9 F 54 L 20 133/78 96 07/06/18 07:59 07/06/18 07:59 07/06/18 07:59 07/06/18 07:59 07/06/18 07:59 General appearance: Present: no acute distress, well-nourished, obese (morbidly obese) - EENT Eyes: Present: PERRL, EOM intact - Neck Neck: Present: supple, normal ROM - Respiratory Respiratory effort: normal Respiratory: bilateral: diminished, negative: rales, rhonchi, wheezing - Cardiovascular Rhythm: regular Heart Sounds: Present: S1 & S2 - Extremities Extremities: no ischemia, pulses intact - Abdominal General gastrointestinal: soft, non-tender, non-distended, normal bowel sounds - Integumentary Integumentary: Present: clear, warm - Psychiatric Psychiatric: appropriate mood/affect, cooperative - Neurologic Neurologic: CNII-XII intact, moves all extremities Results - Labs CBC & Chem 7: 07/05/18 04:02 07/06/18 07:45 Labs: Laboratory Last Values WBC 10.6 K/mm3 (4.5-11.0) 07/05/18 04:02 RBC 3.20 M/mm3 (3.65-5.03) L 07/05/18 04:02 Hgb 8.8 gm/dl (10.1-14.3) L 07/05/18 04:02 Hct 29.0 % (30.3-42.9) L 07/05/18 04:02 MCV 81 fl (79-97) 07/05/18 04:02 MCH 28 pg (28-32) 07/05/18 04:02 MCHC 34 % (30-34) 07/05/18 04:02 RDW 14.1 % (13.2-15.2) 07/05/18 04:02 Plt Count 164 K/mm3 (140-440) 07/05/18 04:02 Lymph % (Auto) 19.8 % (13.4-35.0) 07/05/18 04:02 [place] % (Auto) 13.7 % (0.0-7.3) H 07/05/18 04:02 Eos % (Auto) 1.4 % (0.0-4.3) 07/05/18 04:02 Baso % (Auto) 0.3 % (0.0-1.8) 07/05/18 04:02 Lymph # 2.1 K/mm3 (1.2-5.4) 07/05/18 04:02 Pine # 1.5 K/mm3 (0.0-0.8) H 07/05/18 04:02 Eos # 0.1 K/mm3 (0.0-0.4) 07/05/18 04:02 Baso # 0.0 K/mm3 (0.0-0.1) 07/05/18 04:02 Add Manual Diff Complete 07/01/18 00:12 Total Counted 100 07/01/18 00:12 Seg Neutrophils % 64.8 % (40.0-70.0) 07/05/18 04:02 Seg Neuts % (Manual) 61.0 % (40.0-70.0) 07/01/18 00:12 1.0 % 07/01/18 00:12 25.0 % (13.4-35.0) 07/01/18 00:12 Reactive Lymphs % (Man) 1.0 % 07/01/18 00:12 10.0 % (0.0-7.3) H 07/01/18 00:12 0 % (0.0-4.3) 07/01/18 00:12 2.0 % (0.0-1.8) H 07/01/18 00:12 0 % 07/01/18 00:12 0 % 07/01/18 00:12 0 % 07/01/18 00:12 0 % 07/01/18 00:12 Nucleated RBC % Not Reportable 07/01/18 00:12 Seg Neutrophils # 6.9 K/mm3 (1.8-7.7) 07/05/18 04:02 Seg Neutrophils # Man 5.9 K/mm3 (1.8-7.7) 07/01/18 00:12 Band Neutrophils # 0.1 K/mm3 07/01/18 00:12 2.4 K/mm3 (1.2-5.4) 07/01/18 00:12 Abs React Lymphs (Man) 0.1 K/mm3 07/01/18 00:12 1.0 K/mm3 (0.0-0.8) H 07/01/18 00:12 0.0 K/mm3 (0.0-0.4) 07/01/18 00:12 0.2 K/mm3 (0.0-0.1) H 07/01/18 00:12 0.0 K/mm3 07/01/18 00:12 0.0 K/mm3 07/01/18 00:12 0.0 K/mm3 07/01/18 00:12 Blast Cells # 0.0 K/mm3 07/01/18 00:12 WBC Morphology Not Reportable 07/01/18 00:12 Hypersegmented Neuts Not Reportable 07/01/18 00:12 Hyposegmented Neuts Not Reportable 07/01/18 00:12 Hypogranular Neuts Not Reportable 07/01/18 00:12 Not Reportable 07/01/18 00:12 Not Reportable 07/01/18 00:12 Not Reportable 07/01/18 00:12 Not Reportable 07/01/18 00:12 Not Reportable 07/01/18 00:12 Not Reportable 07/01/18 00:12 Consistent w auto 07/01/18 00:12 Not Reportable 07/01/18 00:12 Plt Clumps, EDTA Not Reportable 07/01/18 00:12 Not Reportable 07/01/18 00:12 Not Reportable 07/01/18 00:12 Not Reportable 07/01/18 00:12 Plt Morphology Comment Not Reportable 07/01/18 00:12 RBC Morphology Not Reportable 07/01/18 00:12 Dimorphic RBCs Not Reportable 07/01/18 00:12 Not Reportable 07/01/18 00:12 Not Reportable 07/01/18 00:12 Not Reportable 07/01/18 00:12 1+ 07/01/18 00:12 Not Reportable 07/01/18 00:12 Not Reportable 07/01/18 00:12 Not Reportable 07/01/18 00:12 Not Reportable 07/01/18 00:12 Not Reportable 07/01/18 00:12 Not Reportable 07/01/18 00:12 Not Reportable 07/01/18 00:12 Not Reportable 07/01/18 00:12 Not Reportable 07/01/18 00:12 Not Reportable 07/01/18 00:12 Not Reportable 07/01/18 00:12 Not Reportable 07/01/18 00:12 Not Reportable 07/01/18 00:12 Not Reportable 07/01/18 00:12 Not Reportable 07/01/18 00:12 Acanthocytes (Spur) Not Reportable 07/01/18 00:12 Rouleaux Not Reportable 07/01/18 00:12 Not Reportable 07/01/18 00:12 Not Reportable 07/01/18 00:12 Not Reportable 07/01/18 00:12 Not Reportable 07/01/18 00:12 Hem Pathologist Commnt No 07/01/18 00:12 PT 14.4 Sec. (12.2-14.9) 07/01/18 16:01 INR 1.05 (0.87-1.13) 07/01/18 16:01 APTT 39.4 Sec. (24.2-36.6) H 07/01/18 16:01 241 (74-137) H 07/01/18 11:58 Heparin Anti-Xa Level < 0.10 U.I./ml (0.3-0.7) L 07/04/18 00:24 Sodium 138 mmol/L (137-145) 07/06/18 07:45 Potassium 5.0 mmol/L (3.6-5.0) 07/06/18 07:45 Chloride 102.0 mmol/L (98-107) 07/06/18 07:45 Carbon Dioxide 23 mmol/L (22-30) 07/06/18 07:45 18 mmol/L 07/06/18 07:45 BUN 65 mg/dL (7-17) H 07/06/18 07:45 2.0 mg/dL (0.7-1.2) H 07/06/18 07:45 Estimated GFR 31 ml/min 07/06/18 07:45 33 % 07/06/18 07:45 Glucose 63 mg/dL (65-100) L 07/06/18 07:45 POC Glucose 66 (70-105) L 07/06/18 08:00 12.5 % (4-6) H 07/06/18 08:59 Calcium 8.2 mg/dL (8.4-10.2) L 07/06/18 07:45 Phosphorus 6.10 mg/dL (2.5-4.5) H 07/05/18 04:02 Magnesium 2.30 mg/dL (1.7-2.3) 07/05/18 04:02 0.20 mg/dL (0.1-1.2) 07/05/18 04:02 < 0.2 mg/dL (0-0.2) 07/05/18 04:02 0.0 mg/dL 07/05/18 04:02 AST 9 units/L (5-40) 07/05/18 04:02 ALT 8 units/L (7-56) 07/05/18 04:02 64 units/L (35-129) 07/05/18 04:02 162 units/L (30-135) H 07/01/18 16:01 CK-MB (CK-2) 1.6 ng/mL (0.0-4.0) 07/01/18 16:01 CK-MB (CK-2) Rel Index 0.9 (0-4) 07/01/18 16:01 0.265 ng/mL (0.00-0.029) H* 07/04/18 05:31 NT-Pro-B Natriuret Pep 474.0 pg/mL (0-900) 07/01/18 00:18 6.0 g/dL (6.3-8.2) L 07/05/18 04:02 2.7 g/dL (3.9-5) L 07/05/18 04:02 0.8 % 07/05/18 04:02 Triglycerides 195 mg/dL (2-149) H 07/01/18 00:12 Cholesterol 188 mg/dL (50-199) 07/01/18 00:12 149 mg/dL (50-130) H 07/01/18 00:12 28 mg/dL (40-59) L 07/01/18 00:12 6.71 % 07/01/18 00:12 11 units/L (13-60) L 07/05/18 10:45 Active Medications - Current Medications Current Medications: Generic Name Dose Route Start Last Admin Trade Name Freq PRN Reason Stop Dose Admin Acetaminophen 650 mg 07/01/18 03:24 07/02/18 09:19 Tylenol PO 650 mg Q4H PRN Administration Pain MILD(1-3)/Fever >100.5/SHARPE Aspirin 81 mg 07/02/18 10:00 07/06/18 09:27 Baby Aspirin PO 81 mg QDAY [facility] Administration Atorvastatin Calcium 40 mg 07/01/18 22:00 07/05/18 22:35 Lipitor PO 40 mg QHS [facility] Administration Baclofen 10 mg 07/01/18 22:00 07/05/18 22:35 Lioresal PO 10 mg HS [facility] Administration Brimonidine/Timolol 1 drops 07/02/18 23:00 07/05/18 22:33 Combigan 0.2-0.5% OD 1 drops BID [facility] Administration Buspirone HCl 15 mg 07/01/18 10:00 07/05/18 22:34 Buspar PO 15 mg BID [facility] Administration Carvedilol 12.5 mg 07/04/18 11:00 07/05/18 22:40 Coreg PO Not Given BID [facility] Clopidogrel Bisulfate 75 mg 07/02/18 10:00 07/06/18 09:18 Plavix PO 75 mg QDAY [facility] Administration Dextrose 50 ml 07/01/18 03:40 D50w (25gm) Syringe IV PRN PRN Hypoglycemia Dicyclomine HCl 20 mg 07/04/18 14:00 07/05/18 22:35 Bentyl PO 20 mg QID [facility] Administration Escitalopram Oxalate 20 mg 07/01/18 10:00 07/06/18 09:19 Lexapro PO 20 mg DAILY [facility] Administration Hydromorphone HCl 0.5 mg 07/06/18 10:54 Dilaudid IV Q6H PRN Pain , Severe (7-10) Sodium Chloride 1,000 mls @ 50 mls/hr 07/06/18 09:00 Nacl 0.9% 1000 Ml IV DIRECT [facility] Insulin Glargine 25 units 07/04/18 08:00 07/05/18 22:39 Lantus SUB-Q Not Given BID@0800,2000 [facility] Insulin Human Lispro 0 unit 07/03/18 22:00 07/05/18 22:41 Humalog SUB-Q Not Given [facility] Protocol Isosorbide Mononitrate 60 mg 07/01/18 10:00 07/05/18 10:19 Imdur PO Not Given DAILY [facility] Metoclopramide HCl 10 mg 07/03/18 09:13 07/06/18 09:19 Reglan IV 10 mg Q6H PRN Administration Nausea And Vomiting Nitroglycerin 0.4 mg 07/01/18 04:10 Nitrostat SL Q5M PRN Chest Pain Ondansetron HCl 4 mg 07/01/18 03:24 07/06/18 04:23 Zofran IV 4 mg Q8H PRN Administration Nausea And Vomiting Oxycodone/Acetaminophen 1 tab 07/06/18 10:54 Percocet 5/325 PO Q6H PRN Pain, Moderate (4-6) Polyethylene Glycol 17 gm 07/02/18 12:00 07/05/18 09:10 Miralax 3350 PO 17 gm QDAY [facility] Administration Promethazine HCl 12.5 mg 07/03/18 09:13 07/04/18 21:12 Phenergan PO 12.5 mg Q6H PRN Administration Nausea And Vomiting Sodium Chloride 10 ml 07/01/18 10:00 07/05/18 22:35 Sodium Chloride Flush Syringe 10 Ml IV 10 ml BID [facility] Administration Sodium Chloride 10 ml 07/01/18 03:24 07/04/18 03:48 Sodium Chloride Flush Syringe 10 Ml IV 10 ml PRN PRN Administration LINE FLUSH Sucralfate 1 gm 07/04/18 18:30 07/06/18 05:36 Carafate PO 1 gm Q6HR [facility] Administration Tramadol HCl 50 mg 07/05/18 11:59 Ultram PO Q4H PRN Pain, Moderate (4-6) Nutrition/Malnutrition Assess - Dietary Evaluation Nutrition/Malnutrition Findings: Nutrition Notes Start: 07/01/18 16:16 Freq: Status: Active Protocol: Document 07/03/18 16:52 RM (Rec: 07/03/18 16:52 RM [id number]) Nutrition Notes Initial or Follow up Brief Note Subjective/Other Information Pt already familiar with DM diet education. Nutrition Intervention Revisit per MD consult or patient Sign Off request:
[2018-07-06] MEDS: BUSPAR PO SCH ×2 (11:51→22:55)
[2018-07-06] MEDS: COMBIGAN 0.2-0.5% OD SCH ×2 (11:51→23:00)
[2018-07-06] MEDS: BENTYL PO SCH ×3 (11:54→22:51)
[2018-07-06] MEDS: SODIUM CHLORIDE FLUSH SYRINGE 10 ML IV SCH ×2 (11:59→22:50)
[2018-07-06] MEDS: LANTUS SUB-Q SCH ×2 (12:00→22:23)
[2018-07-06] MEDS: IMDUR PO SCH (12:00)
[2018-07-06] MEDS: COREG PO SCH ×2 (12:00→22:54)
[2018-07-06] MEDS: MIRALAX 3350 PO SCH ×2 (12:01→15:31)
--- NOTE | 2018-07-06 13:56 | Progress Note ---
Assessment and Plan 57 yo F with 1. biliary dyskenesia, RUQ abd pain 2. CAD s/p stent on 06/11/18 3. NSEMI 4. DONAL Plan; 1. 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 HIDA - GB EF 28% - mildly reduced but can be reason for patient's symptoms. Explained to patient and family that at this point there is no urgent need for cholecystectomy. Due to her heart issues and recent stent, anticoagulation cannot be held and she is at increased risk for another cardiac event if she underwent surgery. 4. adjusted pain medications 5. prn nausea control Patient is feeling better. May be discharged with PO pain medication and PO antiemetics when medically stable. Patient instructed to follow up in surgery clinic when cleared by cardiology and we will schedule elective cholecystectomy. Plan was discussed in detail with the patient and her family. Thank you, please call with questions. Objective Vital Signs - 12hr 07/06/18 07/06/18 07/06/18 04:45 07:59 11:36 Temperature 97.5 F L 97.9 F 98.0 F Pulse Rate 49 L 54 L 48 L Respiratory 16 20 20 Rate Blood Pressure 93/39 133/78 124/61 O2 Sat by Pulse 100 96 99 Oximetry - Labs 07/05/18 04:02 07/06/18 07:45 Diabetes panel 07/06/18 07/06/18 Range/Units 07:45 08:59 Sodium 138 (137-145) mmol/L Potassium 5.0 (3.6-5.0) mmol/L Chloride 102.0 (98-107) mmol/L Carbon Dioxide 23 (22-30) mmol/L BUN 65 H (7-17) mg/dL Creatinine 2.0 H (0.7-1.2) mg/dL Glucose 63 L (65-100) mg/dL Hemoglobin A1c 12.5 H (4-6) % Calcium 8.2 L (8.4-10.2) mg/dL Calcium panel 07/06/18 Range/Units 07:45 Calcium 8.2 L (8.4-10.2) mg/dL Pituitary panel 07/06/18 Range/Units 07:45 Sodium 138 (137-145) mmol/L Potassium 5.0 (3.6-5.0) mmol/L Chloride 102.0 (98-107) mmol/L Carbon Dioxide 23 (22-30) mmol/L BUN 65 H (7-17) mg/dL Creatinine 2.0 H (0.7-1.2) mg/dL Glucose 63 L (65-100) mg/dL Calcium 8.2 L (8.4-10.2) mg/dL Adrenal panel 07/06/18 Range/Units 07:45 Sodium 138 (137-145) mmol/L Potassium 5.0 (3.6-5.0) mmol/L Chloride 102.0 (98-107) mmol/L Carbon Dioxide 23 (22-30) mmol/L BUN 65 H (7-17) mg/dL Creatinine 2.0 H (0.7-1.2) mg/dL Glucose 63 L (65-100) mg/dL Calcium 8.2 L (8.4-10.2) mg/dL
--- NOTE | 2018-07-06 14:21 | Progress Note ---
Assessment and Plan 1. Acute kidney injury: Acute kidney injury secondary to contrast induced nephropathy. Urine studies pending. Imaging was negative for hydro. Continue IV fluids. Renal function is improving. Renal prognosis is guarded. Monitor renal function. Avoid Nephrotoxic agents. 2. FEN: Hyponatremia, improved. Monitor lytes. 3. CAD s/p stent. 4. N & V and Abd pain: Followed by GI and Gen. Surgery. 5. DM type 2. 6. Anemia: POA. Subjective Date of service: 07/06/18 Principal diagnosis: cp, abdominal pain Interval history: Patient was seen and examined at the bedside. C/o abd pain. Objective - Vital Signs Vital signs: Vital Signs - 12hr 07/06/18 07/06/18 07/06/18 04:45 07:59 11:36 Temperature 97.5 F L 97.9 F 98.0 F Pulse Rate 49 L 54 L 48 L Respiratory 16 20 20 Rate Blood Pressure 93/39 133/78 124/61 O2 Sat by Pulse 100 96 99 Oximetry - General Appearance General appearance: well-developed, well-nourished, appears stated age, obese, other (not in distress) EENT: ATNC, PERRL, hearing intact Neck: supple Respiratory: Present: Clear to Ascultation Cardiology: regular, S1S2, no murmurs Gastrointestinal: normoactive bowel sounds, no tenderness, no distended Integumentary: no rash, warm and dry Neurologic: no focal deficit, no asterixis, alert and oriented x3 Musculoskeletal: other (trace LE edema noted) - Lab 07/08/18 05:58 07/08/18 05:58 Most recent lab results Calcium 8.2 mg/dL (8.4-10.2) L 07/06/18 07:45 Phosphorus 6.10 mg/dL (2.5-4.5) H 07/05/18 04:02 Magnesium 2.30 mg/dL (1.7-2.3) 07/05/18 04:02 Medications & Allergies - Medications Allergies/Adverse Reactions: Allergies No Known Allergies Allergy (Verified 05/25/16 00:37) Home Medications: Home Medications Medication Instructions Recorded Confirmed Last Taken Type Insulin NPH Hum/Reg Insulin Hm 40 unit SQ TIDAC 05/19/13 07/01/18 02/27/17 10:00 History [NovoLIN 70-30 100 Unit/ml Vial] 40units Isosorbide Mononitrate 60 mg PO DAILY 05/19/13 07/01/18 02/27/17 10:00 History 10mg Gabapentin [Neurontin] 800 mg PO Q8HR 11/01/15 07/01/18 02/27/17 10:00 History 800mg Aspirin EC 81 mg PO QDAY #30 tablet. 11/03/15 07/01/18 02/27/17 10:00 Rx 81mg Carvedilol [Coreg] 12.5 mg PO BID 02/28/17 07/01/18 02/27/17 10:00 History 12.5mg Clopidogrel [Plavix] 75 mg PO QDAY 02/28/17 07/01/18 02/27/17 10:00 History 75mg Escitalopram [Lexapro] 20 mg PO DAILY 02/28/17 07/01/18 02/27/17 10:00 History 20mg Lisinopril [Zestril TAB] 20 mg PO QDAY 02/28/17 07/01/18 02/27/17 10:00 History 20mg Torsemide [Demadex] 20 mg PO DAILY 02/28/17 07/01/18 02/27/17 10:00 History 20mg traMADol [Ultram 50 MG tab] 100 mg PO Q8HR 02/28/17 07/01/18 02/27/17 10:00 History 100mg Baclofen [Lioresal] 10 mg PO HS 07/01/18 07/01/18 Unknown History Brimonidine Tartrate/Timolol 1 drop OP BID 07/01/18 07/01/18 Unknown History [Combigan 0.2%-0.5% Eye Drops] Buspirone HCl [busPIRone] 15 mg PO BID 07/01/18 07/01/18 Unknown History Insulin Detemir [Levemir] 100 unit SQ HS 07/01/18 07/01/18 Unknown History Lispro Insulin [HumaLOG] 100 unit SQ QHS 07/01/18 07/01/18 Unknown History Active Medications: Generic Name Dose Route Start Last Admin Trade Name Freq PRN Reason Stop Dose Admin Acetaminophen 650 mg 07/01/18 03:24 07/02/18 09:19 Tylenol PO 650 mg Q4H PRN Administration Pain MILD(1-3)/Fever >100.5/SHARPE Aspirin 81 mg 07/02/18 10:00 07/06/18 09:27 Baby Aspirin PO 81 mg QDAY [facility] Administration Atorvastatin Calcium 40 mg 07/01/18 22:00 07/05/18 22:35 Lipitor PO 40 mg QHS [facility] Administration Baclofen 10 mg 07/01/18 22:00 07/05/18 22:35 Lioresal PO 10 mg HS [facility] Administration Brimonidine/Timolol 1 drops 07/02/18 23:00 07/06/18 11:51 Combigan 0.2-0.5% OD 1 drops BID [facility] Administration Buspirone HCl 15 mg 07/01/18 10:00 07/06/18 11:51 Buspar PO 15 mg BID [facility] Administration Carvedilol 12.5 mg 07/04/18 11:00 07/06/18 12:00 Coreg PO Not Given BID [facility] Clopidogrel Bisulfate 75 mg 07/02/18 10:00 07/06/18 09:18 Plavix PO 75 mg QDAY [facility] Administration Dextrose 50 ml 07/01/18 03:40 D50w (25gm) Syringe IV PRN PRN Hypoglycemia Dicyclomine HCl 20 mg 07/04/18 14:00 07/06/18 11:54 Bentyl PO 20 mg QID [facility] Administration Escitalopram Oxalate 20 mg 07/01/18 10:00 07/06/18 09:19 Lexapro PO 20 mg DAILY [facility] Administration Hydromorphone HCl 0.5 mg 07/06/18 10:54 Dilaudid IV Q6H PRN Pain , Severe (7-10) Hydromorphone HCl 1 mg 07/06/18 13:57 Dilaudid PO Q4H PRN Pain , Severe (7-10) Sodium Chloride 1,000 mls @ 50 mls/hr 07/06/18 09:00 Nacl 0.9% 1000 Ml IV DIRECT [facility] Insulin Glargine 25 units 07/04/18 08:00 07/06/18 12:00 Lantus SUB-Q Not Given BID@0800,2000 [facility] Insulin Human Lispro 0 unit 07/03/18 22:00 07/05/18 22:41 Humalog SUB-Q Not Given [facility] Protocol Isosorbide Mononitrate 60 mg 07/01/18 10:00 07/06/18 12:00 Imdur PO 60 mg DAILY [facility] Administration Metoclopramide HCl 10 mg 07/03/18 09:13 07/06/18 09:19 Reglan IV 10 mg Q6H PRN Administration Nausea And Vomiting Nitroglycerin 0.4 mg 07/01/18 04:10 Nitrostat SL Q5M PRN Chest Pain Ondansetron HCl 4 mg 07/01/18 03:24 07/06/18 04:23 Zofran IV 4 mg Q8H PRN Administration Nausea And Vomiting Polyethylene Glycol 17 gm 07/02/18 12:00 07/06/18 12:01 Miralax 3350 PO Not Given QDAY [facility] Promethazine HCl 12.5 mg 07/03/18 09:13 07/04/18 21:12 Phenergan PO 12.5 mg Q6H PRN Administration Nausea And Vomiting Sodium Chloride 10 ml 07/01/18 10:00 07/06/18 11:59 Sodium Chloride Flush Syringe 10 Ml IV 10 ml BID [facility] Administration Sodium Chloride 10 ml 07/01/18 03:24 07/04/18 03:48 Sodium Chloride Flush Syringe 10 Ml IV 10 ml PRN PRN Administration LINE FLUSH Sucralfate 1 gm 07/04/18 18:30 07/06/18 11:51 Carafate PO 1 gm Q6HR [facility] Administration Tramadol HCl 50 mg 07/05/18 11:59 Ultram PO Q4H PRN Pain, Moderate (4-6)
[2018-07-06] MEDS: DILAUDID PO PRN (20:24)
[2018-07-06] MEDS: HumaLOG SUB-Q SCH ×2 (22:23→23:42)
[2018-07-06] MEDS: LIORESAL PO SCH (22:51)
[2018-07-06] MEDS ORDERED: DILAUDID IV ONE (23:00)
--- NOTE | 2018-07-06 23:01 | Event Note ---
Date: 07/06/18 Called to bedside by nurse Arredondo. Patient is complaining of severe abdominal pain and states that the by mouth medication is not working to relieve her pain. I have explained to patient and her daughters that we'll try to transition her from IV pain medications to by mouth in preparation for discharge planning. Her daughter is present at the bedside and the other daughter is on the phone via face time. 1 time dose IV Dilaudid 0.5 mg given.
[2018-07-07] MEDS: CARAFATE PO SCH ×4 (00:01→17:25)
[2018-07-07] MEDS: BENTYL PO SCH ×5 (00:01→22:16)
[2018-07-07] MEDS: PHENERGAN PO PRN (01:05)
[2018-07-07] MEDS: DILAUDID PO PRN ×2 (01:05→05:03)
[2018-07-07] MEDS: COREG PO SCH ×3 (03:04→22:16)
[2018-07-07] MEDS: ZESTRIL PO SCH (03:05)
[2018-07-07] MEDS: ZOFRAN IV PRN (04:31)
[2018-07-07] MEDS: ULTRAM PO PRN ×2 (04:31→23:21)
[2018-07-07] MEDS: REGLAN IV PRN (08:14)
[2018-07-07] MEDS: LANTUS SUB-Q SCH ×2 (08:15→22:36)
[2018-07-07 08:55] LABS: Basophils # (Auto) 0.1 K/mm3 (0.0-0.1); Basophils % (Auto) 0.6 % (0.0-1.8); Eosinophils # (Auto) 0.1 K/mm3 (0.0-0.4); Eosinophils % (Auto) 0.7 % (0.0-4.3); Hemoglobin 10.2 gm/dl (10.1-14.3); Lymphocytes # (Auto) 1.4 K/mm3 (1.2-5.4); Lymphocytes % (Auto) 12.6 % (13.4-35.0); Mean Corpuscular HGB Conc 32 % (30-34); Mean Corpuscular Volume 83 fl (79-97); Monocytes # (Auto) 1.3 K/mm3 (0.0-0.8); Monocytes % (Auto) 11.4 % (0.0-7.3); Platelet Count 223 K/mm3 (140-440); Red Blood Count 3.88 M/mm3 (3.65-5.03); Red Cell Distribution Width 14.1 % (13.2-15.2)
[2018-07-07 09:10] LABS: Alanine Aminotransferase 10 units/L (7-56); Albumin 3.5 g/dL (3.9-5); BUN/Creatinine Ratio 36; Blood Urea Nitrogen 40 mg/dL (7-17); Calcium 8.9 mg/dL (8.4-10.2); Hemolysis Index 2
[2018-07-07] MEDS: BABY ASPIRIN PO SCH (09:39)
[2018-07-07] MEDS: PLAVIX PO SCH (09:39)
[2018-07-07] MEDS: BUSPAR PO SCH ×2 (09:39→22:16)
[2018-07-07] MEDS: LEXAPRO PO SCH (09:39)
[2018-07-07] MEDS: IMDUR PO SCH (09:40)
[2018-07-07] MEDS: MIRALAX 3350 PO SCH (09:40)
[2018-07-07] MEDS: COMBIGAN 0.2-0.5% OD SCH ×2 (09:40→22:19)
[2018-07-07] MEDS: SODIUM CHLORIDE FLUSH SYRINGE 10 ML IV SCH ×2 (09:41→22:25)
--- NOTE | 2018-07-07 09:44 | Progress Note ---
Assessment and Plan gave dilaudid 1mg now and in discussion with pharmacy and pt start percoet 5/325mg q4 efren and see if pain is controlled, elevated bp secondary to pain. - Patient Problems (1) Nausea and vomiting Current Visit: Yes Status: Acute (2) CAD (coronary artery disease) Current Visit: Yes Status: Chronic Qualifiers: Coronary Disease-Associated Artery/Lesion type: [place] artery [place] vs. transplanted heart: [place] heart Associated angina: with stable angina Qualified Code(s): I25.118 - Atherosclerotic heart disease of [place] coronary artery with other forms of angina pectoris (3) Diabetes Current Visit: Yes Status: Chronic Qualifiers: Diabetes mellitus type: type 1 Diabetes mellitus complication status: without complication Qualified Code(s): E10.9 - Type 1 diabetes mellitus without complications (4) HTN (hypertension) Current Visit: Yes Status: Chronic Qualifiers: Hypertension type: essential hypertension Qualified Code(s): I10 - Essential (primary) hypertension (5) Hyperlipidemia Current Visit: Yes Status: Chronic Qualifiers: Hyperlipidemia type: mixed hyperlipidemia Qualified Code(s): E78.2 - Mixed hyperlipidemia (6) Obesity Current Visit: Yes Status: Chronic Qualifiers: Obesity classification: adult class 2 (BMI 35 - 39.9) (7) ARF (acute renal failure) Current Visit: No Status: Acute Qualifiers: Acute renal failure type: with acute tubular necrosis Qualified Code(s): N17.0 - Acute kidney failure with tubular necrosis (8) NSTEMI (non-ST elevated myocardial infarction) Current Visit: Yes Status: Acute Subjective Date of service: 07/07/18 Principal diagnosis: cp, abdominal pain Interval history: pt has abd pain and took diluadid yesterday, tramadol not holding her pain Objective Vital Signs Temp Pulse Resp BP Pulse Ox 07/07/18 08:04 98.4 F 63 20 184/81 95 07/07/18 06:02 60 175/74 97 07/07/18 04:11 98.4 F 07/07/18 04:10 67 18 158/78 99 07/07/18 00:35 22 07/07/18 00:24 98.3 F 07/07/18 00:23 55 L 20 123/68 96 07/06/18 22:54 65 154/62 07/06/18 22:00 58 L 07/06/18 20:12 56 L 20 154/62 99 07/06/18 16:43 122.0 F H 53 L 20 128/66 100 07/06/18 11:36 98.0 F 48 L 20 124/61 99 07/06/18 10:00 49 L - Physical Examination General: Other (n/v) HEENT: Positive: PERRL, Normocephaly, Mucus Membranes Moist Neck: Positive: neck supple, trachea midline Cardiac: Positive: Reg Rate and Rhythm Lungs: Positive: clear to auscultation Neuro: Positive: Grossly Intact Abdomen: Positive: Tender, Distended Skin: Negative: Rash, Wound Musculoskeletal: No Pain Extremities: Absent: edema - Labs and Meds Cardiac Enzymes 07/07/18 Range/Units 08:23 AST 12 (5-40) units/L CBC 07/07/18 Range/Units 08:23 WBC 11.5 H (4.5-11.0) K/mm3 RBC 3.88 (3.65-5.03) M/mm3 Hgb 10.2 (10.1-14.3) gm/dl Hct 32.0 (30.3-42.9) % Plt Count 223 (140-440) K/mm3 Lymph # 1.4 (1.2-5.4) K/mm3 [place] # 1.3 H (0.0-0.8) K/mm3 Eos # 0.1 (0.0-0.4) K/mm3 Baso # 0.1 (0.0-0.1) K/mm3 Comprehensive Metabolic Panel 07/07/18 Range/Units 08:23 Sodium 139 (137-145) mmol/L Potassium 4.9 (3.6-5.0) mmol/L Chloride 102.6 (98-107) mmol/L Carbon Dioxide 24 (22-30) mmol/L BUN 40 H (7-17) mg/dL Creatinine 1.1 (0.7-1.2) mg/dL Glucose 211 H (65-100) mg/dL Calcium 8.9 (8.4-10.2) mg/dL AST 12 (5-40) units/L ALT 10 (7-56) units/L Alkaline Phosphatase 87 (35-129) units/L Total Protein 7.3 D (6.3-8.2) g/dL Albumin 3.5 L (3.9-5) g/dL - Imaging and Cardiology EKG: report reviewed, image reviewed Echo: report reviewed (06/12/2016 at [place] showed EF 55%, mild MR. ) Cardiac cath: report reviewed ([facility] on 05/31/[address] Pa which showed lt main patent, lad mid 80% small vessel distal, lcx mid 95% and rca mid 100% normal lv function elevated lvedp 40-45mmhg. She was transferred to [place] for possible bypass vs pci and subsequently underwent PTCA of mid LAD and LUZ to mid LAD on 06/11/2016. ) - EKG Sinus rhythms and dysrhythmias: sinus rhythm
[2018-07-07] MEDS: HumaLOG SUB-Q SCH ×4 (09:47→22:35)
[2018-07-07] MEDS: PERCOCET 5/325 PO SCH ×2 (09:48→13:59)
[2018-07-07] MEDS ORDERED: DILAUDID IV ONE ×2 (10:00→16:38)
--- NOTE | 2018-07-07 13:02 | Progress Note ---
Assessment and Plan Assessment and plan: 57-year-old female patient with significant coronary artery disease status post PCI was admitted through emergency room with chest pain, evaluated by cardiology and underwent heart Status post stent placement to distal circumflex, patient developed acute renal failure, now resolved, intractable nausea vomiting end. Biliary dyskinesia, evaluated by GI, and surgery, no surgical indication at this point in view of recent stent, medical management. Patient continues to have intractable nausea vomiting, and pain medications, currently intervening off of IV and oral Percocet/[place]. --Intractable nausea vomiting and abdominal pain; biliary dyskinesia Evaluated by GI, surgery following, liquid diet advance as tolerated IV fluids, antiemetics, pain medications --Acute kidney injury; secondary to vasomotor nephropathy, resolved. Gentle IV hydration Avoid nephrotoxins, nephrology following --Non-ST elevation OR; status post cardiac catheterization s/p PCI of the distal circumflex. On dual platelets aspirin and Plavix, cardiology following --History of coronary artery disease status post PCI; on cardiac medications --Hyponatremia; significantly improved --2 diabetes mellitus; uncontrolled A1c 12.5 ,Accu-Chek sliding scale coverage ADA diet, longer acting insulin. Monitor blood sugars and adjust insulin as needed --Diabetic neuropathy; continue gabapentin --Hypertension; moderate control, continue current antihypertensives and when necessary medications --Dyslipidemia: continue statin. --Moderate malnutrition/hypoalbuminemia; nutrition supplements, nutrition consult if needed --DVT prophylaxis; Lovenox --Full CODE STATUS Consults and recommendations noted and appreciated Increase ambulation, possible discharge 1-2 days if stable Plan of care is reviewed with the patient and multiple family members at the bedside. They had numerous questions I answered all of them Disposition; follow clinically, patient can be discharged in 1-2 days if stable History Interval history: Patient seen and examined medical records reviewed Patient reports that she is not tolerating even clear liquids, and family say That she did not take anything oral since morning Complaints of generalized abdominal pain and nausea Vital signs noted Hospitalist Physical - Constitutional Vitals: Temp Pulse Resp BP Pulse Ox 98.4 F 63 20 184/81 95 07/07/18 08:04 07/07/18 08:04 07/07/18 08:04 07/07/18 08:04 07/07/18 08:04 General appearance: Present: mild distress, well-nourished, obese (morbidly obese) - EENT Eyes: Present: PERRL, EOM intact - Neck Neck: Present: supple, normal ROM - Respiratory Respiratory effort: normal Respiratory: bilateral: diminished, negative: rales, rhonchi, wheezing - Cardiovascular Rhythm: regular Heart Sounds: Present: S1 & S2 - Extremities Extremities: no ischemia, No edema - Abdominal General gastrointestinal: soft, non-tender, non-distended, normal bowel sounds - Psychiatric Psychiatric: appropriate mood/affect, cooperative - Neurologic Neurologic: CNII-XII intact, moves all extremities Results - Labs CBC & Chem 7: 07/07/18 08:23 07/07/18 08:23 Labs: Laboratory Last Values WBC 11.5 K/mm3 (4.5-11.0) H 07/07/18 08:23 RBC 3.88 M/mm3 (3.65-5.03) 07/07/18 08:23 Hgb 10.2 gm/dl (10.1-14.3) 07/07/18 08:23 Hct 32.0 % (30.3-42.9) 07/07/18 08:23 MCV 83 fl (79-97) 07/07/18 08:23 MCH 26 pg (28-32) L 07/07/18 08:23 MCHC 32 % (30-34) 07/07/18 08:23 RDW 14.1 % (13.2-15.2) 07/07/18 08:23 Plt Count 223 K/mm3 (140-440) 07/07/18 08:23 Lymph % (Auto) 12.6 % (13.4-35.0) L 07/07/18 08:23 [place] % (Auto) 11.4 % (0.0-7.3) H 07/07/18 08:23 Eos % (Auto) 0.7 % (0.0-4.3) 07/07/18 08:23 Baso % (Auto) 0.6 % (0.0-1.8) 07/07/18 08:23 Lymph # 1.4 K/mm3 (1.2-5.4) 07/07/18 08:23 [place] # 1.3 K/mm3 (0.0-0.8) H 07/07/18 08:23 Eos # 0.1 K/mm3 (0.0-0.4) 07/07/18 08:23 Baso # 0.1 K/mm3 (0.0-0.1) 07/07/18 08:23 Add Manual Diff Complete 07/01/18 00:12 Total Counted 100 07/01/18 00:12 Seg Neutrophils % 74.7 % (40.0-70.0) H 07/07/18 08:23 Seg Neuts % (Manual) 61.0 % (40.0-70.0) 07/01/18 00:12 1.0 % 07/01/18 00:12 25.0 % (13.4-35.0) 07/01/18 00:12 Reactive Lymphs % (Man) 1.0 % 07/01/18 00:12 10.0 % (0.0-7.3) H 07/01/18 00:12 0 % (0.0-4.3) 07/01/18 00:12 2.0 % (0.0-1.8) H 07/01/18 00:12 0 % 07/01/18 00:12 0 % 07/01/18 00:12 0 % 07/01/18 00:12 0 % 07/01/18 00:12 Nucleated RBC % Not Reportable 07/01/18 00:12 Seg Neutrophils # 8.6 K/mm3 (1.8-7.7) H 07/07/18 08:23 Seg Neutrophils # Man 5.9 K/mm3 (1.8-7.7) 07/01/18 00:12 Band Neutrophils # 0.1 K/mm3 07/01/18 00:12 2.4 K/mm3 (1.2-5.4) 07/01/18 00:12 Abs React Lymphs (Man) 0.1 K/mm3 07/01/18 00:12 1.0 K/mm3 (0.0-0.8) H 07/01/18 00:12 0.0 K/mm3 (0.0-0.4) 07/01/18 00:12 0.2 K/mm3 (0.0-0.1) H 07/01/18 00:12 0.0 K/mm3 07/01/18 00:12 0.0 K/mm3 07/01/18 00:12 0.0 K/mm3 07/01/18 00:12 Blast Cells # 0.0 K/mm3 07/01/18 00:12 WBC Morphology Not Reportable 07/01/18 00:12 Hypersegmented Neuts Not Reportable 07/01/18 00:12 Hyposegmented Neuts Not Reportable 07/01/18 00:12 Hypogranular Neuts Not Reportable 07/01/18 00:12 Not Reportable 07/01/18 00:12 Not Reportable 07/01/18 00:12 Not Reportable 07/01/18 00:12 Not Reportable 07/01/18 00:12 Not Reportable 07/01/18 00:12 Not Reportable 07/01/18 00:12 Consistent w auto 07/01/18 00:12 Not Reportable 07/01/18 00:12 Plt Clumps, EDTA Not Reportable 07/01/18 00:12 Not Reportable 07/01/18 00:12 Not Reportable 07/01/18 00:12 Not Reportable 07/01/18 00:12 Plt Morphology Comment Not Reportable 07/01/18 00:12 RBC Morphology Not Reportable 07/01/18 00:12 Dimorphic RBCs Not Reportable 07/01/18 00:12 Not Reportable 07/01/18 00:12 Not Reportable 07/01/18 00:12 Not Reportable 07/01/18 00:12 1+ 07/01/18 00:12 Not Reportable 07/01/18 00:12 Not Reportable 07/01/18 00:12 Not Reportable 07/01/18 00:12 Not Reportable 07/01/18 00:12 Not Reportable 07/01/18 00:12 Not Reportable 07/01/18 00:12 Not Reportable 07/01/18 00:12 Not Reportable 07/01/18 00:12 Not Reportable 07/01/18 00:12 Not Reportable 07/01/18 00:12 Not Reportable 07/01/18 00:12 Not Reportable 07/01/18 00:12 Not Reportable 07/01/18 00:12 Not Reportable 07/01/18 00:12 Not Reportable 07/01/18 00:12 Acanthocytes (Spur) Not Reportable 07/01/18 00:12 Rouleaux Not Reportable 07/01/18 00:12 Not Reportable 07/01/18 00:12 Not Reportable 07/01/18 00:12 Not Reportable 07/01/18 00:12 Not Reportable 07/01/18 00:12 Hem Pathologist Commnt No 07/01/18 00:12 PT 14.4 Sec. (12.2-14.9) 07/01/18 16:01 INR 1.05 (0.87-1.13) 07/01/18 16:01 APTT 39.4 Sec. (24.2-36.6) H 07/01/18 16:01 241 (74-137) H 07/01/18 11:58 Heparin Anti-Xa Level < 0.10 U.I./ml (0.3-0.7) L 07/04/18 00:24 Sodium 139 mmol/L (137-145) 07/07/18 08:23 Potassium 4.9 mmol/L (3.6-5.0) 07/07/18 08:23 Chloride 102.6 mmol/L (98-107) 07/07/18 08:23 Carbon Dioxide 24 mmol/L (22-30) 07/07/18 08:23 17 mmol/L 07/07/18 08:23 BUN 40 mg/dL (7-17) H 07/07/18 08:23 1.1 mg/dL (0.7-1.2) 07/07/18 08:23 Estimated GFR > 60 ml/min 07/07/18 08:23 36 % 07/07/18 08:23 Glucose 211 mg/dL (65-100) H 07/07/18 08:23 POC Glucose 254 (70-105) H 07/07/18 11:43 12.5 % (4-6) H 07/06/18 08:59 Calcium 8.9 mg/dL (8.4-10.2) 07/07/18 08:23 Phosphorus 2.90 mg/dL (2.5-4.5) 07/07/18 08:23 Magnesium 2.60 mg/dL (1.7-2.3) H 07/07/18 08:23 0.30 mg/dL (0.1-1.2) 07/07/18 08:23 < 0.2 mg/dL (0-0.2) 07/05/18 04:02 0.0 mg/dL 07/05/18 04:02 AST 12 units/L (5-40) 07/07/18 08:23 ALT 10 units/L (7-56) 07/07/18 08:23 87 units/L (35-129) 07/07/18 08:23 162 units/L (30-135) H 07/01/18 16:01 CK-MB (CK-2) 1.6 ng/mL (0.0-4.0) 07/01/18 16:01 CK-MB (CK-2) Rel Index 0.9 (0-4) 07/01/18 16:01 0.265 ng/mL (0.00-0.029) H* 07/04/18 05:31 NT-Pro-B Natriuret Pep 474.0 pg/mL (0-900) 07/01/18 00:18 7.3 g/dL (6.3-8.2) D 07/07/18 08:23 3.5 g/dL (3.9-5) L 07/07/18 08:23 0.9 % 07/07/18 08:23 Triglycerides 195 mg/dL (2-149) H 07/01/18 00:12 Cholesterol 188 mg/dL (50-199) 07/01/18 00:12 149 mg/dL (50-130) H 07/01/18 00:12 28 mg/dL (40-59) L 07/01/18 00:12 6.71 % 07/01/18 00:12 11 units/L (13-60) L 07/05/18 10:45 Active Medications - Current Medications Current Medications: Generic Name Dose Route Start Last Admin Trade Name Freq PRN Reason Stop Dose Admin Acetaminophen 650 mg 07/01/18 03:24 07/02/18 09:19 Tylenol PO 650 mg Q4H PRN Administration Pain MILD(1-3)/Fever >100.5/SHARPE Aspirin 81 mg 07/02/18 10:00 07/07/18 09:39 Baby Aspirin PO 81 mg QDAY BRINA Administration Atorvastatin Calcium 40 mg 07/01/18 22:00 07/06/18 22:51 Lipitor PO 40 mg QHS BRINA Administration Baclofen 10 mg 07/01/18 22:00 07/06/18 22:51 Lioresal PO 10 mg HS BRINA Administration Brimonidine/Timolol 1 drops 07/02/18 23:00 07/07/18 09:40 Combigan 0.2-0.5% OD 1 drops BID BRINA Administration Buspirone HCl 15 mg 07/01/18 10:00 07/07/18 09:39 Buspar PO 15 mg BID BRINA Administration Carvedilol 12.5 mg 07/04/18 11:00 07/07/18 09:39 Coreg PO 12.5 mg BID BRINA Administration Clopidogrel Bisulfate 75 mg 07/02/18 10:00 07/07/18 09:39 Plavix PO 75 mg QDAY BRINA Administration Dextrose 50 ml 07/01/18 03:40 D50w (25gm) Syringe IV PRN PRN Hypoglycemia Dicyclomine HCl 20 mg 07/04/18 14:00 07/07/18 09:40 Bentyl PO 20 mg QID BRINA Administration Escitalopram Oxalate 20 mg 07/01/18 10:00 07/07/18 09:39 Lexapro PO 20 mg DAILY BRINA Administration Sodium Chloride 1,000 mls @ 50 mls/hr 07/06/18 09:00 Nacl 0.9% 1000 Ml IV DIRECT BRINA Insulin Glargine 25 units 07/04/18 08:00 07/07/18 08:15 Lantus SUB-Q 25 units BID@0800,2000 BRINA Administration Insulin Human Lispro 0 unit 07/03/18 22:00 07/07/18 12:48 Humalog SUB-Q 3 unit ACHS BRINA Administration Protocol Isosorbide Mononitrate 60 mg 07/01/18 10:00 07/07/18 09:40 Imdur PO 60 mg DAILY BRINA Administration Metoclopramide HCl 10 mg 07/03/18 09:13 07/07/18 08:14 Reglan IV 10 mg Q6H PRN Administration Nausea And Vomiting Nitroglycerin 0.4 mg 07/01/18 04:10 Nitrostat SL Q5M PRN Chest Pain Ondansetron HCl 4 mg 07/01/18 03:24 07/07/18 04:31 Zofran IV 4 mg Q8H PRN Administration Nausea And Vomiting Oxycodone/Acetaminophen 1 tab 07/07/18 10:00 07/07/18 09:48 Percocet 5/325 PO Not Given Q4H BRINA Polyethylene Glycol 17 gm 07/02/18 12:00 07/07/18 09:40 Miralax 3350 PO 17 gm QDAY BRINA Administration Promethazine HCl 12.5 mg 07/03/18 09:13 07/07/18 01:05 Phenergan PO 12.5 mg Q6H PRN Administration Nausea And Vomiting Sodium Chloride 10 ml 07/01/18 10:00 07/07/18 09:41 Sodium Chloride Flush Syringe 10 Ml IV 10 ml BID BRINA Administration Sodium Chloride 10 ml 07/01/18 03:24 07/04/18 03:48 Sodium Chloride Flush Syringe 10 Ml IV 10 ml PRN PRN Administration LINE FLUSH Sucralfate 1 gm 07/04/18 18:30 07/07/18 12:48 Carafate PO 1 gm Q6HR BRINA Administration Tramadol HCl 50 mg 07/05/18 11:59 07/07/18 04:31 Ultram PO 50 mg Q4H PRN Administration Pain, Moderate (4-6) Nutrition/Malnutrition Assess - Dietary Evaluation Nutrition/Malnutrition Findings: Nutrition Notes Start: 07/01/18 1 6:16 Freq: Status: Active Protocol: Document 07/03/18 16:52 RM (Rec: 07/03/18 16:52 RM [id number]) Nutrition Notes Initial or Follow up Brief Note Subjective/Other Information Pt already familiar with DM diet education. Nutrition Intervention Revisit per MD consult or patient Sign Off request:
--- NOTE | 2018-07-07 14:37 | Progress Note ---
Assessment and Plan 1. Acute kidney injury: Acute kidney injury secondary to contrast induced nephropathy. Imaging was negative for hydro. Continue IV fluids. Renal function is better. Monitor renal function. Avoid Nephrotoxic agents. 2. FEN: Monitor lytes. 3. CAD s/p stent. 4. Abd pain: Followed by Gen. Surgery. 5. DM type 2. 6. Anemia: POA. Subjective Date of service: 07/07/18 Principal diagnosis: cp, abdominal pain Interval history: Patient was seen and examined at the bedside. Daughter and mother at the bedside. Doing ok. Objective - Vital Signs Vital signs: Vital Signs - 12hr 07/07/18 07/07/18 07/07/18 04:10 04:11 06:02 Temperature 98.4 F Pulse Rate 67 60 Respiratory 18 Rate Blood Pressure 158/78 175/74 O2 Sat by Pulse 99 97 Oximetry 07/07/18 07/07/18 07/07/18 08:04 10:00 11:40 Temperature 98.4 F 97.9 F Pulse Rate 63 54 L 54 L Respiratory 20 20 Rate Blood Pressure 184/81 145/73 O2 Sat by Pulse 95 93 Oximetry - General Appearance General appearance: well-developed, well-nourished, appears stated age, obese, other (no distress) EENT: ATNC, PERRL, hearing intact, vision intact Neck: supple Respiratory: Present: Clear to Ascultation Cardiology: regular, S1S2, no murmurs Gastrointestinal: normoactive bowel sounds, no tenderness, no distended, obese Integumentary: no rash, warm and dry Neurologic: no focal deficit, no asterixis, alert and oriented x3 Musculoskeletal: other (trace LE edema noted) - Lab 07/08/18 05:58 07/08/18 05:58 Most recent lab results Calcium 8.9 mg/dL (8.4-10.2) 07/07/18 08:23 Phosphorus 2.90 mg/dL (2.5-4.5) 07/07/18 08:23 Magnesium 2.60 mg/dL (1.7-2.3) H 07/07/18 08:23 Medications & Allergies - Medications Allergies/Adverse Reactions: Allergies No Known Allergies Allergy (Verified 05/25/16 00:37) Home Medications: Home Medications Medication Instructions Recorded Confirmed Last Taken Type Insulin NPH Hum/Reg Insulin Hm 40 unit SQ TIDAC 04/08/14 05/21/19 01/17/18 10:00 History [NovoLIN 70-30 100 Unit/ml Vial] 40units Isosorbide Mononitrate 60 mg PO DAILY 05/19/13 07/01/18 02/27/17 10:00 History 10mg Gabapentin [Neurontin] 800 mg PO Q8HR 11/01/15 07/01/18 02/27/17 10:00 History 800mg Aspirin EC 81 mg PO QDAY #30 tablet. 11/03/15 07/01/18 02/27/17 10:00 Rx 81mg Carvedilol [Coreg] 12.5 mg PO BID 02/28/17 07/01/18 02/27/17 10:00 History 12.5mg Clopidogrel [Plavix] 75 mg PO QDAY 02/28/17 07/01/18 02/27/17 10:00 History 75mg Escitalopram [Lexapro] 20 mg PO DAILY 02/28/17 07/01/18 02/27/17 10:00 History 20mg Lisinopril [Zestril TAB] 20 mg PO QDAY 02/28/17 07/01/18 02/27/17 10:00 History 20mg Torsemide [Demadex] 20 mg PO DAILY 02/28/17 07/01/18 02/27/17 10:00 History 20mg traMADol [Ultram 50 MG tab] 100 mg PO Q8HR 02/28/17 07/01/18 02/27/17 10:00 History 100mg Baclofen [Lioresal] 10 mg PO 07/01/18 07/01/18 Unknown History Brimonidine Tartrate/Timolol 1 drop OP BID 07/01/18 07/01/18 Unknown History [Combigan 0.2%-0.5% Eye Drops] Buspirone HCl [busPIRone] 15 mg PO BID 07/01/18 07/01/18 Unknown History Insulin Detemir [Levemir] 100 unit SQ 07/01/18 07/01/18 Unknown History Lispro Insulin [HumaLOG] 100 unit SQ QHS 07/01/18 07/01/18 Unknown History Active Medications: Generic Name Dose Route Start Last Admin Trade Name Freq PRN Reason Stop Dose Admin Acetaminophen 650 mg 07/01/18 03:24 07/02/18 09:19 Tylenol PO 650 mg Q4H PRN Administration Pain MILD(1-3)/Fever >100.5/SHARPE Aspirin 81 mg 07/02/18 10:00 07/07/18 09:39 Baby Aspirin PO 81 mg QDAY BRINA Administration Atorvastatin Calcium 40 mg 07/01/18 22:00 07/06/18 22:51 Lipitor PO 40 mg QHS BRINA Administration Baclofen 10 mg 07/01/18 22:00 07/06/18 22:51 Lioresal PO 10 mg HS BRINA Administration Brimonidine/Timolol 1 drops 07/02/18 23:00 07/07/18 09:40 Combigan 0.2-0.5% OD 1 drops BID BRINA Administration Buspirone HCl 15 mg 07/01/18 10:00 07/07/18 09:39 Buspar PO 15 mg BID BRINA Administration Carvedilol 12.5 mg 07/04/18 11:00 07/07/18 09:39 Coreg PO 12.5 mg BID BRINA Administration Clopidogrel Bisulfate 75 mg 07/02/18 10:00 07/07/18 09:39 Plavix PO 75 mg QDAY BRINA Administration Dextrose 50 ml 07/01/18 03:40 D50w (25gm) Syringe IV PRN PRN Hypoglycemia Dicyclomine HCl 20 mg 07/04/18 14:00 07/07/18 13:59 Bentyl PO 20 mg QID BRINA Administration Escitalopram Oxalate 20 mg 07/01/18 10:00 07/07/18 09:39 Lexapro PO 20 mg DAILY BRINA Administration Sodium Chloride 1,000 mls @ 50 mls/hr 07/06/18 09:00 07/07/18 14:02 Nacl 0.9% 1000 Ml IV 50 mls/hr DIRECT BRINA Administration Insulin Glargine 25 units 07/04/18 08:00 07/07/18 08:15 Lantus SUB-Q 25 units BID@0800,2000 BRINA Administration Insulin Human Lispro 0 unit 07/03/18 22:00 07/07/18 12:48 Humalog SUB-Q 3 unit ACHS BRINA Administration Protocol Isosorbide Mononitrate 60 mg 07/01/18 10:00 07/07/18 09:40 Imdur PO 60 mg DAILY BRINA Administration Metoclopramide HCl 10 mg 07/03/18 09:13 07/07/18 08:14 Reglan IV 10 mg Q6H PRN Administration Nausea And Vomiting Nitroglycerin 0.4 mg 07/01/18 04:10 Nitrostat SL Q5M PRN Chest Pain Ondansetron HCl 4 mg 07/01/18 03:24 07/07/18 04:31 Zofran IV 4 mg Q8H PRN Administration Nausea And Vomiting Oxycodone/Acetaminophen 1 tab 07/07/18 10:00 07/07/18 13:59 Percocet 5/325 PO 1 tab Q4H BRINA Administration Polyethylene Glycol 17 gm 07/02/18 12:00 07/07/18 09:40 Miralax 3350 PO 17 gm QDAY BRINA Administration Promethazine HCl 12.5 mg 07/03/18 09:13 07/07/18 01:05 Phenergan PO 12.5 mg Q6H PRN Administration Nausea And Vomiting Sodium Chloride 10 ml 07/01/18 10:00 07/07/18 09:41 Sodium Chloride Flush Syringe 10 Ml IV 10 ml BID BRINA Administration Sodium Chloride 10 ml 07/01/18 03:24 07/04/18 03:48 Sodium Chloride Flush Syringe 10 Ml IV 10 ml PRN PRN Administration LINE FLUSH Sucralfate 1 gm 07/04/18 18:30 07/07/18 12:48 Carafate PO 1 gm Q6HR BRINA Administration Tramadol HCl 50 mg 07/05/18 11:59 07/07/18 04:31 Ultram PO 50 mg Q4H PRN Administration Pain, Moderate (4-6) Ursodiol 500 mg 07/07/18 17:00 Nita PO TIDDIAB BRINA
[2018-07-07] MEDS: URSO PO SCH (17:27)
[2018-07-07] MEDS: LIORESAL PO SCH (22:15)
[2018-07-07] MEDS: NORCO 5/325 PO PRN (22:15)
[2018-07-07] MEDS: LOVENOX SUB-Q SCH (22:20)
[2018-07-08] MEDS: CARAFATE PO SCH ×5 (01:18→23:00)
[2018-07-08] MEDS: NORCO 5/325 PO PRN ×2 (01:51→08:31)
[2018-07-08] MEDS ORDERED: DILAUDID IV ONE ×2 (03:45→11:39)
[2018-07-08 06:28] LABS: Basophils # (Auto) 0.1 K/mm3 (0.0-0.1); Basophils % (Auto) 0.5 % (0.0-1.8); Eosinophils % (Auto) 0.2 % (0.0-4.3); Hematocrit 31.6 % (30.3-42.9); Hemoglobin 10.2 gm/dl (10.1-14.3); Lymphocytes # (Auto) 1.7 K/mm3 (1.2-5.4); Lymphocytes % (Auto) 15.8 % (13.4-35.0); Mean Corpuscular HGB Conc 32 % (30-34); Mean Corpuscular Volume 82 fl (79-97); Monocytes # (Auto) 1.3 K/mm3 (0.0-0.8); Monocytes % (Auto) 12.4 % (0.0-7.3); Platelet Count 242 K/mm3 (140-440); Red Blood Count 3.84 M/mm3 (3.65-5.03); Red Cell Distribution Width 14.4 % (13.2-15.2)
[2018-07-08 06:53] LABS: Alanine Aminotransferase 10 units/L (7-56); Albumin 3.3 g/dL (3.9-5); BUN/Creatinine Ratio 32; Blood Urea Nitrogen 32 mg/dL (7-17); Calcium 9.1 mg/dL (8.4-10.2); Hemolysis Index 4
[2018-07-08] MEDS ORDERED: DILAUDID IV NR (08:58)
[2018-07-08] MEDS ORDERED: DILAUDID PO PRN ×2 (09:25→09:27)
[2018-07-08] MEDS ORDERED: DULCOLAX PR PRN (10:45)
--- NOTE | 2018-07-08 11:14 | Progress Note ---
Assessment and Plan 57 yo F with 1. biliary dyskenesia, RUQ abd pain 2. CAD s/p stent on 06/11/18 3. NSEMI 4. DONAL Plan; 1. NPO 2. IVF 3. HIDA - GB EF 28% - mildly reduced but can be reason for patient's symptoms. Explained to patient and family that at this point there is no urgent need for cholecystectomy. Due to her heart issues and recent stent, anticoagulation cannot be held and she is at increased risk for another cardiac event if she underwent surgery. 4. adjusted pain medications several times but now patient states even IV dilaudid is not helping 5. prn nausea control 6. CT scan A/P ordered Thank you, please call with questions. Subjective Date of service: 07/08/18 Narrative: Pt seen and examined. c/o severe diffuse abdominal pain. Patient states she hasn't been able to tolerate liquids since last night. States dilaudid sometimes helps with her pain and sometimes makes the pain worse. Nothing helps with the pain except the IV dilaudid and it only helps for an hour or so. She has not had a BM or passed flatus in several days. No f/c, cp. Objective Vital Signs - 12hr 07/07/18 07/07/18 07/08/18 23:54 23:56 04:02 Temperature 98.2 F Pulse Rate 57 L 55 L Respiratory 20 20 Rate Blood Pressure 137/66 144/68 O2 Sat by Pulse 94 94 Oximetry 07/08/18 07/08/18 04:04 08:47 Temperature 98.3 F Pulse Rate 62 Respiratory Rate Blood Pressure 168/78 O2 Sat by Pulse 96 Oximetry - General physical appearance Narrative Exam: Gen: AAOx3. mild distress due to pain. ENT: no scleral icterus or conjunctival pallor CV: s1, S2+ resp; even and unlabored Abd: soft, ND, + mild TTP diffusely. no r/r/g. No peritoneal signs Ext: no c/c/e - Labs 07/08/18 05:58 07/08/18 05:58 Diabetes panel 07/08/18 Range/Units 05:58 Sodium 139 (137-145) mmol/L Potassium 4.8 (3.6-5.0) mmol/L Chloride 103.9 (98-107) mmol/L Carbon Dioxide 23 (22-30) mmol/L BUN 32 H (7-17) mg/dL Creatinine 1.0 (0.7-1.2) mg/dL Glucose 152 H (65-100) mg/dL Calcium 9.1 (8.4-10.2) mg/dL AST 10 (5-40) units/L ALT 10 (7-56) units/L Alkaline Phosphatase 82 (35-129) units/L Total Protein 7.2 (6.3-8.2) g/dL Albumin 3.3 L (3.9-5) g/dL Calcium panel 07/08/18 Range/Units 05:58 Calcium 9.1 (8.4-10.2) mg/dL Albumin 3.3 L (3.9-5) g/dL Pituitary panel 07/08/18 Range/Units 05:58 Sodium 139 (137-145) mmol/L Potassium 4.8 (3.6-5.0) mmol/L Chloride 103.9 (98-107) mmol/L Carbon Dioxide 23 (22-30) mmol/L BUN 32 H (7-17) mg/dL Creatinine 1.0 (0.7-1.2) mg/dL Glucose 152 H (65-100) mg/dL Calcium 9.1 (8.4-10.2) mg/dL Adrenal panel 07/08/18 Range/Units 05:58 Sodium 139 (137-145) mmol/L Potassium 4.8 (3.6-5.0) mmol/L Chloride 103.9 (98-107) mmol/L Carbon Dioxide 23 (22-30) mmol/L BUN 32 H (7-17) mg/dL Creatinine 1.0 (0.7-1.2) mg/dL Glucose 152 H (65-100) mg/dL Calcium 9.1 (8.4-10.2) mg/dL Total Bilirubin 0.30 (0.1-1.2) mg/dL AST 10 (5-40) units/L ALT 10 (7-56) units/L Alkaline Phosphatase 82 (35-129) units/L Total Protein 7.2 (6.3-8.2) g/dL Albumin 3.3 L (3.9-5) g/dL
[2018-07-08] MEDS: URSO PO SCH ×3 (11:15→19:32)
[2018-07-08] MEDS: BENTYL PO SCH ×4 (11:18→21:59)
[2018-07-08] MEDS: IMDUR PO SCH (11:21)
[2018-07-08] MEDS: BUSPAR PO SCH ×2 (11:24→21:59)
[2018-07-08] MEDS: BABY ASPIRIN PO SCH (11:25)
[2018-07-08] MEDS: COMBIGAN 0.2-0.5% OD SCH ×2 (11:26→22:01)
[2018-07-08] MEDS: COREG PO SCH ×2 (11:26→22:01)
--- NOTE | 2018-07-08 11:26 | Progress Note ---
Assessment and Plan Pt still with c/o severe abdominal pain, nausea and vomiting. No c/o chest pain. Will defer pain control to GI and/or general surgery. Pt is s/p PCI on 07/01 and antiplatelet therapy cannot be held at this time for surgical intervention. d/w pt and pt's family at bedside. The patient has been seen in conjunction with Dr. Ha who agrees with the assessment and plan of care. - Patient Problems (1) NSTEMI (non-ST elevated myocardial infarction) Current Visit: Yes Status: Acute (2) CAD (coronary artery disease) Current Visit: Yes Status: Chronic Qualifiers: Coronary Disease-Associated Artery/Lesion type: [place] artery [place] vs. transplanted heart: [place] heart Associated angina: with stable angina Qualified Code(s): I25.118 - Atherosclerotic heart disease of [place] coronary artery with other forms of angina pectoris (3) Stented coronary artery Current Visit: Yes Status: Chronic (4) HTN (hypertension) Current Visit: Yes Status: Chronic Qualifiers: Hypertension type: essential hypertension Qualified Code(s): I10 - Essential (primary) hypertension (5) Hyperlipidemia Current Visit: Yes Status: Chronic Qualifiers: Hyperlipidemia type: mixed hyperlipidemia Qualified Code(s): E78.2 - Mixed hyperlipidemia (6) Diabetes mellitus with hyperglycemia Current Visit: Yes Status: Acute (7) Renal insufficiency Current Visit: Yes Status: Acute (8) Obesity Current Visit: Yes Status: Chronic Qualifiers: Obesity classification: adult class 2 (BMI 35 - 39.9) (9) Nausea and vomiting Current Visit: Yes Status: Acute (10) Uterine fibroid Current Visit: Yes Status: Chronic Subjective Date of service: 07/08/18 Principal diagnosis: cp, abdominal pain Interval history: pt laying in bed, c/o abdominal pain and n/v, anxious. no chest pain. family at bedside. Objective Last Vital Signs Temp 98.3 F 07/08/18 04:04 Pulse 62 07/08/18 08:47 Resp 20 07/08/18 04:02 BP 168/78 07/08/18 08:47 Pulse Ox 96 07/08/18 08:47 - Physical Examination General: Other (anxious, c/o abdominal pain) HEENT: Positive: PERRL, Normocephaly, Mucus Membranes Moist Neck: Positive: neck supple, trachea midline Cardiac: Positive: Reg Rate and Rhythm, S1/S2 Lungs: Positive: Decreased Breath Sounds Neuro: Positive: Grossly Intact Abdomen: Positive: Tender, Distended, Other (c/o abdominal pain ) Skin: Negative: Rash, Wound Musculoskeletal: No Pain Extremities: Absent: edema - Labs and Meds Cardiac Enzymes 07/08/18 Range/Units 05:58 AST 10 (5-40) units/L CBC 07/08/18 Range/Units 05:58 WBC 10.7 (4.5-11.0) K/mm3 RBC 3.84 (3.65-5.03) M/mm3 Hgb 10.2 (10.1-14.3) gm/dl Hct 31.6 (30.3-42.9) % Plt Count 242 (140-440) K/mm3 Lymph # 1.7 (1.2-5.4) K/mm3 Moffat # 1.3 H (0.0-0.8) K/mm3 Eos # 0.0 (0.0-0.4) K/mm3 Baso # 0.1 (0.0-0.1) K/mm3 Comprehensive Metabolic Panel 07/08/18 Range/Units 05:58 Sodium 139 (137-145) mmol/L Potassium 4.8 (3.6-5.0) mmol/L Chloride 103.9 (98-107) mmol/L Carbon Dioxide 23 (22-30) mmol/L BUN 32 H (7-17) mg/dL Creatinine 1.0 (0.7-1.2) mg/dL Glucose 152 H (65-100) mg/dL Calcium 9.1 (8.4-10.2) mg/dL AST 10 (5-40) units/L ALT 10 (7-56) units/L Alkaline Phosphatase 82 (35-129) units/L Total Protein 7.2 (6.3-8.2) g/dL Albumin 3.3 L (3.9-5) g/dL - Imaging and Cardiology EKG: report reviewed, image reviewed Echo: report reviewed (06/12/2016 at [facility] showed EF 55%, mild MR. ) Cardiac cath: report reviewed ([facility] on 05/31/[address] Pa which showed lt main patent, lad mid 80% small vessel distal, lcx mid 95% and rca mid 100% normal lv function elevated lvedp 40-45mmhg. She was transferred to [facility] for possible bypass vs pci and subsequently underwent PTCA of mid LAD and LUZ to mid LAD on 06/11/2016. ) - Telemetry EKG Rhythm: Sinus Rhythm - EKG Sinus rhythms and dysrhythmias: sinus rhythm
[2018-07-08] MEDS: LANTUS SUB-Q SCH ×2 (11:28→21:58)
[2018-07-08] MEDS ORDERED: ATIVAN IV NR (11:30)
[2018-07-08] MEDS: SODIUM CHLORIDE FLUSH SYRINGE 10 ML IV SCH ×2 (11:36→22:02)
[2018-07-08] MEDS: HumaLOG SUB-Q SCH ×4 (11:38→22:01)
[2018-07-08] MEDS: ZOFRAN IV PRN (12:03)
[2018-07-08] MEDS: LEXAPRO PO SCH (12:04)
--- NOTE | 2018-07-08 12:04 | XRay Report ---
AP ABDOMEN: HISTORY: Abdominal pain. The abdominal gas pattern is unremarkable. No masses or organomegaly is identified and there is no gross evidence of free air or fluid. Large partially calcified fibroid in the right side of the pelvis is noted. IMPRESSION: No acute abdominal process. Uterine fibroid.
[2018-07-08] MEDS: MIRALAX 3350 PO SCH (12:06)
[2018-07-08] MEDS: PLAVIX PO SCH (12:06)
--- NOTE | 2018-07-08 13:30 | Event Note ---
Date: 07/08/18 Went back to room to reexamine patient after dilaudid and ativan were give. She was laying in bed, AAOx3, and in no distress. She appeared very comfortable and family is at bedside. Her VSS and abdomen is soft, ND, and only mild tenderness on palpation in the RUQ. no r/r/g. She was also given antiemetic and nausea has resolved. KUB is negative for free air or bowel obstruction and lactic acid is 1.3 which is within normal range. I explained to family that a CT scan with IV and PO contrast would be ideal to evaluate bowel and blood vessels to r/o any acute intraabdominal process especially considering the level of pain the patient complains about. I explained that IV dye can cause her kidney function to worsen. We will start IVF. If the patient is ok with proceeding with CT with IV contrast knowing the risks to the kidneys, we will proceed. If she does not want contrast, the CT scan will be done without it but the radiologist will likely not be able to evaluate the blood vessels well. The patient and family understand and are willing to proceed with IV contrast administration. The patient is also going to try and drink oral contrast. I advised her to stop if she feels nauseated or vomits. PICC nurse was consulted due to inadequate IV access. I discussed case with her and she will place a 20G INT in order for CT scan to be done. In regard to patient and family c/o staffing overnight, I advised them to speak with Natasha Ponce. I personally discussed the case with Mr. Ponce who has spoken with one family member (daughter) and will be back to the room to speak with other family members.
--- NOTE | 2018-07-08 13:49 | Progress Note ---
Assessment and Plan 1. Acute kidney injury: Acute kidney injury secondary to contrast induced nephropathy. Imaging was negative for hydro. Continue IV fluids. Renal function is better. Monitor renal function. Avoid Nephrotoxic agents. S/p CT abdomen with IV contrast. Will follow renal function. 2. FEN: Monitor lytes. 3. CAD s/p stent. 4. Abd pain: Followed by Gen. Surgery. 5. DM type 2. 6. Anemia: POA. Subjective Date of service: 07/08/18 Principal diagnosis: cp, abdominal pain Interval history: Patient was seen and examined at the bedside. Multiple family member at the bedside. C/o abd pain. Objective - Vital Signs Vital signs: Vital Signs - 12hr 07/08/18 07/08/18 07/08/18 04:02 04:04 08:47 Temperature 98.3 F Pulse Rate 55 L 62 Respiratory 20 Rate Blood Pressure 144/68 168/78 O2 Sat by Pulse 94 96 Oximetry 07/08/18 07/08/18 11:21 11:26 Temperature Pulse Rate 62 62 Respiratory Rate Blood Pressure 168/78 168/78 O2 Sat by Pulse Oximetry - General Appearance General appearance: well-developed, well-nourished, appears stated age, obese, other (not in distress) EENT: ATNC, PERRL, hearing intact, vision intact Neck: supple Respiratory: Present: Clear to Ascultation Cardiology: regular, S1S2, no murmurs Gastrointestinal: normoactive bowel sounds, no tenderness, no distended Integumentary: no rash, warm and dry Neurologic: no focal deficit, no asterixis, alert and oriented x3 Musculoskeletal: other (trace LE edema) - Lab 07/08/18 05:58 07/08/18 05:58 Most recent lab results Calcium 9.1 mg/dL (8.4-10.2) 07/08/18 05:58 Phosphorus 2.90 mg/dL (2.5-4.5) 07/07/18 08:23 Magnesium 2.70 mg/dL (1.7-2.3) H 07/08/18 05:58 Medications & Allergies - Medications Allergies/Adverse Reactions: Allergies No Known Allergies Allergy (Verified 05/25/16 00:37) Home Medications: Home Medications Medication Instructions Recorded Confirmed Last Taken Type Insulin NPH Hum/Reg Insulin Hm 40 unit SQ TIDAC 05/19/13 07/01/18 02/27/17 10:00 History [NovoLIN 70-30 100 Unit/ml Vial] 40units Isosorbide Mononitrate 60 mg PO DAILY 05/19/13 07/01/18 02/27/17 10:00 History 10mg Gabapentin [Neurontin] 800 mg PO Q8HR 11/01/15 07/01/18 02/27/17 10:00 History 800mg Aspirin EC 81 mg PO QDAY #30 tablet. 11/03/15 07/01/18 02/27/17 10:00 Rx 81mg Carvedilol [Coreg] 12.5 mg PO BID 02/28/17 07/01/18 02/27/17 10:00 History 12.5mg Clopidogrel [Plavix] 75 mg PO QDAY 02/28/17 07/01/18 02/27/17 10:00 History 75mg Escitalopram [Lexapro] 20 mg PO DAILY 02/28/17 07/01/18 02/27/17 10:00 History 20mg Lisinopril [Zestril TAB] 20 mg PO QDAY 02/28/17 07/01/18 02/27/17 10:00 History 20mg Torsemide [Demadex] 20 mg PO DAILY 02/28/17 07/01/18 02/27/17 10:00 History 20mg traMADol [Ultram 50 MG tab] 100 mg PO Q8HR 02/28/17 07/01/18 02/27/17 10:00 History 100mg Baclofen [Lioresal] 10 mg PO HS 07/01/18 07/01/18 Unknown History Brimonidine Tartrate/Timolol 1 drop OP BID 07/01/18 07/01/18 Unknown History [Combigan 0.2%-0.5% Eye Drops] Buspirone HCl [busPIRone] 15 mg PO BID 07/01/18 07/01/18 Unknown History Insulin Detemir [Levemir] 100 unit SQ HS 07/01/18 07/01/18 Unknown History Lispro Insulin [HumaLOG] 100 unit SQ QHS 07/01/18 07/01/18 Unknown History Active Medications: Generic Name Dose Route Start Last Admin Trade Name Freq PRN Reason Stop Dose Admin Acetaminophen 650 mg 07/01/18 03:24 07/02/18 09:19 Tylenol PO 650 mg Q4H PRN Administration Pain MILD(1-3)/Fever >100.5/SHARPE Aspirin 81 mg 07/02/18 10:00 07/08/18 11:25 Baby Aspirin PO 81 mg QDAY [facility] Administration Atorvastatin Calcium 40 mg 07/01/18 22:00 07/07/18 22:16 Lipitor PO 40 mg QHS [facility] Administration Baclofen 10 mg 07/01/18 22:00 07/07/18 22:15 Lioresal PO 10 mg HS [facility] Administration Bisacodyl 10 mg 07/08/18 10:45 Dulcolax SC QDAY PRN Constip unreliev by MOM/or NPO Brimonidine/Timolol 1 drops 07/02/18 23:00 07/08/18 11:26 Combigan 0.2-0.5% OD 1 drops BID [facility] Administration Buspirone HCl 15 mg 07/01/18 10:00 07/08/18 11:24 Buspar PO 15 mg BID [facility] Administration Carvedilol 12.5 mg 07/04/18 11:00 07/08/18 11:26 Coreg PO 12.5 mg BID [facility] Administration Clopidogrel Bisulfate 75 mg 07/02/18 10:00 07/08/18 12:06 Plavix PO 75 mg QDAY [facility] Administration Dextrose 50 ml 07/01/18 03:40 D50w (25gm) Syringe IV PRN PRN Hypoglycemia Dicyclomine HCl 20 mg 07/04/18 14:00 07/08/18 11:18 Bentyl PO 20 mg QID [facility] Administration Docusate Sodium 100 mg 07/08/18 22:00 Colace PO BID [facility] Enoxaparin Sodium 40 mg 07/07/18 22:00 07/07/18 22:20 Lovenox SUB-Q 40 mg QDAY@2200 [facility] Administration Escitalopram Oxalate 20 mg 07/01/18 10:00 07/08/18 12:04 Lexapro PO 20 mg DAILY [facility] Administration Hydromorphone HCl 1 mg 07/08/18 09:27 Dilaudid PO Q3H PRN Pain , Severe (7-10) Hydromorphone HCl 0.5 mg 07/08/18 13:23 Dilaudid IV Q3H PRN Pain , Severe (7-10) Sodium Chloride 1,000 mls @ 75 mls/hr 07/08/18 14:00 Nacl 0.9% 1000 Ml IV DIRECT [facility] Insulin Glargine 25 units 07/04/18 08:00 07/08/18 11:28 Lantus SUB-Q 25 units BID@0800,2000 [facility] Administration Insulin Human Lispro 0 unit 07/03/18 22:00 07/08/18 11:38 Humalog SUB-Q 2 unit ACHS [facility] Administration Protocol Isosorbide Mononitrate 60 mg 07/01/18 10:00 07/08/18 11:21 Imdur PO 60 mg DAILY [facility] Administration Lorazepam 1 mg 07/08/18 13:23 Ativan IV Q8H PRN Anxiety Metoclopramide HCl 10 mg 07/03/18 09:13 07/07/18 08:14 Reglan IV 10 mg Q6H PRN Administration Nausea And Vomiting Nitroglycerin 0.4 mg 07/01/18 04:10 Nitrostat SL Q5M PRN Chest Pain Ondansetron HCl 4 mg 07/01/18 03:24 07/08/18 12:03 Zofran IV 4 mg Q8H PRN Administration Nausea And Vomiting Polyethylene Glycol 17 gm 07/02/18 12:00 07/08/18 12:06 Miralax 3350 PO 17 gm QDAY [facility] Administration Promethazine HCl 12.5 mg 07/03/18 09:13 07/07/18 01:05 Phenergan PO 12.5 mg Q6H PRN Administration Nausea And Vomiting Sodium Chloride 10 ml 07/01/18 10:00 07/08/18 11:36 Sodium Chloride Flush Syringe 10 Ml IV 10 ml BID [facility] Administration Sodium Chloride 10 ml 07/01/18 03:24 07/04/18 03:48 Sodium Chloride Flush Syringe 10 Ml IV 10 ml PRN PRN Administration LINE FLUSH Sucralfate 1 gm 07/04/18 18:30 07/08/18 12:05 Carafate PO 1 gm Q6HR [facility] Administration Ursodiol 500 mg 07/07/18 17:00 07/08/18 11:15 Nita PO 500 mg TIDDIAB [facility] Administration
[2018-07-08] MEDS: DILAUDID IV PRN ×2 (14:23→17:37)
--- NOTE | 2018-07-08 15:03 | Cat Scan Report ---
CT ABDOMEN PELVIS WITH CONTRAST: HISTORY: abdominal pain. COMPARISON: CT abdomen without contrast dated 07/02/18. TECHNIQUE: Helical CT in 1.25mm intervals following IV contrast. Sagittal and coronal reconstructions. FINDINGS: Lung bases: Borderline heart size. Trace right pleural effusion. Liver: Normal. Biliary system: Normal. Pancreas: Normal. Spleen: Normal. Kidneys/ureters/bladder: Normal. Adrenal glands: Normal. Aorta: Normal. Intestines: Within normal limits. Appendix: Normal. Pelvic viscera: There is a large solid mass containing speckled calcifications in the right lower quadrant measuring up to 14 cm. This presumably represents a large fundal fibroid with calcific degeneration. An ovarian mass is thought less likely but is difficult to exclude. Please note the ovaries are not clearly identified on CT or on recent pelvic ultrasound. There are no surrounding inflammatory changes. This mass is unchanged since 05/29/16. Ascites: None. Adenopathy: None. Musculoskeletal: Intact. Mild thoracolumbar spondylosis. IMPRESSION: No acute inflammatory process is identified in the abdomen or pelvis. There is a 14 cm partially calcified mass in the right lower quadrant. This presumably represents a large fundal or exophytic fibroid. I suppose I cannot entirely exclude an ovarian lesion, see above.
--- NOTE | 2018-07-08 15:45 | Progress Note ---
Assessment and Plan /Intractable nausea vomiting and abdominal pain; biliary dyskinesia ? Evaluated by GI, surgery following, no surgical intervention for now, GI signed off Had repeat CT abdomen and pelvis with contrast this morning which showed possible uterine versus ovarian calcified mass Consult CLASSICS TEACHER, continue IV fluids, antiemetics, pain medications /Acute kidney injury; secondary to vasomotor nephropathy, resolved. Gentle IV hydration, Avoid nephrotoxins, nephrology following renal function has been stable now /Non-ST elevation NV; status post cardiac catheterization s/p PCI of the distal circumflex. On dual platelets aspirin and Plavix, cardiology following /History of coronary artery disease status post PCI; on cardiac medications /Hyponatremia; significantly improved /Type 2 diabetes mellitus; uncontrolled A1c 12.5 ,Accu-Chek sliding scale coverage ADA diet, longer acting insulin. Monitor blood sugars and adjust insulin as needed /Diabetic neuropathy; continue gabapentin /-Hypertension; moderate control, continue current antihypertensives and when necessary medications /Dyslipidemia: continue statin. /-Moderate malnutrition/hypoalbuminemia; nutrition supplements, nutrition consult if needed /-DVT prophylaxis; Lovenox /-Full CODE STATUS Plan of care is reviewed with the patient and multiple family members at the bedside. Disposition; follow clinically, discharge plan depending on inhalation therapist recommendation Brief History 57-year-old female patient with significant coronary artery disease status post PCI was admitted through emergency room with chest pain, evaluated by cardiology and underwent heart Status post stent placement to distal circumflex, patient developed acute renal failure, now resolved, intractable nausea vomiting end. Biliary dyskinesia, evaluated by GI, and surgery, no surgical indication at this point in view of recent stent, medical management. Patient continues to have intractable nausea vomiting, and pain medications, currently intervening off of IV and oral Percocet/Crum Lynne. Had repeat CT abdomen and pelvis with contrast which showed possible uterine versus ovarian calcified mass, consulted STEAM TURBINE ASSEMBLER Hospitalist Physical General appearance: Present: mild distress, well-nourished, obese (morbidly obese) - EENT Eyes: Present: PERRL, EOM intact - Neck Neck: Present: supple, normal ROM - Respiratory Respiratory effort: normal Respiratory: bilateral: diminished, negative: rales, rhonchi, wheezing - Cardiovascular Rhythm: regular Heart Sounds: Present: S1 & S2 - Extremities Extremities: no ischemia, No edema - Abdominal General gastrointestinal: soft, non-tender, non-distended, normal bowel sounds - Psychiatric Psychiatric: appropriate mood/affect, cooperative - Neurologic Neurologic: CNII-XII intact, moves all extremities Subjective Date of service: 07/08/18 Principal diagnosis: cp, abdominal pain Interval history: Patient seen and examined. Medical records and medication list reviewed. No acute event overnight noted by the RN. Patient continued to complain of epigastric pain, consisting of IV pain medicat ions Refusing any oral meds, had multiple discussions with the family members and with general surgeon Head repeat CT abdomen and pelvis with contrast which showed possible uterine versus ovarian calcified mass Objective - Constitutional Vitals: Vital Signs - 12hr 07/08/18 07/08/18 07/08/18 04:02 04:04 08:47 Temperature 98.3 F Pulse Rate 55 L 62 Respiratory 20 Rate Blood Pressure 144/68 168/78 O2 Sat by Pulse 94 96 Oximetry 07/08/18 07/08/18 11:21 11:26 Temperature Pulse Rate 62 62 Respiratory Rate Blood Pressure 168/78 168/78 O2 Sat by Pulse Oximetry - Labs CBC & Chem 7: 07/08/18 05:58 07/09/18 05:52 Labs: Abnormal lab results 07/07/18 07/07/18 07/08/18 Range/Units 16:49 21:05 05:58 MCH 27 L (28-32) pg Yancey % (Auto) 12.4 H (0.0-7.3) % Yancey # 1.3 H (0.0-0.8) K/mm3 Seg Neutrophils % 71.1 H (40.0-70.0) % BUN (7-17) mg/dL Glucose (65-100) mg/dL POC Glucose 237 H 141 H (70-105) Magnesium (1.7-2.3) mg/dL Albumin (3.9-5) g/dL 07/08/18 07/08/18 07/08/18 Range/Units 05:58 08:51 13:05 MCH (28-32) pg Yancey % (Auto) (0.0-7.3) % Yancey # (0.0-0.8) K/mm3 Seg Neutrophils % (40.0-70.0) % BUN 32 H (7-17) mg/dL Glucose 152 H (65-100) mg/dL POC Glucose 175 H 173 H (70-105) Magnesium 2.70 H (1.7-2.3) mg/dL Albumin 3.3 L (3.9-5) g/dL
[2018-07-08] MEDS: NACL 0.9% 1000 ML 1,000 ML IV SCH (16:07)
--- NOTE | 2018-07-08 16:41 | Event Note ---
Date: 07/08/18 CT scan A/P performed with IV contrast. Images reviewed with Dr. Jacobo. No acute abdominal process seen. Mesenteric vessels patent. No bowel ischemia, obstruction, pathology seen. There is a large fibroid vs ovarian mass seen in the right abdomen. Although unlikely, recommend consult to HADOOP APPLICATION DEVELOPER to r/o this as a possible cause for abdominal pain Spoke with patient and her sister at bedside regarding results. Patient appears comfortable. NAD. I explained that she will remain NPO tonight and on IV pain medication. Will reassess in am and see if we can start clear liquid diet.
[2018-07-08] MEDS: REGLAN IV PRN (18:03)
[2018-07-08] MEDS: ATIVAN IV PRN (19:59)
[2018-07-08] MEDS: COLACE PO SCH (21:59)
[2018-07-08] MEDS: LIORESAL PO SCH (22:01)
[2018-07-08] MEDS: LOVENOX SUB-Q SCH (22:04)
[2018-07-09] MEDS: ZOFRAN IV PRN ×2 (01:03→10:29)
[2018-07-09] MEDS: DILAUDID IV PRN ×7 (01:04→20:16)
[2018-07-09] MEDS: NACL 0.9% 1000 ML 1,000 ML IV SCH (04:07)
[2018-07-09] MEDS: CARAFATE PO SCH ×3 (05:06→17:03)
[2018-07-09] MEDS: ATIVAN IV PRN ×3 (05:47→21:38)
[2018-07-09 06:31] LABS: BUN/Creatinine Ratio 31; Blood Urea Nitrogen 25 mg/dL (7-17); Calcium 8.8 mg/dL (8.4-10.2); Hemolysis Index 1
--- NOTE | 2018-07-09 08:57 | Progress Note ---
Assessment and Plan 1. Acute kidney injury: Acute kidney injury secondary to contrast induced nephropathy. Imaging was negative for hydro. Continue IV fluids. Renal function is better and stable. Monitor renal function. Avoid Nephrotoxic agents. 2. FEN: Monitor lytes. 3. CAD s/p stent. 4. Abd pain: Followed by Gen. Surgery. 5. DM type 2. 6. Anemia: POA. Subjective Date of service: 07/09/18 Principal diagnosis: cp, abdominal pain Interval history: Patient was seen and examined at the bedside. at the bedside. C/o anxiety. Objective - Vital Signs Vital signs: Vital Signs - 12hr 07/08/18 07/09/18 07/09/18 23:58 04:33 07:44 Temperature 98.2 F 98.2 F 98.0 F Pulse Rate 52 L 52 L 49 L Respiratory 20 18 16 Rate Blood Pressure 137/76 153/72 122/64 O2 Sat by Pulse 90 88 92 Oximetry - General Appearance General appearance: well-developed, well-nourished, appears stated age, obese, other (not in distress) EENT: ATNC, PERRL, hearing intact, vision intact Neck: supple Respiratory: Present: Clear to Ascultation Cardiology: regular, S1S2, no murmurs Gastrointestinal: normoactive bowel sounds, no tenderness, no distended Integumentary: no rash, warm and dry Neurologic: no focal deficit, no asterixis, alert and oriented x3 Musculoskeletal: other (trace LE edema noted) - Lab 07/08/18 05:58 07/09/18 05:52 Most recent lab results Calcium 8.8 mg/dL (8.4-10.2) 07/09/18 05:52 Phosphorus 2.90 mg/dL (2.5-4.5) 07/07/18 08:23 Magnesium 2.70 mg/dL (1.7-2.3) H 07/08/18 05:58 Medications & Allergies - Medications Allergies/Adverse Reactions: Allergies No Known Allergies Allergy (Verified 05/25/16 00:37) Home Medications: Home Medications Medication Instructions Recorded Confirmed Last Taken Type Insulin NPH Hum/Reg Insulin Hm 40 unit SQ TIDAC 05/19/13 07/01/18 02/27/17 10:00 History [NovoLIN 70-30 100 Unit/ml Vial] 40units Isosorbide Mononitrate 60 mg PO DAILY 05/19/13 07/01/18 02/27/17 10:00 History 10mg Gabapentin [Neurontin] 800 mg PO Q8HR 11/01/15 07/01/18 02/27/17 10:00 History 800mg Aspirin EC 81 mg PO QDAY #30 tablet. 11/03/15 07/01/18 02/27/17 10:00 Rx 81mg Carvedilol [Coreg] 12.5 mg PO BID 02/28/17 07/01/18 02/27/17 10:00 History 12.5mg Clopidogrel [Plavix] 75 mg PO QDAY 02/28/17 07/01/18 02/27/17 10:00 History 75mg Escitalopram [Lexapro] 20 mg PO DAILY 02/28/17 07/01/18 02/27/17 10:00 History 20mg Lisinopril [Zestril TAB] 20 mg PO QDAY 02/28/17 07/01/18 02/27/17 10:00 History 20mg Torsemide [Demadex] 20 mg PO DAILY 02/28/17 07/01/18 02/27/17 10:00 History 20mg traMADol [Ultram 50 MG tab] 100 mg PO Q8HR 02/28/17 07/01/18 02/27/17 10:00 History 100mg Baclofen [Lioresal] 10 mg PO HS 07/01/18 07/01/18 Unknown History Brimonidine Tartrate/Timolol 1 drop OP BID 07/01/18 07/01/18 Unknown History [Combigan 0.2%-0.5% Eye Drops] Buspirone HCl [busPIRone] 15 mg PO BID 07/01/18 07/01/18 Unknown History Insulin Detemir [Levemir] 100 unit SQ HS 07/01/18 07/01/18 Unknown History Lispro Insulin [HumaLOG] 100 unit SQ QHS 07/01/18 07/01/18 Unknown History Active Medications: Generic Name Dose Route Start Last Admin Trade Name Freq PRN Reason Stop Dose Admin Acetaminophen 650 mg 07/01/18 03:24 07/02/18 09:19 Tylenol PO 650 mg Q4H PRN Administration Pain MILD(1-3)/Fever >100.5/SHARPE Aspirin 81 mg 05/22/19 10:00 07/08/18 11:25 Baby Aspirin PO 81 mg QDAY [facility] Administration Atorvastatin Calcium 40 mg 07/01/18 22:00 07/08/18 22:02 Lipitor PO Not Given QHS [facility] Baclofen 10 mg 07/01/18 22:00 07/08/18 22:01 Lioresal PO Not Given HS [facility] Bisacodyl 10 mg 07/08/18 10:45 Dulcolax [place] QDAY PRN Constip unreliev by MOM/or NPO Brimonidine/Timolol 1 drops 07/02/18 23:00 07/08/18 22:01 Combigan 0.2-0.5% OD 1 drops BID [facility] Administration Buspirone HCl 15 mg 07/01/18 10:00 07/08/18 21:59 Buspar PO Not Given BID [facility] Carvedilol 12.5 mg 07/04/18 11:00 07/08/18 22:01 Coreg PO Not Given BID [facility] Clopidogrel Bisulfate 75 mg 07/02/18 10:00 07/08/18 12:06 Plavix PO 75 mg QDAY [facility] Administration Dextrose 50 ml 07/01/18 03:40 D50w (25gm) Syringe IV PRN PRN Hypoglycemia Dicyclomine HCl 20 mg 07/04/18 14:00 07/08/18 21:59 Bentyl PO Not Given QID [facility] Docusate Sodium 100 mg 07/08/18 22:00 07/08/18 21:59 Colace PO Not Given BID [facility] Enoxaparin Sodium 40 mg 07/07/18 22:00 07/08/18 22:04 Lovenox SUB-Q 40 mg QDAY@2200 [facility] Administration Escitalopram Oxalate 20 mg 07/01/18 10:00 07/08/18 12:04 Lexapro PO 20 mg DAILY [facility] Administration Hydromorphone HCl 1 mg 07/08/18 09:27 Dilaudid PO Q3H PRN Pain , Severe (7-10) Hydromorphone HCl 0.5 mg 07/08/18 13:23 07/09/18 06:52 Dilaudid IV 0.5 mg Q3H PRN Administration Pain , Severe (7-10) Sodium Chloride 1,000 mls @ 75 mls/hr 07/08/18 14:00 07/09/18 04:07 Nacl 0.9% 1000 Ml IV 75 mls/hr DIRECT [facility] Administration Insulin Glargine 25 units 07/04/18 08:00 07/08/18 21:58 Lantus SUB-Q 25 units BID@0800,2000 [facility] Administration Insulin Human Lispro 0 unit 07/03/18 22:00 07/08/18 22:01 Humalog SUB-Q Not Given ACHS [facility] Protocol Isosorbide Mononitrate 60 mg 07/01/18 10:00 07/08/18 11:21 Imdur PO 60 mg DAILY [facility] Administration Lorazepam 1 mg 07/08/18 13:23 07/09/18 05:47 Ativan IV 1 mg Q8H PRN Administration Anxiety Metoclopramide HCl 10 mg 07/03/18 09:13 07/08/18 18:03 Reglan IV 10 mg Q6H PRN Administration Nausea And Vomiting Nitroglycerin 0.4 mg 07/01/18 04:10 Nitrostat SL Q5M PRN Chest Pain Ondansetron HCl 4 mg 07/01/18 03:24 07/09/18 01:03 Zofran IV 4 mg Q8H PRN Administration Nausea And Vomiting Polyethylene Glycol 17 gm 07/02/18 12:00 07/08/18 12:06 Miralax 3350 PO 17 gm QDAY [facility] Administration Promethazine HCl 12.5 mg 07/03/18 09:13 07/07/18 01:05 Phenergan PO 12.5 mg Q6H PRN Administration Nausea And Vomiting Sodium Chloride 10 ml 07/01/18 10:00 07/08/18 22:02 Sodium Chloride Flush Syringe 10 Ml IV Not Given BID [facility] Sodium Chloride 10 ml 07/01/18 03:24 07/04/18 03:48 Sodium Chloride Flush Syringe 10 Ml IV 10 ml PRN PRN Administration LINE FLUSH Sucralfate 1 gm 07/04/18 18:30 07/09/18 05:06 Carafate PO Not Given Q6HR [facility] Ursodiol 500 mg 07/07/18 17:00 07/08/18 19:32 Nita PO 500 mg TIDDIAB [facility] Administration
[2018-07-09] MEDS: BUSPAR PO SCH ×2 (09:53→21:37)
[2018-07-09] MEDS: BENTYL PO SCH ×4 (09:57→21:37)
[2018-07-09] MEDS: COLACE PO SCH ×2 (09:58→21:37)
[2018-07-09] MEDS: COMBIGAN 0.2-0.5% OD SCH ×2 (10:00→21:38)
[2018-07-09] MEDS: COREG PO SCH ×2 (10:01→21:38)
[2018-07-09] MEDS: LEXAPRO PO SCH (10:08)
[2018-07-09] MEDS: PLAVIX PO SCH (10:08)
[2018-07-09] MEDS: BABY ASPIRIN PO SCH (10:08)
[2018-07-09] MEDS: LANTUS SUB-Q SCH ×2 (10:13→21:37)
[2018-07-09] MEDS: HumaLOG SUB-Q SCH ×4 (10:14→21:38)
[2018-07-09] MEDS: IMDUR PO SCH (10:26)
[2018-07-09] MEDS: URSO PO SCH ×3 (11:18→16:56)
--- NOTE | 2018-07-09 12:43 | Consultation ---
History of Present Illness Consult date: 07/09/18 Reason for consult: pelvic pain, other (Leiomyoma) History of present illness: 57y/o -z[place] female presents to the ED with complaint of chest pain. The patient has been hospitalized for further workup. A CT scan of the abdomen and pelvis was performed with findings of a fundal leiomyoma measuring approximately 14cm. The leiomyoma demonstrates degenerative changes and was found to be unchanged from her previous imaging in 2017. The patient has been amenorrheic since her 40's. She complains of episodic abdomen pain. Medications and Allergies Allergies Allergy/AdvReac Type Severity Reaction Status Date / Time No Known Allergies Allergy Verified 05/25/16 00:37 Home Medications Medication Instructions Recorded Confirmed Last Taken Type Insulin NPH Hum/Reg Insulin Hm 40 unit SQ TIDAC 05/19/13 07/01/18 02/27/17 10:00 History [NovoLIN 70-30 100 Unit/ml Vial] 40units Isosorbide Mononitrate 60 mg PO DAILY 05/19/13 07/01/18 02/27/17 10:00 History 10mg Gabapentin [Neurontin] 800 mg PO Q8HR 11/01/15 07/01/18 02/27/17 10:00 History 800mg Aspirin EC 81 mg PO QDAY #30 tablet. 11/03/15 07/01/18 02/27/17 10:00 Rx 81mg Carvedilol [Coreg] 12.5 mg PO BID 02/28/17 07/01/18 02/27/17 10:00 History 12.5mg Clopidogrel [Plavix] 75 mg PO QDAY 02/28/17 07/01/18 02/27/17 10:00 History 75mg Escitalopram [Lexapro] 20 mg PO DAILY 02/28/17 07/01/18 02/27/17 10:00 History 20mg Lisinopril [Zestril TAB] 20 mg PO QDAY 02/28/17 07/01/18 02/27/17 10:00 History 20mg Torsemide [Demadex] 20 mg PO DAILY 02/28/17 07/01/18 02/27/17 10:00 History 20mg traMADol [Ultram 50 MG tab] 100 mg PO Q8HR 02/28/17 07/01/18 02/27/17 10:00 History 100mg Baclofen [Lioresal] 10 mg PO HS 07/01/18 07/01/18 Unknown History Brimonidine Tartrate/Timolol 1 drop OP BID 07/01/18 07/01/18 Unknown History [Combigan 0.2%-0.5% Eye Drops] Buspirone HCl [busPIRone] 15 mg PO BID 07/01/18 07/01/18 Unknown History Insulin Detemir [Levemir] 100 unit SQ HS 07/01/18 07/01/18 Unknown History Lispro Insulin [HumaLOG] 100 unit SQ QHS 07/01/18 07/01/18 Unknown History Active Meds: Active Medications Acetaminophen (Tylenol) 650 mg PO Q4H PRN PRN Reason: Pain MILD(1-3)/Fever >100.5/SHARPE Last Admin: 07/02/18 09:19 Dose: 650 mg Documented by: Aspirin (Baby Aspirin) 81 mg PO QDAY [facility] Last Admin: 07/09/18 10:08 Dose: 81 mg Documented by: Atorvastatin Calcium (Lipitor) 40 mg PO QHS [facility] Last Admin: 07/08/18 22:02 Dose: Not Given Documented by: Baclofen (Lioresal) 10 mg PO [facility] Last Admin: 07/08/18 22:01 Dose: Not Given Documented by: Bisacodyl (Dulcolax) 10 mg DE QDAY PRN PRN Reason: Constip unreliev by MOM/or NPO Brimonidine/Timolol (Combigan 0.2-0.5%) 1 drops OD BID [facility] Last Admin: 07/09/18 10:00 Dose: 1 drops Documented by: Buspirone HCl (Buspar) 15 mg PO BID [facility] Last Admin: 07/09/18 09:53 Dose: 15 mg Documented by: Carvedilol (Coreg) 12.5 mg PO BID [facility] Last Admin: 07/09/18 10:01 Dose: 12.5 mg Documented by: Clopidogrel Bisulfate (Plavix) 75 mg PO QDAY [facility] Last Admin: 07/09/18 10:08 Dose: 75 mg Documented by: Dextrose (D50w (25gm) Syringe) 50 ml IV PRN PRN PRN Reason: Hypoglycemia Dicyclomine HCl (Bentyl) 20 mg PO QID [facility] Last Admin: 07/09/18 09:57 Dose: 20 mg Documented by: Docusate Sodium (Colace) 100 mg PO BID [facility] Last Admin: 07/09/18 09:58 Dose: 100 mg Documented by: Enoxaparin Sodium (Lovenox) 40 mg SUB-Q QDAY@2200 [facility] Last Admin: 07/08/18 22:04 Dose: 40 mg Documented by: Escitalopram Oxalate (Lexapro) 20 mg PO DAILY [facility] Last Admin: 07/09/18 10:08 Dose: 20 mg Documented by: Hydromorphone HCl (Dilaudid) 0.5 mg IV Q3H PRN PRN Reason: Pain , Severe (7-10) Last Admin: 07/09/18 10:02 Dose: 0.5 mg Documented by: Sodium Chloride (Nacl 0.9% 1000 Ml) 1,000 mls @ 75 mls/hr IV DIRECT [facility] Last Admin: 07/09/18 04:07 Dose: 75 mls/hr Documented by: Insulin Glargine (Lantus) 25 units SUB-Q BID@0800,2000 [facility] Last Admin: 07/09/18 10:13 Dose: Not Given Documented by: Insulin Human Lispro (Humalog) 0 unit SUB-Q ACHS [facility]; Protocol Last Admin: 07/09/18 10:14 Dose: Not Given Documented by: Isosorbide Mononitrate (Imdur) 60 mg PO DAILY [facility] Last Admin: 07/09/18 10:26 Dose: 60 mg Documented by: Lorazepam (Ativan) 1 mg IV Q8H PRN PRN Reason: Anxiety Last Admin: 07/09/18 05:47 Dose: 1 mg Documented by: Metoclopramide HCl (Reglan) 10 mg IV Q6H PRN PRN Reason: Nausea And Vomiting Last Admin: 07/08/18 18:03 Dose: 10 mg Documented by: Nitroglycerin (Nitrostat) 0.4 mg SL Q5M PRN PRN Reason: Chest Pain Ondansetron HCl (Zofran) 4 mg IV Q8H [facility] Polyethylene Glycol (Miralax 3350) 17 gm PO QDAY [facility] Last Admin: 07/08/18 12:06 Dose: 17 gm Documented by: Promethazine HCl (Phenergan) 12.5 mg PO Q6H PRN PRN Reason: Nausea And Vomiting Last Admin: 07/07/18 01:05 Dose: 12.5 mg Documented by: Sodium Chloride (Sodium Chloride Flush Syringe 10 Ml) 10 ml IV BID [facility] Last Admin: 07/08/18 22:02 Dose: Not Given Documented by: Sodium Chloride (Sodium Chloride Flush Syringe 10 Ml) 10 ml IV PRN PRN PRN Reason: LINE FLUSH Last Admin: 07/04/18 03:48 Dose: 10 ml Documented by: Sucralfate (Carafate) 1 gm PO Q6HR [facility] Last Admin: 07/09/18 05:06 Dose: Not Given Documented by: Ursodiol (Nita) 500 mg PO TIDDIAB [facility] Last Admin: 07/09/18 11:18 Dose: 500 mg Documented by: Review of Systems Genitourinary: pelvic pain, no vaginal bleeding - Vital Signs Vital signs: Vital Signs Temp Pulse Resp BP Pulse Ox 98.4 F 63 20 122/62 99 06/30/18 23:40 06/30/18 23:40 06/30/18 23:40 06/30/18 23:40 06/30/18 23:40 Temp Pulse Resp BP Pulse Ox 98.0 F 52 L 16 122/64 92 07/09/18 07:44 07/09/18 10:26 07/09/18 07:44 07/09/18 10:26 07/09/18 07:44 Results Result Diagrams: 07/08/18 05:58 07/09/18 05:52 Abnormal lab results 07/08/18 07/08/18 07/08/18 Range/Units 13:05 16:55 21:45 Chloride (98-107) mmol/L BUN (7-17) mg/dL Glucose (65-100) mg/dL POC Glucose 173 H 175 H 158 H (70-105) 07/09/18 Range/Units 05:52 Chloride 110.5 H (98-107) mmol/L BUN 25 H (7-17) mg/dL Glucose 104 H (65-100) mg/dL POC Glucose (70-105) All other labs normal. Assessment and Plan - Patient Problems (1) Abdominal pain Current Visit: Yes Status: Acute (2) Leiomyoma Current Visit: Yes Status: Acute Plan to address problem: stable leiomyoma without interval growth over last 2 years in consideration of patient's co-morbid conditions she is not an ideal surgical candidate with current anti-coagulation recommend expectant management until clinical prognosis improves for surgical clearance patient can followup with Dr Fuentes as an outpatient
--- NOTE | 2018-07-09 12:50 | Gastroenterology Progress Note ---
Assessment and Plan 1.Abdominal pain (RUQ/epigastric) 2.N/V -repeat CT yesterday showed no acute abdominal process (large fibroid vs ovarian mass seen in the right abdomen with ELECTRONIC ORGAN TECHNICIAN consult pending) -etiology-most likely 2/2 GB disease (biliary dyskinesia found on HIDA scan; EF 28%) -surgery following with no intervention planned at this time due to cardiac risks (recent stent placement and inability to hold anti-platelets for surgery) -last EGD 2016 which just showed mild antral gastritis but otherwise unremarkable -no plan for repeat EGD at this time given patient being high risk with co- morbids as above- discussed risk/plan with pt/family with understanding voiced -will start on empiric daily PPI; continue carafate -continue on clear liquids with clear ensure for now -advancer per surgery recommendations -continue supportive care -pain/electrolyte management per primary team -will defer further management per surgery/primary team -no further GI recommendations at this time -will sign off Subjective Date of service: 07/09/18 Principal diagnosis: abdominal pain Interval history: Patient resting in bed this am w/o acute distress and family at bedside. Reports continue abd pain and nausea with PO intake. No vomiting or signs of bleeding. Objective - Constitutional Vitals: Temp Pulse Resp BP Pulse Ox 98.0 F 52 L 16 122/64 92 07/09/18 07:44 07/09/18 10:26 07/09/18 07:44 07/09/18 10:26 07/09/18 07:44 General appearance: no acute distress, obese - Respiratory Respiratory: bilateral: CTA (anterior) - Cardiovascular Rhythm: other (bradycardia) - Gastrointestinal General gastrointestinal: Present: soft, tender (slight TTP in RUQ/epigastric), non-distended, normal bowel sounds - Neurologic Neurological: alert and oriented x3 - Labs CBC & Chem 7: 07/08/18 05:58 07/09/18 05:52 Labs: Laboratory Results - last 24 hr 07/08/18 07/08/18 07/08/18 13:05 16:55 21:45 Sodium Potassium Chloride Carbon Dioxide Anion Gap BUN Creatinine Estimated GFR BUN/Creatinine Ratio Glucose POC Glucose 173 H 175 H 158 H Calcium 07/09/18 07/09/18 05:52 07:51 Sodium 145 Potassium 4.4 Chloride 110.5 H Carbon Dioxide 25 Anion Gap 14 BUN 25 H Creatinine 0.8 Estimated GFR > 60 BUN/Creatinine Ratio 31 Glucose 104 H POC Glucose 89 Calcium 8.8
[2018-07-09] MEDS: PROTONIX PO SCH (13:40)
[2018-07-09] MEDS: MIRALAX 3350 PO SCH (13:40)
[2018-07-09] MEDS: ZOFRAN IV SCH ×2 (13:41→18:42)
[2018-07-09] MEDS: SODIUM CHLORIDE FLUSH SYRINGE 10 ML IV SCH ×2 (14:19→21:43)
--- NOTE | 2018-07-09 15:04 | Progress Note ---
Assessment and Plan 57 yo F with 1. biliary dyskenesia, RUQ abd pain 2. CAD s/p stent on 06/11/18 3. NSEMI 4. DONAL Plan; 1. clear liquids - do not advance. likely will dc on clear liquids 2. gentle IVF - stop when ok with nephro. 3. HIDA - GB EF 28% - mildly reduced but can be reason for patient's symptoms. Explained to patient and family that at this point there is no urgent need for cholecystectomy. Due to her heart issues and recent stent, anticoagulation cannot be held and she is at increased risk for another cardiac event if she underwent surgery. 4. continue IV pain meds, when tolerating PO consistently, will switch to PO dilaudid. She will likely dc on PO dilaudid 5. prn nausea control, zofran changed to q6h scheduled 6. recommend starting low dose ativan PO Discussed with Dr. Vallecillo and patient's RN. Discussed with family members at bedside. Thank you, please call with questions. Subjective Date of service: 07/09/18 Narrative: Pt seen and examined. States she had a good night last night. +Nausea but no vomiting. No f/c. Abdominal pain controlled. Has tolerated some sips of clear liquids this PM. Objective Vital Signs - 12hr 07/09/18 07/09/18 07/09/18 04:33 07:44 10:01 Temperature 98.2 F 98.0 F Pulse Rate 52 L 49 L 52 L Respiratory 18 16 Rate Blood Pressure 153/72 122/64 122/64 O2 Sat by Pulse 88 92 Oximetry 07/09/18 10:26 Temperature Pulse Rate 52 L Respiratory Rate Blood Pressure 122/64 O2 Sat by Pulse Oximetry - General physical appearance Narrative Exam: Gen: AAOx3. NAD CV: s1, s2+ resp; even and unlabored Abd: soft, mildly distended, obese, mild epigastric TTP. no r/r/g Ext: no c/c/e - Labs 07/08/18 05:58 07/09/18 05:52 Diabetes panel 07/09/18 Range/Units 05:52 Sodium 145 (137-145) mmol/L Potassium 4.4 (3.6-5.0) mmol/L Chloride 110.5 H (98-107) mmol/L Carbon Dioxide 25 (22-30) mmol/L BUN 25 H (7-17) mg/dL Creatinine 0.8 (0.7-1.2) mg/dL Glucose 104 H (65-100) mg/dL Calcium 8.8 (8.4-10.2) mg/dL Calcium panel 07/09/18 Range/Units 05:52 Calcium 8.8 (8.4-10.2) mg/dL Pituitary panel 07/09/18 Range/Units 05:52 Sodium 145 (137-145) mmol/L Potassium 4.4 (3.6-5.0) mmol/L Chloride 110.5 H (98-107) mmol/L Carbon Dioxide 25 (22-30) mmol/L BUN 25 H (7-17) mg/dL Creatinine 0.8 (0.7-1.2) mg/dL Glucose 104 H (65-100) mg/dL Calcium 8.8 (8.4-10.2) mg/dL Adrenal panel 07/09/18 Range/Units 05:52 Sodium 145 (137-145) mmol/L Potassium 4.4 (3.6-5.0) mmol/L Chloride 110.5 H (98-107) mmol/L Carbon Dioxide 25 (22-30) mmol/L BUN 25 H (7-17) mg/dL Creatinine 0.8 (0.7-1.2) mg/dL Glucose 104 H (65-100) mg/dL Calcium 8.8 (8.4-10.2) mg/dL
--- NOTE | 2018-07-09 15:59 | Progress Note ---
Assessment and Plan /Intractable nausea vomiting and abdominal pain; biliary dyskinesia ? 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 Gentle IV hydration, Avoid nephrotoxins, nephrology following renal function has been stable now /Non-ST elevation NV; status post cardiac catheterization s/p PCI of the distal circumflex. On dual platelets aspirin and Plavix, cardiology following /History of coronary artery disease status post PCI; on cardiac medications /Hyponatremia; significantly improved /Type 2 diabetes mellitus; uncontrolled A1c 12.5 ,Accu-Chek sliding scale coverage ADA diet, longer acting insulin. Monitor blood sugars and adjust insulin as needed /Diabetic neuropathy; continue gabapentin /-Hypertension; moderate control, continue current antihypertensives and when necessary medications /Dyslipidemia: continue statin. /-Moderate malnutrition/hypoalbuminemia; nutrition supplements, nutrition consult if needed /-DVT prophylaxis; Lovenox /-Full CODE STATUS Plan of care is reviewed with the patient and multiple family members at the bedside. Disposition; follow clinically, d/c if pain controlled with oral pain meds Brief History 57-year-old female patient with significant coronary artery disease status post PCI was admitted through emergency room with chest pain, evaluated by cardiology and underwent heart Status post stent placement to distal circumflex, patient developed acute renal failure, now resolved, intractable nausea vomiting end. Biliary dyskinesia, evaluated by GI, and surgery, no surgical indication at this point in view of recent stent, medical management. Patient continues to have intractable nausea vomiting, and pain medications, currently intervening off of IV and oral Percocet/[place]. Had repeat CT abdomen and pelvis with contrast which showed possible uterine versus ovarian calcified mass, consulted POULTRY BARN MANAGER - recommended medical mx Hospitalist Physical General appearance: Present: mild distress, well-nourished, obese (morbidly obese) - EENT Eyes: Present: PERRL, EOM intact - Neck Neck: Present: supple, normal ROM - Respiratory Respiratory effort: normal Respiratory: bilateral: diminished, negative: rales, rhonchi, wheezing - Cardiovascular Rhythm: regular Heart Sounds: Present: S1 & S2 - Extremities Extremities: no ischemia, No edema - Abdominal General gastrointestinal: soft, non-tender, non-distended, normal bowel sounds - Psychiatric Psychiatric: appropriate mood/affect, cooperative - Neurologic Neurologic: CNII-XII intact, moves all extremities Subjective Date of service: 07/09/18 Principal diagnosis: abdominal pain Interval history: Patient seen and examined. Medical records and medication list reviewed. No acute event overnight noted by the RN. Patient continued to complain of epigastric pain, but states better with IV pain medications discussed with family, patient and Dr Ugalde about plan of care Objective - Constitutional Vitals: Vital Signs - 12hr 07/09/18 07/09/18 07/09/18 04:33 07:44 10:01 Temperature 98.2 F 98.0 F Pulse Rate 52 L 49 L 52 L Respiratory 18 16 Rate Blood Pressure 153/72 122/64 122/64 O2 Sat by Pulse 88 92 Oximetry 07/09/18 10:26 Temperature Pulse Rate 52 L Respiratory Rate Blood Pressure 122/64 O2 Sat by Pulse Oximetry - Labs CBC & Chem 7: 07/08/18 05:58 07/10/18 04:53 Labs: Abnormal lab results 07/08/18 07/08/18 07/09/18 Range/Units 16:55 21:45 05:52 Chloride 110.5 H (98-107) mmol/L BUN 25 H (7-17) mg/dL Glucose 104 H (65-100) mg/dL POC Glucose 175 H 158 H (70-105) 07/09/18 Range/Units 12:51 Chloride (98-107) mmol/L BUN (7-17) mg/dL Glucose (65-100) mg/dL POC Glucose 64 L (70-105)
[2018-07-09] MEDS: LOVENOX SUB-Q SCH (21:37)
[2018-07-09] MEDS: LIORESAL PO SCH (21:37)
[2018-07-09] MEDS: REGLAN IV PRN (21:38)
[2018-07-10] MEDS: ZOFRAN IV SCH ×3 (03:00→19:00)
[2018-07-10] MEDS: DILAUDID IV PRN ×3 (04:00→21:30)
[2018-07-10] MEDS: ATIVAN IV PRN (05:37)
[2018-07-10] MEDS: CARAFATE PO SCH ×4 (05:37→17:59)
[2018-07-10 06:35] LABS: BUN/Creatinine Ratio 19; Blood Urea Nitrogen 17 mg/dL (7-17); Calcium 8.2 mg/dL (8.4-10.2); Hemolysis Index 0
[2018-07-10] MEDS ORDERED: DILAUDID IV PRN (07:27)
[2018-07-10] MEDS: HumaLOG SUB-Q SCH ×4 (08:00→22:00)
[2018-07-10] MEDS: COREG PO SCH ×3 (10:05→22:49)
[2018-07-10] MEDS: SODIUM CHLORIDE FLUSH SYRINGE 10 ML IV SCH ×2 (10:05→22:53)
[2018-07-10] MEDS: PROTONIX PO SCH (10:05)
[2018-07-10] MEDS: LANTUS SUB-Q SCH ×2 (10:09→22:52)
[2018-07-10] MEDS: URSO PO SCH ×3 (10:10→17:59)
[2018-07-10] MEDS: BENTYL PO SCH ×4 (10:11→22:49)
[2018-07-10] MEDS: BUSPAR PO SCH ×2 (10:11→22:48)
[2018-07-10] MEDS: BABY ASPIRIN PO SCH (10:12)
[2018-07-10] MEDS: COLACE PO SCH ×3 (10:12→22:48)
[2018-07-10] MEDS: COMBIGAN 0.2-0.5% OD SCH ×2 (10:12→22:50)
--- NOTE | 2018-07-10 10:14 | Progress Note ---
Assessment and Plan 1. Acute kidney injury: Acute kidney injury secondary to contrast induced nephropathy. Imaging was negative for hydro. Renal function is better and stable. IV fluids can be stopped. Monitor renal function. Avoid Nephrotoxic agents. 2. FEN: Monitor lytes. 3. CAD s/p stent. 4. Abd pain: Followed by Gen. Surgery. 5. DM type 2. 6. Anemia: POA. Will see patient intermittently. Subjective Date of service: 07/10/18 Principal diagnosis: cp, abdominal pain Interval history: Patient was seen and examined at the bedside. Mother at the bedside. doing ok. Objective - Vital Signs Vital signs: Vital Signs - 12hr 07/09/18 07/10/18 07/10/18 23:28 04:29 07:54 Temperature 98.0 F 98.0 F 98.0 F Pulse Rate 48 L 54 L 53 L Respiratory 20 18 16 Rate Blood Pressure 125/60 159/73 160/87 O2 Sat by Pulse 92 97 98 Oximetry 07/10/18 10:05 Temperature Pulse Rate 56 L Respiratory Rate Blood Pressure O2 Sat by Pulse Oximetry - General Appearance General appearance: well-developed, well-nourished, appears stated age, obese, other (not in distress) EENT: ATNC, PERRL, mucous membranes moist, hearing intact Neck: supple Respiratory: Present: Clear to Ascultation Cardiology: regular, S1S2, no murmurs Gastrointestinal: normoactive bowel sounds, no tenderness, no distended, obese Integumentary: no rash, warm and dry Neurologic: no focal deficit, no asterixis, alert and oriented x3 Musculoskeletal: other (1+ edema of both LEs noted) - Lab 07/08/18 05:58 07/10/18 04:53 Most recent lab results Calcium 8.2 mg/dL (8.4-10.2) L 07/10/18 04:53 Phosphorus 2.90 mg/dL (2.5-4.5) 07/07/18 08:23 Magnesium 2.70 mg/dL (1.7-2.3) H 07/08/18 05:58 Medications & Allergies - Medications Allergies/Adverse Reactions: Allergies No Known Allergies Allergy (Verified 05/25/16 00:37) Home Medications: Home Medications Medication Instructions Recorded Confirmed Last Taken Type Insulin NPH Hum/Reg Insulin Hm 40 unit SQ TIDAC 05/19/13 07/01/18 02/27/17 10:00 History [NovoLIN 70-30 100 Unit/ml Vial] 40units Isosorbide Mononitrate 60 mg PO DAILY 05/19/13 07/01/18 02/27/17 10:00 History 10mg Gabapentin [Neurontin] 800 mg PO Q8HR 11/01/15 07/01/18 02/27/17 10:00 History 800mg Aspirin EC 81 mg PO QDAY #30 tablet. 11/03/15 07/01/18 02/27/17 10:00 Rx 81mg Carvedilol [Coreg] 12.5 mg PO BID 02/28/17 07/01/18 02/27/17 10:00 History 12.5mg Clopidogrel [Plavix] 75 mg PO QDAY 02/28/17 07/01/18 02/27/17 10:00 History 75mg Escitalopram [Lexapro] 20 mg PO DAILY 02/28/17 07/01/18 02/27/17 10:00 History 20mg Lisinopril [Zestril TAB] 20 mg PO QDAY 02/28/17 07/01/18 02/27/17 10:00 History 20mg Torsemide [Demadex] 20 mg PO DAILY 02/28/17 07/01/18 02/27/17 10:00 History 20mg traMADol [Ultram 50 MG tab] 100 mg PO Q8HR 02/28/17 07/01/18 02/27/17 10:00 History 100mg Baclofen [Lioresal] 10 mg PO HS 07/01/18 07/01/18 Unknown History Brimonidine Tartrate/Timolol 1 drop OP BID 07/01/18 07/01/18 Unknown History [Combigan 0.2%-0.5% Eye Drops] Buspirone HCl [busPIRone] 15 mg PO BID 07/01/18 07/01/18 Unknown History Insulin Detemir [Levemir] 100 unit SQ HS 07/01/18 07/01/18 Unknown History Lispro Insulin [HumaLOG] 100 unit SQ QHS 07/01/18 07/01/18 Unknown History Active Medications: Generic Name Dose Route Start Last Admin Trade Name Freq PRN Reason Stop Dose Admin Acetaminophen 650 mg 07/01/18 03:24 07/02/18 09:19 Tylenol PO 650 mg Q4H PRN Administration Pain MILD(1-3)/Fever >100.5/SHARPE Aspirin 81 mg 07/02/18 10:00 07/09/18 10:08 Baby Aspirin PO 81 mg QDAY [facility] Administration Atorvastatin Calcium 40 mg 07/01/18 22:00 07/09/18 21:37 Lipitor PO 40 mg QHS [facility] Administration Baclofen 10 mg 07/01/18 22:00 07/09/18 21:37 Lioresal PO 10 mg HS [facility] Administration Bisacodyl 10 mg 07/08/18 10:45 Dulcolax HI QDAY PRN Constip unreliev by MOM/or NPO Brimonidine/Timolol 1 drops 07/02/18 23:00 07/09/18 21:38 Combigan 0.2-0.5% OD 1 drops BID [facility] Administration Buspirone HCl 15 mg 07/01/18 10:00 07/09/18 21:37 Buspar PO 15 mg BID [facility] Administration Carvedilol 12.5 mg 07/04/18 11:00 07/10/18 10:05 Coreg PO 12.5 mg BID [facility] Administration Clopidogrel Bisulfate 75 mg 07/02/18 10:00 07/09/18 10:08 Plavix PO 75 mg QDAY [facility] Administration Dextrose 50 ml 07/01/18 03:40 D50w (25gm) Syringe IV PRN PRN Hypoglycemia Dicyclomine HCl 20 mg 07/04/18 14:00 07/09/18 21:37 Bentyl PO 20 mg QID [facility] Administration Docusate Sodium 100 mg 07/08/18 22:00 07/09/18 21:37 Colace PO 100 mg BID [facility] Administration Enoxaparin Sodium 40 mg 07/07/18 22:00 07/09/18 21:37 Lovenox SUB-Q 40 mg QDAY@2200 [facility] Administration Escitalopram Oxalate 20 mg 07/01/18 10:00 07/09/18 10:08 Lexapro PO 20 mg DAILY [facility] Administration Hydromorphone HCl 1 mg 07/10/18 07:26 Dilaudid PO Q3H PRN Pain , Severe (7-10) Hydromorphone HCl 0.5 mg 07/10/18 07:27 07/10/18 08:15 Dilaudid IV 0.5 mg Q4H PRN Administration Pain , Severe (7-10) Sodium Chloride 1,000 mls @ 75 mls/hr 07/08/18 14:00 07/09/18 04:07 Nacl 0.9% 1000 Ml IV 75 mls/hr DIRECT [facility] Administration Insulin Glargine 25 units 07/04/18 08:00 07/09/18 21:37 Lantus SUB-Q 25 units BID@0800,2000 [facility] Administration Insulin Human Lispro 0 unit 07/03/18 22:00 07/09/18 21:38 Humalog SUB-Q 2 unit ACHS [facility] Administration Protocol Isosorbide Mononitrate 60 mg 07/01/18 10:00 07/09/18 10:26 Imdur PO 60 mg DAILY [facility] Administration Lorazepam 1 mg 07/08/18 13:23 07/10/18 05:37 Ativan IV 1 mg Q8H PRN Administration Anxiety Metoclopramide HCl 10 mg 07/03/18 09:13 07/09/18 21:38 Reglan IV 10 mg Q6H PRN Administration Nausea And Vomiting Nitroglycerin 0.4 mg 07/01/18 04:10 Nitrostat SL Q5M PRN Chest Pain Ondansetron HCl 4 mg 07/09/18 11:00 07/10/18 03:00 Zofran IV Not Given Q8H [facility] Pantoprazole Sodium 40 mg 07/09/18 14:00 07/10/18 10:05 Protonix PO 40 mg QDAY [facility] Administration Polyethylene Glycol 17 gm 07/02/18 12:00 07/09/18 13:40 Miralax 3350 PO 17 gm QDAY [facility] Administration Promethazine HCl 12.5 mg 07/03/18 09:13 07/07/18 01:05 Phenergan PO 12.5 mg Q6H PRN Administration Nausea And Vomiting Sodium Chloride 10 ml 07/01/18 10:00 07/10/18 10:05 Sodium Chloride Flush Syringe 10 Ml IV 10 ml BID [facility] Administration Sodium Chloride 10 ml 07/01/18 03:24 07/04/18 03:48 Sodium Chloride Flush Syringe 10 Ml IV 10 ml PRN PRN Administration LINE FLUSH Sucralfate 1 gm 07/04/18 18:30 07/10/18 05:37 Carafate PO 1 gm Q6HR [facility] Administration Ursodiol 500 mg 07/07/18 17:00 07/09/18 16:56 Nita PO 500 mg TIDDIAB [facility] Administration
[2018-07-10] MEDS: IMDUR PO SCH (10:17)
[2018-07-10] MEDS: MIRALAX 3350 PO SCH (10:17)
[2018-07-10] MEDS: PLAVIX PO SCH (10:17)
--- NOTE | 2018-07-10 10:50 | Progress Note ---
Assessment and Plan Currently stable cardiac status. Pt appears much more comfortable today and states she is feeling better. Pt may discharge home from cardiology standpoint on current cardiac regimen. Recommend follow up in our office with Dr. Hinds within 1-2 weeks of hospital discharge ([phone]). The patient has been seen in conjunction with Dr. Ha who agrees with the assessment and plan of care. - Patient Problems (1) NSTEMI (non-ST elevated myocardial infarction) Current Visit: Yes Status: Acute (2) CAD (coronary artery disease) Current Visit: Yes Status: Chronic Qualifiers: Coronary Disease-Associated Artery/Lesion type: [place] artery [place] vs. transplanted heart: [place] heart Associated angina: with stable angina Qualified Code(s): I25.118 - Atherosclerotic heart disease of [place] coronary artery with other forms of angina pectoris (3) Stented coronary artery Current Visit: Yes Status: Chronic (4) HTN (hypertension) Current Visit: Yes Status: Chronic Qualifiers: Hypertension type: essential hypertension Qualified Code(s): I10 - Essential (primary) hypertension (5) Hyperlipidemia Current Visit: Yes Status: Chronic Qualifiers: Hyperlipidemia type: mixed hyperlipidemia Qualified Code(s): E78.2 - Mixed hyperlipidemia (6) Diabetes mellitus with hyperglycemia Current Visit: Yes Status: Acute (7) Renal insufficiency Current Visit: Yes Status: Acute (8) Obesity Current Visit: Yes Status: Chronic Qualifiers: Obesity classification: adult class 2 (BMI 35 - 39.9) (9) Nausea and vomiting Current Visit: Yes Status: Acute (10) Uterine fibroid Current Visit: Yes Status: Chronic Subjective Date of service: 07/10/18 Principal diagnosis: cp, abdominal pain Interval history: pt resting comfortably in bed, no current cardiac complaints. still with some intermittent abdominal pain overnight but states she slept well last night and is feeling better. mother at bedside. Objective Last Vital Signs Temp 98.0 F 07/10/18 07:54 Pulse 55 L 07/10/18 10:17 Resp 16 07/10/18 07:54 BP 160/87 07/10/18 07:54 Pulse Ox 98 07/10/18 07:54 - Physical Examination General: No Apparent Distress HEENT: Positive: PERRL, Normocephaly, Mucus Membranes Moist Neck: Positive: neck supple, trachea midline Cardiac: Positive: Reg Rate and Rhythm, S1/S2 Lungs: Positive: Decreased Breath Sounds Neuro: Positive: Grossly Intact Abdomen: Positive: Tender, Distended Skin: Negative: Rash, Wound Musculoskeletal: No Pain Extremities: Absent: edema - Labs and Meds Comprehensive Metabolic Panel 07/10/18 Range/Units 04:53 Sodium 142 (137-145) mmol/L Potassium 4.1 (3.6-5.0) mmol/L Chloride 107.5 H (98-107) mmol/L Carbon Dioxide 24 (22-30) mmol/L BUN 17 (7-17) mg/dL Creatinine 0.9 (0.7-1.2) mg/dL Glucose 110 H (65-100) mg/dL Calcium 8.2 L (8.4-10.2) mg/dL - Imaging and Cardiology EKG: report reviewed, image reviewed Echo: report reviewed (06/12/2016 at [place] showed EF 55%, mild MR. ) Cardiac cath: report reviewed ([facility] on 05/31/[address] Pa which showed lt main patent, lad mid 80% small vessel distal, lcx mid 95% and rca mid 100% normal lv function elevated lvedp 40-45mmhg. She was transferred to [place] for possible bypass vs pci and subsequently underwent PTCA of mid LAD and LUZ to mid LAD on 06/11/2016. ) - EKG Sinus rhythms and dysrhythmias: sinus rhythm
[2018-07-10] MEDS: LEXAPRO PO SCH (11:01)
[2018-07-10] MEDS: NORVASC PO SCH (11:01)
--- NOTE | 2018-07-10 12:08 | Progress Note ---
Assessment and Plan 57 yo F with 1. biliary dyskenesia, RUQ abd pain 2. CAD s/p stent on 06/11/18 3. NSEMI 4. DONAL Plan; 1. clear liquids - do not advance. DC home on clear liquid diet 2. gentle IVF - stop when ok with nephro. 3. HIDA - GB EF 28% - mildly reduced but can be reason for patient's symptoms. Explained to patient and family that at this point there is no urgent need for cholecystectomy. Due to her heart issues and recent stent, anticoagulation cannot be held and she is at increased risk for another cardiac event if she underwent surgery. 4. switch to PO dilaudid 1mg PO q3hr. If she does not get some pain relief with oral dilaudid, recommend pain management consult. 5. prn nausea control, zofran changed to q6h scheduled 6. recommend starting low dose ativan PO and continuing after dc Discussed with family members at bedside. OK to dc if pain controlled on PO pain meds. May follow up in surgery clinic when cardiology has cleared her for surgery. Thank you, please call with questions. Subjective Date of service: 07/10/18 Narrative: Pt seen and examined. c/o abdominal discomfort but states pain medications help. Tolerated clear liquids. No n/v. +BM Objective Vital Signs - 12hr 07/10/18 07/10/18 07/10/18 04:29 07:54 10:17 Temperature 98.0 F 98.0 F Pulse Rate 54 L 53 L 55 L Respiratory 18 16 Rate Blood Pressure 159/73 160/87 O2 Sat by Pulse 97 98 Oximetry 07/10/18 11:01 Temperature Pulse Rate 56 L Respiratory Rate Blood Pressure O2 Sat by Pulse Oximetry - General physical appearance Narrative Exam: Gen: Arousable but will fall asleep in the middle of the conversation. NAD CV: s1, S2+ resp; even and unlabored Abd: soft, NT, ND. no r/r/g Ext: no c/c/e - Labs 07/08/18 05:58 07/10/18 04:53 Diabetes panel 07/10/18 Range/Units 04:53 Sodium 142 (137-145) mmol/L Potassium 4.1 (3.6-5.0) mmol/L Chloride 107.5 H (98-107) mmol/L Carbon Dioxide 24 (22-30) mmol/L BUN 17 (7-17) mg/dL Creatinine 0.9 (0.7-1.2) mg/dL Glucose 110 H (65-100) mg/dL Calcium 8.2 L (8.4-10.2) mg/dL Calcium panel 07/10/18 Range/Units 04:53 Calcium 8.2 L (8.4-10.2) mg/dL Pituitary panel 07/10/18 Range/Units 04:53 Sodium 142 (137-145) mmol/L Potassium 4.1 (3.6-5.0) mmol/L Chloride 107.5 H (98-107) mmol/L Carbon Dioxide 24 (22-30) mmol/L BUN 17 (7-17) mg/dL Creatinine 0.9 (0.7-1.2) mg/dL Glucose 110 H (65-100) mg/dL Calcium 8.2 L (8.4-10.2) mg/dL Adrenal panel 07/10/18 Range/Units 04:53 Sodium 142 (137-145) mmol/L Potassium 4.1 (3.6-5.0) mmol/L Chloride 107.5 H (98-107) mmol/L Carbon Dioxide 24 (22-30) mmol/L BUN 17 (7-17) mg/dL Creatinine 0.9 (0.7-1.2) mg/dL Glucose 110 H (65-100) mg/dL Calcium 8.2 L (8.4-10.2) mg/dL
[2018-07-10] MEDS: ATIVAN PO PRN ×2 (13:30→20:46)
--- NOTE | 2018-07-10 13:53 | Progress Note ---
Assessment and Plan /Intractable nausea vomiting and abdominal pain; biliary dyskinesia ? Evaluated by GI, surgery following, no surgical intervention for now, GI signed off Had repeat CT abdomen and pelvis with contrast this morning which showed possible uterine versus ovarian calcified mass Consulted OVERSEAMER - no plan for any surgical intervention, continue IV fluids, antiemetics, pain medications /Acute kidney injury; secondary to vasomotor nephropathy, resolved. Gentle IV hydration, Avoid nephrotoxins, nephrology following renal function has been stable now /Non-ST elevation [place]; status post cardiac catheterization s/p PCI of the distal circumflex. On dual platelets aspirin and Plavix, cardiology following /History of coronary artery disease status post PCI; on cardiac medications /Hyponatremia; significantly improved /Type 2 diabetes mellitus; uncontrolled A1c 12.5 ,Accu-Chek sliding scale coverage ADA diet, longer acting insulin. Monitor blood sugars and adjust insulin as needed /Diabetic neuropathy; continue gabapentin /-Hypertension; moderate control, continue current antihypertensives and when necessary medications /Dyslipidemia: continue statin. /-Moderate malnutrition/hypoalbuminemia; nutrition supplements, nutrition consult if needed /-DVT prophylaxis; Lovenox /-Full CODE STATUS Plan of care is reviewed with the patient and multiple family members at the bedside. Disposition; follow clinically, d/c if pain controlled with oral pain meds Brief History 57-year-old female patient with significant coronary artery disease status post PCI was admitted through emergency room with chest pain, evaluated by cardiology and underwent heart Status post stent placement to distal circumflex, patient developed acute renal failure, now resolved, intractable nausea vomiting end. Biliary dyskinesia, evaluated by GI, and surgery, no surgical indication at this point in view of recent stent, medical management. Patient continues to have intractable nausea vomiting, and pain medications, currently intervening off of IV and oral Percocet/[place]. Had repeat CT abdomen and pelvis with contrast which showed possible uterine versus ovarian calcified mass, consulted PAYROLL AND BENEFITS ANALYST - recommended medical mx Hospitalist Physical General appearance: Present: mild distress, well-nourished, obese (morbidly obese) - EENT Eyes: Present: PERRL, EOM intact - Neck Neck: Present: supple, normal ROM - Respiratory Respiratory effort: normal Respiratory: bilateral: diminished, negative: rales, rhonchi, wheezing - Cardiovascular Rhythm: regular Heart Sounds: Present: S1 & S2 - Extremities Extremities: no ischemia, No edema - Abdominal General gastrointestinal: soft, non-tender, non-distended, normal bowel sounds - Psychiatric Psychiatric: appropriate mood/affect, cooperative - Neurologic Neurologic: CNII-XII intact, moves all extremities Subjective Date of service: 07/10/18 Principal diagnosis: abdominal pain Interval history: Patient seen and examined. Medical records and medication list reviewed. No acute event overnight noted by the RN. Patient continued to complain of epigastric pain, but states better now, tolerating liquid diet, but has nausea discussed with family, patient and Dr Ugalde about plan of care Objective - Constitutional Vitals: Vital Signs - 12hr 07/10/18 07/10/18 07/10/18 04:29 07:54 10:17 Temperature 98.0 F 98.0 F Pulse Rate 54 L 53 L 55 L Respiratory 18 16 Rate Blood Pressure 159/73 160/87 O2 Sat by Pulse 97 98 Oximetry 07/10/18 07/10/18 11:01 11:25 Temperature 98.3 F Pulse Rate 56 L 52 L Respiratory 16 Rate Blood Pressure 135/69 O2 Sat by Pulse 93 Oximetry - Labs CBC & Chem 7: 07/08/18 05:58 07/10/18 04:53 Labs: Abnormal lab results 07/09/18 07/10/18 07/10/18 Range/Units 21:35 04:53 08:01 Chloride 107.5 H (98-107) mmol/L Glucose 110 H (65-100) mg/dL POC Glucose 193 H 112 H (70-105) Calcium 8.2 L (8.4-10.2) mg/dL 07/10/18 Range/Units 11:32 Chloride (98-107) mmol/L Glucose (65-100) mg/dL POC Glucose 172 H (70-105) Calcium (8.4-10.2) mg/dL
[2018-07-10] MEDS: DILAUDID PO PRN ×2 (17:59→20:46)
[2018-07-10] MEDS: LOVENOX SUB-Q SCH (22:47)
[2018-07-10] MEDS: LIORESAL PO SCH (22:48)
[2018-07-10] MEDS: REGLAN IV PRN (22:49)
[2018-07-11] MEDS: CARAFATE PO SCH ×3 (00:45→11:50)
[2018-07-11] MEDS: DILAUDID PO PRN ×5 (01:25→15:09)
[2018-07-11] MEDS: ZOFRAN IV SCH ×2 (03:00→11:44)
[2018-07-11] MEDS: ATIVAN PO PRN ×2 (04:35→09:37)
[2018-07-11 04:42] VITALS: BP 156/65
[2018-07-11] MEDS: COREG PO SCH ×2 (07:34→09:35)
[2018-07-11] MEDS: HumaLOG SUB-Q SCH ×2 (07:58→11:45)
[2018-07-11] MEDS: LANTUS SUB-Q SCH (08:04)
[2018-07-11] MEDS: URSO PO SCH ×2 (08:04→11:51)
[2018-07-11] MEDS: IMDUR PO SCH (09:14)
[2018-07-11] MEDS: BABY ASPIRIN PO SCH (09:33)
[2018-07-11] MEDS: COLACE PO SCH (09:34)
[2018-07-11] MEDS: BENTYL PO SCH ×2 (09:34→13:23)
[2018-07-11] MEDS: COMBIGAN 0.2-0.5% OD SCH (09:34)
[2018-07-11] MEDS: BUSPAR PO SCH (09:34)
[2018-07-11] MEDS: LEXAPRO PO SCH (09:35)
[2018-07-11] MEDS: PROTONIX PO SCH (09:36)
[2018-07-11] MEDS: MIRALAX 3350 PO SCH (09:36)
[2018-07-11] MEDS: NORVASC PO SCH (09:36)
[2018-07-11] MEDS: PLAVIX PO SCH (09:36)
[2018-07-11] MEDS: DILAUDID IV PRN (09:37)
[2018-07-11] MEDS: SODIUM CHLORIDE FLUSH SYRINGE 10 ML IV SCH (09:37)
--- NOTE | 2018-07-11 14:16 | Event Note ---
Date: 07/11/18 Cardiac note; Patient had CP and EKG no acute changes to suggest cardiac etiology. GB pain may mimic cardiac pain. Patient luly be DC from cardiac perspective. .
--- NOTE | 2018-07-11 14:40 | Discharge Summary ---
Providers - Providers Date of Admission: 07/01/18 03:46 Date of discharge: 07/11/18 Attending physician: NERI TAVAREZ 07/01/18 03:40 Consult to Dietitian/Nutrition [CONS] Routine Physician Instructions: Reason For Exam: Reason for Consult: Diet education 07/01/18 07:50 Consult to Wound/ET Nurse [CONS] Routine Reason For Exam: wound eval 07/01/18 12:37 Consult to Cardiac Rehabilitation [CONS] Routine Reason For Exam: Cardiac Rehab Evaluation 07/02/18 12:17 Consult to Physician [CONS] Routine Comment: Consulting Provider: RAMBO BELL Physician Instructions: Reason For Exam: DONAL 07/03/18 09:12 Consult to Physician [CONS] Routine Comment: Consulting Provider: VIC BRAY Physician Instructions: Reason For Exam: Itractable nausea,vomiting 07/05/18 10:35 Consult to Physician [CONS] Routine Comment: Consulting Provider: ENDER HUFFMAN Physician Instructions: Reason For Exam: N/V,Biliary dyskinesia,?gallbladder dis 07/08/18 08:38 Consult to Physician [CONS] Routine Comment: Consulting Provider: VIC BRAY Physician Instructions: Reason For Exam: biliary dyskenesia 07/09/18 09:00 Consult to Physician [CONS] Routine Comment: Consulting Provider: BRANDI TONEY Physician Instructions: Reason For Exam: ovarian/uterine mass [facility] Condition: Stable Pertinent studies: CXR Abdomen CT Abdomen/pelvis CT Abdomen US Pelvis US Hospital course: 57-year-old female patient with significant coronary artery disease status post PCI was admitted through emergency room with chest pain, evaluated by cardiology and underwent cardiac catheterization with stent placement to distal circumfle x, patient developed acute renal failure, then resolved with iv fluid. Patient then complained of intractable nausea vomiting, suspected Biliary dyskinesia, evaluated by GI, and surgery, no surgical indication at this point in view of recent stent and medical management recommended. Patient Had repeat CT abdomen and pelvis with contrast which showed possible uterine versus ovarian calcified mass, consulted CLEANER AND DYER - recommended medical mx and outpt followup. Patient was then discharged home in stable condition with outpt followup. Discharge diagnosis and management: /Intractable nausea vomiting and abdominal pain; biliary dyskinesia ? Evaluated by GI, surgery following, no surgical intervention for now, GI signed off Had repeat CT abdomen and pelvis with contrast this morning which showed possible uterine versus ovarian calcified mass Consulted DESULPHURING OPERATOR - no plan for any surgical intervention, managed with IV fluids, antiemetics, pain medications /Acute kidney injury; secondary to vasomotor nephropathy, resolved. Gentle IV hydration, Avoid nephrotoxins, nephrology consulted renal function has been stable now /Non-ST elevation [place]; status post cardiac catheterization s/p PCI of the distal circumflex. On dual platelets aspirin and Plavix, cardiology was following /History of coronary artery disease status post PCI; on cardiac medications /Hyponatremia; significantly improved /Type 2 diabetes mellitus; uncontrolled A1c 12.5 ,Accu-Chek sliding scale coverage ADA diet, longer acting insulin. Monitor blood sugars and adjust insulin as needed /Diabetic neuropathy; continue gabapentin /-Hypertension; moderate control, continue current antihypertensives and when necessary medications /Dyslipidemia: continue statin. /-Moderate malnutrition/hypoalbuminemia; nutrition supplements, nutrition consult if needed /-DVT prophylaxis; Lovenox /-Full CODE STATUS Plan of care is reviewed with the patient and multiple family members at the bedside. Disposition; home with outpt f/u Hospitalist Physical General appearance: Present: mild distress, well-nourished, obese (morbidly obese) - EENT Eyes: Present: PERRL, EOM intact - Neck Neck: Present: supple, normal ROM - Respiratory Respiratory effort: normal Respiratory: bilateral: diminished, negative: rales, rhonchi, wheezing - Cardiovascular Rhythm: regular Heart Sounds: Present: S1 & S2 - Extremities Extremities: no ischemia, No edema - Abdominal General gastrointestinal: soft, non-tender, non-distended, normal bowel sounds - Psychiatric Psychiatric: appropriate mood/affect, cooperative - Neurologic Neurologic: CNII-XII intact, moves all extremities Disposition: - TO HOME OR SELFCARE Time spent for discharge: 34 minutes Core Measure Documentation - Palliative Care Palliative Care/ Comfort Measures: Not Applicable - Core Measures Any of the following diagnoses?: acute AL - Acute AL Discharge Requirements Aspirin at discharge: Yes MARIUM/ARB for LVSD if EF <40%: Yes Beta deborah at discharge: Yes Statin for LDL = or >100 mg/dl on DC: Yes Exam - Constitutional Vitals: Temp Pulse Resp BP Pulse Ox 98.4 F 54 L 19 156/65 97 07/11/18 08:14 07/11/18 09:36 07/11/18 08:41 07/11/18 09:36 07/11/18 08:41 Plan Activity: advance as tolerated Weight Bearing Status: Non-Weight Bearing Diet: advance as tolerated Follow up with: EMMA ISRAEL MD [Primary Care Provider] - 3-5 Days DEONNA BOWMAN MD [Staff Physician] - 7 Days ENDER HUFFMAN DO [Staff Physician] - 7 Days Prescriptions: AtorvaSTATin [Lipitor] 40 mg PO QHS #30 tablet Aspirin [Aspirin BABY CHEW TAB] 81 mg PO QDAY #30 tab.chew Aspirin EC 81 mg PO QDAY #30 tablet. LORazepam [Ativan] 0.5 mg PO BID PRN #5 tab PRN Reason: Anxiety Dicyclomine [Bentyl] 20 mg PO QID #14 tablet Sucralfate [Carafate] 1 gm PO Q6HR #60 tablet Carvedilol [Coreg] 3.125 mg PO BID #60 tablet HYDROmorphone [Dilaudid] 1 mg PO Q4HR #7 tablet Isosorbide Mononitrate 60 mg PO DAILY #30 tablet Insulin Glargine [Lantus VIAL] 25 units SUB-Q BID@0800,2000 #10 ml Baclofen [Lioresal] 10 mg PO HS #10 tablet amLODIPine [Norvasc] 10 mg PO QDAY #30 tablet Clopidogrel [Plavix] 75 mg PO QDAY #30 tablet Pantoprazole [Protonix TAB] 40 mg PO QDAY #30 tablet Ursodiol [Nita] 500 mg PO TIDDIAB #60 tablet Ondansetron (Nf) [Zofran TAB] 8 mg PO Q8HR PRN #10 tablet PRN Reason: Nausea
== END 2018-07-11 15:53 | disposition home or self-care (01) | DRG 246 ==
LOC: ED 23:15 → 4A 07-01 03:46 → UNDODISIN 07-01 09:58
PROVIDERS: ADMIT Internal Medicine; ATTEND Internal Medicine
PROC: 027034Z Dilation of Coronary Artery, One Artery with Drug-eluting Intraluminal Device, Percutaneous Approach (ICD-10-PCS; principal; 2018-07-01)
PROC: 4A023N7 Measurement of Cardiac Sampling and Pressure, Left Heart, Percutaneous Approach (ICD-10-PCS; 2018-07-01)
PROC: B2111ZZ Fluoroscopy of Multiple Coronary Arteries using Low Osmolar Contrast (ICD-10-PCS; 2018-07-01)
PROC: B2151ZZ Fluoroscopy of Left Heart using Low Osmolar Contrast (ICD-10-PCS; 2018-07-01)
DX: I21.4 Non-ST elevation (NSTEMI) myocardial infarction (principal); N17.0 Acute kidney failure with tubular necrosis; E87.1 Hypo-osmolality and hyponatremia; K82.8 Other specified diseases of gallbladder; N85.9 Noninflammatory disorder of uterus, unspecified; N83.9 Noninflammatory disorder of ovary, fallopian tube and broad ligament, unspecified; E11.40 Type 2 diabetes mellitus with diabetic neuropathy, unspecified; E44.0 Moderate protein-calorie malnutrition; I11.0 Hypertensive heart disease with heart failure; I50.9 Heart failure, unspecified; G47.33 Obstructive sleep apnea (adult) (pediatric); I25.110 Atherosclerotic heart disease of native coronary artery with unstable angina pectoris; F32.9 Major depressive disorder, single episode, unspecified; E11.65 Type 2 diabetes mellitus with hyperglycemia; E78.2 Mixed hyperlipidemia; E66.9 Obesity, unspecified; D64.9 Anemia, unspecified; D21.9 Benign neoplasm of connective and other soft tissue, unspecified; Z79.4 Long term (current) use of insulin; I25.2 Old myocardial infarction; Z95.5 Presence of coronary angioplasty implant and graft; Z68.42 Body mass index [BMI] 45.0-49.9, adult
CPT/HCPCS: 36415; 71045; 74018; 74150; 74177; 76700; 76856; 78227; 80048; 80053; 80061; 80076; 82140; 82550; 82553; 82962; 83036; 83690; 83735; 83880; 84100; 84484; 85007; 85014; 85018; 85025; 85049; 85347; 85520; 85610; 85730; 87040; 92928; 93005; 93010; 93306; 93458; G0378; A9270-GY; A9537; C1769; C1874; C1887; C1894; C9600; J1170; J1644; J1650; J1815; J2060; J2250; J2270; J2405; J2765; J3010; J7030; J7040; Q0169; Q9967

== ENCOUNTER 2020-05-16 06:51 | Emergency (ER) | payer MEDICAID ==
[2020-05-16] MEDS ORDERED: ONDANSETRON 4 MG/2 ML INJ IV ONE (08:01)
[2020-05-16] MEDS ORDERED: fentaNYL 100 MCG/2 ML INJ IV ONE (08:01)
--- NOTE | 2020-05-16 08:07 | Emergency Department Report ---
HPI - General Chief Complaint: Abdominal Pain Time Seen by Provider: 05/16/20 07:52 - HPI HPI: Room 22 Patient is a 59-year-old female present with a chief complaint of abdominal pain. Patient states for the past 3 days she has had intermittent epigastric abdominal pain associated with nausea and vomiting. The patient states she has not noticed a relationship with her pain to meals. Patient denies history of fever or diarrhea. Patient currently gives her pain a score of 9/10. ED Past Medical Hx - Past Medical History Hx Hypertension: Yes Hx Heart Attack/AMI: Yes Hx Congestive Heart Failure: Yes Hx Diabetes: Yes Hx Deep Vein Thrombosis: No Hx Pulmonary Embolism: No Hx Liver Disease: No Hx Renal Disease: Yes (DONAL) Hx Asthma: No Hx COPD: Yes Hx Tuberculosis: No Hx HIV: No Additional medical history: neuropathy - Surgical History Hx Coronary Stent: Yes Hx Pacemaker: No Hx Internal Defibrillator: No Additional Surgical History: Infection right great toe. Cataract surgery - Social History Smoking Status: Never Smoker - Medications Home Medications: Home Medications Medication Instructions Recorded Confirmed Last Taken Type Gabapentin 800 mg PO Q8HR 11/01/15 07/01/18 02/27/17 10:00 History 800 mg Escitalopram [Lexapro] 20 mg PO DAILY 02/28/17 07/01/18 02/27/17 10:00 History 20 mg lisinopriL [Zestril TAB] 20 mg PO QDAY 02/28/17 07/01/18 02/27/17 10:00 History 20 mg Brimonidine Tartrate/Timolol 1 drop OP BID 07/01/18 07/01/18 Unknown History [Combigan 0.2%-0.5% Eye Drops] Buspirone HCl [busPIRone] 15 mg PO BID 07/01/18 07/01/18 Unknown History Aspirin EC [Halfprin EC] 81 mg PO QDAY #30 tablet.dr 07/11/18 Unknown Rx Aspirin [Aspirin BABY CHEW TAB] 81 mg PO QDAY #30 tab.chew 07/11/18 Unknown Rx AtorvaSTATin [Lipitor] 40 mg PO QHS #30 tablet 07/11/18 Unknown Rx Baclofen [Lioresal] 10 mg PO HS #10 tablet 07/11/18 Unknown Rx Clopidogrel [Plavix] 75 mg PO QDAY #30 tablet 07/11/18 Unknown Rx Dicyclomine [Bentyl] 20 mg PO QID #14 tablet 07/11/18 Unknown Rx HYDROmorphone [Dilaudid] 1 mg PO Q4HR #7 tablet 07/11/18 Unknown Rx Insulin Glargine [Lantus VIAL] 25 units SUB-Q BID@0800,2000 #10 ml 07/11/18 Unk nown Rx Isosorbide Mononitrate 60 mg PO DAILY #30 tablet 07/11/18 Unknown Rx LORazepam [Ativan] 0.5 mg PO BID PRN #5 tab 07/11/18 Unknown Rx Ondansetron (Nf) [Zofran TAB] 8 mg PO Q8HR PRN #10 tablet 07/11/18 Unknown Rx Pantoprazole [Protonix TAB] 40 mg PO QDAY #30 tablet 07/11/18 Unknown Rx Sucralfate [Carafate] 1 gm PO Q6HR #60 tablet 07/11/18 Unknown Rx amLODIPine 10 mg PO QDAY #30 tablet 07/11/18 Unknown Rx carvediloL [Coreg] 3.125 mg PO BID #60 tablet 07/11/18 Unknown Rx ursodioL [Ursodiol] 500 mg PO TIDDIAB #60 tablet 07/11/18 Unknown Rx Docusate Sodium [Colace] 100 mg PO BID #60 capsule 05/16/20 Unknown Rx Famotidine [Pepcid] 20 mg PO BID #60 tablet 05/16/20 Unknown Rx HYDROcodone/APAP 5-325 [[place] 1 each PO Q6HR PRN #14 tablet 05/16/20 Unknown Rx 5/325] Lactulose [Cephulac] 20 gm PO QDAY PRN #90 ml 05/16/20 Unknown Rx Ondansetron [Zofran ODT TAB] 8 mg PO Q8HR #20 tab.rapdis 05/16/20 Unknown Rx ED Review of Systems ROS: Stated complaint: ABD PAIN/NAUSEA Other details as noted in HPI Constitutional: denies: fever Eyes: denies: eye pain ENT: denies: throat pain Respiratory: no symptoms reported Cardiovascular: denies: chest pain Endocrine: no symptoms reported Gastrointestinal: abdominal pain, nausea, vomiting. denies: diarrhea Genitourinary: denies: dysuria Musculoskeletal: denies: back pain Neurological: denies: headache Physical Exam - Physical Exam Physical Exam: GENERAL: The patient is well-developed well-nourished female lying on stretcher not appearing to be in acute distress. [] HEENT: Normocephalic. Atraumatic. Extraocular motions are intact. Patient has moist mucous membranes. NECK: Supple. Trachea midline CHEST/LUNGS: Clear to auscultation. There is no respiratory distress noted. HEART/CARDIOVASCULAR: Regular. There is no tachycardia. There is no gallop rub or murmur. ABDOMEN: Abdomen is soft, with tenderness to palpation in the epigastric and right upper quadrant. There is no rebound or guarding. Patient has normal bowel sounds. There is no abdominal distention. SKIN: There is no rash. There is no edema. There is no diaphoresis. NEURO: The patient is awake, alert, and oriented. The patient is cooperative. The patient has no focal neurologic deficits. The patient has normal speech MUSCULOSKELETAL: There is no evidence of acute injury. ED Course - Reevaluation(s) Reevaluation #1: 05/16/20 13:47 Patient tolerating p.o. ED Medical Decision Making - Lab Data Result diagrams: 05/16/20 08:21 05/16/20 08:21 Laboratory Tests 05/16/20 05/16/20 05/16/20 08:21 08:21 11:22 WBC 7.0 RBC 3.67 Hgb 9.8 L Hct 30.0 L MCV 82 MCH 27 L MCHC 33 RDW 15.4 H Plt Count 199 Lymph % (Auto) 19.9 [place] % (Auto) 15.4 H Eos % (Auto) 1.7 Baso % (Auto) 0.9 Lymph # (Auto) 1.4 [place] # (Auto) 1.1 H Eos # (Auto) 0.1 Baso # (Auto) 0.1 Seg Neutrophils % 62.1 Seg Neutrophils # 4.4 Sodium 137 Potassium 4.3 Chloride 101.2 Carbon Dioxide 29 Anion Gap 11 BUN 32 H Creatinine 1.1 Estimated GFR > 60 BUN/Creatinine Ratio 29 Glucose 179 H Calcium 9.3 Total Bilirubin 0.20 AST 10 ALT 10 Alkaline Phosphatase 71 Total Creatine Kinase 150 H CK-MB (CK-2) 1.3 CK-MB (CK-2) Rel Index 0.8 Troponin T < 0.010 Total Protein 7.5 Albumin 3.8 L Albumin/Globulin Ratio 1.0 Lipase 11 L Urine Color Yellow Urine Turbidity Clear Urine pH 6.0 Ur Specific [place] 1.021 Urine Protein 100 mg/dl Urine Glucose (UA) 50 Urine Ketones Neg Urine Blood Mod Urine Nitrite Neg Urine Bilirubin Neg Urine Urobilinogen < 2.0 Ur Leukocyte Esterase Neg Urine WBC (Auto) 4.0 Urine RBC (Auto) 12.0 U Epithel Cells (Auto) 1.0 - EKG Data -: EKG Interpreted by Id EKG shows normal: sinus rhythm Rate: normal - EKG Data When compared to previous EKG there are: previous EKG unavailable Interpretation: other (No ischemic changes seen) - Radiology Data Radiology results: report reviewed (CT abdomen pelvis), image reviewed (CT abdomen pelvis) [facility] [address] [place] [address] Cat Scan Report Signed Patient: MARC LEON MR#: [id number] : 1960 Acct:[id number] Age/Sex: 59 / F ADM Date: 05/16/20 Loc: ED Attending Dr: Ordering Physician: SHEELA SORENSEN MD Date of Service: 05/16/20 Procedure(s): CT abdomen pelvis w con Accession Number(s): [id number] cc: SHEELA SORENSEN MD CT ABDOMEN AND PELVIS WITH CONTRAST INDICATION / CLINICAL INFORMATION: MAIN. TECHNIQUE: Axial CT images were obtained through the abdomen and pelvis after 100 cc Omnipaque 300 milligrams percent IV contrast. All CT scans at this location are performed using CT dose reduction for ALARA by means of automated exposure control. COMPARISON: 07/08/2018 FINDINGS: LOWER CHEST: No significant abnormality . Cardiac enlargement is present. Extensive coronary calcifications are present LIVER: No significant abnormality. GALLBLADDER: No significant abnormality. BILE DUCTS: No significant abnormality. PANCREAS: No significant abnormality. SPLEEN: No significant abnormality. ADRENALS: No significant abnormality. RIGHT KIDNEY and URETER: No significant abnormality. LEFT KIDNEY and URETER: No significant abnormality. STOMACH and SMALL BOWEL: No significant abnormality. COLON: No significant abnormality. APPENDIX: No significant abnormality. PERITONEUM: No free fluid. No free air. No fluid collection. LYMPH NODES: No significant adenopathy. AORTA and ARTERIES: Extensive calcified plaque abdominal aorta is major branches IVC and VEINS: No significant abnormality. URINARY BLADDER: Cho catheters present in the urinary bladder REPRODUCTIVE ORGANS: Again noted large calcified uterine fibroid measuring 15 x 13 cm ADDITIONAL FINDINGS: None. SKELETAL SYSTEM: No significant abnormality. IMPRESSION: 1. Large calcified uterine fibroid unchanged from previous exam 2. Extensive coronary calcifications. Signer Name: Juni Zuleta MD Signed: 05/16/2020 10:28 AM Workstation Name: [email or web address] Transcribed By: BREANA Dictated By: Juni Zuleta MD Electronically Authenticated By: Juni Zuleta MD Signed Date/Time: 05/16/20 1028 DD/ 1022 TD/TT: Print Cancel - Differential Diagnosis Pancreatitis, peptic ulcer disease, symptomatic cholelithiasis, ACS Critical care attestation.: If time is entered above; I have spent that time in minutes in the direct care of this critically ill patient, excluding procedure time. ED Disposition Clinical Impression: Acute abdominal pain, Nausea & vomiting Disposition: DC-01 TO HOME OR SELFCARE Is pt being admited?: No Does the pt Need Aspirin: No Condition: Stable Instructions: Abdominal Pain (ED), Nausea and Vomiting, Adult, Abdominal Pain, Adult, [id number] Additional Instructions: Return to the emergency department should you develop worsening symptoms, inability to tolerate food or liquids, high fever or any other concerns Prescriptions: Lactulose [Cephulac] 20 gm PO QDAY PRN #90 ml PRN Reason: Constipation Docusate Sodium [Colace] 100 mg PO BID #60 capsule HYDROcodone/APAP 5-325 [[place] 5/325] 1 each PO Q6HR PRN #14 tablet PRN Reason: Pain Famotidine [Pepcid] 20 mg PO BID #60 tablet Ondansetron [Zofran ODT TAB] 8 mg PO Q8HR #20 tab.rapdis Referrals: PRIMARY CARE, [Primary Care Provider] - 3-5 Days JEREMIAH BRANCH MD [Staff Physician] - 3-5 Days (Dr. Branch is a [facility] coordinator. Please follow-up with him for further evaluation) Time of Disposition: 13:50
[2020-05-16 08:31] LABS: Basophils # (Auto) 0.1 K/mm3 (0.0-0.1); Basophils % (Auto) 0.9 % (0.0-1.8); Eosinophils # (Auto) 0.1 K/mm3 (0.0-0.4); Eosinophils % (Auto) 1.7 % (0.0-4.3); Hemoglobin 9.8 gm/dl (10.1-14.3); Lymphocytes # (Auto) 1.4 K/mm3 (1.2-5.4); Lymphocytes % (Auto) 19.9 % (13.4-35.0); Mean Corpuscular HGB Conc 33 % (30-34); Mean Corpuscular Volume 82 fl (79-97); Monocytes # (Auto) 1.1 K/mm3 (0.0-0.8); Monocytes % (Auto) 15.4 % (0.0-7.3); Platelet Count 199 K/mm3 (140-440); Red Blood Count 3.67 M/mm3 (3.65-5.03); Red Cell Distribution Width 15.4 % (13.2-15.2)
[2020-05-16 09:24] LABS: Creatine Kinase MB 1.3 ng/mL (0.0-4.0)
[2020-05-16 09:25] LABS: Alanine Aminotransferase 10 units/L (7-56); Albumin 3.8 g/dL (3.9-5); BUN/Creatinine Ratio 29; Blood Urea Nitrogen 32 mg/dL (7-17); Calcium 9.3 mg/dL (8.4-10.2); Hemolysis Index 1
--- NOTE | 2020-05-16 10:22 | Electrocardiograph Report ---
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
--- NOTE | 2020-05-16 10:32 | Cat Scan Report ---
CT ABDOMEN AND PELVIS WITH CONTRAST INDICATION / CLINICAL INFORMATION: MAIN. TECHNIQUE: Axial CT images were obtained through the abdomen and pelvis after 100 cc Omnipaque 300 milligrams pe rcent IV contrast. All CT scans at this location are performed using CT dose reduction for ALARA by means of automated exposure control. COMPARISON: 07/08/2018 FINDINGS: LOWER CHEST: No significant abnormality. Cardiac enlargement is present. Extensive coronary calcifica tions are present LIVER: No significant abnormality. GALLBLADDER: No significant abnormality. BILE DUCTS: No significant abnormality. PANCREAS: No significant abnormality. SPLEEN: No significant abnormality. ADRENALS: No significant abnormality. RIGHT KIDNEY and URETER: No significant abnormality. LEFT KIDNEY and URETER: No significant abnormality. STOMACH and SMALL BOWEL: No significant abnormality. COLON: No significant abnormality. APPENDIX: No significant abnormality. PERITONEUM: No free fluid. No free air. No fluid collection. LYMPH NODES: No significant adenopathy. AORTA and ARTERIES: Extensive calcified plaque abdominal aorta is major branches IVC and VEINS: No significant abnormality. URINARY BLADDER: Cho catheters present in the urinary bladder REPRODUCTIVE ORGANS: Again noted large calcified uterine fibroid measuring 15 x 13 cm ADDITIONAL FINDINGS: None. SKELETAL SYSTEM: No significant abnormality. IMPRESSION: 1. Large calcified uterine fibroid unchanged from previous exam 2. Extensive coronary calcifications. Signer Name: Juni Zuleta MD Signed: 05/16/2020 10:28 AM Workstation Name: [email or web address]
[2020-05-16] MEDS ORDERED: HYDROmorphone 1 MG/1 ML INJ IV ONE (11:08)
[2020-05-16] MEDS: DICYCLOMINE 20 MG/2 ML INJ IM ONE ×2 (11:14→11:19)
[2020-05-16 12:09] LABS: Bilirubin,Urine NEG (Negative); Blood,Urine MOD (Negative); Color,Urine Yellow (Yellow); Urobilinogen,Urine < 2.0 mg/dL (<2.0)
[2020-05-16 16:36] VITALS: BP 154/87
== END 2020-05-16 16:36 | disposition home or self-care (01) ==
LOC: ED 06:51
DX: R10.13 Epigastric pain (principal); R11.2 Nausea with vomiting, unspecified; I11.0 Hypertensive heart disease with heart failure; I50.9 Heart failure, unspecified; I25.2 Old myocardial infarction; E11.9 Type 2 diabetes mellitus without complications; J44.9 Chronic obstructive pulmonary disease, unspecified; Z98.890 Other specified postprocedural states; Z79.899 Other long term (current) drug therapy
CPT/HCPCS: 36415; 74177; 80053; 81001; 82550; 82553; 83690; 84484; 85025; 93005; 96372; 96374; 96375; 99285; J0500; J1170; J2405; J3010; Q9967

== ENCOUNTER 2020-07-21 20:13 | Inpatient (IN) | payer MEDICAID, OTHER ==
[2020-07-21 21:02] LABS: Basophils % (Auto) 0.5 % (0.0-1.8); Eosinophils # (Auto) 0.2 K/mm3 (0.0-0.4); Eosinophils % (Auto) 1.9 % (0.0-4.3); Hematocrit 26.5 % (30.3-42.9); Hemoglobin 8.7 gm/dl (10.1-14.3); Lymphocytes # (Auto) 1.2 K/mm3 (1.2-5.4); Lymphocytes % (Auto) 13.3 % (13.4-35.0); Mean Corpuscular HGB Conc 33 % (30-34); Mean Corpuscular Volume 81 fl (79-97); Monocytes # (Auto) 1.3 K/mm3 (0.0-0.8); Monocytes % (Auto) 14.8 % (0.0-7.3); Platelet Count 223 K/mm3 (140-440); Red Blood Count 3.27 M/mm3 (3.65-5.03); Red Cell Distribution Width 17.1 % (13.2-15.2)
--- NOTE | 2020-07-21 21:18 | Emergency Department Report ---
HPI - General Chief Complaint: Abdominal Pain Time Seen by Provider: 07/21/20 21:03 - HPI HPI: Room 7 The patient is a 59-year-old female present with a chief complaint of abdominal swelling. Patient states she has noticed decreased urinary output for the past 2 days. Patient states she urinated a small amount this morning only after straining. Patient states over the past day and a half she has noticed worsening swelling to her abdomen and lower extremities. Patient admits to shortness of breath for 1 day. Patient denies history of cough or fever. ED Past Medical Hx - Past Medical History Hx Hypertension: Yes Hx Heart Attack/AMI: Yes Hx Congestive Heart Failure: Yes Hx Diabetes: Yes Hx Renal Disease: Yes (DONAL) Hx COPD: Yes Additional medical history: neuropathy - Surgical History Hx Coronary Stent: Yes Additional Surgical History: Infection right great toe. Cataract surgery - Family History Family history: no significant - Social History Smoking Status: Never Smoker Substance Use Type: None (Denies illicit drug use) - Medications Home Medications: Home Medications Medication Instructions Recorded Confirmed Last Taken Type Gabapentin 800 mg PO Q8HR 11/01/15 07/01/18 02/27/17 10:00 History 800 mg Escitalopram [Lexapro] 20 mg PO DAILY 02/28/17 07/01/18 02/27/17 10:00 History 20 mg lisinopriL [Zestril TAB] 20 mg PO QDAY 02/28/17 07/01/18 02/27/17 10:00 History 20 mg Brimonidine Tartrate/Timolol 1 drop OP BID 07/01/18 07/01/18 Unknown History [Combigan 0.2%-0.5% Eye Drops] Buspirone HCl [busPIRone] 15 mg PO BID 07/01/18 07/01/18 Unknown History Aspirin EC [Halfprin EC] 81 mg PO QDAY #30 tablet.dr 07/11/18 Unknown Rx Aspirin [Aspirin BABY CHEW TAB] 81 mg PO QDAY #30 tab.chew 07/11/18 Unknown Rx AtorvaSTATin [Lipitor] 40 mg PO QHS #30 tablet 07/11/18 Unknown Rx Baclofen [Lioresal] 10 mg PO HS #10 tablet 07/11/18 Unknown Rx Clopidogrel [Plavix] 75 mg PO QDAY #30 tablet 07/11/18 Unknown Rx Dicyclomine [Bentyl] 20 mg PO QID #14 tablet 07/11/18 Unknown Rx HYDROmorphone [Dilaudid] 1 mg PO Q4HR #7 tablet 07/11/18 Unknown Rx Insulin Glargine [Lantus VIAL] 25 units SUB-Q BID@0800,2000 #10 ml 07/11/18 Unknown Rx Isosorbide Mononitrate 60 mg PO DAILY #30 tablet 07/11/18 Unknown Rx LORazepam [Ativan] 0.5 mg PO BID PRN #5 tab 07/11/18 Unknown Rx Ondansetron (Nf) [Zofran TAB] 8 mg PO Q8HR PRN #10 tablet 07/11/18 Unknown Rx Pantoprazole [Protonix TAB] 40 mg PO QDAY #30 tablet 07/11/18 Unknown Rx Sucralfate [Carafate] 1 gm PO Q6HR #60 tablet 07/11/18 Unknown Rx amLODIPine 10 mg PO QDAY #30 tablet 07/11/18 Unknown Rx carvediloL [Coreg] 3.125 mg PO BID #60 tablet 07/11/18 Unknown Rx ursodioL [Ursodiol] 500 mg PO TIDDIAB #60 tablet 07/11/18 Unknown Rx Docusate Sodium [Colace] 100 mg PO BID #60 capsule 05/16/20 Unknown Rx Famotidine [Pepcid] 20 mg PO BID #60 tablet 05/16/20 Unknown Rx HYDROcodone/APAP 5-325 [[place] 1 each PO Q6HR PRN #14 tablet 05/16/20 Unknown Rx 5/325] Lactulose [Cephulac] 20 gm PO QDAY PRN #90 ml 05/16/20 Unknown Rx Ondansetron [Zofran ODT TAB] 8 mg PO Q8HR #20 tab.rapdis 05/16/20 Unknown Rx ED Review of Systems ROS: Stated complaint: ABD PAIN, SOB Other details as noted in HPI Constitutional: denies: fever Eyes: denies: eye pain ENT: denies: throat pain Respiratory: shortness of breath. denies: cough Cardiovascular: denies: chest pain Endocrine: no symptoms reported Gastrointestinal: abdominal pain (Swelling) Genitourinary: other (Decreased urination) Musculoskeletal: denies: back pain Neurological: denies: headache Hematological/Lymphatic: other (Peripheral edema) Physical Exam - Physical Exam Vital Signs: Vital Signs 07/21/20 20:40 Temperature 97.9 F Pulse Rate 69 Respiratory 12 Rate Blood Pressure 107/53 Blood Pressure 107/53 [Right] O2 Sat by Pulse 96 Oximetry Physical Exam: GENERAL: The patient is well-developed well-nourished female lying on stretcher not appearing to be in acute distress. [] HEENT: Normocephalic. Atraumatic. Extraocular motions are intact. Patient has moist mucous membranes. NECK: Supple. Trachea midline CHEST/LUNGS: Diminished at the bases bilaterally. There is no respiratory distress noted. HEART/CARDIOVASCULAR: Regular. There is no tachycardia. There is no gallop rub or murmur. ABDOMEN: Abdomen is diffusely tender to palpation secondary to pressure. Patient has normal bowel sounds. There is a large amount of ascites present SKIN: There is no rash. There is 2+ bilateral lower extremity pitting edema. There is no diaphoresis. NEURO: The patient is awake, alert, and oriented. The patient is cooperative. The patient has no focal neurologic deficits. The patient has normal speech MUSCULOSKELETAL:There is no evidence of acute injury. ED Course Vital Signs 07/21/20 20:40 Temperature 97.9 F Pulse Rate 69 Respiratory 12 Rate Blood Pressure 107/53 Blood Pressure 107/53 [Right] O2 Sat by Pulse 96 Oximetry ED Medical Decision Making - Lab Data Result diagrams: 07/21/20 20:52 07/21/20 20:52 Laboratory Tests 07/21/20 07/21/20 07/21/20 20:52 20:52 20:52 WBC 8.9 RBC 3.27 L Hgb 8.7 L Hct 26.5 L MCV 81 MCH 27 L MCHC 33 RDW 17.1 H Plt Count 223 Lymph % (Auto) 13.3 L [place] % (Auto) 14.8 H Eos % (Auto) 1.9 Baso % (Auto) 0.5 Lymph # (Auto) 1.2 [place] # (Auto) 1.3 H Eos # (Auto) 0.2 Baso # (Auto) 0.0 Seg Neutrophils % 69.5 Seg Neutrophils # 6.2 Sodium 132 L Potassium 4.3 Chloride 93.9 L Carbon Dioxide 27 Anion Gap 15 BUN 53 H Creatinine 1.9 H Estimated GFR 33 BUN/Creatinine Ratio 28 Glucose 140 H Calcium 8.9 Total Bilirubin 0.40 AST 8 ALT 6 L Alkaline Phosphatase 76 Troponin T 0.110 H* NT-Pro-B Natriuret Pep Total Protein 7.4 Albumin 3.7 L Albumin/Globulin Ratio 1.0 Triglycerides 95 Cholesterol 107 LDL Cholesterol Direct 68 HDL Cholesterol 24 L Cholesterol/HDL Ratio 4.45 07/21/20 20:52 WBC RBC Hgb Hct MCV MCH MCHC RDW Plt Count Lymph % (Auto) [place] % (Auto) Eos % (Auto) Baso % (Auto) Lymph # (Auto) [place] # (Auto) Eos # (Auto) Baso # (Auto) Seg Neutrophils % Seg Neutrophils # Sodium Potassium Chloride Carbon Dioxide Anion Gap BUN Creatinine Estimated GFR BUN/Creatinine Ratio Glucose Calcium Total Bilirubin AST ALT Alkaline Phosphatase Troponin T NT-Pro-B Natriuret Pep 2292 H Total Protein Albumin Albumin/Globulin Ratio Triglycerides Cholesterol LDL Cholesterol Direct HDL Cholesterol Cholesterol/HDL Ratio - EKG Data -: EKG Interpreted by Me EKG shows normal: sinus rhythm Rate: normal - EKG Data When compared to previous EKG there are: changes noted Interpretation: nonspecific ST-T wave [place] (T wave inversions inferolaterally new when compared to previous EKG dated 05/16/2020) - Radiology Data Radiology results: report reviewed (Chest x-ray), image reviewed (Chest x-ray) interpreted by me: Chest x-ray-no definite infiltrate, no pneumothorax. No foreign body seen [address] [address] XRay Report Signed Patient: MARC LEON MR#: [id number] : 1960 Acct:[id number] Age/Sex: 59 / F ADM Date: 07/21/20 Loc: ED Attending Dr: Ordering Physician: SHEELA SORENSEN MD Date of Service: 07/21/20 Procedure(s): XR chest 1V ap Accession Number(s): [id number] cc: SHEELA SORENSEN MD Fluoro Time In Minutes: CHEST 1 VIEW 07/21/2020 8:33 PM INDICATION / CLINICAL INFORMATION: Shortness of breath, peripheral edema. COMPARISON: 07/01/2018 FINDINGS: SUPPORT DEVICES: None. HEART / MEDIASTINUM: Stable. LUNGS / PLEURA: Persistent central pulmonary vascular congestion. No confluent infiltrates. Improved bilateral l inear atelectasis. No pneumothorax. No pleural effusion. ADDITIONAL FINDINGS: No significant additional findings. IMPRESSION: 1. Findings consistent with congestive heart failure and persistent central pulmonary vascular congestion. No denise interstitial edema or pleural effusions. 2. Interval improvement of previous noted linear atelectasis Signer Name: Collin Mena MD Signed: 07/21/2020 9:59 PM Workstation Name: [id number] Transcribed By: Dictated By: COLLIN MENA Electronically Authenticated By: COLLIN MENA Signed Date/Time: 07/21/202158 DD/ 55 TD/TT: Print Cancel - Differential Diagnosis Acute renal failure, CHF, liver failure Critical care attestation.: If time is entered above; I have spent that time in minutes in the direct care of this critically ill patient, excluding procedure time. ED Disposition Clinical Impression: CHF exacerbation, Anasarca, Acute kidney injury, T wave inversion in EKG Disposition: OP ADMIT IP TO THIS HOSP Is pt being admited?: Yes Does the pt Need Aspirin: No Condition: Fair Instructions: Abdominal Pain (ED) Time of Disposition: 22:47 (Hospitalist paged (Dr Infante)) Heart Score - HEART Score History: Slightly suspicious EKG: Non-specific Age: 45-65 Risk factors: > 3 risk factors or hx of atherosclerotic disease Troponin: > 3x normal limit HEART Score: 6 - EKG Read Time Time EKG Completed: 21:30 EKG Read Time: 21:35
[2020-07-21 21:27] LABS: Albumin 3.7 g/dL (3.9-5); Calcium 8.9 mg/dL (8.4-10.2)
[2020-07-21 21:45] LABS: Chol/HDL Ratio 4.45 %
--- NOTE | 2020-07-21 22:03 | XRay Report ---
CHEST 1 VIEW 07/21/2020 8:33 PM INDICATION / CLINICAL INFORMATION: Shortness of breath, peripheral edema. COMPARISON: 07/01/2018 FINDINGS: SUPPORT DEVICES: None. HEART / MEDIASTINUM: Stable. LUNGS / PLEURA: Persistent central pulmonary vascular congestion. No confluent infiltrates. Improved bilateral linear atelectasis. No pneumothorax. No pleural effusion. ADDITIONAL FINDINGS: No significant additional findings. IMPRESSION: 1. Findings consistent with congestive heart failure and persistent central pulmonary vascular conges tion. No denise interstitial edema or pleural effusions. 2. Interval improvement of previous noted linear atelectasis Signer Name: Collin Stack MD Signed: 07/21/2020 9:59 PM Workstation Name: [id number]
[2020-07-21] MEDS ORDERED: FUROSEMIDE 20 MG/2 ML INJ IV ONE (22:54)
[2020-07-21] MEDS ORDERED: CLOPIDOGREL 300 MG TAB PO ONE (22:54)
[2020-07-21] MEDS ORDERED: ONDANSETRON 4 MG/2 ML INJ IV PRN (23:28)
[2020-07-21] MEDS ORDERED: DEXTROSE 50% IN WATER (25GM) 50 ML SYRINGE IV PRN (23:28)
[2020-07-21] MEDS ORDERED: ACETAMINOPHEN 325 MG TAB PO PRN (23:28)
[2020-07-21] MEDS ORDERED: MORPHINE 2 MG/1 ML INJ IV ONE (23:33)
--- NOTE | 2020-07-21 23:39 | History and Physical Report ---
History of Present Illness Date of examination: 07/21/20 Date of admission: 07/21/2020 Chief complaint: Abdominal Swelling History of present illness: 59-year-old female with past medical history of congestive heart failure, hypertension, coronary artery disease with AR in the past, COPD, diabetes mellitus and neuropathy presenting to the emergency room today complaining of abdominal swelling. She has also been having decreased urine output for the past few days. She has had occasional shortness of breath but denies any cough, chest pain fever or chills. Patient denies any headache or dizziness, no nausea or vomiting. She indicates that she follows up at [facility] for her CHF and chronic kidney disease. Work-up in the emergency room today reveals elevated BNP of 2000 292, elevated BUN and creatinine of 53 and 1.9 respectively. EKG shows flipped T waves in the inferior and lateral leads, chest x-ray significant for congestive heart failure and persistent central pulmonary vascular congestion. Patient is being admitted for CHF exacerbation, acute on chronic kidney disease. Past History Past Medical History: acute AR, COPD, diabetes, heart failure, hypertension, renal failure Past Surgical History: PTCA, Other (Cataract surgery,Right great toe surgery secondary to infection.) Social history: no significant social history Medications and Allergies Allergies Allergy/AdvReac Type Severity Reaction Status Date / Time No Known Allergies Allergy Verified 05/16/20 07:58 Home Medications Medication Instructions Recorded Confirmed Last Taken Type Gabapentin 800 mg PO Q8HR 11/01/15 07/01/18 02/27/17 10:00 History 800 mg Escitalopram [Lexapro] 20 mg PO DAILY 02/28/17 07/01/18 02/27/17 10:00 History 20 mg lisinopriL [Zestril TAB] 20 mg PO QDAY 02/28/17 07/01/18 02/27/17 10:00 History 20 mg Brimonidine Tartrate/Timolol 1 drop OP BID 07/01/18 07/01/18 Unknown History [Combigan 0.2%-0.5% Eye Drops] Buspirone HCl [busPIRone] 15 mg PO BID 07/01/18 07/01/18 Unknown History Aspirin EC [Halfprin EC] 81 mg PO QDAY #30 tablet. 07/11/18 Unknown Rx Aspirin [Aspirin BABY CHEW TAB] 81 mg PO QDAY #30 tab.chew 07/11/18 Unknown Rx AtorvaSTATin [Lipitor] 40 mg PO QHS #30 tablet 07/11/18 Unknown Rx Baclofen [Lioresal] 10 mg PO HS #10 tablet 07/11/18 Unknown Rx Clopidogrel [Plavix] 75 mg PO QDAY #30 tablet 07/11/18 Unknown Rx Dicyclomine [Bentyl] 20 mg PO QID #14 tablet 07/11/18 Unknown Rx HYDROmorphone [Dilaudid] 1 mg PO Q4HR #7 tablet 07/11/18 Unknown Rx Insulin Glargine [Lantus VIAL] 25 units SUB-Q BID@0800,2000 #10 ml 07/11/18 Unknown Rx Isosorbide Mononitrate 60 mg PO DAILY #30 tablet 07/11/18 Unknown Rx LORazepam [Ativan] 0.5 mg PO BID PRN #5 tab 07/11/18 Unknown Rx Ondansetron (Nf) [Zofran TAB] 8 mg PO Q8HR PRN #10 tablet 07/11/18 Unknown Rx Pantoprazole [Protonix TAB] 40 mg PO QDAY #30 tablet 07/11/18 Unknown Rx Sucralfate [Carafate] 1 gm PO Q6HR #60 tablet 07/11/18 Unknown Rx amLODIPine 10 mg PO QDAY #30 tablet 07/11/18 Unknown Rx carvediloL [Coreg] 3.125 mg PO BID #60 tablet 07/11/18 Unknown Rx ursodioL [Ursodiol] 500 mg PO TIDDIAB #60 tablet 07/11/18 Unknown Rx Docusate Sodium [Colace] 100 mg PO BID #60 capsule 05/16/20 Unknown Rx Famotidine [Pepcid] 20 mg PO BID #60 tablet 05/16/20 Unknown Rx HYDROcodone/APAP 5-325 [[place] 1 each PO Q6HR PRN #14 tablet 05/16/20 Unknown Rx 5/325] Lactulose [Cephulac] 20 gm PO QDAY PRN #90 ml 05/16/20 Unknown Rx Ondansetron [Zofran ODT TAB] 8 mg PO Q8HR #20 tab.rapdis 05/16/20 Unknown Rx Active Meds: Active Medications Acetaminophen (Acetaminophen 325 Mg Tab) 650 mg PO Q4H PRN PRN Reason: Pain MILD(1-3)/Fever >100.5/SHARPE Dextrose (Dextrose 50% In Water (25gm) 50 Ml Syringe) 50 ml IV Q30MIN PRN; Protocol PRN Reason: Hypoglycemia Dextrose (Dextrose 50% In Water (25gm) 50 Ml Syringe) 50 ml IV Q30MIN PRN; Protocol PRN Reason: Hypoglycemia Furosemide (Furosemide 40 Mg/4 Ml Inj) 40 mg IV BID@0600,1800 [facility] Heparin Sodium (Porcine) (Heparin 5,000 Unit/1 Ml Vial) 5,000 unit SUB-Q Q8HR [facility] Insulin Human Lispro (Insulin Lispro 100 Unit/Ml) 0 unit SUB-Q ACHS [facility]; Protocol Morphine Sulfate (Morphine 2 Mg/1 Ml Inj) 2 mg IV Q4H PRN PRN Reason: Pain, Moderate (4-6) Ondansetron HCl (Ondansetron 4 Mg/2 Ml Inj) 4 mg IV Q8H PRN PRN Reason: Nausea And Vomiting Sodium Chloride (Sodium Chloride 0.9% 10 Ml Flush Syringe) 10 ml IV BID [facility] Sodium Chloride (Sodium Chloride 0.9% 10 Ml Flush Syringe) 10 ml IV PRN PRN PRN Reason: LINE FLUSH Review of Systems Constitutional: no fever, no chills Ears, nose, mouth and throat: no nasal congestion, no sore throat Cardiovascular: no chest pain, no palpitations Respiratory: no cough, no shortness of breath Gastrointestinal: abdominal pain, no nausea, no vomiting, no diarrhea Genitourinary Female: no pelvic pain, no flank pain, no dysuria, no hematuria Musculoskeletal: no neck pain, no low back pain Integumentary: no rash, no pruritis Neurological: no headaches Exam - Constitutional Vitals: Temp Pulse Resp BP Pulse Ox 97.9 F 69 17 129/74 91 07/21/20 20:40 07/21/20 23:30 07/21/20 23:30 07/21/20 23:30 07/21/20 23:30 General appearance: Present: no acute distress, well-nourished, obese - EENT Eyes: Present: PERRL, EOM intact. Absent: scleral icterus ENT: hearing intact, clear oral mucosa, dentition normal - Neck Neck: Present: supple, normal ROM - Respiratory Respiratory effort: normal Respiratory: bilateral: diminished - Extremities Extremities: no ischemia, pulses intact, normal temperature, normal color, Full ROM Extremity abnormal: edema (1+ bilateral ankle edema.) Peripheral Pulses: within normal limits - Abdominal General gastrointestinal: Present: soft, distended, normal bowel sounds. Absent: mass - Integumentary Integumentary: Present: clear, warm, dry, normal turgor. Absent: rash - Musculoskeletal Musculoskeletal: strength equal bilaterally - Psychiatric Psychiatric: appropriate mood/affect, intact judgment & insight, memory intact, cooperative - Neurologic Neurologic: CNII-XII intact, no focal deficits, moves all extremities HEART Score - HEART Score EKG: Non-specific Age: 45-65 Risk factors: > 3 risk factors or hx of atherosclerotic disease Troponin: Troponin T 0.110 ng/mL (0.00-0.029) H* 07/21/20 20:52 Troponin: > 3x normal limit Results - Labs CBC & Chem 7: 07/21/20 20:52 07/21/20 20:52 Labs: Abnormal lab results 07/21/20 07/21/20 07/21/20 Range/Units 20:52 20:52 20:52 RBC 3.27 L (3.65-5.03) M/mm3 Hgb 8.7 L (10.1-14.3) gm/dl Hct 26.5 L (30.3-42.9) % MCH 27 L (28-32) pg RDW 17.1 H (13.2-15.2) % Lymph % (Auto) 13.3 L (13.4-35.0) % [place] % (Auto) 14.8 H (0.0-7.3) % [place] # (Auto) 1.3 H (0.0-0.8) K/mm3 Sodium 132 L (137-145) mmol/L Chloride 93.9 L (98-107) mmol/L BUN 53 H (7-17) mg/dL Creatinine 1.9 H (0.6-1.2) mg/dL Glucose 140 H (65-100) mg/dL ALT 6 L (7-56) units/L Troponin T 0.110 H* (0.00-0.029) ng/mL NT-Pro-B Natriuret Pep (0-900) pg/mL Albumin 3.7 L (3.9-5) g/dL HDL Cholesterol 24 L (40-59) mg/dL 07/21/20 Range/Units 20:52 RBC (3.65-5.03) M/mm3 Hgb (10.1-14.3) gm/dl Hct (30.3-42.9) % MCH (28-32) pg RDW (13.2-15.2) % Lymph % (Auto) (13.4-35.0) % [place] % (Auto) (0.0-7.3) % [place] # (Auto) (0.0-0.8) K/mm3 Sodium (137-145) mmol/L Chloride (98-107) mmol/L BUN (7-17) mg/dL Creatinine (0.6-1.2) mg/dL Glucose (65-100) mg/dL ALT (7-56) units/L Troponin T (0.00-0.029) ng/mL NT-Pro-B Natriuret Pep 2292 H (0-900) pg/mL Albumin (3.9-5) g/dL HDL Cholesterol (40-59) mg/dL Assessment and Plan - Patient Problems (1) CHF exacerbation Current Visit: Yes Status: Acute Plan to address problem: Patient placed on diuretics. Will check inputs and outputs and also monitor daily weights Reschedule patient for echocardiogram. We will request cardiology evaluation (2) DONAL (acute kidney injury) Current Visit: Yes Status: Acute Plan to address problem: Patient states she has known history of kidney failure and follows up at [facility]. We request nephrology evaluation during this admission. We will monitor BUN and creatinine. (3) Abdominal pain Current Visit: No Status: Acute Plan to address problem: Possibly secondary to the abdominal ascites. We will continue patient on diuretics. We will give analgesic medication as needed for pain. (4) DVT prophylaxis Current Visit: No Status: Acute Plan to address problem: Patient placed on subcutaneous heparin. (5) Full code status Current Visit: Yes Status: Acute Plan to address problem: Patient is full code.
[2020-07-22] MEDS: MORPHINE 2 MG/1 ML INJ IV PRN ×3 (03:46→21:33)
[2020-07-22 06:07] LABS: Basophils % (Auto) 0.4 % (0.0-1.8); Eosinophils # (Auto) 0.2 K/mm3 (0.0-0.4); Eosinophils % (Auto) 2.3 % (0.0-4.3); Hematocrit 25.8 % (30.3-42.9); Hemoglobin 8.3 gm/dl (10.1-14.3); Lymphocytes # (Auto) 1.5 K/mm3 (1.2-5.4); Lymphocytes % (Auto) 16.3 % (13.4-35.0); Mean Corpuscular HGB Conc 32 % (30-34); Mean Corpuscular Volume 82 fl (79-97); Monocytes # (Auto) 1.5 K/mm3 (0.0-0.8); Platelet Count 225 K/mm3 (140-440); Red Blood Count 3.15 M/mm3 (3.65-5.03); Red Cell Distribution Width 16.9 % (13.2-15.2)
[2020-07-22 06:16] LABS: INR 1.16 (0.87-1.13)
[2020-07-22] MEDS: FUROSEMIDE 40 MG/4 ML INJ IV SCH ×2 (06:24→18:43)
[2020-07-22] MEDS: HEPARIN 5,000 UNIT/1 ML VIAL SUB-Q SCH ×3 (06:24→21:33)
[2020-07-22 06:25] LABS: Calcium 8.9 mg/dL (8.4-10.2)
--- NOTE | 2020-07-22 07:36 | Consultation ---
Past History Past Medical History: acute LA, COPD, diabetes, heart failure, hypertension, renal failure Past Surgical History: PTCA, Other (Cataract surgery,Right great toe surgery secondary to infection.) Social history: no significant social history Medications and Allergies Allergies Allergy/AdvReac Type Severity Reaction Status Date / Time No Known Allergies Allergy Verified 05/16/20 07:58 Home Medications Medication Instructions Recorded Confirmed Last Taken Type Gabapentin 800 mg PO Q8HR 11/01/15 07/01/18 02/27/17 10:00 History 800 mg Escitalopram [Lexapro] 20 mg PO DAILY 02/28/17 07/01/18 02/27/17 10:00 History 20 mg lisinopriL [Zestril TAB] 20 mg PO QDAY 02/28/17 07/01/18 02/27/17 10:00 History 20 mg Brimonidine Tartrate/Timolol 1 drop OP BID 07/01/18 07/01/18 Unknown History [Combigan 0.2%-0.5% Eye Drops] Buspirone HCl [busPIRone] 15 mg PO BID 07/01/18 07/01/18 Unknown History Aspirin EC [Halfprin EC] 81 mg PO QDAY #30 tablet.dr 07/11/18 Unknown Rx Aspirin [Aspirin BABY CHEW TAB] 81 mg PO QDAY #30 tab.chew 07/11/18 Unknown Rx AtorvaSTATin [Lipitor] 40 mg PO QHS #30 tablet 07/11/18 Unknown Rx Baclofen [Lioresal] 10 mg PO HS #10 tablet 07/11/18 Unknown Rx Clopidogrel [Plavix] 75 mg PO QDAY #30 tablet 07/11/18 Unknown Rx Dicyclomine [Bentyl] 20 mg PO QID #14 tablet 07/11/18 Unknown Rx HYDROmorphone [Dilaudid] 1 mg PO Q4HR #7 tablet 07/11/18 Unknown Rx Insulin Glargine [Lantus VIAL] 25 units SUB-Q BID@0800,2000 #10 ml 07/11/18 Unknown Rx Isosorbide Mononitrate 60 mg PO DAILY #30 tablet 07/11/18 Unknown Rx LORazepam [Ativan] 0.5 mg PO BID PRN #5 tab 07/11/18 Unknown Rx Ondansetron (Nf) [Zofran TAB] 8 mg PO Q8HR PRN #10 tablet 07/11/18 Unknown Rx Pantoprazole [Protonix TAB] 40 mg PO QDAY #30 tablet 07/11/18 Unknown Rx Sucralfate [Carafate] 1 gm PO Q6HR #60 tablet 07/11/18 Unknown Rx amLODIPine 10 mg PO QDAY #30 tablet 07/11/18 Unknown Rx carvediloL [Coreg] 3.125 mg PO BID #60 tablet 07/11/18 Unknown Rx ursodioL [Ursodiol] 500 mg PO TIDDIAB #60 tablet 07/11/18 Unknown Rx Docusate Sodium [Colace] 100 mg PO BID #60 capsule 05/16/20 Unknown Rx Famotidine [Pepcid] 20 mg PO BID #60 tablet 05/16/20 Unknown Rx HYDROcodone/APAP 5-325 [[place] 1 each PO Q6HR PRN #14 tablet 05/16/20 Unknown Rx 5/325] Lactulose [Cephulac] 20 gm PO QDAY PRN #90 ml 05/16/20 Unknown Rx Ondansetron [Zofran ODT TAB] 8 mg PO Q8HR #20 tab.rapdis 05/16/20 Unknown Rx Active Meds: Active Medications Acetaminophen (Acetaminophen 325 Mg Tab) 650 mg PO Q4H PRN PRN Reason: Pain MILD(1-3)/Fever >100.5/SHARPE Dextrose (Dextrose 50% In Water (25gm) 50 Ml Syringe) 0 ml IV Q30MIN PRN; Protocol PRN Reason: Hypoglycemia Furosemide (Furosemide 40 Mg/4 Ml Inj) 40 mg IV BID@0600,1800 [facility] Last Admin: 07/22/20 06:24 Dose: 40 mg Documented by: Heparin Sodium (Porcine) (Heparin 5,000 Unit/1 Ml Vial) 5,000 unit SUB-Q Q8HR [facility] Last Admin: 07/22/20 06:24 Dose: 5,000 unit Documented by: Insulin Human Lispro (Insulin Lispro 100 Unit/Ml) 0 unit SUB-Q [facility]; Protocol Morphine Sulfate (Morphine 2 Mg/1 Ml Inj) 2 mg IV Q4H PRN PRN Reason: Pain, Moderate (4-6) Last Admin: 07/22/20 03:46 Dose: 2 mg Documented by: Ondansetron HCl (Ondansetron 4 Mg/2 Ml Inj) 4 mg IV Q8H PRN PRN Reason: Nausea And Vomiting Sodium Chloride (Sodium Chloride 0.9% 10 Ml Flush Syringe) 10 ml IV BID [facility] Sodium Chloride (Sodium Chloride 0.9% 10 Ml Flush Syringe) 10 ml IV PRN PRN PRN Reason: LINE FLUSH Exam - Vital Signs Vital signs: Vital Signs Temp Pulse Resp BP Pulse Ox 97.9 F 69 12 107/53 96 07/21/20 20:40 07/21/20 20:40 07/21/20 20:40 07/21/20 20:40 07/21/20 20:40 Results - Lab Results 07/22/20 05:30 07/22/20 05:30 Most recent lab results Calcium 8.9 mg/dL (8.4-10.2) 07/22/20 05:30
--- NOTE | 2020-07-22 08:56 | Consultation ---
History of Present Illness Consult date: 07/22/20 Requesting physician: HERMELINDA DAVE Consult reason: congestive heart failure History of present illness: Pt is a 59-year-old female with a hx of chronic HFpEF and CKD who presented with complaints of swelling in her abdomen x 1 day prior to arrival. Pt also has lower extremity edema. She does report some SOB but believes this is due to her abdomen compressing her diaphragm. Pt denies chest pain. No additional cardiac complaints. BNP elevated at admission. CXR reveals pulmonary vascular congestion. Of note, pt is followed by Dr. Keturah Escobedo @ [facility]; however, she has been seen by our group during previous hospitalizations. Of note, pt was recently admitted to [facility] for acutely decompenated HF. She was discharged 06/20/2020 on Torsemide 100mg daily. This was changed to PO Bumex 2mg BID by her Primary Graduate Assistant. Pt was also seen at a [facility] facility < 1 week prior to her [facility] hospitalization for N/V and generalized GI discomfort. Echo 06/18/2020 - EF 60-65%, grade 3 diastolic dysfxn, mod dilated LA, mild PI. [facility] 06/2018 - occluded RCA w/excellent collaterals, patent mid LAD, significant distal Cfx lesion s/p PCI w/LUZ. [facility] 02/2019 - prox LAD 50%, mid-distal LAD/diag 90% - small caliber vessel (not amenable to intervention), Cfx/obtuse fortino diffusely diseased w/moderately stenosed distal Cfx stent and distal OM - Cfx small caliber vessel, mid RCA 100% occluded w/collaterals from the left system, EF 60%, LVEDP 18-22mmHg. Past History Past Medical History: CAD, diabetes, heart failure, hypertension, renal failure Past Surgical History: PTCA (last PCI 06/2018). 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 denies: smoking, alcohol abuse Family history: CAD, diabetes Medications and Allergies Allergies Allergy/AdvReac Type Severity Reaction Status Date / Time No Known Allergies Allergy Verified 05/16/20 07:58 Home Medications Medication Instructions Recorded Confirmed Last Taken Type Gabapentin 800 mg PO Q8HR 11/01/15 07/01/18 02/27/17 10:00 History 800 mg Escitalopram [Lexapro] 20 mg PO DAILY 02/28/17 07/01/18 02/27/17 10:00 History 20 mg lisinopriL [Zestril TAB] 20 mg PO QDAY 02/28/17 07/01/18 02/27/17 10:00 History 20 mg Brimonidine Tartrate/Timolol 1 drop OP BID 07/01/18 07/01/18 Unknown History [Combigan 0.2%-0.5% Eye Drops] Buspirone HCl [busPIRone] 15 mg PO BID 07/01/18 07/01/18 Unknown History Aspirin EC [Halfprin EC] 81 mg PO QDAY #30 tablet.dr 07/11/18 Unknown Rx Aspirin [Aspirin BABY CHEW TAB] 81 mg PO QDAY #30 tab.chew 07/11/18 Unknown Rx AtorvaSTATin [Lipitor] 40 mg PO QHS #30 tablet 07/11/18 Unknown Rx Baclofen [Lioresal] 10 mg PO HS #10 tablet 07/11/18 Unknown Rx Clopidogrel [Plavix] 75 mg PO QDAY #30 tablet 07/11/18 Unknown Rx Dicyclomine [Bentyl] 20 mg PO QID #14 tablet 07/11/18 Unknown Rx HYDROmorphone [Dilaudid] 1 mg PO Q4HR #7 tablet 07/11/18 Unknown Rx Insulin Glargine [Lantus VIAL] 25 units SUB-Q BID@0800,2000 #10 ml 07/11/18 Unknown Rx Isosorbide Mononitrate 60 mg PO DAILY #30 tablet 07/11/18 Unknown Rx LORazepam [Ativan] 0.5 mg PO BID PRN #5 tab 07/11/18 Unknown Rx Ondansetron (Nf) [Zofran TAB] 8 mg PO Q8HR PRN #10 tablet 07/11/18 Unknown Rx Pantoprazole [Protonix TAB] 40 mg PO QDAY #30 tablet 07/11/18 Unknown Rx Sucralfate [Carafate] 1 gm PO Q6HR #60 tablet 07/11/18 Unknown Rx amLODIPine 10 mg PO QDAY #30 tablet 07/11/18 Unknown Rx carvediloL [Coreg] 3.125 mg PO BID #60 tablet 07/11/18 Unknown Rx ursodioL [Ursodiol] 500 mg PO TIDDIAB #60 tablet 07/11/18 Unknown Rx Docusate Sodium [Colace] 100 mg PO BID #60 capsule 05/16/20 Unknown Rx Famotidine [Pepcid] 20 mg PO BID #60 tablet 05/16/20 Unknown Rx HYDROcodone/APAP 5-325 [[place] 1 each PO Q6HR PRN #14 tablet 05/16/20 Unknown Rx 5/325] Lactulose [Cephulac] 20 gm PO QDAY PRN #90 ml 05/16/20 Unknown Rx Ondansetron [Zofran ODT TAB] 8 mg PO Q8HR #20 tab.rapdis 05/16/20 Unknown Rx Active Meds: Active Medications Acetaminophen (Acetaminophen 325 Mg Tab) 650 mg PO Q4H PRN PRN Reason: Pain MILD(1-3)/Fever >100.5/SHARPE Dextrose (Dextrose 50% In Water (25gm) 50 Ml Syringe) 0 ml IV Q30MIN PRN; Protocol PRN Reason: Hypoglycemia Furosemide (Furosemide 40 Mg/4 Ml Inj) 40 mg IV BID@0600,1800 [facility] Last Admin: 07/22/20 06:24 Dose: 40 mg Documented by: Heparin Sodium (Porcine) (Heparin 5,000 Unit/1 Ml Vial) 5,000 unit SUB-Q Q8HR [facility] Last Admin: 07/22/20 06:24 Dose: 5,000 unit Documented by: Insulin Human Lispro (Insulin Lispro 100 Unit/Ml) 0 unit SUB-Q ACHS [facility]; Protocol Morphine Sulfate (Morphine 2 Mg/1 Ml Inj) 2 mg IV Q4H PRN PRN Reason: Pain, Moderate (4-6) Last Admin: 07/22/20 03:46 Dose: 2 mg Documented by: Ondansetron HCl (Ondansetron 4 Mg/2 Ml Inj) 4 mg IV Q8H PRN PRN Reason: Nausea And Vomiting Sodium Chloride (Sodium Chloride 0.9% 10 Ml Flush Syringe) 10 ml IV BID [facility] Sodium Chloride (Sodium Chloride 0.9% 10 Ml Flush Syringe) 10 ml IV PRN PRN PRN Reason: LINE FLUSH Review of Systems Constitutional: weight gain, no fever, no chills, no sweats Ears, nose, mouth and throat: no nasal congestion, no sore throat Cardiovascular: edema, shortness of breath, paroxysmal nocturnal dyspnea, no chest pain, no orthopnea, no palpitations, no syncope, no lightheadedness, no dyspnea on exertion, no claudication Respiratory: shortness of breath, no cough, no dyspnea on exertion Gastrointestinal: abdominal pain, no nausea, no vomiting, no diarrhea, no constipation Genitourinary Female: dysuria, no pelvic pain, no flank pain Musculoskeletal: no neck stiffness, no neck pain Integumentary: no rash, no wounds Neurological: no head injury, no paralysis, no weakness, no parathesias, no numbness, no tingling, no seizures, no syncope, no vertigo, no headaches Endocrine: no cold intolerance, no heat intolerance Hematologic/Lymphatic: no easy bruising, no easy bleeding Allergic/Immunologic: no anaphylaxis Physical Examination Last Vital Signs Temp 98.6 F 07/22/20 09:01 Pulse 96 H 07/22/20 09:01 Resp 20 07/22/20 09:01 BP 110/56 07/22/20 09:01 Pulse Ox 87 07/22/20 09:01 General appearance: no acute distress HEENT: Positive: EOMI, Normocephaly, Mucus Membranes Moist Neck: Positive: neck supple, trachea midline Cardiac: Positive: Reg Rate and Rhythm, S1/S2 Lungs: Positive: Decreased Breath Sounds (bases) Neuro: Positive: Grossly Intact Abdomen: Positive: Tender, Distended Skin: Negative: Rash Musculoskeletal: No Pain Extremities: Present: lower extr. pulses, +2 Edema (BLE) Results 07/22/20 05:30 07/22/20 05:30 Cardiac Enzymes 07/21/20 Range/Units 20:52 AST 8 (5-40) units/L Coagulation 07/22/20 Range/Units 05:30 PT 15.4 H (12.2-14.9) Sec. INR 1.16 H (0.87-1.13) Lipids 07/21/20 Range/Units 20:52 Triglycerides 95 (2-149) mg/dL Cholesterol 107 (50-199) mg/dL HDL Cholesterol 24 L (40-59) mg/dL Cholesterol/HDL Ratio 4.45 % CBC 07/21/20 07/22/20 Range/Units 20:52 05:30 WBC 8.9 9.3 (4.5-11.0) K/mm3 RBC 3.27 L 3.15 L (3.65-5.03) M/mm3 Hgb 8.7 L 8.3 L (10.1-14.3) gm/dl Hct 26.5 L 25.8 L (30.3-42.9) % Plt Count 223 225 (140-440) K/mm3 Lymph # (Auto) 1.2 1.5 (1.2-5.4) K/mm3 [place] # (Auto) 1.3 H 1.5 H (0.0-0.8) K/mm3 Eos # (Auto) 0.2 0.2 (0.0-0.4) K/mm3 Baso # (Auto) 0.0 0.0 (0.0-0.1) K/mm3 Comprehensive Metabolic Panel 07/21/20 07/22/20 Range/Units 20:52 05:30 Sodium 132 L 137 (137-145) mmol/L Potassium 4.3 4.5 (3.6-5.0) mmol/L Chloride 93.9 L 96.5 L (98-107) mmol/L Carbon Dioxide 27 31 H (22-30) mmol/L BUN 53 H 57 H (7-17) mg/dL Creatinine 1.9 H 2.1 H (0.6-1.2) mg/dL Glucose 140 H 72 (65-100) mg/dL Calcium 8.9 8.9 (8.4-10.2) mg/dL AST 8 (5-40) units/L ALT 6 L (7-56) units/L Alkaline Phosphatase 76 (35-129) units/L Total Protein 7.4 (6.3-8.2) g/dL Albumin 3.7 L (3.9-5) g/dL - Imaging and Cardiology Echo: report reviewed (06/18/2020 - EF 60-65%, grade 3 diastolic dysfxn, mod dilated LA, mild PI) Cardiac cath: report reviewed (02/2019 - prox LAD 50%, mid-distal LAD/diag 90% - small caliber vessel (not amenable to intervention), Cfx/obtuse fortino diffusely diseased w/moderately stenosed distal Cfx stent and distal OM - Cfx small caliber vessel, mid RCA 100% occluded w/collaterals from the left system, EF 60%, LVEDP 18-22mmHg), other (06/2018 - occluded RCA w/excellent collaterals, patent mid LAD, significant distal Cfx lesion s/p PCI w/LUZ) EKG: report reviewed, image reviewed - EKG Interpretation EKG: no acute changes EKG interpretations - EKG Sinus rhythms and dysrhythmias: sinus rhythm Chamber hypertrophy or enlargement: left ventricular hypertro Repolarization changes or abnormalities: nonspecific abnormality, ST segment, and/or T wave Assessment and Plan Pt is on PO Bumex 2mg BID as an outpatient. If no significant UOP noted, consider switching IV Lasix to IV Bumex if ok from a Nephro standpoint. Continue strict I/Os and close monitoring of renal indices & electrolytes. Home antihypertensives held for now in the setting of borderline low BP. Trend cardiac enzymes. Pt has chronically elevated troponins, currently in similar range as previous admissions. Pt denies chest pain. No acute ischemic changes on ECG. CE elevation appears consistent with NSTEMI Type 2 in the setting of acutely decompensated HF and DONAL. C 02/2019 revealed occluded RCA and diffuse multi-vessel disease, not amenable to intervention. Medical mgmt recommended. Resume bASA, Plavix, statin, Imudr, and Ranexa. Will resume BB when BP permits. Pt seen in conjunction with Dr. Valencia Carolina, who agrees with the assessment and plan of care. - Patient Problems (1) Abdominal pain Current Visit: Yes Status: Acute (2) Acute on chronic heart failure with preserved ejection fraction (HFpEF) Current Visit: Yes Status: Acute (3) Acute kidney injury superimposed on CKD Current Visit: Yes Status: Acute (4) Chronic anemia Current Visit: Yes Status: Chronic (5) CAD (coronary artery disease) Current Visit: Yes Status: Chronic Qualifiers: Coronary Disease-Associated Artery/Lesion type: [place] artery [place] vs. transplanted heart: [place] heart Associated angina: without angina Qualified Code(s): I25.10 - Atherosclerotic heart disease of [place] coronary artery without angina pectoris (6) Stented coronary artery Current Visit: Yes Status: Chronic (7) NSTEMI (non-ST elevated myocardial infarction) Current Visit: Yes Status: Acute Plan to address problem: Type 2 (8) HTN (hypertension) Current Visit: Yes Status: Chronic Qualifiers: Hypertension type: essential hypertension Qualified Code(s): I10 - Essential (primary) hypertension (9) Hyperlipidemia Current Visit: Yes Status: Chronic Qualifiers: Hyperlipidemia type: mixed hyperlipidemia Qualified Code(s): E78.2 - Mixed hyperlipidemia (10) DM2 (diabetes mellitus, type 2) Current Visit: Yes Status: Chronic (11) Obesity Current Visit: Yes Status: Chronic (12) GERD without esophagitis Current Visit: Yes Status: Chronic (13) Chronic constipation Current Visit: Yes Status: Chronic (14) Chronic pain syndrome Current Visit: Yes Status: Chronic (15) Recurrent falls Current Visit: Yes Status: Chronic
--- NOTE | 2020-07-22 09:30 | Event Note ---
Patient notes that she follows with Dr. Augustine Lyle for nephrology, will change consult to his group
--- NOTE | 2020-07-22 10:13 | Progress Note ---
Assessment and Plan Assessment and plan: Acute on chronic heart failure with preserved ejection fraction Acute kidney injury on CKD Chronic anemia Coronary artery disease Hypertension Hyperlipidemia Diabetes mellitus type 2 Abdominal pain Obesity History of GERD without esophagitis. History of biliary dyskinesia 07/22/2020. Continue diuresis per cardiology and nephrology recommendations. Patient does have a history of biliary dyskinesia and chronic right upper quadrant abdominal pain. We will check CT scan of the abdomen pelvis for further evaluation. Continue antihypertensive medications. Continue statins. Continue sliding scale regular insulin and Accu-Cheks. History Interval history: No new issues overnight Hospitalist Physical - Constitutional Vitals: Temp Pulse Resp BP Pulse Ox 98.6 F 96 H 20 110/56 87 07/22/20 09:01 07/22/20 09:01 07/22/20 09:01 07/22/20 09:01 07/22/20 09:01 General appearance: Present: no acute distress, well-nourished, obese - EENT Eyes: Present: PERRL, EOM intact ENT: hearing intact, clear oral mucosa, dentition normal - Neck Neck: Present: supple, normal ROM - Respiratory Respiratory effort: normal Respiratory: bilateral: CTA - Cardiovascular Rhythm: regular Heart Sounds: Present: S1 & S2. Absent: gallop, rub - Extremities Extremities: no ischemia, No edema, Full ROM - Abdominal General gastrointestinal: soft, non-tender, non-distended, normal bowel sounds - Integumentary Integumentary: Present: clear, warm, dry - Neurologic Neurologic: CNII-XII intact, moves all extremities HEART Score - HEART Score EKG: Non-specific Age: 45-65 Risk factors: > 3 risk factors or hx of atherosclerotic disease Troponin: Troponin T 0.110 ng/mL (0.00-0.029) H* 07/21/20 20:52 Troponin: > 3x normal limit Results - Labs CBC & Chem 7: 07/22/20 05:30 07/22/20 05:30 Labs: Laboratory Last Values WBC 9.3 K/mm3 (4.5-11.0) 07/22/20 05:30 RBC 3.15 M/mm3 (3.65-5.03) L 07/22/20 05:30 Hgb 8.3 gm/dl (10.1-14.3) L 07/22/20 05:30 Hct 25.8 % (30.3-42.9) L 07/22/20 05:30 MCV 82 fl (79-97) 07/22/20 05:30 MCH 26 pg (28-32) L 07/22/20 05:30 MCHC 32 % (30-34) 07/22/20 05:30 RDW 16.9 % (13.2-15.2) H 07/22/20 05:30 Plt Count 225 K/mm3 (140-440) 07/22/20 05:30 Lymph % (Auto) 16.3 % (13.4-35.0) 07/22/20 05:30 [place] % (Auto) 16.0 % (0.0-7.3) H 07/22/20 05:30 Eos % (Auto) 2.3 % (0.0-4.3) 07/22/20 05:30 Baso % (Auto) 0.4 % (0.0-1.8) 07/22/20 05:30 Lymph # (Auto) 1.5 K/mm3 (1.2-5.4) 07/22/20 05:30 [place] # (Auto) 1.5 K/mm3 (0.0-0.8) H 07/22/20 05:30 Eos # (Auto) 0.2 K/mm3 (0.0-0.4) 07/22/20 05:30 Baso # (Auto) 0.0 K/mm3 (0.0-0.1) 07/22/20 05:30 Seg Neutrophils % 65.0 % (40.0-70.0) 07/22/20 05:30 Seg Neutrophils # 6.0 K/mm3 (1.8-7.7) 07/22/20 05:30 PT 15.4 Sec. (12.2-14.9) H 07/22/20 05:30 INR 1.16 (0.87-1.13) H 07/22/20 05:30 Sodium 137 mmol/L (137-145) 07/22/20 05:30 Potassium 4.5 mmol/L (3.6-5.0) 07/22/20 05:30 Chloride 96.5 mmol/L (98-107) L 07/22/20 05:30 Carbon Dioxide 31 mmol/L (22-30) H 07/22/20 05:30 Anion Gap 14 mmol/L 07/22/20 05:30 BUN 57 mg/dL (7-17) H 07/22/20 05:30 Creatinine 2.1 mg/dL (0.6-1.2) H 07/22/20 05:30 Estimated GFR 29 ml/min 07/22/20 05:30 BUN/Creatinine Ratio 27 % 07/22/20 05:30 Glucose 72 mg/dL (65-100) 07/22/20 05:30 POC Glucose 146 mg/dL (70-105) H 07/22/20 08:07 Calcium 8.9 mg/dL (8.4-10.2) 07/22/20 05:30 Total Bilirubin 0.40 mg/dL (0.1-1.2) 07/21/20 20:52 AST 8 units/L (5-40) 07/21/20 20:52 ALT 6 units/L (7-56) L 07/21/20 20:52 Alkaline Phosphatase 76 units/L (35-129) 07/21/20 20:52 Troponin T 0.110 ng/mL (0.00-0.029) H* 07/21/20 20:52 NT-Pro-B Natriuret Pep 2292 pg/mL (0-900) H 07/21/20 20:52 Total Protein 7.4 g/dL (6.3-8.2) 07/21/20 20:52 Albumin 3.7 g/dL (3.9-5) L 07/21/20 20:52 Albumin/Globulin Ratio 1.0 % 07/21/20 20:52 Triglycerides 95 mg/dL (2-149) 07/21/20 20:52 Cholesterol 107 mg/dL (50-199) 07/21/20 20:52 LDL Cholesterol Direct 68 mg/dL (50-130) 07/21/20 20:52 HDL Cholesterol 24 mg/dL (40-59) L 07/21/20 20:52 Cholesterol/HDL Ratio 4.45 % 07/21/20 20:52 Cho/IV: Voiding Method Indwelling Catheter Active Medications - Current Medications Current Medications: Generic Name Dose Route Start Last Admin Trade Name Freq PRN Reason Stop Dose Admin Acetaminophen 650 mg 07/21/20 23:28 Acetaminophen 325 Mg Tab PO Q4H PRN Pain MILD(1-3)/Fever >100.5/SHARPE Aspirin 81 mg 07/22/20 10:30 Aspirin 81 Mg Tab Chew PO QDAY [facility] Atorvastatin Calcium 40 mg 07/22/20 22:00 Atorvastatin 40 Mg Tab PO QHS [facility] Dextrose 0 ml 07/21/20 23:28 Dextrose 50% In Water (25gm) 50 Ml Syringe IV Q30MIN PRN Hypoglycemia Protocol Furosemide 40 mg 07/22/20 06:00 07/22/20 06:24 Furosemide 40 Mg/4 Ml Inj IV 40 mg BID@0600,1800 [facility] Administration Heparin Sodium (Porcine) 5,000 unit 07/22/20 06:00 07/22/20 06:24 Heparin 5,000 Unit/1 Ml Vial SUB-Q 5,000 unit Q8HR [facility] Administration Insulin Human Lispro 0 unit 07/22/20 07:30 Insulin Lispro 100 Unit/Ml SUB-Q ACHS [facility] Protocol Morphine Sulfate 2 mg 07/21/20 23:28 07/22/20 03:46 Morphine 2 Mg/1 Ml Inj IV 2 mg Q4H PRN Administration Pain, Moderate (4-6) Ondansetron HCl 4 mg 07/21/20 23:28 Ondansetron 4 Mg/2 Ml Inj IV Q8H PRN Nausea And Vomiting Sodium Chloride 10 ml 07/22/20 10:00 Sodium Chloride 0.9% 10 Ml Flush Syringe IV BID [facility] Sodium Chloride 10 ml 07/21/20 23:28 Sodium Chloride 0.9% 10 Ml Flush Syringe IV PRN PRN LINE FLUSH
[2020-07-22] MEDS: INSULIN LISPRO 100 UNIT/ML SUB-Q SCH ×4 (10:22→21:39)
[2020-07-22] MEDS: ASPIRIN 81 MG TAB CHEW PO SCH (10:24)
--- NOTE | 2020-07-22 11:38 | Consultation ---
History of Present Illness - Reason for Consult Consult date: 07/22/20 acute renal failure, chronic renal failure - History of Present Illness 59-year-old female with past medical history of congestive heart failure, hypertension, coronary artery disease with MT in the past, COPD, diabetes silverio itus was admitted yesterday for worsening shortness of breath. labs showed BNP of 2000 292, elevated BUN and creatinine of 53 and 1.9 respectively on admission chest x-ray significant for congestive heart failure and persistent central pulmonary vascular congestion and was started on diuretics. renal consult was requested for DONAL on CKD management Past History Past Medical History: CAD, diabetes, heart failure, hypertension, renal failure Past Surgical History: PTCA (last PCI 06/2018). 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 denies: smoking, alcohol abuse Family history: CAD, diabetes Medications and Allergies Allergies Allergy/AdvReac Type Severity Reaction Status Date / Time No Known Allergies Allergy Verified 05/16/20 07:58 Home Medications Medication Instructions Recorded Confirmed Last Taken Type Gabapentin 800 mg PO Q8HR 11/01/15 07/01/18 02/27/17 10:00 History 800 mg Escitalopram [Lexapro] 20 mg PO DAILY 02/28/17 07/01/18 02/27/17 10:00 History 20 mg lisinopriL [Zestril TAB] 20 mg PO QDAY 02/28/17 07/01/18 02/27/17 10:00 History 20 mg Brimonidine Tartrate/Timolol 1 drop OP BID 07/01/18 07/01/18 Unknown History [Combigan 0.2%-0.5% Eye Drops] Buspirone HCl [busPIRone] 15 mg PO BID 07/01/18 07/01/18 Unknown History Aspirin EC [Halfprin EC] 81 mg PO QDAY #30 tablet.dr 07/11/18 Unknown Rx Aspirin [Aspirin BABY CHEW TAB] 81 mg PO QDAY #30 tab.chew 07/11/18 Unknown Rx AtorvaSTATin [Lipitor] 40 mg PO QHS #30 tablet 07/11/18 Unknown Rx Baclofen [Lioresal] 10 mg PO HS #10 tablet 07/11/18 Unknown Rx Clopidogrel [Plavix] 75 mg PO QDAY #30 tablet 07/11/18 Unknown Rx Dicyclomine [Bentyl] 20 mg PO QID #14 tablet 07/11/18 Unknown Rx HYDROmorphone [Dilaudid] 1 mg PO Q4HR #7 tablet 07/11/18 Unknown Rx Insulin Glargine [Lantus VIAL] 25 units SUB-Q BID@0800,2000 #10 ml 07/11/18 Unknown Rx Isosorbide Mononitrate 60 mg PO DAILY #30 tablet 07/11/18 Unknown Rx LORazepam [Ativan] 0.5 mg PO BID PRN #5 tab 07/11/18 Unknown Rx Ondansetron (Nf) [Zofran TAB] 8 mg PO Q8HR PRN #10 tablet 07/11/18 Unknown Rx Pantoprazole [Protonix TAB] 40 mg PO QDAY #30 tablet 07/11/18 Unknown Rx Sucralfate [Carafate] 1 gm PO Q6HR #60 tablet 07/11/18 Unknown Rx amLODIPine 10 mg PO QDAY #30 tablet 07/11/18 Unknown Rx carvediloL [Coreg] 3.125 mg PO BID #60 tablet 07/11/18 Unknown Rx ursodioL [Ursodiol] 500 mg PO TIDDIAB #60 tablet 07/11/18 Unknown Rx Docusate Sodium [Colace] 100 mg PO BID #60 capsule 05/16/20 Unknown Rx Famotidine [Pepcid] 20 mg PO BID #60 tablet 05/16/20 Unknown Rx HYDROcodone/APAP 5-325 [[place] 1 each PO Q6HR PRN #14 tablet 05/16/20 Unknown Rx 5/325] Lactulose [Cephulac] 20 gm PO QDAY PRN #90 ml 05/16/20 Unknown Rx Ondansetron [Zofran ODT TAB] 8 mg PO Q8HR #20 tab.rapdis 05/16/20 Unknown Rx Active Meds: Active Medications Acetaminophen (Acetaminophen 325 Mg Tab) 650 mg PO Q4H PRN PRN Reason: Pain MILD(1-3)/Fever >100.5/SHARPE Aspirin (Aspirin 81 Mg Tab Chew) 81 mg PO QDAY [facility] Last Admin: 07/22/20 10:24 Dose: 81 mg Documented by: Atorvastatin Calcium (Atorvastatin 40 Mg Tab) 40 mg PO QHS [facility] Dextrose (Dextrose 50% In Water (25gm) 50 Ml Syringe) 0 ml IV Q30MIN PRN; Protocol PRN Reason: Hypoglycemia Furosemide (Furosemide 40 Mg/4 Ml Inj) 40 mg IV BID@0600,1800 [facility] Last Admin: 07/22/20 06:24 Dose: 40 mg Documented by: Heparin Sodium (Porcine) (Heparin 5,000 Unit/1 Ml Vial) 5,000 unit SUB-Q Q8HR [facility] Last Admin: 07/22/20 06:24 Dose: 5,000 unit Documented by: Insulin Human Lispro (Insulin Lispro 100 Unit/Ml) 0 unit SUB-Q ACHS [facility]; Protocol Last Admin: 07/22/20 11:21 Dose: Not Given Documented by: Morphine Sulfate (Morphine 2 Mg/1 Ml Inj) 2 mg IV Q4H PRN PRN Reason: Pain, Moderate (4-6) Last Admin: 07/22/20 10:23 Dose: 2 mg Documented by: Ondansetron HCl (Ondansetron 4 Mg/2 Ml Inj) 4 mg IV Q8H PRN PRN Reason: Nausea And Vomiting Sodium Chloride (Sodium Chloride 0.9% 10 Ml Flush Syringe) 10 ml IV BID [facility] Last Admin: 07/22/20 11:02 Dose: Not Given Documented by: Sodium Chloride (Sodium Chloride 0.9% 10 Ml Flush Syringe) 10 ml IV PRN PRN PRN Reason: LINE FLUSH Review of Systems All systems: negative (SOB) Exam - Vital Signs Vital signs: Vital Signs Temp Pulse Resp BP Pulse Ox 97.9 F 69 12 107/53 96 07/21/20 20:40 07/21/20 20:40 07/21/20 20:40 07/21/20 20:40 07/21/20 20:40 - General Appearance General appearance: well-developed, well-nourished EENT: ATNC, PERRL Neck: Present: neck supple, trachea midline Respiratory: Decreased Breath Sounds Heart: tachycardia Gastrointestinal: Present: normoactive bowel sounds. Absent: tenderness, distended Integumentary: no rash, warm and dry Neurologic: no focal deficit, no asterixis Musculoskeletal: Present: other (edema in BLE) Psychiatric: cooperative Results - Lab Results 07/22/20 05:30 07/22/20 05:30 Most recent lab results Calcium 8.9 mg/dL (8.4-10.2) 07/22/20 05:30 Assessment and Plan Chronic Kidney disease stage 3: DM2: CAD: Chronic diastolic CHF: -baseline Cr ~1.4, worsening likely 2/2 CRS -cont diuretics -Monitor volume status closely. -Renally dose all meds -Avoid Nephrotoxic meds - strict I&O
[2020-07-22] MEDS ORDERED: POTASSIUM CHLORIDE ER 20 MEQ TAB PO ONE (13:10)
[2020-07-22 13:24] LABS: Creatine Kinase MB 1.6 ng/mL (0.0-4.0)
[2020-07-22 15:12] LABS: Creatine Kinase MB 1.6 ng/mL (0.0-4.0)
--- NOTE | 2020-07-22 17:13 | Cat Scan Report ---
CT ABDOMEN AND PELVIS WITHOUT CONTRAST INDICATION / CLINICAL INFORMATION: Unspecified abdominal pain. TECHNIQUE: Axial CT images were obtained through the abdomen and pelvis without IV contrast. All CT scans at [facility] are performed using CT dose reduction for ALARA by means of automated exposure control. COMPARISON: CT abdomen and pelvis with contrast from 05/16/2020 FINDINGS: LOWER CHEST: There is similar mild enlargement of the heart with unchanged severe coronary atheroscle rosis. Mild bibasilar atelectasis is also noted without other significant abnormalities. LIVER: The right hepatic lobe is enlarged and measures 24 cm in length without other significant abno rmalities. GALLBLADDER: No significant abnormality. BILE DUCTS: No significant abnormality. PANCREAS: No significant abnormality. SPLEEN: No significant abnormality. ADRENALS: No significant abnormality. RIGHT KIDNEY / URETER: No significant abnormality. LEFT KIDNEY / URETER: No significant abnormality. STOMACH / SMALL BOWEL: No significant abnormality. COLON: No significant abnormality. APPENDIX: No significant abnormality. PERITONEUM: No free fluid. No free air. No fluid collection. LYMPH NODES: No significant adenopathy. AORTA / ARTERIES: The aorta is normal in caliber with unchanged severe generalized atherosclerosis. IVC / VEINS: No significant abnormality. URINARY BLADDER: Drained by a Cho catheter. REPRODUCTIVE ORGANS: A large calcified uterine fibroid is unchanged. No other significant abnormality . ADDITIONAL FINDINGS: Rectus diastasis is again noted. SKELETAL SYSTEM: No acute abnormality or other significant interval changes. IMPRESSION: 1. No acute findings to explain the patient's pain. 2. Additional findings as above are unchanged from the CT performed on 05/16/2020. Signer Name: Colten Minaya MD Signed: 07/22/2020 5:09 PM Workstation Name: [id number]
[2020-07-22] MEDS: RANOLAZINE ER 500 MG TAB 12HR PO SCH (21:32)
[2020-07-22] MEDS ORDERED: carvediloL 3.125 MG TAB PO SCH (22:00)
[2020-07-23] MEDS: FUROSEMIDE 40 MG/4 ML INJ IV SCH (05:24)
[2020-07-23] MEDS: HEPARIN 5,000 UNIT/1 ML VIAL SUB-Q SCH ×3 (05:24→21:15)
[2020-07-23] MEDS: MORPHINE 2 MG/1 ML INJ IV PRN ×2 (05:24→10:07)
[2020-07-23 06:09] LABS: Basophils % (Auto) 0.4 % (0.0-1.8); Eosinophils # (Auto) 0.2 K/mm3 (0.0-0.4); Eosinophils % (Auto) 2.3 % (0.0-4.3); Hematocrit 24.8 % (30.3-42.9); Hemoglobin 8.1 gm/dl (10.1-14.3); Lymphocytes % (Auto) 12.1 % (13.4-35.0); Mean Corpuscular HGB Conc 33 % (30-34); Mean Corpuscular Volume 82 fl (79-97); Monocytes # (Auto) 1.2 K/mm3 (0.0-0.8); Monocytes % (Auto) 15.2 % (0.0-7.3); Platelet Count 215 K/mm3 (140-440); Red Blood Count 3.03 M/mm3 (3.65-5.03)
[2020-07-23 06:36] LABS: Calcium 8.8 mg/dL (8.4-10.2)
[2020-07-23] MEDS: INSULIN LISPRO 100 UNIT/ML SUB-Q SCH ×4 (08:48→21:18)
--- NOTE | 2020-07-23 09:59 | Progress Note ---
Assessment and Plan Assessment and plan: Acute on chronic heart failure with preserved ejection fraction Acute kidney injury on CKD Chronic anemia Coronary artery disease Hypertension Hyperlipidemia Diabetes mellitus type 2 Abdominal pain Obesity History of GERD without esophagitis. History of biliary dyskinesia 07/22/2020. Continue diuresis per cardiology and nephrology recommendations. Patient does have a history of biliary dyskinesia and chronic right upper quadrant abdominal pain. We will check CT scan of the abdomen pelvis for further evaluation. Continue antihypertensive medications. Continue statins. Continue sliding scale regular insulin and Accu-Cheks. 07/23/2020. CT scan of the abdomen essentially negative. Etiology of abdominal pain likely secondary to biliary dyskinesia. Creatinine increased today to 2.6. Baseline creatinine approximately 1.4. Continue diuresis per nephrology recommendations. Avoid nephrotoxic agents and continue strict I&Os. History Interval history: No new issues overnight Hospitalist Physical - Constitutional Vitals: Temp Pulse Resp BP Pulse Ox 98.5 F 79 18 106/46 100 07/23/20 03:23 07/23/20 08:00 07/23/20 03:23 07/23/20 03:23 07/23/20 03:23 General appearance: Present: no acute distress - EENT Eyes: Present: PERRL, EOM intact ENT: hearing intact, clear oral mucosa, dentition normal - Neck Neck: Present: supple, normal ROM - Respiratory Respiratory effort: normal Respiratory: bilateral: CTA - Cardiovascular Rhythm: regular Heart Sounds: Present: S1 & S2. Absent: gallop, rub - Extremities Extremities: no ischemia, No edema, Full ROM - Abdominal General gastrointestinal: soft, non-tender, non-distended, normal bowel sounds - Integumentary Integumentary: Present: clear, warm, dry - Neurologic Neurologic: CNII-XII intact, moves all extremities HEART Score - HEART Score EKG: Non-specific Age: 45-65 Risk factors: > 3 risk factors or hx of atherosclerotic disease Troponin: Troponin T 0.124 ng/mL (0.00-0.029) H* 07/22/20 14:30 Troponin: > 3x normal limit Results - Labs CBC & Chem 7: 07/23/20 05:56 07/23/20 05:56 Labs: Laboratory Last Values WBC 7.9 K/mm3 (4.5-11.0) 07/23/20 05:56 RBC 3.03 M/mm3 (3.65-5.03) L 07/23/20 05:56 Hgb 8.1 gm/dl (10.1-14.3) L 07/23/20 05:56 Hct 24.8 % (30.3-42.9) L 07/23/20 05:56 MCV 82 fl (79-97) 07/23/20 05:56 MCH 27 pg (28-32) L 07/23/20 05:56 MCHC 33 % (30-34) 07/23/20 05:56 RDW 17.0 % (13.2-15.2) H 07/23/20 05:56 Plt Count 215 K/mm3 (140-440) 07/23/20 05:56 Lymph % (Auto) 12.1 % (13.4-35.0) L 07/23/20 05:56 [place] % (Auto) 15.2 % (0.0-7.3) H 07/23/20 05:56 Eos % (Auto) 2.3 % (0.0-4.3) 07/23/20 05:56 Baso % (Auto) 0.4 % (0.0-1.8) 07/23/20 05:56 Lymph # (Auto) 1.0 K/mm3 (1.2-5.4) L 07/23/20 05:56 [place] # (Auto) 1.2 K/mm3 (0.0-0.8) H 07/23/20 05:56 Eos # (Auto) 0.2 K/mm3 (0.0-0.4) 07/23/20 05:56 Baso # (Auto) 0.0 K/mm3 (0.0-0.1) 07/23/20 05:56 Seg Neutrophils % 70.0 % (40.0-70.0) 07/23/20 05:56 Seg Neutrophils # 5.6 K/mm3 (1.8-7.7) 07/23/20 05:56 PT 15.4 Sec. (12.2-14.9) H 07/22/20 05:30 INR 1.16 (0.87-1.13) H 07/22/20 05:30 Sodium 130 mmol/L (137-145) L D 07/23/20 05:56 Potassium 5.3 mmol/L (3.6-5.0) H 07/23/20 05:56 Chloride 92.6 mmol/L (98-107) L 07/23/20 05:56 Carbon Dioxide 28 mmol/L (22-30) 07/23/20 05:56 Anion Gap 15 mmol/L 07/23/20 05:56 BUN 64 mg/dL (7-17) H 07/23/20 05:56 Creatinine 2.6 mg/dL (0.6-1.2) H 07/23/20 05:56 Estimated GFR 23 ml/min 07/23/20 05:56 BUN/Creatinine Ratio 25 % 07/23/20 05:56 Glucose 251 mg/dL (65-100) H 07/23/20 05:56 POC Glucose 271 mg/dL (70-105) H 07/23/20 08:31 Calcium 8.8 mg/dL (8.4-10.2) 07/23/20 05:56 Total Bilirubin 0.40 mg/dL (0.1-1.2) 07/21/20 20:52 AST 8 units/L (5-40) 07/21/20 20:52 ALT 6 units/L (7-56) L 07/21/20 20:52 Alkaline Phosphatase 76 units/L (35-129) 07/21/20 20:52 Total Creatine Kinase 141 units/L (30-135) H 07/22/20 14:30 CK-MB (CK-2) 1.6 ng/mL (0.0-4.0) 07/22/20 14:30 CK-MB (CK-2) Rel Index 1.1 (0-4) 07/22/20 14:30 Troponin T 0.124 ng/mL (0.00-0.029) H* 07/22/20 14:30 NT-Pro-B Natriuret Pep 2292 pg/mL (0-900) H 07/21/20 20:52 Total Protein 7.4 g/dL (6.3-8.2) 07/21/20 20:52 Albumin 3.7 g/dL (3.9-5) L 07/21/20 20:52 Albumin/Globulin Ratio 1.0 % 07/21/20 20:52 Triglycerides 95 mg/dL (2-149) 07/21/20 20:52 Cholesterol 107 mg/dL (50-199) 07/21/20 20:52 LDL Cholesterol Direct 68 mg/dL (50-130) 07/21/20 20:52 HDL Cholesterol 24 mg/dL (40-59) L 07/21/20 20:52 Cholesterol/HDL Ratio 4.45 % 07/21/20 20:52 Cho/IV: Voiding Method External Female Catheter Active Medications - Current Medications Current Medications: Generic Name Dose Route Start Last Admin Trade Name Freq PRN Reason Stop Dose Admin Acetaminophen 650 mg 07/21/20 23:28 Acetaminophen 325 Mg Tab PO Q4H PRN Pain MILD(1-3)/Fever >100.5/SHARPE Aspirin 81 mg 07/22/20 10:30 07/22/20 10:24 Aspirin 81 Mg Tab Chew PO 81 mg QDAY [facility] Administration Atorvastatin Calcium 40 mg 07/22/20 22:00 07/22/20 21:32 Atorvastatin 40 Mg Tab PO 40 mg QHS [facility] Administration Clopidogrel Bisulfate 75 mg 07/23/20 10:00 Clopidogrel 75 Mg Tab PO QDAY [facility] Dextrose 0 ml 07/21/20 23:28 Dextrose 50% In Water (25gm) 50 Ml Syringe IV Q30MIN PRN Hypoglycemia Protocol Furosemide 40 mg 07/22/20 06:00 07/23/20 05:24 Furosemide 40 Mg/4 Ml Inj IV 40 mg BID@0600,1800 [facility] Administration Heparin Sodium (Porcine) 5,000 unit 07/22/20 06:00 07/23/20 05:24 Heparin 5,000 Unit/1 Ml Vial SUB-Q 5,000 unit Q8HR [facility] Administration Insulin Human Lispro 0 unit 07/22/20 07:30 07/23/20 08:48 Insulin Lispro 100 Unit/Ml SUB-Q 4 unit ACHS [facility] Administration Protocol Isosorbide Mononitrate 30 mg 07/23/20 10:00 Isosorbide Mononitrate Er 30 Mg Tab PO QDAY [facility] Morphine Sulfate 2 mg 07/21/20 23:28 07/23/20 05:24 Morphine 2 Mg/1 Ml Inj IV 2 mg Q4H PRN Administration Pain, Moderate (4-6) Ondansetron HCl 4 mg 07/21/20 23:28 Ondansetron 4 Mg/2 Ml Inj IV Q8H PRN Nausea And Vomiting Ranolazine 500 mg 07/22/20 22:00 07/22/20 21:32 Ranolazine Er 500 Mg Tab 12hr PO 500 mg BID [facility] Administration Sodium Chloride 10 ml 07/22/20 10:00 07/22/20 21:32 Sodium Chloride 0.9% 10 Ml Flush Syringe IV 10 ml BID [facility] Administration Sodium Chloride 10 ml 07/21/20 23:28 Sodium Chloride 0.9% 10 Ml Flush Syringe IV PRN PRN LINE FLUSH Nutrition/Malnutrition Assess - Dietary Evaluation Nutrition/Malnutrition Findings: Nutrition Notes Start: 07/22/20 13:23 Freq: Status: Active Protocol: Document 07/22/20 13:23 LM (Rec: 07/22/20 13:34 LM [id number]) Nutrition Notes Need for Assessment generated from: MD Order,Education Initial or Follow up Brief Note Subjective/Other Information MD consult for DM diet education. Pt stated she had a good appetite [employer]. UBW is 123kg (270 lb). Pt has edema. Provided pt DM and CHF diet education. #1 Nutrition Diagnosis Food and nutrition-related knowledge deficit Etiology No prior DM, CHF diet education As Evidenced by Signs and Symptoms Discussion with patient Nutrition Intervention Teaching Recipient Patient Learning Readiness Good Teaching Methods Discussion,Handout Response to Teaching Verbalize understanding Education Handouts Provided Carbohydrate Counting and CHF Barriers to Learning No Barriers RD phone number provided Yes Patient aware of follow up options Yes Revisit per MD consult or patient Sign Off request:
--- NOTE | 2020-07-23 10:02 | Progress Note ---
Assessment and Plan Chronic Kidney disease stage 3: DM2: CAD: Chronic diastolic CHF: -baseline Cr ~1.4, worsening likely 2/2 CRS -cont diuretics - fluid restrition ordered for worsening hyponatremia - low kdiet ordered, will repeat BMP ~1700 -Monitor volume status closely. -Renally dose all meds -Avoid Nephrotoxic meds - strict I&O Subjective Date of service: 07/23/20 Principal diagnosis: DONAL on CKD Objective - Vital Signs Vital signs: Vital Signs - 12hr 07/22/20 07/23/20 07/23/20 23:02 00:00 03:23 Temperature 97.7 F 98.5 F Pulse Rate 68 66 74 Respiratory 20 18 Rate Blood Pressure 111/52 106/46 O2 Sat by Pulse 92 100 Oximetry 07/23/20 08:00 Temperature Pulse Rate 79 Respiratory Rate Blood Pressure O2 Sat by Pulse Oximetry - Lab 07/23/20 05:56 07/23/20 05:56 Most recent lab results Calcium 8.8 mg/dL (8.4-10.2) 07/23/20 05:56 Medications & Allergies - Medications Allergies/Adverse Reactions: Allergies No Known Allergies Allergy (Verified 05/16/20 07:58) Home Medications: Home Medications Medication Instructions Recorded Confirmed Last Taken Type Gabapentin 800 mg PO Q8HR 11/01/15 07/01/18 02/27/17 10:00 History 800 mg Escitalopram [Lexapro] 20 mg PO DAILY 02/28/17 07/01/18 02/27/17 10:00 History 20 mg lisinopriL [Zestril TAB] 20 mg PO QDAY 02/28/17 07/01/18 02/27/17 10:00 History 20 mg Brimonidine Tartrate/Timolol 1 drop OP BID 07/01/18 07/01/18 Unknown History [Combigan 0.2%-0.5% Eye Drops] Buspirone HCl [busPIRone] 15 mg PO BID 07/01/18 07/01/18 Unknown History Aspirin EC [Halfprin EC] 81 mg PO QDAY #30 tablet. 07/11/18 Unknown Rx Aspirin [Aspirin BABY CHEW TAB] 81 mg PO QDAY #30 tab.chew 07/11/18 Unknown Rx AtorvaSTATin [Lipitor] 40 mg PO QHS #30 tablet 07/11/18 Unknown Rx Baclofen [Lioresal] 10 mg PO HS #10 tablet 07/11/18 Unknown Rx Clopidogrel [Plavix] 75 mg PO QDAY #30 tablet 07/11/18 Unknown Rx Dicyclomine [Bentyl] 20 mg PO QID #14 tablet 07/11/18 Unknown Rx HYDROmorphone [Dilaudid] 1 mg PO Q4HR #7 tablet 07/11/18 Unknown Rx Insulin Glargine [Lantus VIAL] 25 units SUB-Q BID@0800,2000 #10 ml 07/11/18 Unknown Rx Isosorbide Mononitrate 60 mg PO DAILY #30 tablet 07/11/18 Unknown Rx LORazepam [Ativan] 0.5 mg PO BID PRN #5 tab 07/11/18 Unknown Rx Ondansetron (Nf) [Zofran TAB] 8 mg PO Q8HR PRN #10 tablet 07/11/18 Unknown Rx Pantoprazole [Protonix TAB] 40 mg PO QDAY #30 tablet 07/11/18 Unknown Rx Sucralfate [Carafate] 1 gm PO Q6HR #60 tablet 07/11/18 Unknown Rx amLODIPine 10 mg PO QDAY #30 tablet 07/11/18 Unknown Rx carvediloL [Coreg] 3.125 mg PO BID #60 tablet 07/11/18 Unknown Rx ursodioL [Ursodiol] 500 mg PO TIDDIAB #60 tablet 07/11/18 Unknown Rx Docusate Sodium [Colace] 100 mg PO BID #60 capsule 05/16/20 Unknown Rx Famotidine [Pepcid] 20 mg PO BID #60 tablet 05/16/20 Unknown Rx HYDROcodone/APAP 5-325 [[place] 1 each PO Q6HR PRN #14 tablet 05/16/20 Unknown Rx 5/325] Lactulose [Cephulac] 20 gm PO QDAY PRN #90 ml 05/16/20 Unknown Rx Ondansetron [Zofran ODT TAB] 8 mg PO Q8HR #20 tab.rapdis 05/16/20 Unknown Rx Active Medications: Generic Name Dose Route Start Last Admin Trade Name Freq PRN Reason Stop Dose Admin Acetaminophen 650 mg 07/21/20 23:28 Acetaminophen 325 Mg Tab PO Q4H PRN Pain MILD(1-3)/Fever >100.5/SHARPE Aspirin 81 mg 07/22/20 10:30 07/22/20 10:24 Aspirin 81 Mg Tab Chew PO 81 mg QDAY BRINA Administration Atorvastatin Calcium 40 mg 07/22/20 22:00 07/22/20 21:32 Atorvastatin 40 Mg Tab PO 40 mg QHS BRINA Administration Clopidogrel Bisulfate 75 mg 07/23/20 10:00 Clopidogrel 75 Mg Tab PO QDAY BRINA Dextrose 0 ml 07/21/20 23:28 Dextrose 50% In Water (25gm) 50 Ml Syringe IV Q30MIN PRN Hypoglycemia Protocol Furosemide 40 mg 07/22/20 06:00 07/23/20 05:24 Furosemide 40 Mg/4 Ml Inj IV 40 mg BID@0600,1800 BRINA Administration Heparin Sodium (Porcine) 5,000 unit 07/22/20 06:00 07/23/20 05:24 Heparin 5,000 Unit/1 Ml Vial SUB-Q 5,000 unit Q8HR BRINA Administration Insulin Human Lispro 0 unit 07/22/20 07:30 07/23/20 08:48 Insulin Lispro 100 Unit/Ml SUB-Q 4 unit ACHS BRINA Administration Protocol Isosorbide Mononitrate 30 mg 07/23/20 10:00 Isosorbide Mononitrate Er 30 Mg Tab PO QDAY [facility] Morphine Sulfate 2 mg 07/21/20 23:28 07/23/20 05:24 Morphine 2 Mg/1 Ml Inj IV 2 mg Q4H PRN Administration Pain, Moderate (4-6) Ondansetron HCl 4 mg 07/21/20 23:28 Ondansetron 4 Mg/2 Ml Inj IV Q8H PRN Nausea And Vomiting Ranolazine 500 mg 07/22/20 22:00 07/22/20 21:32 Ranolazine Er 500 Mg Tab 12hr PO 500 mg BID BRINA Administration Sodium Chloride 10 ml 07/22/20 10:00 07/22/20 21:32 Sodium Chloride 0.9% 10 Ml Flush Syringe IV 10 ml BID BRINA Administration Sodium Chloride 10 ml 07/21/20 23:28 Sodium Chloride 0.9% 10 Ml Flush Syringe IV PRN PRN LINE FLUSH
[2020-07-23] MEDS: ASPIRIN 81 MG TAB CHEW PO SCH (10:10)
[2020-07-23] MEDS: CLOPIDOGREL 75 MG TAB PO SCH (10:10)
[2020-07-23] MEDS: RANOLAZINE ER 500 MG TAB 12HR PO SCH ×2 (10:13→21:17)
--- NOTE | 2020-07-23 11:53 | Progress Note ---
Assessment and Plan Pt is on PO Bumex 2mg BID as an outpatient. Minimal UOP noted since admission. Will switch to IV Bumex. Continue strict I/Os and close monitoring of renal indices & electrolytes. Home antihypertensives held for now in the setting of borderline low BP. Pt has chronically elevated troponins, currently in similar range as previous admissions. Pt denies chest pain. No acute ischemic changes on ECG. CE elevation appears consistent with NSTEMI Type 2 in the setting of acutely decompensated HF and DONAL. [facility] 02/2019 revealed occluded RCA and diffuse multi-vessel disease, not amenable to intervention. Medical mgmt recommended. Continue bASA, Plavix, statin, Imudr, and Ranexa. Will resume BB when BP permits. Pt seen in conjunction with Dr. Rondon, who agrees with the assessment and plan of care. - Patient Problems (1) Abdominal pain Current Visit: Yes Status: Acute (2) Acute on chronic heart failure with preserved ejection fraction (HFpEF) Current Visit: Yes Status: Acute (3) Hyponatremia Current Visit: Yes Status: Acute (4) Acute kidney injury superimposed on CKD Current Visit: Yes Status: Acute (5) Chronic anemia Current Visit: Yes Status: Chronic (6) CAD (coronary artery disease) Current Visit: Yes Status: Chronic Qualifiers: Coronary Disease-Associated Artery/Lesion type: [place] artery [place] vs. transplanted heart: [place] heart Associated angina: without angina Qualified Code(s): I25.10 - Atherosclerotic heart disease of [place] coronary artery without angina pectoris (7) Stented coronary artery Current Visit: Yes Status: Chronic (8) NSTEMI (non-ST elevated myocardial infarction) Current Visit: Yes Status: Acute Plan to address problem: Type 2 (9) HTN (hypertension) Current Visit: Yes Status: Chronic Qualifiers: Hypertension type: essential hypertension Qualified Code(s): I10 - Essential (primary) hypertension (10) Hyperlipidemia Current Visit: Yes Status: Chronic Qualifiers: Hyperlipidemia type: mixed hyperlipidemia Qualified Code(s): E78.2 - Mixed hyperlipidemia (11) DM2 (diabetes mellitus, type 2) Current Visit: Yes Status: Chronic (12) Obesity Current Visit: Yes Status: Chronic (13) GERD without esophagitis Current Visit: Yes Status: Chronic (14) Chronic constipation Current Visit: Yes Status: Chronic (15) Chronic pain syndrome Current Visit: Yes Status: Chronic (16) Recurrent falls Current Visit: Yes Status: Chronic Subjective Date of service: 07/23/20 Principal diagnosis: DONAL on CKD Interval history: States she feels about the same. Still with significant edema. No new complaints. Tele reviewed - SR 70s, no events overnight. Objective Last Vital Signs Temp 98.5 F 07/23/20 03:23 Pulse 79 07/23/20 10:11 Resp 18 07/23/20 03:23 BP 100/41 07/23/20 10:11 Pulse Ox 100 07/23/20 03:23 - Physical Examination General: No Apparent Distress HEENT: Positive: EOMI, Normocephaly, Mucus Membranes Moist Neck: Positive: neck supple, trachea midline Cardiac: Positive: Reg Rate and Rhythm, S1/S2 Lungs: Positive: Decreased Breath Sounds (bilaterally) Neuro: Positive: Grossly Intact Abdomen: Positive: Tender, Distended Skin: Negative: Rash Musculoskeletal: No Pain Extremities: Present: lower extr. pulses, +2 Edema (BLE) - Labs and Meds Cardiac Enzymes 07/22/20 07/22/20 Range/Units 12:47 14:30 CK-MB (CK-2) 1.6 1.6 (0.0-4.0) ng/mL CBC 07/23/20 Range/Units 05:56 WBC 7.9 (4.5-11.0) K/mm3 RBC 3.03 L (3.65-5.03) M/mm3 Hgb 8.1 L (10.1-14.3) gm/dl Hct 24.8 L (30.3-42.9) % Plt Count 215 (140-440) K/mm3 Lymph # (Auto) 1.0 L (1.2-5.4) K/mm3 [place] # (Auto) 1.2 H (0.0-0.8) K/mm3 Eos # (Auto) 0.2 (0.0-0.4) K/mm3 Baso # (Auto) 0.0 (0.0-0.1) K/mm3 Comprehensive Metabolic Panel 07/23/20 Range/Units 05:56 Sodium 130 L D (137-145) mmol/L Potassium 5.3 H (3.6-5.0) mmol/L Chloride 92.6 L (98-107) mmol/L Carbon Dioxide 28 (22-30) mmol/L BUN 64 H (7-17) mg/dL Creatinine 2.6 H (0.6-1.2) mg/dL Glucose 251 H (65-100) mg/dL Calcium 8.8 (8.4-10.2) mg/dL - Imaging and Cardiology EKG: report reviewed, image reviewed Echo: report reviewed (06/18/2020 - EF 60-65%, grade 3 diastolic dysfxn, mod dilated LA, mild PI) Cardiac cath: report reviewed (02/2019 - prox LAD 50%, mid-distal LAD/diag 90% - small caliber vessel (not amenable to intervention), Cfx/obtuse fortino diffusely diseased w/moderately stenosed distal Cfx stent and distal OM - Cfx small caliber vessel, mid RCA 100% occluded w/collaterals from the left system, EF 60%, LVEDP 18-22mmHg), other (06/2018 - occluded RCA w/excellent collaterals, patent mid LAD, significant distal Cfx lesion s/p PCI w/LUZ) - Telemetry EKG Rhythm: Sinus Rhythm - EKG Sinus rhythms and dysrhythmias: sinus rhythm Chamber hypertrophy or enlargement: left ventricular hypertro Repolarization changes or abnormalities: nonspecific abnormality, ST segment, and/or T wave
[2020-07-23] MEDS: BUMETANIDE 1 MG/4 ML INJ IV SCH (17:09)
[2020-07-23 18:36] LABS: Calcium 8.9 mg/dL (8.4-10.2)
[2020-07-23] MEDS: traMADol 50 MG TAB PO PRN (21:14)
[2020-07-23] MEDS: GABAPENTIN 400 MG CAP PO SCH ×2 (21:14)
[2020-07-24] MEDS: traMADol 50 MG TAB PO PRN ×2 (03:45→17:18)
[2020-07-24] MEDS: FAMOTIDINE 20 MG TAB PO SCH ×2 (03:48→09:03)
[2020-07-24] MEDS ORDERED: FAMOTIDINE 20 MG TAB PO SCH (04:00)
[2020-07-24] MEDS: BUMETANIDE 1 MG/4 ML INJ IV SCH ×2 (05:30→17:19)
[2020-07-24] MEDS: HEPARIN 5,000 UNIT/1 ML VIAL SUB-Q SCH ×3 (05:30→21:25)
--- NOTE | 2020-07-24 08:41 | Progress Note ---
Assessment and Plan Assessment and plan: Acute on chronic heart failure with preserved ejection fraction Acute kidney injury on CKD Chronic anemia Coronary artery disease Hypertension Hyperlipidemia Diabetes mellitus type 2 Abdominal pain Obesity History of GERD without esophagitis. History of biliary dyskinesia 07/22/2020. Continue diuresis per cardiology and nephrology recommendations. Patient does have a history of biliary dyskinesia and chronic right upper quadrant abdominal pain. We will check CT scan of the abdomen pelvis for further evaluation. Continue antihypertensive medications. Continue statins. Continue sliding scale regular insulin and Accu-Cheks. 07/23/2020. CT scan of the abdomen essentially negative. Etiology of abdominal pain likely secondary to biliary dyskinesia. Creatinine increased today to 2.6. Baseline creatinine approximately 1.4. Continue diuresis per nephrology recommendations. Avoid nephrotoxic agents and continue strict I&Os. 07/24/2020. Continue fluid restriction for hyponatremia. Continue diuretics per nephrology recommendations. Avoid nephrotoxic agents. Creatinine slightly improved today. Etiology of abdominal pain likely associated to biliary dyskinesia. History Interval history: No new issues overnight Hospitalist Physical - Constitutional Vitals: Temp Pulse Resp BP Pulse Ox 97.8 F 69 18 122/65 98 07/24/20 03:43 07/24/20 03:43 07/24/20 03:43 07/24/20 03:43 07/24/20 07:52 General appearance: Present: no acute distress - EENT Eyes: Present: PERRL, EOM intact ENT: hearing intact, clear oral mucosa, dentition normal - Neck Neck: Present: supple, normal ROM - Respiratory Respiratory effort: normal Respiratory: bilateral: CTA - Cardiovascular Rhythm: regular Heart Sounds: Present: S1 & S2. Absent: gallop, rub - Extremities Extremities: no ischemia, No edema, Full ROM - Abdominal General gastrointestinal: soft, non-tender, non-distended, normal bowel sounds - Integumentary Integumentary: Present: clear, warm, dry - Neurologic Neurologic: CNII-XII intact, moves all extremities HEART Score - HEART Score EKG: Non-specific Age: 45-65 Risk factors: > 3 risk factors or hx of atherosclerotic disease Troponin: Troponin T 0.124 ng/mL (0.00-0.029) H* 07/22/20 14:30 Troponin: > 3x normal limit Results - Labs CBC & Chem 7: 07/23/20 05:56 07/23/20 17:48 Labs: Laboratory Last Values WBC 7.9 K/mm3 (4.5-11.0) 07/23/20 05:56 RBC 3.03 M/mm3 (3.65-5.03) L 07/23/20 05:56 Hgb 8.1 gm/dl (10.1-14.3) L 07/23/20 05:56 Hct 24.8 % (30.3-42.9) L 07/23/20 05:56 MCV 82 fl (79-97) 07/23/20 05:56 MCH 27 pg (28-32) L 07/23/20 05:56 MCHC 33 % (30-34) 07/23/20 05:56 RDW 17.0 % (13.2-15.2) H 07/23/20 05:56 Plt Count 215 K/mm3 (140-440) 07/23/20 05:56 Lymph % (Auto) 12.1 % (13.4-35.0) L 07/23/20 05:56 [place] % (Auto) 15.2 % (0.0-7.3) H 07/23/20 05:56 Eos % (Auto) 2.3 % (0.0-4.3) 07/23/20 05:56 Baso % (Auto) 0.4 % (0.0-1.8) 07/23/20 05:56 Lymph # (Auto) 1.0 K/mm3 (1.2-5.4) L 07/23/20 05:56 [place] # (Auto) 1.2 K/mm3 (0.0-0.8) H 07/23/20 05:56 Eos # (Auto) 0.2 K/mm3 (0.0-0.4) 07/23/20 05:56 Baso # (Auto) 0.0 K/mm3 (0.0-0.1) 07/23/20 05:56 Seg Neutrophils % 70.0 % (40.0-70.0) 07/23/20 05:56 Seg Neutrophils # 5.6 K/mm3 (1.8-7.7) 07/23/20 05:56 PT 15.4 Sec. (12.2-14.9) H 07/22/20 05:30 INR 1.16 (0.87-1.13) H 07/22/20 05:30 Sodium 129 mmol/L (137-145) L 07/23/20 17:48 Potassium 5.2 mmol/L (3.6-5.0) H 07/23/20 17:48 Chloride 92.3 mmol/L (98-107) L 07/23/20 17:48 Carbon Dioxide 28 mmol/L (22-30) 07/23/20 17:48 Anion Gap 14 mmol/L 07/23/20 17:48 BUN 66 mg/dL (7-17) H 07/23/20 17:48 Creatinine 2.3 mg/dL (0.6-1.2) H 07/23/20 17:48 Estimated GFR 26 ml/min 07/23/20 17:48 BUN/Creatinine Ratio 29 % 07/23/20 17:48 Glucose 182 mg/dL (65-100) H 07/23/20 17:48 POC Glucose 282 mg/dL (70-105) H 07/23/20 21:15 Calcium 8.9 mg/dL (8.4-10.2) 07/23/20 17:48 Total Bilirubin 0.40 mg/dL (0.1-1.2) 07/21/20 20:52 AST 8 units/L (5-40) 07/21/20 20:52 ALT 6 units/L (7-56) L 07/21/20 20:52 Alkaline Phosphatase 76 units/L (35-129) 07/21/20 20:52 Total Creatine Kinase 141 units/L (30-135) H 07/22/20 14:30 CK-MB (CK-2) 1.6 ng/mL (0.0-4.0) 07/22/20 14:30 CK-MB (CK-2) Rel Index 1.1 (0-4) 07/22/20 14:30 Troponin T 0.124 ng/mL (0.00-0.029) H* 07/22/20 14:30 NT-Pro-B Natriuret Pep 2292 pg/mL (0-900) H 07/21/20 20:52 Total Protein 7.4 g/dL (6.3-8.2) 07/21/20 20:52 Albumin 3.7 g/dL (3.9-5) L 07/21/20 20:52 Albumin/Globulin Ratio 1.0 % 07/21/20 20:52 Triglycerides 95 mg/dL (2-149) 07/21/20 20:52 Cholesterol 107 mg/dL (50-199) 07/21/20 20:52 LDL Cholesterol Direct 68 mg/dL (50-130) 07/21/20 20:52 HDL Cholesterol 24 mg/dL (40-59) L 07/21/20 20:52 Cholesterol/HDL Ratio 4.45 % 07/21/20 20:52 Cho/IV: Voiding Method Indwelling Catheter Active Medications - Current Medications Current Medications: Generic Name Dose Route Start Last Admin Trade Name Freq PRN Reason Stop Dose Admin Acetaminophen 650 mg 07/21/20 23:28 Acetaminophen 325 Mg Tab PO Q4H PRN Pain MILD(1-3)/Fever >100.5/SHARPE Aspirin 81 mg 07/22/20 10:30 07/23/20 10:10 Aspirin 81 Mg Tab Chew PO 81 mg QDAY BRINA Administration Atorvastatin Calcium 40 mg 07/22/20 22:00 07/23/20 21:16 Atorvastatin 40 Mg Tab PO 40 mg QHS BRINA Administration Bumetanide 2 mg 07/23/20 18:00 07/24/20 05:30 Bumetanide 1 Mg/4 Ml Inj IV 2 mg BID@0600,1800 BRINA Administration Clopidogrel Bisulfate 75 mg 07/23/20 10:00 07/23/20 10:10 Clopidogrel 75 Mg Tab PO 75 mg QDAY BRINA Administration Dextrose 0 ml 07/21/20 23:28 Dextrose 50% In Water (25gm) 50 Ml Syringe IV Q30MIN PRN Hypoglycemia Protocol Famotidine 20 mg 07/24/20 04:05 07/24/20 03:48 Famotidine 20 Mg Tab PO 20 mg QAM BRINA Administration Gabapentin 400 mg 07/23/20 22:05 07/23/20 21:14 Gabapentin 400 Mg Cap PO 400 mg TID BRINA Administration Heparin Sodium (Porcine) 5,000 unit 07/22/20 06:00 07/24/20 05:30 Heparin 5,000 Unit/1 Ml Vial SUB-Q 5,000 unit Q8HR BRINA Administration Insulin Human Lispro 0 unit 07/22/20 07:30 07/23/20 21:18 Insulin Lispro 100 Unit/Ml SUB-Q 4 unit ACHS BRINA Administration Protocol Isosorbide Mononitrate 30 mg 07/23/20 10:00 07/23/20 10:11 Isosorbide Mononitrate Er 30 Mg Tab PO Not Given QDAY BRINA Morphine Sulfate 2 mg 07/21/20 23:28 07/23/20 10:07 Morphine 2 Mg/1 Ml Inj IV 2 mg Q4H PRN Administration Pain, Moderate (4-6) Ondansetron HCl 4 mg 07/21/20 23:28 Ondansetron 4 Mg/2 Ml Inj IV Q8H PRN Nausea And Vomiting Ranolazine 500 mg 07/22/20 22:00 07/23/20 21:17 Ranolazine Er 500 Mg Tab 12hr PO 500 mg BID BRINA Administration Sodium Chloride 10 ml 07/22/20 10:00 07/23/20 21:16 Sodium Chloride 0.9% 10 Ml Flush Syringe IV 10 ml BID BRINA Administration Sodium Chloride 10 ml 07/21/20 23:28 Sodium Chloride 0.9% 10 Ml Flush Syringe IV PRN PRN LINE FLUSH Tramadol HCl 50 mg 07/23/20 20:42 07/24/20 03:45 Tramadol 50 Mg Tab PO 50 mg Q6H PRN Administration Pain, Moderate (4-6) Nutrition/Malnutrition Assess - Dietary Evaluation Nutrition/Malnutrition Findings: Nutrition Notes Start: 07/22/20 13:23 Freq: Status: Active Protocol: Document 07/22/20 13:23 LM (Rec: 07/22/20 13:34 LM [id number]) Nutrition Notes Need for Assessment generated from: MD Order,Education Initial or Follow up Brief Note Subjective/Other Information MD consult for DM diet education. Pt stated she had a good appetite [employer]. UBW is 123kg (270 lb). Pt has edema. Provided pt DM and CHF diet education. #1 Nutrition Diagnosis Food and nutrition-related knowledge deficit Etiology No prior DM, CHF diet education As Evidenced by Signs and Symptoms Discussion with patient Nutrition Intervention Teaching Recipient Patient Learning Readiness Good Teaching Methods Discussion,Handout Response to Teaching Verbalize understanding Education Handouts Provided Carbohydrate Counting and CHF Barriers to Learning No Barriers RD phone number provided Yes Patient aware of follow up options Yes Revisit per MD consult or patient Sign Off request:
[2020-07-24] MEDS: INSULIN LISPRO 100 UNIT/ML SUB-Q SCH ×4 (09:02→21:27)
[2020-07-24] MEDS: ASPIRIN 81 MG TAB CHEW PO SCH (09:02)
[2020-07-24] MEDS: GABAPENTIN 400 MG CAP PO SCH ×3 (09:02→21:26)
[2020-07-24] MEDS: RANOLAZINE ER 500 MG TAB 12HR PO SCH ×2 (09:03→21:26)
[2020-07-24] MEDS: CLOPIDOGREL 75 MG TAB PO SCH (09:03)
--- NOTE | 2020-07-24 09:47 | Progress Note ---
Assessment and Plan Chronic Kidney disease stage 3: DM2: CAD: Chronic diastolic CHF: -labhs are pending this AM -baseline Cr ~1.4, worsening likely 2/2 CRS -cont diuretics - fluid restrition ordered for worsening hyponatremia - low k diet ordered, -Monitor volume status closely. -Renally dose all meds -Avoid Nephrotoxic meds - strict I&O Subjective Date of service: 07/24/20 Principal diagnosis: DONAL on CKD Interval history: denies acute issues. SOB is better Objective - Vital Signs Vital signs: Vital Signs - 12hr 07/23/20 07/24/20 07/24/20 23:10 03:43 07:52 Temperature 98.3 F 97.8 F Pulse Rate 66 69 Respiratory 18 18 Rate Blood Pressure 113/48 122/65 O2 Sat by Pulse 100 100 98 Oximetry 07/24/20 07/24/20 07/24/20 08:26 08:28 09:03 Temperature 98.7 F Pulse Rate 65 66 66 Respiratory 20 Rate Blood Pressure 103/57 103/57 O2 Sat by Pulse 90 98 Oximetry - General Appearance General appearance: well-developed, well-nourished, appears stated age EENT: ATNC, PERRL, mucous membranes moist Neck: no JVD, no carotid bruit Respiratory: Present: Decreased Breath Sounds Cardiology: regular, S1S2 Gastrointestinal: normoactive bowel sounds Integumentary: no rash, warm and dry Neurologic: no focal deficit, no asterixis, alert and oriented x3 Musculoskeletal: other (trace pitting edema in BLE) Psychiatric: mood/affect appropriate, cooperative - Lab 07/23/20 05:56 07/23/20 17:48 Most recent lab results Calcium 8.9 mg/dL (8.4-10.2) 07/23/20 17:48 Medications & Allergies - Medications Allergies/Adverse Reactions: Allergies No Known Allergies Allergy (Verified 07/23/20 16:57) Home Medications: Home Medications Medication Instructions Recorded Confirmed Last Taken Type Gabapentin 400 mg PO TID 11/01/15 07/23/20 07/20/20 09:00 History Escitalopram [Lexapro] 20 mg PO DAILY 02/28/17 07/23/20 07/20/20 09:00 History lisinopriL [Zestril TAB] 20 mg PO QDAY 02/28/17 07/23/2021 09:00 History Brimonidine Tartrate/Timolol 1 drop OP BID 07/01/18 07/23/20 07/20/20 09:00 History [Combigan 0.2%-0.5% Eye Drops] Buspirone HCl [busPIRone] 15 mg PO BID 07/01/18 07/23/20 07/20/20 09:00 History Aspirin EC [Halfprin EC] 81 mg PO QDAY #30 tablet. 07/11/18 07/23/20 07/20/20 09:00 Rx Aspirin [Aspirin BABY CHEW TAB] 81 mg PO QDAY #30 tab.chew 07/11/18 07/23/20 07/20/20 09:00 Rx AtorvaSTATin [Lipitor] 40 mg PO QHS #30 tablet 07/11/18 07/23/20 07/20/20 09:00 Rx Clopidogrel [Plavix] 75 mg PO QDAY #30 tablet 07/11/18 07/23/20 07/20/20 09:00 Rx Dicyclomine [Bentyl] 20 mg PO QID #14 tablet 07/11/18 07/23/20 07/20/20 09:00 Rx HYDROmorphone [Dilaudid] 1 mg PO Q4HR #7 tablet 07/11/18 07/23/20 07/20/20 09:00 Rx Insulin Glargine [Lantus VIAL] 25 units SUB-Q BID@0800,2000 #10 ml 07/11/18 0 07/23/20 07/20/20 09:00 Rx Isosorbide Mononitrate 60 mg PO DAILY #30 tablet 07/11/18 07/23/20 07/20/20 09:00 Rx LORazepam [Ativan] 0.5 mg PO BID PRN #5 tab 07/11/18 07/23/20 07/20/20 09:00 Rx Ondansetron (Nf) [Zofran TAB] 8 mg PO Q8HR PRN #10 tablet 07/11/18 07/23/20 07/20/20 09:00 Rx Pantoprazole [Protonix TAB] 40 mg PO QDAY #30 tablet 07/11/18 07/23/20 07/20/20 09:00 Rx Sucralfate [Carafate] 1 gm PO Q6HR #60 tablet 07/11/18 07/23/20 07/20/20 09:00 Rx amLODIPine 10 mg PO QDAY #30 tablet 07/11/18 07/23/20 07/20/20 09:00 Rx ursodioL [Ursodiol] 500 mg PO TIDDIAB #60 tablet 07/11/18 07/23/20 07/20/20 09:00 Rx Docusate Sodium [Colace] 100 mg PO BID #60 capsule 05/16/20 07/23/20 07/20/20 09:00 Rx Famotidine [Pepcid] 20 mg PO BID #60 tablet 05/16/20 07/23/20 07/20/20 09:00 Rx Lactulose [Cephulac] 20 gm PO QDAY PRN #90 ml 05/16/20 07/23/20 07/20/20 09:00 Rx Ondansetron [Zofran ODT TAB] 8 mg PO Q8HR #20 tab.rapdis 05/16/20 07/23/20 07/20/20 09:00 Rx Baclofen [Lioresal] 10 mg PO TID 07/23/20 07/23/20 07/20/20 09:00 History Bumetanide [Bumetanide 2 mg tab] 1 tab .ROUTE DAILY 07/23/20 07/23/20 07/20/20 09:00 History Cyclobenzaprine [Flexeril] 10 mg PO DAILY 07/23/20 07/23/20 07/20/20 09:00 History Gabapentin 400 mg PO TID 07/23/20 07/23/20 07/20/20 09:00 History HYDROcodone/APAP 5-325 [[place] 1 each PO TID 07/23/20 07/23/20 07/20/20 09:00 History 5/325] Tamsulosin [Flomax] 0.4 mg PO QDAY 07/23/20 07/23/20 07/20/20 09:00 History Torsemide [Demadex] 100 mg PO QDAY 07/23/20 07/23/20 07/20/20 09:00 History carvediloL [Coreg] 12.5 mg PO BID 07/23/20 07/23/20 07/20/20 09:00 History Active Medications: Generic Name Dose Route Start Last Admin Trade Name Freq PRN Reason Stop Dose Admin Acetaminophen 650 mg 07/21/20 23:28 Acetaminophen 325 Mg Tab PO Q4H PRN Pain MILD(1-3)/Fever >100.5/SHARPE Aspirin 81 mg 07/22/20 10:30 07/24/20 09:02 Aspirin 81 Mg Tab Chew PO 81 mg QDAY BRINA Administration Atorvastatin Calcium 40 mg 07/22/20 22:00 07/23/20 21:16 Atorvastatin 40 Mg Tab PO 40 mg QHS BRINA Administration Bumetanide 2 mg 07/23/20 18:00 07/24/20 05:30 Bumetanide 1 Mg/4 Ml Inj IV 2 mg BID@0600,1800 BRINA Administration Clopidogrel Bisulfate 75 mg 07/23/20 10:00 07/24/20 09:03 Clopidogrel 75 Mg Tab PO 75 mg QDAY BRINA Administration Dextrose 0 ml 07/21/20 23:28 Dextrose 50% In Water (25gm) 50 Ml Syringe IV Q30MIN PRN Hypoglycemia Protocol Famotidine 20 mg 07/24/20 04:05 07/24/20 09:03 Famotidine 20 Mg Tab PO 20 mg QAM BRINA Administration Gabapentin 400 mg 07/23/20 22:05 07/24/20 09:02 Gabapentin 400 Mg Cap PO 400 mg TID BRINA Administration Heparin Sodium (Porcine) 5,000 unit 07/22/20 06:00 07/24/20 05:30 Heparin 5,000 Unit/1 Ml Vial SUB-Q 5,000 unit Q8HR BRINA Administration Insulin Human Lispro 0 unit 07/22/20 07:30 07/24/20 09:02 Insulin Lispro 100 Unit/Ml SUB-Q 2 unit ACHS BRINA Administration Protocol Isosorbide Mononitrate 30 mg 07/23/20 10:00 07/24/20 09:03 Isosorbide Mononitrate Er 30 Mg Tab PO 30 mg QDAY [facility]INA Administration Morphine Sulfate 2 mg 07/21/20 23:28 07/23/20 10:07 Morphine 2 Mg/1 Ml Inj IV 2 mg Q4H PRN Administration Pain, Moderate (4-6) Ondansetron HCl 4 mg 07/21/20 23:28 Ondansetron 4 Mg/2 Ml Inj IV Q8H PRN Nausea And Vomiting Ranolazine 500 mg 07/22/20 22:00 07/24/20 09:03 Ranolazine Er 500 Mg Tab 12hr PO 500 mg BID BRINA Administration Sodium Chloride 10 ml 07/22/20 10:00 07/24/20 09:03 Sodium Chloride 0.9% 10 Ml Flush Syringe IV 10 ml BID BRINA Administration Sodium Chloride 10 ml 07/21/20 23:28 Sodium Chloride 0.9% 10 Ml Flush Syringe IV PRN PRN LINE FLUSH Tramadol HCl 50 mg 07/23/20 20:42 07/24/20 03:45 Tramadol 50 Mg Tab PO 50 mg Q6H PRN Administration Pain, Moderate (4-6)
--- NOTE | 2020-07-24 11:34 | Progress Note ---
Assessment and Plan Pt is on PO Bumex 2mg BID as an outpatient. Much better UOP noted after switching to IV Bumex. Continue strict I/Os and close monitoring of renal indices & electrolytes. Labs still pending this AM. Home antihypertensives held for now in the setting of borderline low BP. Pt has chronically elevated troponins, currently in similar range as previous admissions. Pt denies chest pain. No acute ischemic changes on ECG. CE elevation appears consistent with NSTEMI Type 2 in the setting of acutely decompensated HF and DONAL. [facility] 02/2019 revealed occluded RCA and diffuse multi-vessel disease, not amenable to intervention. Medical mgmt recommended. Continue bASA, Plavix, statin, Imudr, and Ranexa. Will resume BB when BP permits. Pt seen in conjunction with Dr. Rondon, who agrees with the assessment and plan of care. - Patient Problems (1) Abdominal pain Current Visit: Yes Status: Acute (2) Acute on chronic heart failure with preserved ejection fraction (HFpEF) Current Visit: Yes Status: Acute (3) Hyponatremia Current Visit: Yes Status: Acute (4) Acute kidney injury superimposed on CKD Current Visit: Yes Status: Acute (5) Chronic anemia Current Visit: Yes Status: Chronic (6) CAD (coronary artery disease) Current Visit: Yes Status: Chronic Qualifiers: Coronary Disease-Associated Artery/Lesion type: [place] artery [place] vs. transplanted heart: [place] heart Associated angina: without angina Qualified Code(s): I25.10 - Atherosclerotic heart disease of [place] coronary artery without angina pectoris (7) Stented coronary artery Current Visit: Yes Status: Chronic (8) NSTEMI (non-ST elevated myocardial infarction) Current Visit: Yes Status: Acute Plan to address problem: Type 2 (9) HTN (hypertension) Current Visit: Yes Status: Chronic Qualifiers: Hypertension type: essential hypertension Qualified Code(s): I10 - Essential (primary) hypertension (10) Hyperlipidemia Current Visit: Yes Status: Chronic Qualifiers: Hyperlipidemia type: mixed hyperlipidemia Qualified Code(s): E78.2 - Mixed hyperlipidemia (11) DM2 (diabetes mellitus, type 2) Current Visit: Yes Status: Chronic (12) Obesity Current Visit: Yes Status: Chronic (13) GERD without esophagitis Current Visit: Yes Status: Chronic (14) Chronic constipation Current Visit: Yes Status: Chronic (15) Chronic pain syndrome Current Visit: Yes Status: Chronic (16) Recurrent falls Current Visit: Yes Status: Chronic Subjective Date of service: 07/24/20 Principal diagnosis: A/C HFpEF, DONAL/CKD Interval history: States she is feeling better. Still with significant edema. No new complaints. Tele reviewed - SR 60-70s, no events overnight. Objective Last Vital Signs Temp 98.7 F 07/24/20 08:26 Pulse 66 07/24/20 09:03 Resp 20 07/24/20 08:26 BP 103/57 07/24/20 09:03 Pulse Ox 98 07/24/20 08:28 - Physical Examination General: No Apparent Distress HEENT: Positive: EOMI, Normocephaly, Mucus Membranes Moist Neck: Positive: neck supple, trachea midline Cardiac: Positive: Reg Rate and Rhythm, S1/S2 Lungs: Positive: Decreased Breath Sounds (bases) Neuro: Positive: Grossly Intact Abdomen: Positive: Tender, Distended Skin: Negative: Rash Musculoskeletal: No Pain Extremities: Present: lower extr. pulses, +2 Edema (BLE) - Labs and Meds Comprehensive Metabolic Panel 07/23/20 Range/Units 17:48 Sodium 129 L (137-145) mmol/L Potassium 5.2 H (3.6-5.0) mmol/L Chloride 92.3 L (98-107) mmol/L Carbon Dioxide 28 (22-30) mmol/L BUN 66 H (7-17) mg/dL Creatinine 2.3 H (0.6-1.2) mg/dL Glucose 182 H (65-100) mg/dL Calcium 8.9 (8.4-10.2) mg/dL - Imaging and Cardiology EKG: report reviewed, image reviewed Echo: report reviewed (06/18/2020 - EF 60-65%, grade 3 diastolic dysfxn, mod dilated LA, mild PI) Cardiac cath: report reviewed (02/2019 - prox LAD 50%, mid-distal LAD/diag 90% - small caliber vessel (not amenable to intervention), Cfx/obtuse fortino diffusely diseased w/moderately stenosed distal Cfx stent and distal OM - Cfx small caliber vessel, mid RCA 100% occluded w/collaterals from the left system, EF 60%, LVEDP 18-22mmHg), other (06/2018 - occluded RCA w/excellent collaterals, patent mid LAD, significant distal Cfx lesion s/p PCI w/LUZ) - Telemetry EKG Rhythm: Sinus Rhythm - EKG Sinus rhythms and dysrhythmias: sinus rhythm Chamber hypertrophy or enlargement: left ventricular hypertro Repolarization changes or abnormalities: nonspecific abnormality, ST segment, and/or T wave
[2020-07-24] MEDS: MORPHINE 2 MG/1 ML INJ IV PRN (21:25)
[2020-07-25 05:23] LABS: Hematocrit 25.3 % (30.3-42.9); Hemoglobin 8.4 gm/dl (10.1-14.3); Mean Corpuscular HGB Conc 33 % (30-34); Mean Corpuscular Volume 81 fl (79-97); Platelet Count 230 K/mm3 (140-440); Red Blood Count 3.12 M/mm3 (3.65-5.03); Red Cell Distribution Width 16.5 % (13.2-15.2)
[2020-07-25] MEDS: BUMETANIDE 1 MG/4 ML INJ IV SCH ×2 (05:24→18:11)
[2020-07-25] MEDS: HEPARIN 5,000 UNIT/1 ML VIAL SUB-Q SCH ×3 (05:25→22:42)
[2020-07-25 05:38] LABS: Calcium 8.7 mg/dL (8.4-10.2)
[2020-07-25 06:26] LABS: Anisocytosis 1+; Platelet Estimate Consistent w Auto; Total Cells Counted 100
--- NOTE | 2020-07-25 08:36 | Progress Note ---
Assessment and Plan Chronic Kidney disease stage 3: Hyponatremia: Hyperkalemia: DM2: CAD: Chronic diastolic CHF: -stable Cr with good UOP -Na is better, hyperK resolved -baseline Cr ~1.4, worsening likely 2/2 CRS -cont diuretics per cardiology - low k diet with fluid restriction -Monitor volume status closely. -Renally dose all meds -Avoid Nephrotoxic meds - strict I&O Subjective Date of service: 07/25/20 Principal diagnosis: A/C HFpEF, DONAL/CKD Objective - Vital Signs Vital signs: Vital Signs - 12hr 07/25/20 07/25/20 07/25/20 00:00 00:17 03:34 Temperature 98.9 F Pulse Rate 68 67 68 Respiratory 22 Rate Blood Pressure 111/62 O2 Sat by Pulse 91 Oximetry 07/25/20 04:17 Temperature 98.7 F Pulse Rate 69 Respiratory 16 Rate Blood Pressure 139/61 O2 Sat by Pulse 87 Oximetry - Lab 07/25/20 04:44 07/25/20 04:44 Most recent lab results Calcium 8.7 mg/dL (8.4-10.2) 07/25/20 04:44 Medications & Allergies - Medications Allergies/Adverse Reactions: Allergies No Known Allergies Allergy (Verified 07/23/20 16:57) Home Medications: Home Medications Medication Instructions Recorded Confirmed Last Taken Type Gabapentin 400 mg PO TID 11/01/15 07/23/20 07/20/20 09:00 History Escitalopram [Lexapro] 20 mg PO DAILY 02/28/17 07/23/20 07/20/20 09:00 History lisinopriL [Zestril TAB] 20 mg PO QDAY 02/28/17 07/23/20 07/20/20 09:00 History Brimonidine Tartrate/Timolol 1 drop OP BID 07/01/18 07/23/20 07/20/20 09:00 History [Combigan 0.2%-0.5% Eye Drops] Buspirone HCl [busPIRone] 15 mg PO BID 07/01/18 07/23/20 07/20/20 09:00 History Aspirin EC [Halfprin EC] 81 mg PO QDAY #30 tablet. 07/11/18 07/23/20 07/20/20 09:00 Rx Aspirin [Aspirin BABY CHEW TAB] 81 mg PO QDAY #30 tab.chew 07/11/18 07/23/20 07/20/20 09:00 Rx AtorvaSTATin [Lipitor] 40 mg PO QHS #30 tablet 07/11/18 07/23/20 07/20/20 09:00 Rx Clopidogrel [Plavix] 75 mg PO QDAY #30 tablet 07/11/18 07/23/20 07/20/20 09:00 Rx Dicyclomine [Bentyl] 20 mg PO QID #14 tablet 07/11/18 07/23/20 07/20/20 09:00 Rx HYDROmorphone [Dilaudid] 1 mg PO Q4HR #7 tablet 07/11/18 07/23/20 07/20/20 09:00 Rx Insulin Glargine [Lantus VIAL] 25 units SUB-Q BID@0800,2000 #10 ml 07/11/18 07/23/20 07/20/20 09:00 Rx Isosorbide Mononitrate 60 mg PO DAILY #30 tablet 07/11/18 07/23/20 07/20/20 09:00 Rx LORazepam [Ativan] 0.5 mg PO BID PRN #5 tab 07/11/18 07/23/20 07/20/20 09:00 Rx Ondansetron (Nf) [Zofran TAB] 8 mg PO Q8HR PRN #10 tablet 07/11/18 07/23/20 07/20/20 09:00 Rx Pantoprazole [Protonix TAB] 40 mg PO QDAY #30 tablet 07/11/18 07/23/20 07/20/20 09:00 Rx Sucralfate [Carafate] 1 gm PO Q6HR #60 tablet 07/11/18 07/23/20 07/20/20 09:00 Rx amLODIPine 10 mg PO QDAY #30 tablet 07/11/18 07/23/20 07/20/20 09:00 Rx ursodioL [Ursodiol] 500 mg PO TIDDIAB #60 tablet 07/11/18 07/23/20 07/20/20 09:00 Rx Docusate Sodium [Colace] 100 mg PO BID #60 capsule 05/16/20 07/23/20 07/20/20 09:00 Rx Famotidine [Pepcid] 20 mg PO BID #60 tablet 05/16/20 07/23/20 07/20/20 09:00 Rx Lactulose [Cephulac] 20 gm PO QDAY PRN #90 ml 05/16/20 07/23/20 07/20/20 09:00 Rx Ondansetron [Zofran ODT TAB] 8 mg PO Q8HR #20 tab.rapdis 05/16/20 07/23/20 07/20/20 09:00 Rx Baclofen [Lioresal] 10 mg PO TID 07/23/20 07/23/20 07/20/20 09:00 History Bumetanide [Bumetanide 2 mg tab] 1 tab .ROUTE DAILY 07/23/20 07/23/20 07/20/20 09:00 History Cyclobenzaprine [Flexeril] 10 mg PO DAILY 07/23/20 07/23/20 07/20/20 09:00 History Gabapentin 400 mg PO TID 07/23/20 07/23/20 07/20/20 09:00 History HYDROcodone/APAP 5-325 [[place] 1 each PO TID 07/23/20 07/23/20 07/20/20 09:00 History 5/325] Tamsulosin [Flomax] 0.4 mg PO QDAY 07/23/20 07/23/20 07/20/20 09:00 History Torsemide [Demadex] 100 mg PO QDAY 07/23/20 07/23/20 07/20/20 09:00 History carvediloL [Coreg] 12.5 mg PO BID 07/23/20 07/23/20 07/20/20 09:00 History Active Medications: Generic Name Dose Route Start Last Admin Trade Name Freq PRN Reason Stop Dose Admin Acetaminophen 650 mg 07/21/20 23:28 Acetaminophen 325 Mg Tab PO Q4H PRN Pain MILD(1-3)/Fever >100.5/SHARPE Aspirin 81 mg 07/22/20 10:30 07/24/20 09:02 Aspirin 81 Mg Tab Chew PO 81 mg QDAY BRINA Administration Atorvastatin Calcium 40 mg 07/22/20 22:00 07/24/20 21:26 Atorvastatin 40 Mg Tab PO 40 mg QHS BRINA Administration Bumetanide 2 mg 07/23/20 18:00 07/25/20 05:24 Bumetanide 1 Mg/4 Ml Inj IV 2 mg BID@0600,1800 BRINA Administration Clopidogrel Bisulfate 75 mg 07/23/20 10:00 07/24/20 09:03 Clopidogrel 75 Mg Tab PO 75 mg QDAY BRINA Administration Dextrose 0 ml 07/21/20 23:28 Dextrose 50% In Water (25gm) 50 Ml Syringe IV Q30MIN PRN Hypoglycemia Protocol Famotidine 20 mg 07/24/20 04:05 07/24/20 09:03 Famotidine 20 Mg Tab PO 20 mg QAM BRINA Administration Gabapentin 400 mg 07/23/20 22:05 07/24/20 21:26 Gabapentin 400 Mg Cap PO 400 mg TID BRINA Administration Heparin Sodium (Porcine) 5,000 unit 07/22/20 06:00 07/25/20 05:25 Heparin 5,000 Unit/1 Ml Vial SUB-Q 5,000 unit Q8HR BRINA Administration Insulin Human Lispro 0 unit 07/22/20 07:30 07/24/20 21:27 Insulin Lispro 100 Unit/Ml SUB-Q 6 unit ACHS BRINA Administration Protocol Isosorbide Mononitrate 30 mg 07/23/20 10:00 07/24/20 09:03 Isosorbide Mononitrate Er 30 Mg Tab PO 30 mg QDAY BRINA Administration Morphine Sulfate 2 mg 07/21/20 23:28 07/24/20 21:25 Morphine 2 Mg/1 Ml Inj IV 2 mg Q4H PRN Administration Pain, Moderate (4-6) Ondansetron HCl 4 mg 07/21/20 23:28 Ondansetron 4 Mg/2 Ml Inj IV Q8H PRN Nausea And Vomiting Ranolazine 500 mg 07/22/20 22:00 07/24/20 21:26 Ranolazine Er 500 Mg Tab 12hr PO 500 mg BID BRINA Administration Sodium Chloride 10 ml 07/22/20 10:00 07/24/20 21:26 Sodium Chloride 0.9% 10 Ml Flush Syringe IV 10 ml BID BRINA Administration Sodium Chloride 10 ml 07/21/20 23:28 Sodium Chloride 0.9% 10 Ml Flush Syringe IV PRN PRN LINE FLUSH Tramadol HCl 50 mg 07/23/20 20:42 07/24/20 17:18 Tramadol 50 Mg Tab PO 50 mg Q6H PRN Administration Pain, Moderate (4-6)
[2020-07-25] MEDS: FAMOTIDINE 20 MG TAB PO SCH (09:38)
[2020-07-25] MEDS: RANOLAZINE ER 500 MG TAB 12HR PO SCH ×2 (09:39→22:41)
[2020-07-25] MEDS: traMADol 50 MG TAB PO PRN (09:39)
[2020-07-25] MEDS: GABAPENTIN 400 MG CAP PO SCH ×4 (09:40→21:50)
[2020-07-25] MEDS: ASPIRIN 81 MG TAB CHEW PO SCH (09:40)
[2020-07-25] MEDS: CLOPIDOGREL 75 MG TAB PO SCH (09:40)
[2020-07-25] MEDS: INSULIN LISPRO 100 UNIT/ML SUB-Q SCH ×4 (09:51→22:42)
--- NOTE | 2020-07-25 09:54 | Progress Note ---
Assessment and Plan Assessment and plan: Acute on chronic heart failure with preserved ejection fraction Acute kidney injury on CKD Chronic anemia Coronary artery disease Hypertension Hyperlipidemia Diabetes mellitus type 2 Abdominal pain Obesity History of GERD without esophagitis. History of biliary dyskinesia 07/22/2020. Continue diuresis per cardiology and nephrology recommendations. Patient does have a history of biliary dyskinesia and chronic right upper quadrant abdominal pain. We will check CT scan of the abdomen pelvis for further evaluation. Continue antihypertensive medications. Continue statins. Continue sliding scale regular insulin and Accu-Cheks. 07/23/2020. CT scan of the abdomen essentially negative. Etiology of abdominal pain likely secondary to biliary dyskinesia. Creatinine increased today to 2.6. Baseline creatinine approximately 1.4. Continue diuresis per nephrology recommendations. Avoid nephrotoxic agents and continue strict I&Os. 07/24/2020. Continue fluid restriction for hyponatremia. Continue diuretics per nephrology recommendations. Avoid nephrotoxic agents. Creatinine slightly improved today. Etiology of abdominal pain likely associated to biliary dyskinesia. 07/25/2020. Hyponatremia improved. Continue fluid restriction and diuretics per nephrology recommendations. Creatinine appears to be stable at 2.0. Etiology abdominal pain likely associated with biliary dyskinesia. Consider surgery evaluation. Avoid nephrotoxic agents and continue strict I&Os. Physical therapy recommends home health PT. History Interval history: No new issues overnight Hospitalist Physical - Constitutional Vitals: Temp Pulse Resp BP Pulse Ox 98.7 F 69 16 139/61 87 07/25/20 04:17 07/25/20 04:17 07/25/20 04:17 07/25/20 04:17 07/25/20 04:17 General appearance: Present: no acute distress - EENT Eyes: Present: PERRL, EOM intact ENT: hearing intact, clear oral mucosa, dentition normal - Neck Neck: Present: supple, normal ROM - Respiratory Respiratory effort: normal Respiratory: bilateral: CTA - Cardiovascular Rhythm: regular Heart Sounds: Present: S1 & S2. Absent: gallop, rub - Extremities Extremities: no ischemia, No edema, Full ROM - Abdominal General gastrointestinal: soft, non-tender, non-distended, normal bowel sounds - Integumentary Integumentary: Present: clear, warm, dry - Neurologic Neurologic: CNII-XII intact, moves all extremities HEART Score - HEART Score EKG: Non-specific Age: 45-65 Risk factors: > 3 risk factors or hx of atherosclerotic disease Troponin: Troponin T 0.124 ng/mL (0.00-0.029) H* 07/22/20 14:30 Troponin: > 3x normal limit Results - Labs CBC & Chem 7: 07/25/20 04:44 07/25/20 04:44 Labs: Laboratory Last Values WBC 7.0 K/mm3 (4.5-11.0) 07/25/20 04:44 RBC 3.12 M/mm3 (3.65-5.03) L 07/25/20 04:44 Hgb 8.4 gm/dl (10.1-14.3) L 07/25/20 04:44 Hct 25.3 % (30.3-42.9) L 07/25/20 04:44 MCV 81 fl (79-97) 07/25/20 04:44 MCH 27 pg (28-32) L 07/25/20 04:44 MCHC 33 % (30-34) 07/25/20 04:44 RDW 16.5 % (13.2-15.2) H 07/25/20 04:44 Plt Count 230 K/mm3 (140-440) 07/25/20 04:44 Lymph % (Auto) 12.1 % (13.4-35.0) L 07/23/20 05:56 [place] % (Auto) [employer] 07/25/20 04:44 Eos % (Auto) 2.3 % (0.0-4.3) 07/23/20 05:56 Baso % (Auto) 0.4 % (0.0-1.8) 07/23/20 05:56 Lymph # (Auto) 1.0 K/mm3 (1.2-5.4) L 07/23/20 05:56 [place] # (Auto) 1.2 K/mm3 (0.0-0.8) H 07/23/20 05:56 Eos # (Auto) 0.2 K/mm3 (0.0-0.4) 07/23/20 05:56 Baso # (Auto) 0.0 K/mm3 (0.0-0.1) 07/23/20 05:56 Add Manual Diff Complete 07/25/20 04:44 Total Counted 100 07/25/20 04:44 Seg Neutrophils % 70.0 % (40.0-70.0) 07/23/20 05:56 Seg Neuts % (Manual) 75.0 % (40.0-70.0) H 07/25/20 04:44 Lymphocytes % (Manual) 21.0 % (13.4-35.0) 07/25/20 04:44 Monocytes % (Manual) 3.0 % (0.0-7.3) 07/25/20 04:44 Eosinophils % (Manual) 1.0 % (0.0-4.3) 07/25/20 04:44 Nucleated RBC % Not Reportable 07/25/20 04:44 Seg Neutrophils # 5.6 K/mm3 (1.8-7.7) 07/23/20 05:56 Seg Neutrophils # Man 5.3 K/mm3 (1.8-7.7) 07/25/20 04:44 Band Neutrophils # 0.0 K/mm3 07/25/20 04:44 Lymphocytes # (Manual) 1.5 K/mm3 (1.2-5.4) 07/25/20 04:44 Abs React Lymphs (Man) 0.0 K/mm3 07/25/20 04:44 Monocytes # (Manual) 0.2 K/mm3 (0.0-0.8) 07/25/20 04:44 Eosinophils # (Manual) 0.1 K/mm3 (0.0-0.4) 07/25/20 04:44 Basophils # (Manual) 0.0 K/mm3 (0.0-0.1) 07/25/20 04:44 Metamyelocytes # 0.0 K/mm3 07/25/20 04:44 Myelocytes # 0.0 K/mm3 07/25/20 04:44 Promyelocytes # 0.0 K/mm3 07/25/20 04:44 Blast Cells # 0.0 K/mm3 07/25/20 04:44 WBC Morphology Not Reportable 07/25/20 04:44 Hypersegmented Neuts Not Reportable 07/25/20 04:44 Hyposegmented Neuts Not Reportable 07/25/20 04:44 Hypogranular Neuts Not Reportable 07/25/20 04:44 Smudge Cells Not Reportable 07/25/20 04:44 Toxic Granulation Not Reportable 07/25/20 04:44 Toxic Vacuolation Not Reportable 07/25/20 04:44 Dohle Bodies Not Reportable 07/25/20 04:44 Pelger-Huet Anomaly Not Reportable 07/25/20 04:44 Ayan Rods Not Reportable 07/25/20 04:44 Platelet Estimate Consistent w auto 07/25/20 04:44 Clumped Platelets Not Reportable 07/25/20 04:44 Plt Clumps, EDTA Not Reportable 07/25/20 04:44 Large Platelets Not Reportable 07/25/20 04:44 Giant Platelets Not Reportable 07/25/20 04:44 Platelet Satelliting Not Reportable 07/25/20 04:44 Plt Morphology Comment Not Reportable 07/25/20 04:44 RBC Morphology Not Reportable 07/25/20 04:44 Dimorphic RBCs Not Reportable 07/25/20 04:44 Polychromasia Not Reportable 07/25/20 04:44 Hypochromasia Not Reportable 07/25/20 04:44 Poikilocytosis Not Reportable 07/25/20 04:44 Anisocytosis 1+ 07/25/20 04:44 Microcytosis Not Reportable 07/25/20 04:44 Macrocytosis Not Reportable 07/25/20 04:44 Spherocytes Not Reportable 07/25/20 04:44 Pappenheimer Bodies Not Reportable 07/25/20 04:44 Sickle Cells Not Reportable 07/25/20 04:44 Target Cells Not Reportable 07/25/20 04:44 Tear Drop Cells Not Reportable 07/25/20 04:44 Ovalocytes Not Reportable 07/25/20 04:44 Helmet Cells Not Reportable 07/25/20 04:44 [place] Bodies Not Reportable 07/25/20 04:44 [place] Rings Not Reportable 07/25/20 04:44 [place] Cells Not Reportable 07/25/20 04:44 Bite Cells Not Reportable 07/25/20 04:44 Crenated Cell Not Reportable 07/25/20 04:44 Elliptocytes Not Reportable 07/25/20 04:44 Acanthocytes (Spur) Not Reportable 07/25/20 04:44 Rouleaux Not Reportable 07/25/20 04:44 Hemoglobin C Crystals Not Reportable 07/25/20 04:44 Schistocytes Not Reportable 07/25/20 04:44 Malaria parasites Not Reportable 07/25/20 04:44 Bipin Bodies Not Reportable 07/25/20 04:44 Hem Pathologist Commnt No 07/25/20 04:44 PT 15.4 Sec. (12.2-14.9) H 07/22/20 05:30 INR 1.16 (0.87-1.13) H 07/22/20 05:30 Sodium 133 mmol/L (137-145) L 07/25/20 04:44 Potassium 5.0 mmol/L (3.6-5.0) 07/25/20 04:44 Chloride 92.7 mmol/L (98-107) L 07/25/20 04:44 Carbon Dioxide 29 mmol/L (22-30) 07/25/20 04:44 Anion Gap 16 mmol/L 07/25/20 04:44 BUN 68 mg/dL (7-17) H 07/25/20 04:44 Creatinine 2.0 mg/dL (0.6-1.2) H 07/25/20 04:44 Estimated GFR 31 ml/min 07/25/20 04:44 BUN/Creatinine Ratio 34 % 07/25/20 04:44 Glucose 196 mg/dL (65-100) H 07/25/20 04:44 POC Glucose 179 mg/dL (70-105) H 07/25/20 08:01 Calcium 8.7 mg/dL (8.4-10.2) 07/25/20 04:44 Total Bilirubin 0.40 mg/dL (0.1-1.2) 07/21/20 20:52 AST 8 units/L (5-40) 07/21/20 20:52 ALT 6 units/L (7-56) L 07/21/20 20:52 Alkaline Phosphatase 76 units/L (35-129) 07/21/20 20:52 Total Creatine Kinase 141 units/L (30-135) H 07/22/20 14:30 CK-MB (CK-2) 1.6 ng/mL (0.0-4.0) 07/22/20 14:30 CK-MB (CK-2) Rel Index 1.1 (0-4) 07/22/20 14:30 Troponin T 0.124 ng/mL (0.00-0.029) H* 07/22/20 14:30 NT-Pro-B Natriuret Pep 2292 pg/mL (0-900) H 07/21/20 20:52 Total Protein 7.4 g/dL (6.3-8.2) 07/21/20 20:52 Albumin 3.7 g/dL (3.9-5) L 07/21/20 20:52 Albumin/Globulin Ratio 1.0 % 07/21/20 20:52 Triglycerides 95 mg/dL (2-149) 07/21/20 20:52 Cholesterol 107 mg/dL (50-199) 07/21/20 20:52 LDL Cholesterol Direct 68 mg/dL (50-130) 07/21/20 20:52 HDL Cholesterol 24 mg/dL (40-59) L 07/21/20 20:52 Cholesterol/HDL Ratio 4.45 % 07/21/20 20:52 Cho/IV: Voiding Method Indwelling Catheter Active Medications - Current Medications Current Medications: Generic Name Dose Route Start Last Admin Trade Name Freq PRN Reason Stop Dose Admin Acetaminophen 650 mg 07/21/20 23:28 Acetaminophen 325 Mg Tab PO Q4H PRN Pain MILD(1-3)/Fever >100.5/SHARPE Aspirin 81 mg 07/22/20 10:30 07/25/20 09:40 Aspirin 81 Mg Tab Chew PO 81 mg QDAY BRINA Administration Atorvastatin Calcium 40 mg 07/22/20 22:00 07/24/20 21:26 Atorvastatin 40 Mg Tab PO 40 mg QHS BRINA Administration Bumetanide 2 mg 07/23/20 18:00 07/25/20 05:24 Bumetanide 1 Mg/4 Ml Inj IV 2 mg BID@0600,1800 BRINA Administration Clopidogrel Bisulfate 75 mg 07/23/20 10:00 07/25/20 09:40 Clopidogrel 75 Mg Tab PO 75 mg QDAY BRINA Administration Dextrose 0 ml 07/21/20 23:28 Dextrose 50% In Water (25gm) 50 Ml Syringe IV Q30MIN PRN Hypoglycemia Protocol Famotidine 20 mg 07/24/20 04:05 07/25/20 09:38 Famotidine 20 Mg Tab PO 20 mg QAM BRINA Administration Gabapentin 400 mg 07/23/20 22:05 07/25/20 09:40 Gabapentin 400 Mg Cap PO 400 mg TID BRINA Administration Heparin Sodium (Porcine) 5,000 unit 07/22/20 06:00 07/25/20 05:25 Heparin 5,000 Unit/1 Ml Vial SUB-Q 5,000 unit Q8HR BRINA Administration Insulin Human Lispro 0 unit 07/22/20 07:30 07/24/20 21:27 Insulin Lispro 100 Unit/Ml SUB-Q 6 unit ACHS BRINA Administration Protocol Isosorbide Mononitrate 30 mg 07/23/20 10:00 07/25/20 09:39 Isosorbide Mononitrate Er 30 Mg Tab PO 30 mg QDAY BRINA Administration Morphine Sulfate 2 mg 07/21/20 23:28 07/24/20 21:25 Morphine 2 Mg/1 Ml Inj IV 2 mg Q4H PRN Administration Pain, Moderate (4-6) Ondansetron HCl 4 mg 07/21/20 23:28 Ondansetron 4 Mg/2 Ml Inj IV Q8H PRN Nausea And Vomiting Ranolazine 500 mg 07/22/20 22:00 07/25/20 09:39 Ranolazine Er 500 Mg Tab 12hr PO 500 mg BID BRINA Administration Sodium Chloride 10 ml 07/22/20 10:00 07/25/20 09:43 Sodium Chloride 0.9% 10 Ml Flush Syringe IV 10 ml BID BRINA Administration Sodium Chloride 10 ml 07/21/20 23:28 Sodium Chloride 0.9% 10 Ml Flush Syringe IV PRN PRN LINE FLUSH Tramadol HCl 50 mg 07/23/20 20:42 07/25/20 09:39 Tramadol 50 Mg Tab PO 50 mg Q6H PRN Administration Pain, Moderate (4-6) Nutrition/Malnutrition Assess - Dietary Evaluation Nutrition/Malnutrition Findings: Nutrition Notes Start: 07/22/20 13:23 Freq: Status: Active Protocol: Document 07/22/20 13:23 LM (Rec: 07/22/20 13:34 LM [id number]) Nutrition Notes Need for Assessment generated from: MD Order,Education Initial or Follow up Brief Note Subjective/Other Information MD consult for DM diet education. Pt stated she had a good appetite [employer]GER. UBW is 123kg (270 lb). Pt has edema. Provided pt DM and CHF diet education. #1 Nutrition Diagnosis Food and nutrition-related knowledge deficit Etiology No prior DM, CHF diet education As Evidenced by Signs and Symptoms Discussion with patient Nutrition Intervention Teaching Recipient Patient Learning Readiness Good Teaching Methods Discussion,Handout Response to Teaching Verbalize understanding Education Handouts Provided Carbohydrate Counting and CHF Barriers to Learning No Barriers RD phone number provided Yes Patient aware of follow up options Yes Revisit per MD consult or patient Sign Off request:
--- NOTE | 2020-07-25 10:59 | Progress Note ---
<HUNTER MONTENEGRO - Last Filed: 07/25/20 11:07> Assessment and Plan NSTEMI * Patient is currently chest pain-free * CE elevation appears consistent with NSTEMI type II in setting of heart failure and DONAL. Patient has chronically elevated troponins currently in similar range as previous admissions. Continue to trend Delaney Coronary artery disease with stented coronary artery * [facility] 02/2019 revealed occluded RCA and diffuse multi-vessel disease, not amenable to intervention. Medical mgmt recommended. * Continue cardioprotective regimen of long-term DAPT regimen of ASA 81 mg, Plavix 75 mg, atorvastatin 40. Initiate Coreg 3.125 mg twice daily, with plans to increase to home dosage as tolerated Acute on chronic heart failure with preserved ejection fraction * Pt is on PO Bumex 2mg BID as an outpatient. * Bilateral lower extremity edema +2 left worse than right. 24-hour I/O is - 1700 mL. Will obtain venous ultrasound of left lower extremity. Continue Bumex 2 mg IV twice daily. Repeat BMP in a.m. DONAL superimposed on CKD * No MARIUM/ARB in setting of DONAL. Avoid nephrotoxic agents. DVT Prophylaxis * Heparin SQ Patient is currently stable cardiac status with significant bilateral lower extremity edema. We will continue diuresis. Will follow Pt seen in conjunction with Dr. Valencia Carolina, who agrees with the assessment and plan of care. - Patient Problems (1) Abdominal pain Current Visit: Yes Status: Acute (2) Acute on chronic heart failure with preserved ejection fraction (HFpEF) Current Visit: Yes Status: Acute (3) Hyponatremia Current Visit: Yes Status: Acute (4) Acute kidney injury superimposed on CKD Current Visit: Yes Status: Acute (5) Chronic anemia Current Visit: Yes Status: Chronic (6) CAD (coronary artery disease) Current Visit: Yes Status: Chronic Qualifiers: Coronary Disease-Associated Artery/Lesion type: [place] artery [place] vs. transplanted heart: [place] heart Associated angina: without angina Qualified Code(s): I25.10 - Atherosclerotic heart disease of [place] coronary artery without angina pectoris (7) Stented coronary artery Current Visit: Yes Status: Chronic (8) NSTEMI (non-ST elevated myocardial infarction) Current Visit: Yes Status: Acute Plan to address problem: Type 2 (9) HTN (hypertension) Current Visit: Yes Status: Chronic Qualifiers: Hypertension type: essential hypertension Qualified Code(s): I10 - Essential (primary) hypertension (10) Hyperlipidemia Current Visit: Yes Status: Chronic Qualifiers: Hyperlipidemia type: mixed hyperlipidemia Qualified Code(s): E78.2 - Mixed hyperlipidemia (11) DM2 (diabetes mellitus, type 2) Current Visit: Yes Status: Chronic (12) Obesity Current Visit: Yes Status: Chronic (13) GERD without esophagitis Current Visit: Yes Status: Chronic (14) Chronic constipation Current Visit: Yes Status: Chronic (15) Chronic pain syndrome Current Visit: Yes Status: Chronic (16) Recurrent falls Current Visit: Yes Status: Chronic Subjective Date of service: 07/25/20 Principal diagnosis: A/C HFpEF, DONAL/CKD Interval history: Patient is resting comfortably in bed. No shortness of breath or chest pain overnight. Telemetry reviewed: Sinus rhythm 66. No events Objective Last Vital Signs Temp 98.7 F 07/25/20 04:17 Pulse 69 07/25/20 04:17 Resp 16 07/25/20 04:17 BP 139/61 07/25/20 04:17 Pulse Ox 87 07/25/20 04:17 - Physical Examination General: No Apparent Distress HEENT: Positive: EOMI, Normocephaly, Mucus Membranes Moist Neck: Positive: neck supple, trachea midline Cardiac: Positive: Reg Rate and Rhythm, S1/S2 Lungs: Positive: Normal Exam, Normal Breath Sounds Neuro: Positive: Grossly Intact Abdomen: Positive: Tender, Distended Skin: Negative: Rash Musculoskeletal: No Pain Extremities: Present: lower extr. pulses, +2 Edema (BLE) - Labs and Meds CBC 07/25/20 Range/Units 04:44 WBC 7.0 (4.5-11.0) K/mm3 RBC 3.12 L (3.65-5.03) M/mm3 Hgb 8.4 L (10.1-14.3) gm/dl Hct 25.3 L (30.3-42.9) % Plt Count 230 (140-440) K/mm3 Comprehensive Metabolic Panel 07/25/20 Range/Units 04:44 Sodium 133 L (137-145) mmol/L Potassium 5.0 (3.6-5.0) mmol/L Chloride 92.7 L (98-107) mmol/L Carbon Dioxide 29 (22-30) mmol/L BUN 68 H (7-17) mg/dL Creatinine 2.0 H (0.6-1.2) mg/dL Glucose 196 H (65-100) mg/dL Calcium 8.7 (8.4-10.2) mg/dL - Imaging and Cardiology EKG: report reviewed, image reviewed Echo: report reviewed (06/18/2020 - EF 60-65%, grade 3 diastolic dysfxn, mod dilated LA, mild PI) Cardiac cath: report reviewed (02/2019 - prox LAD 50%, mid-distal LAD/diag 90% - small caliber vessel (not amenable to intervention), Cfx/obtuse fortino diffusely diseased w/moderately stenosed distal Cfx stent and distal OM - Cfx small caliber vessel, mid RCA 100% occluded w/collaterals from the left system, EF 60%, LVEDP 18-22mmHg), other (06/2018 - occluded RCA w/excellent collaterals, patent mid LAD, significant distal Cfx lesion s/p PCI w/LUZ) - EKG Sinus rhythms and dysrhythmias: sinus rhythm Chamber hypertrophy or enlargement: left ventricular hypertro Repolarization changes or abnormalities: nonspecific abnormality, ST segment, and/or T wave <SANDY STEWART M - Last Filed: 07/25/20 17:47> Assessment and Plan Acute on chronic HFpEF NSTEMI/type II CAD/PCI DONAL/CKD Chronic anemia Hypertension Hyperlipidemia Diabetes mellitus type 2 Obesity History of GERD without esophagitis. History of biliary dyskinesia Continue diuresis I/O Objective Vital Signs Temp Pulse Resp BP Pulse Ox 07/25/20 04:17 98.7 F 69 16 139/61 87 07/25/20 03:34 68 07/25/20 00:17 98.9 F 67 22 111/62 91 07/25/20 00:00 68 07/24/20 20:00 75 07/24/20 19:25 97.9 F 71 20 123/50 91 - Labs and Meds CBC 07/25/20 Range/Units 04:44 WBC 7.0 (4.5-11.0) K/mm3 RBC 3.12 L (3.65-5.03) M/mm3 Hgb 8.4 L (10.1-14.3) gm/dl Hct 25.3 L (30.3-42.9) % Plt Count 230 (140-440) K/mm3 Comprehensive Metabolic Panel 07/25/20 Range/Units 04:44 Sodium 133 L (137-145) mmol/L Potassium 5.0 (3.6-5.0) mmol/L Chloride 92.7 L (98-107) mmol/L Carbon Dioxide 29 (22-30) mmol/L BUN 68 H (7-17) mg/dL Creatinine 2.0 H (0.6-1.2) mg/dL Glucose 196 H (65-100) mg/dL Calcium 8.7 (8.4-10.2) mg/dL
[2020-07-25] MEDS ORDERED: carvediloL 3.125 MG TAB PO SCH (11:00)
[2020-07-25] MEDS: carvediloL 3.125 MG TAB PO SCH ×2 (12:54→22:42)
[2020-07-25] MEDS: MORPHINE 2 MG/1 ML INJ IV PRN ×2 (13:20→19:42)
[2020-07-26] MEDS: MORPHINE 2 MG/1 ML INJ IV PRN ×6 (00:26→22:08)
[2020-07-26 05:43] LABS: Hemoglobin 8.6 gm/dl (10.1-14.3); Mean Corpuscular HGB Conc 33 % (30-34); Mean Corpuscular Volume 81 fl (79-97); Platelet Count 244 K/mm3 (140-440); Red Blood Count 3.23 M/mm3 (3.65-5.03); Red Cell Distribution Width 16.8 % (13.2-15.2)
[2020-07-26] MEDS: HEPARIN 5,000 UNIT/1 ML VIAL SUB-Q SCH ×3 (06:02→21:40)
[2020-07-26] MEDS: BUMETANIDE 1 MG/4 ML INJ IV SCH (06:02)
[2020-07-26 06:04] LABS: Calcium 9.4 mg/dL (8.4-10.2)
[2020-07-26] MEDS: INSULIN LISPRO 100 UNIT/ML SUB-Q SCH ×4 (07:15→21:41)
[2020-07-26] MEDS: GABAPENTIN 400 MG CAP PO SCH ×3 (08:13→21:40)
--- NOTE | 2020-07-26 10:11 | Progress Note ---
Assessment and Plan Assessment and plan: Acute on chronic heart failure with preserved ejection fraction Acute kidney injury on CKD Chronic anemia Coronary artery disease Hypertension Hyperlipidemia Diabetes mellitus type 2 Abdominal pain Obesity History of GERD without esophagitis. History of biliary dyskinesia 07/22/2020. Continue diuresis per cardiology and nephrology recommendations. Patient does have a history of biliary dyskinesia and chronic right upper quadrant abdominal pain. We will check CT scan of the abdomen pelvis for further evaluation. Continue antihypertensive medications. Continue statins. Continue sliding scale regular insulin and Accu-Cheks. 07/23/2020. CT scan of the abdomen essentially negative. Etiology of abdominal pain likely secondary to biliary dyskinesia. Creatinine increased today to 2.6. Baseline creatinine approximately 1.4. Continue diuresis per nephrology recommendations. Avoid nephrotoxic agents and continue strict I&Os. 07/24/2020. Continue fluid restriction for hyponatremia. Continue diuretics per nephrology recommendations. Avoid nephrotoxic agents. Creatinine slightly improved today. Etiology of abdominal pain likely associated to biliary dyskinesia. 07/25/2020. Hyponatremia improved. Continue fluid restriction and diuretics per nephrology recommendations. Creatinine appears to be stable at 2.0. Etiology abdominal pain likely associated with biliary dyskinesia. Consider surgery evaluation. Avoid nephrotoxic agents and continue strict I&Os. Physical t herapy recommends home health PT. 07/26/2020 Patient with acute on chronic CHF with preserved ejection fraction. She also has DONAL. Today has hyperkalemia of 5.6. Give Insulin, Dextrose, Kayexalate and recheck. Patient not stable for discharge yet because elevated Creatinine and hyperkalemia. History Interval history: Patient feels better No SOB currently No chest pain Hospitalist Physical - Physical exam Narrative exam: Gen: Not in acute distress, lying in bed HEENT: Normochephalic, atraumatic Neck:supple, No JVD Lungs:Clear to auscultation bilaterally, no rales, no wheeze Heart:S1 and S2 reg, no murmurs, rubs or gallop Abd: soft, non tender, distended, normal bowel sounds Ext: Bilateral edema of legs, no clubbing, no cyanosis Neuro:Awake,alert,oriented X 3, moves all ext, no focal neurological signs - Constitutional Vitals: Temp Pulse Resp BP Pulse Ox 98.4 F 68 18 102/37 97 07/26/20 06:56 07/26/20 06:56 07/26/20 06:56 07/26/20 06:56 07/26/20 06:56 General appearance: Present: no acute distress HEART Score - HEART Score EKG: Non-specific Age: 45-65 Risk factors: > 3 risk factors or hx of atherosclerotic disease Troponin: Troponin T 0.033 ng/mL (0.00-0.029) H D 07/26/20 05:07 Troponin: > 3x normal limit Results - Labs CBC & Chem 7: 07/26/20 05:07 07/26/20 17:15 Labs: Laboratory Last Values WBC 7.4 K/mm3 (4.5-11.0) 07/26/20 05:07 RBC 3.23 M/mm3 (3.65-5.03) L 07/26/20 05:07 Hgb 8.6 gm/dl (10.1-14.3) L 07/26/20 05:07 Hct 26.0 % (30.3-42.9) L 07/26/20 05:07 MCV 81 fl (79-97) 07/26/20 05:07 MCH 27 pg (28-32) L 07/26/20 05:07 MCHC 33 % (30-34) 07/26/20 05:07 RDW 16.8 % (13.2-15.2) H 07/26/20 05:07 Plt Count 244 K/mm3 (140-440) 07/26/20 05:07 Lymph % (Auto) 12.1 % (13.4-35.0) L 07/23/20 05:56 [place] % (Auto) Surgical Brace Maker 07/25/20 04:44 Eos % (Auto) 2.3 % (0.0-4.3) 07/23/20 05:56 Baso % (Auto) 0.4 % (0.0-1.8) 07/23/20 05:56 Lymph # (Auto) 1.0 K/mm3 (1.2-5.4) L 07/23/20 05:56 [place] # (Auto) 1.2 K/mm3 (0.0-0.8) H 07/23/20 05:56 Eos # (Auto) 0.2 K/mm3 (0.0-0.4) 07/23/20 05:56 Baso # (Auto) 0.0 K/mm3 (0.0-0.1) 07/23/20 05:56 Add Manual Diff Complete 07/25/20 04:44 Total Counted 100 07/25/20 04:44 Seg Neutrophils % 70.0 % (40.0-70.0) 07/23/20 05:56 Seg Neuts % (Manual) 75.0 % (40.0-70.0) H 07/25/20 04:44 Lymphocytes % (Manual) 21.0 % (13.4-35.0) 07/25/20 04:44 Monocytes % (Manual) 3.0 % (0.0-7.3) 07/25/20 04:44 Eosinophils % (Manual) 1.0 % (0.0-4.3) 07/25/20 04:44 Nucleated RBC % Not Reportable 07/25/20 04:44 Seg Neutrophils # 5.6 K/mm3 (1.8-7.7) 07/23/20 05:56 Seg Neutrophils # Man 5.3 K/mm3 (1.8-7.7) 07/25/20 04:44 Band Neutrophils # 0.0 K/mm3 07/25/20 04:44 Lymphocytes # (Manual) 1.5 K/mm3 (1.2-5.4) 07/25/20 04:44 Abs React Lymphs (Man) 0.0 K/mm3 07/25/20 04:44 Monocytes # (Manual) 0.2 K/mm3 (0.0-0.8) 07/25/20 04:44 Eosinophils # (Manual) 0.1 K/mm3 (0.0-0.4) 07/25/20 04:44 Basophils # (Manual) 0.0 K/mm3 (0.0-0.1) 07/25/20 04:44 Metamyelocytes # 0.0 K/mm3 07/25/20 04:44 Myelocytes # 0.0 K/mm3 07/25/20 04:44 Promyelocytes # 0.0 K/mm3 07/25/20 04:44 Blast Cells # 0.0 K/mm3 07/25/20 04:44 WBC Morphology Not Reportable 07/25/20 04:44 Hypersegmented Neuts Not Reportable 07/25/20 04:44 Hyposegmented Neuts Not Reportable 07/25/20 04:44 Hypogranular Neuts Not Reportable 07/25/20 04:44 Smudge Cells Not Reportable 07/25/20 04:44 Toxic Granulation Not Reportable 07/25/20 04:44 Toxic Vacuolation Not Reportable 07/25/20 04:44 Dohle Bodies Not Reportable 07/25/20 04:44 Pelger-Huet Anomaly Not Reportable 07/25/20 04:44 Ayan Rods Not Reportable 07/25/20 04:44 Platelet Estimate Consistent w auto 07/25/20 04:44 Clumped Platelets Not Reportable 07/25/20 04:44 Plt Clumps, EDTA Not Reportable 07/25/20 04:44 Large Platelets Not Reportable 07/25/20 04:44 Giant Platelets Not Reportable 07/25/20 04:44 Platelet Satelliting Not Reportable 07/25/20 04:44 Plt Morphology Comment Not Reportable 07/25/20 04:44 RBC Morphology Not Reportable 07/25/20 04:44 Dimorphic RBCs Not Reportable 07/25/20 04:44 Polychromasia Not Reportable 07/25/20 04:44 Hypochromasia Not Reportable 07/25/20 04:44 Poikilocytosis Not Reportable 07/25/20 04:44 Anisocytosis 1+ 07/25/20 04:44 Microcytosis Not Reportable 07/25/20 04:44 Macrocytosis Not Reportable 07/25/20 04:44 Spherocytes Not Reportable 07/25/20 04:44 Pappenheimer Bodies Not Reportable 07/25/20 04:44 Sickle Cells Not Reportable 07/25/20 04:44 Target Cells Not Reportable 07/25/20 04:44 Tear Drop Cells Not Reportable 07/25/20 04:44 Ovalocytes Not Reportable 07/25/20 04:44 Helmet Cells Not Reportable 07/25/20 04:44 [place]-Marlow Bodies Not Reportable 07/25/20 04:44 [place] Rings Not Reportable 07/25/20 04:44 [place] Cells Not Reportable 07/25/20 04:44 Bite Cells Not Reportable 07/25/20 04:44 Crenated Cell Not Reportable 07/25/20 04:44 Elliptocytes Not Reportable 07/25/20 04:44 Acanthocytes (Spur) Not Reportable 07/25/20 04:44 Rouleaux Not Reportable 07/25/20 04:44 Hemoglobin C Crystals Not Reportable 07/25/20 04:44 Schistocytes Not Reportable 07/25/20 04:44 Malaria parasites Not Reportable 07/25/20 04:44 Bipin Bodies Not Reportable 07/25/20 04:44 Hem Pathologist Commnt No 07/25/20 04:44 PT 15.4 Sec. (12.2-14.9) H 07/22/20 05:30 INR 1.16 (0.87-1.13) H 07/22/20 05:30 D-Dimer 496.75 ng/mlDDU (0-234) H 07/26/20 09:01 Sodium 134 mmol/L (137-145) L 07/26/20 05:07 Potassium 5.6 mmol/L (3.6-5.0) H 07/26/20 05:07 Chloride 95.1 mmol/L (98-107) L 07/26/20 05:07 Carbon Dioxide 28 mmol/L (22-30) 07/26/20 05:07 Anion Gap 17 mmol/L 07/26/20 05:07 BUN 70 mg/dL (7-17) H 07/26/20 05:07 Creatinine 1.9 mg/dL (0.6-1.2) H 07/26/20 05:07 Estimated GFR 33 ml/min 07/26/20 05:07 BUN/Creatinine Ratio 37 % 07/26/20 05:07 Glucose 187 mg/dL (65-100) H 07/26/20 05:07 POC Glucose 189 mg/dL (70-105) H 07/26/20 07:48 Calcium 9.4 mg/dL (8.4-10.2) 07/26/20 05:07 Magnesium 2.90 mg/dL (1.7-2.3) H 07/26/20 05:07 Total Bilirubin 0.40 mg/dL (0.1-1.2) 07/21/20 20:52 AST 8 units/L (5-40) 07/21/20 20:52 ALT 6 units/L (7-56) L 07/21/20 20:52 Alkaline Phosphatase 76 units/L (35-129) 07/21/20 20:52 Total Creatine Kinase 141 units/L (30-135) H 07/22/20 14:30 CK-MB (CK-2) 1.6 ng/mL (0.0-4.0) 07/22/20 14:30 CK-MB (CK-2) Rel Index 1.1 (0-4) 07/22/20 14:30 Troponin T 0.033 ng/mL (0.00-0.029) H D 07/26/20 05:07 NT-Pro-B Natriuret Pep 2292 pg/mL (0-900) H 07/21/20 20:52 Total Protein 7.4 g/dL (6.3-8.2) 07/21/20 20:52 Albumin 3.7 g/dL (3.9-5) L 07/21/20 20:52 Albumin/Globulin Ratio 1.0 % 07/21/20 20:52 Triglycerides 95 mg/dL (2-149) 07/21/20 20:52 Cholesterol 107 mg/dL (50-199) 07/21/20 20:52 LDL Cholesterol Direct 68 mg/dL (50-130) 07/21/20 20:52 HDL Cholesterol 24 mg/dL (40-59) L 07/21/20 20:52 Cholesterol/HDL Ratio 4.45 % 07/21/20 20:52 Cho/IV: Voiding Method Indwelling Catheter Active Medications - Current Medications Current Medications: Generic Name Dose Route Start Last Admin Trade Name Freq PRN Reason Stop Dose Admin Acetaminophen 650 mg 07/21/20 23:28 Acetaminophen 325 Mg Tab PO Q4H PRN Pain MILD(1-3)/Fever >100.5/SHARPE Aspirin 81 mg 07/22/20 10:30 07/25/20 09:40 Aspirin 81 Mg Tab Chew PO 81 mg QDAY BRINA Administration Atorvastatin Calcium 40 mg 07/22/20 22:00 07/25/20 22:41 Atorvastatin 40 Mg Tab PO 40 mg QHS BRINA Administration Bumetanide 2 mg 07/23/20 18:00 07/26/20 06:02 Bumetanide 1 Mg/4 Ml Inj IV 2 mg BID@0600,1800 BRINA Administration Carvedilol 3.125 mg 07/25/20 11:15 07/25/20 22:42 Carvedilol 3.125 Mg Tab PO 3.125 mg BID BRINA Administration Clopidogrel Bisulfate 75 mg 07/23/20 10:00 07/25/20 09:40 Clopidogrel 75 Mg Tab PO 75 mg QDAY BRINA Administration Dextrose 0 ml 07/21/20 23:28 Dextrose 50% In Water (25gm) 50 Ml Syringe IV Q30MIN PRN Hypoglycemia Protocol Famotidine 20 mg 07/24/20 04:05 07/25/20 09:38 Famotidine 20 Mg Tab PO 20 mg QAM BRINA Administration Gabapentin 400 mg 07/23/20 22:05 07/25/20 21:50 Gabapentin 400 Mg Cap PO 400 mg TID BRINA Administration Heparin Sodium (Porcine) 5,000 unit 07/22/20 06:00 07/26/20 06:02 Heparin 5,000 Unit/1 Ml Vial SUB-Q 5,000 unit Q8HR BRINA Administration Insulin Human Lispro 0 unit 07/22/20 07:30 07/25/20 22:42 Insulin Lispro 100 Unit/Ml SUB-Q 3 unit ACHS BRINA Administration Protocol Isosorbide Mononitrate 30 mg 07/23/20 10:00 07/25/20 09:39 Isosorbide Mononitrate Er 30 Mg Tab PO 30 mg QDAY BRINA Administration Morphine Sulfate 2 mg 07/21/20 23:28 07/26/20 05:18 Morphine 2 Mg/1 Ml Inj IV 2 mg Q4H PRN Administration Pain, Moderate (4-6) Ondansetron HCl 4 mg 07/21/20 23:28 07/26/20 05:19 Ondansetron 4 Mg/2 Ml Inj IV 4 mg Q8H PRN Administration Nausea And Vomiting Ranolazine 500 mg 07/22/20 22:00 07/25/20 22:41 Ranolazine Er 500 Mg Tab 12hr PO 500 mg BID BRINA Administration Sodium Chloride 10 ml 07/22/20 10:00 07/25/20 22:44 Sodium Chloride 0.9% 10 Ml Flush Syringe IV 10 ml BID BRINA Administration Sodium Chloride 10 ml 07/21/20 23:28 Sodium Chloride 0.9% 10 Ml Flush Syringe IV PRN PRN LINE FLUSH Tramadol HCl 50 mg 07/23/20 20:42 07/25/20 09:39 Tramadol 50 Mg Tab PO 50 mg Q6H PRN Administration Pain, Moderate (4-6) Nutrition/Malnutrition Assess - Dietary Evaluation Nutrition/Malnutrition Findings: Nutrition Notes Start: 07/22/20 13:23 Freq: Status: Active Protocol: Document 07/22/20 13:23 LM (Rec: 07/22/20 13:34 LM [id number]) Nutrition Notes Need for Assessment generated from: MD Order,Education Initial or Follow up Brief Note Subjective/Other Information MD consult for DM diet education. 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 UBW is 123kg (270 lb). Pt has edema. Provided pt DM and CHF diet education. #1 Nutrition Diagnosis Food and nutrition-related knowledge deficit Etiology No prior DM, CHF diet education As Evidenced by Signs and Symptoms Discussion with patient Nutrition Intervention Teaching Recipient Patient Learning Readiness Good Teaching Methods Discussion,Handout Response to Teaching Verbalize understanding Education Handouts Provided Carbohydrate Counting and CHF Barriers to Learning No Barriers RD phone number provided Yes Patient aware of follow up options Yes Revisit per MD consult or patient Sign Off request:
[2020-07-26] MEDS ORDERED: INSULIN REGULAR, HUMAN 100 UNITS/1 ML IV STA (10:12)
[2020-07-26] MEDS ORDERED: DEXTROSE 50% IN WATER (25GM) 50 ML VIAL IV NR (10:30)
[2020-07-26] MEDS: ASPIRIN 81 MG TAB CHEW PO SCH (10:56)
[2020-07-26] MEDS: CLOPIDOGREL 75 MG TAB PO SCH (10:56)
[2020-07-26] MEDS: carvediloL 3.125 MG TAB PO SCH ×2 (10:56→21:39)
[2020-07-26] MEDS: RANOLAZINE ER 500 MG TAB 12HR PO SCH ×2 (10:57→21:40)
[2020-07-26] MEDS: FAMOTIDINE 20 MG TAB PO SCH (10:57)
[2020-07-26] MEDS ORDERED: INSULIN REGULAR, HUMAN 100 UNITS/1 ML IV ONE (12:36)
--- NOTE | 2020-07-26 12:38 | Progress Note ---
Assessment and Plan Chronic Kidney disease stage 3: Hyponatremia: Hyperkalemia: DM2: CAD: Chronic diastolic CHF: -stable Cr with good UOP -Na is better -currently on bumex, will order SPS, IV insulin with D5W, IV Ca with EKG and repeated BMP ~1800 -baseline Cr ~1.4, worsening likely 2/2 CRS -cont diuretics per cardiology - low k diet with fluid restriction -Monitor volume status closely. -Renally dose all meds -Avoid Nephrotoxic meds - strict I&O Subjective Date of service: 07/26/20 Principal diagnosis: A/C HFpEF, DONAL/CKD Interval history: cont to have a lot of urine Objective - Vital Signs Vital signs: Vital Signs - 12hr 07/26/20 07/26/20 07/26/20 03:00 03:51 06:56 Temperature 98.0 F 98.4 F Pulse Rate 68 68 68 Respiratory 16 18 Rate Blood Pressure 129/59 102/37 O2 Sat by Pulse 97 97 Oximetry 07/26/20 07/26/20 10:56 10:59 Temperature Pulse Rate 69 Respiratory 20 Rate Blood Pressure 132/70 O2 Sat by Pulse Oximetry - Lab 07/26/20 05:07 07/26/20 05:07 Most recent lab results Calcium 9.4 mg/dL (8.4-10.2) 07/26/20 05:07 Magnesium 2.90 mg/dL (1.7-2.3) H 07/26/20 05:07 Medications & Allergies - Medications Allergies/Adverse Reactions: Allergies No Known Allergies Allergy (Verified 07/23/20 16:57) Home Medications: Home Medications Medication Instructions Recorded Confirmed Last Taken Type Gabapentin 400 mg PO TID 11/01/15 07/23/20 07/20/20 09:00 History Escitalopram [Lexapro] 20 mg PO DAILY 02/28/17 07/23/20 07/20/20 09:00 History lisinopriL [Zestril TAB] 20 mg PO QDAY 02/28/17 07/23/20 07/20/20 09:00 History Brimonidine Tartrate/Timolol 1 drop OP BID 07/01/18 07/23/20 07/20/20 09:00 History [Combigan 0.2%-0.5% Eye Drops] Buspirone HCl [busPIRone] 15 mg PO BID 07/01/18 07/23/20 07/20/20 09:00 History Aspirin EC [Halfprin EC] 81 mg PO QDAY #30 tablet.dr 07/11/18 07/23/20 07/20/20 09:00 Rx Aspirin [Aspirin BABY CHEW TAB] 81 mg PO QDAY #30 tab.chew 07/11/18 07/23/20 07/20/20 09:00 Rx AtorvaSTATin [Lipitor] 40 mg PO QHS #30 tablet 07/11/18 07/23/20 07/20/20 09:00 Rx Clopidogrel [Plavix] 75 mg PO QDAY #30 tablet 07/11/18 07/23/20 07/20/20 09:00 Rx Dicyclomine [Bentyl] 20 mg PO QID #14 tablet 07/11/18 07/23/20 07/20/20 09:00 Rx HYDROmorphone [Dilaudid] 1 mg PO Q4HR #7 tablet 07/11/18 07/23/20 07/20/20 09:00 Rx Insulin Glargine [Lantus VIAL] 25 units SUB-Q BID@0800,2000 #10 ml 07/11/18 07/23/20 07/20/20 09:00 Rx Isosorbide Mononitrate 60 mg PO DAILY #30 tablet 07/11/18 07/23/20 07/20/20 09:00 Rx LORazepam [Ativan] 0.5 mg PO BID PRN #5 tab 07/11/18 07/23/20 07/20/20 09:00 Rx Ondansetron (Nf) [Zofran TAB] 8 mg PO Q8HR PRN #10 tablet 07/11/18 07/23/20 07/20/20 09:00 Rx Pantoprazole [Protonix TAB] 40 mg PO QDAY #30 tablet 07/11/18 07/23/20 07/20/20 09:00 Rx Sucralfate [Carafate] 1 gm PO Q6HR #60 tablet 07/11/18 07/23/20 07/20/20 09:00 Rx amLODIPine 10 mg PO QDAY #30 tablet 07/11/18 07/23/20 07/20/20 09:00 Rx ursodioL [Ursodiol] 500 mg PO TIDDIAB #60 tablet 07/11/18 07/23/20 07/20/20 09:00 Rx Docusate Sodium [Colace] 100 mg PO BID #60 capsule 05/16/20 07/23/20 07/20/20 09:00 Rx Famotidine [Pepcid] 20 mg PO BID #60 tablet 05/16/20 07/23/20 07/20/20 09:00 Rx Lactulose [Cephulac] 20 gm PO QDAY PRN #90 ml 05/16/20 07/23/20 07/20/20 09:00 Rx Ondansetron [Zofran ODT TAB] 8 mg PO Q8HR #20 tab.rapdis 05/16/20 07/23/20 07/20/20 09:00 Rx Baclofen [Lioresal] 10 mg PO TID 07/23/20 07/23/20 07/20/20 09:00 History Bumetanide [Bumetanide 2 mg tab] 1 tab .ROUTE DAILY 07/23/20 07/23/20 07/20/20 09:00 History Cyclobenzaprine [Flexeril] 10 mg PO DAILY 07/23/20 07/23/20 07/20/20 09:00 History Gabapentin 400 mg PO TID 07/23/20 07/23/20 07/20/20 09:00 History HYDROcodone/APAP 5-325 [[place] 1 each PO TID 07/23/20 07/23/20 07/20/20 09:00 History 5/325] Tamsulosin [Flomax] 0.4 mg PO QDAY 07/23/20 07/23/20 07/20/20 09:00 History Torsemide [Demadex] 100 mg PO QDAY 07/23/20 07/23/20 07/20/20 09:00 History carvediloL [Coreg] 12.5 mg PO BID 07/23/20 07/23/20 07/20/20 09:00 History Active Medications: Generic Name Dose Route Start Last Admin Trade Name Freq PRN Reason Stop Dose Admin Acetaminophen 650 mg 07/21/20 23:28 Acetaminophen 325 Mg Tab PO Q4H PRN Pain MILD(1-3)/Fever >100.5/SHARPE Aspirin 81 mg 07/22/20 10:30 07/26/20 10:56 Aspirin 81 Mg Tab Chew PO 81 mg QDAY BRINA Administration Atorvastatin Calcium 40 mg 07/22/20 22:00 07/25/20 22:41 Atorvastatin 40 Mg Tab PO 40 mg QHS BRINA Administration Bumetanide 2 mg 07/26/20 13:00 Bumetanide 1 Mg Tab PO Q12HR BRINA Carvedilol 3.125 mg 07/25/20 11:15 07/26/20 10:56 Carvedilol 3.125 Mg Tab PO 3.125 mg BID BRINA Administration Clopidogrel Bisulfate 75 mg 07/23/20 10:00 07/26/20 10:56 Clopidogrel 75 Mg Tab PO 75 mg QDAY BRINA Administration Dextrose 0 ml 07/21/20 23:28 07/26/20 10:59 Dextrose 50% In Water (25gm) 50 Ml Syringe IV 50 ml Q30MIN PRN Administration Hypoglycemia Protocol Dextrose 25 ml 07/26/20 13:00 Dextrose 50% In Water (25gm) 50 Ml Syringe IV 07/27/20 13:01 Q30MIN REPLACED BY [facility] Protocol Famotidine 20 mg 07/24/20 04:05 07/26/20 10:57 Famotidine 20 Mg Tab PO 20 mg QAM BRINA Administration Gabapentin 400 mg 07/23/20 22:05 07/26/20 08:13 Gabapentin 400 Mg Cap PO 400 mg TID BRINA Administration Heparin Sodium (Porcine) 5,000 unit 07/22/20 06:00 07/26/20 06:02 Heparin 5,000 Unit/1 Ml Vial SUB-Q 5,000 unit Q8HR BRINA Administration Calcium Gluconate 1,000 mg/ 110 mls @ 660 mls/hr 07/26/20 12:35 Sodium Chloride IV 07/26/20 12:44 ONCE ONE Insulin Human Lispro 0 unit 07/22/20 07:30 07/26/20 07:15 Insulin Lispro 100 Unit/Ml SUB-Q Not Given ACHS REPLACED BY [facility] Protocol Insulin Human Regular 5 units 07/26/20 12:36 Insulin Regular, Human 100 Units/1 Ml IV 07/26/20 12:37 ONCE ONE Isosorbide Mononitrate 30 mg 07/23/20 10:00 07/26/20 10:56 Isosorbide Mononitrate Er 30 Mg Tab PO 30 mg QDAY BRINA Administration Morphine Sulfate 2 mg 07/21/20 23:28 07/26/20 10:59 Morphine 2 Mg/1 Ml Inj IV 2 mg Q4H PRN Administration Pain, Moderate (4-6) Ondansetron HCl 4 mg 07/21/20 23:28 07/26/20 05:19 Ondansetron 4 Mg/2 Ml Inj IV 4 mg Q8H PRN Administration Nausea And Vomiting Ranolazine 500 mg 07/22/20 22:00 07/26/20 10:57 Ranolazine Er 500 Mg Tab 12hr PO 500 mg BID BRINA Administration Sodium Chloride 10 ml 07/22/20 10:00 07/26/20 11:14 Sodium Chloride 0.9% 10 Ml Flush Syringe IV 10 ml BID BRINA Administration Sodium Chloride 10 ml 07/21/20 23:28 Sodium Chloride 0.9% 10 Ml Flush Syringe IV PRN PRN LINE FLUSH Sodium Polystyrene Sulfonate 30 gm 07/26/20 12:36 Sodium Polystyrene 15 Gm/60 Ml Oral Liqd PO 07/26/20 12:37 ONCE ONE Tramadol HCl 50 mg 07/23/20 20:42 07/25/20 09:39 Tramadol 50 Mg Tab PO 50 mg Q6H PRN Administration Pain, Moderate (4-6)
--- NOTE | 2020-07-26 12:43 | Progress Note ---
Assessment and Plan NSTEMI * Patient is currently chest pain-free * Troponin is currently elevated trending downwards, subacute and nonspecific. Appears consistent with NSTEMI type II in setting of heart failure and DONAL. Patient has chronically elevated troponins currently in similar range as previous admissions. Continue to trend Delaney Coronary artery disease with stented coronary artery * [facility] 02/2019 revealed occluded RCA and diffuse multi-vessel disease, not amenable to intervention. Medical mgmt recommended. * Continue long-term DAPT regimen of ASA 81 mg, Plavix 75 mg, and cardioprotective regimen atorvastatin 40, Coreg 3.125 mg twice daily Acute on chronic heart failure with preserved ejection fraction * 24-hour I/O is -2600 mL. Pt is on PO Bumex 2mg BID as an outpatient. Patient appears to be nearing euvolemia, convert Bumex IV to Bumex 2 mg p.o. twice daily. Elevated D-dimer * D-dimer is 496. Bilateral lower extremity edema +1 left worse than right. Venous ultrasound of left lower extremity is pending. * Management per primary team. ODNAL superimposed on CKD * No MARIUM/ARB in setting of DONAL. Avoid nephrotoxic agents. DVT Prophylaxis * Heparin SQ Patient is currently stable cardiac status. Will follow Pt seen in conjunction with Dr. Eleuterio Walden, who agrees with the assessment and plan of care. - Patient Problems (1) Abdominal pain Current Visit: Yes Status: Acute (2) Acute on chronic heart failure with preserved ejection fraction (HFpEF) Current Visit: Yes Status: Acute (3) Hyponatremia Current Visit: Yes Status: Acute (4) Acute kidney injury superimposed on CKD Current Visit: Yes Status: Acute (5) Chronic anemia Current Visit: Yes Status: Chronic (6) CAD (coronary artery disease) Current Visit: Yes Status: Chronic Qualifiers: Coronary Disease-Associated Artery/Lesion type: [place] artery [place] vs. transplanted heart: [place] heart Associated angina: without angina Qualified Code(s): I25.10 - Atherosclerotic heart disease of [place] coronary artery without angina pectoris (7) Stented coronary artery Current Visit: Yes Status: Chronic (8) NSTEMI (non-ST elevated myocardial infarction) Current Visit: Yes Status: Acute Plan to address problem: Type 2 (9) HTN (hypertension) Current Visit: Yes Status: Chronic Qualifiers: Hypertension type: essential hypertension Qualified Code(s): I10 - Essential (primary) hypertension (10) Hyperlipidemia Current Visit: Yes Status: Chronic Qualifiers: Hyperlipidemia type: mixed hyperlipidemia Qualified Code(s): E78.2 - Mixed hyperlipidemia (11) DM2 (diabetes mellitus, type 2) Current Visit: Yes Status: Chronic (12) Obesity Current Visit: Yes Status: Chronic (13) GERD without esophagitis Current Visit: Yes Status: Chronic (14) Chronic constipation Current Visit: Yes Status: Chronic (15) Chronic pain syndrome Current Visit: Yes Status: Chronic (16) Recurrent falls Current Visit: Yes Status: Chronic Subjective Date of service: 07/26/20 Principal diagnosis: A/C HFpEF, DONAL/CKD Interval history: Patient is resting comfortably in bed. Patient report some shortness of breath overnight but denies chest pain. Telemetry reviewed: Sinus rhythm 67. No events Objective Last Vital Signs Temp 98.4 F 07/26/20 06:56 Pulse 69 07/26/20 10:56 Resp 20 07/26/20 10:59 BP 132/70 07/26/20 10:56 Pulse Ox 97 07/26/20 06:56 - Physical Examination General: No Apparent Distress HEENT: Positive: EOMI, Normocephaly, Mucus Membranes Moist Neck: Positive: neck supple, trachea midline Neuro: Positive: Grossly Intact Abdomen: Positive: Tender, Distended Skin: Negative: Rash Musculoskeletal: No Pain Extremities: Present: lower extr. pulses, +2 Edema (BLE) - Labs and Meds CBC 07/26/20 Range/Units 05:07 WBC 7.4 (4.5-11.0) K/mm3 RBC 3.23 L (3.65-5.03) M/mm3 Hgb 8.6 L (10.1-14.3) gm/dl Hct 26.0 L (30.3-42.9) % Plt Count 244 (140-440) K/mm3 Comprehensive Metabolic Panel 07/26/20 Range/Units 05:07 Sodium 134 L (137-145) mmol/L Potassium 5.6 H (3.6-5.0) mmol/L Chloride 95.1 L (98-107) mmol/L Carbon Dioxide 28 (22-30) mmol/L BUN 70 H (7-17) mg/dL Creatinine 1.9 H (0.6-1.2) mg/dL Glucose 187 H (65-100) mg/dL Calcium 9.4 (8.4-10.2) mg/dL - Imaging and Cardiology EKG: report reviewed, image reviewed Echo: report reviewed (06/18/2020 - EF 60-65%, grade 3 diastolic dysfxn, mod dilated LA, mild PI) Cardiac cath: report reviewed (02/2019 - prox LAD 50%, mid-distal LAD/diag 90% - small caliber vessel (not amenable to intervention), Cfx/obtuse fortino diffusely diseased w/moderately stenosed distal Cfx stent and distal OM - Cfx small caliber vessel, mid RCA 100% occluded w/collaterals from the left system, EF 60%, LVEDP 18-22mmHg), other (06/2018 - occluded RCA w/excellent collaterals, patent mid LAD, significant distal Cfx lesion s/p PCI w/LUZ) - EKG Sinus rhythms and dysrhythmias: sinus rhythm Chamber hypertrophy or enlargement: left ventricular hypertro Repolarization changes or abnormalities: nonspecific abnormality, ST segment, and/or T wave
[2020-07-26] MEDS ORDERED: CALCIUM GLUCONATE 1,000 MG in SODIUM CHLORIDE 0.9% 100 ML IV ONE (13:00)
[2020-07-26] MEDS ORDERED: SODIUM POLYSTYRENE 15 GM/60 ML ORAL LIQD PO NR (13:00)
[2020-07-26] MEDS ORDERED: DEXTROSE 50% IN WATER (25GM) 50 ML SYRINGE IV SCH (13:00)
[2020-07-26] MEDS: BUMETANIDE 1 MG TAB PO SCH ×2 (15:07→21:39)
[2020-07-26 18:46] LABS: Calcium 9.3 mg/dL (8.4-10.2)
--- NOTE | 2020-07-26 21:15 | Vascular Lab Report ---
DUPLEX DOPPLER LOWER EXTREMITY VEINS, LEFT INDICATION / CLINICAL INFORMATION: Asymmetrical swelling of left lower extremity. TECHNIQUE: Duplex doppler imaging was performed through the veins of the left lower extremity using v enous compression and other maneuvers. COMPARISON: None available. FINDINGS: LEFT COMMON FEMORAL VEIN: Negative. LEFT FEMORAL VEIN: Negative. LEFT POPLITEAL VEIN: Negative. LEFT CALF VEINS: Negative. ADDITIONAL FINDINGS: None. IMPRESSION: 1. No sonographic evidence for DVT in the left lower extremity. Signer Name: Aramis Cheung MD Signed: 07/26/2020 9:10 PM Workstation Name: [id number]
[2020-07-27] MEDS: MORPHINE 2 MG/1 ML INJ IV PRN ×2 (04:31→10:53)
[2020-07-27 05:36] LABS: Hematocrit 27.8 % (30.3-42.9); Mean Corpuscular HGB Conc 33 % (30-34); Mean Corpuscular Volume 82 fl (79-97); Platelet Count 233 K/mm3 (140-440); Red Blood Count 3.39 M/mm3 (3.65-5.03); Red Cell Distribution Width 16.5 % (13.2-15.2)
[2020-07-27] MEDS: HEPARIN 5,000 UNIT/1 ML VIAL SUB-Q SCH (06:40)
[2020-07-27 08:46] VITALS: BP 135/69
--- NOTE | 2020-07-27 09:03 | Progress Note ---
Assessment and Plan Chronic Kidney disease stage 3: Hyponatremia: Hyperkalemia: DM2: CAD: Chronic diastolic CHF: -stable Cr with good UOP -hyperkalemia resolved -Na is improving -baseline Cr ~1.4, worsening likely 2/2 CRS patient to be followed as an outpatient with labs. will sign off. Subjective Date of service: 07/27/20 Principal diagnosis: A/C HFpEF, DONAL/CKD Objective - Vital Signs Vital signs: Vital Signs - 12hr 07/26/20 07/26/20 07/27/20 21:39 23:09 03:00 Temperature 98.0 F Pulse Rate 66 68 85 Respiratory 16 Rate Blood Pressure 144/69 127/67 O2 Sat by Pulse 90 Oximetry 07/27/20 07/27/20 04:02 08:24 Temperature 98.3 F Pulse Rate 85 80 Respiratory 20 20 Rate Blood Pressure 124/59 135/69 O2 Sat by Pulse 90 93 Oximetry - Lab 07/27/20 04:56 07/27/20 04:56 Most recent lab results Calcium 9.0 mg/dL (8.4-10.2) 07/27/20 04:56 Magnesium 2.90 mg/dL (1.7-2.3) H 07/26/20 05:07 Medications & Allergies - Medications Allergies/Adverse Reactions: Allergies No Known Allergies Allergy (Verified 07/23/20 16:57) Home Medications: Home Medications Medication Instructions Recorded Confirmed Last Taken Type Gabapentin 400 mg PO TID 11/01/15 07/23/20 07/20/20 09:00 History Escitalopram [Lexapro] 20 mg PO DAILY 02/28/17 07/23/20 07/20/20 09:00 History lisinopriL [Zestril TAB] 20 mg PO QDAY 02/28/17 07/23/20 07/20/20 09:00 History Brimonidine Tartrate/Timolol 1 drop OP BID 07/01/18 07/23/20 07/20/20 09:00 History [Combigan 0.2%-0.5% Eye Drops] Buspirone HCl [busPIRone] 15 mg PO BID 07/01/18 07/23/20 07/20/20 09:00 History Aspirin EC [Halfprin EC] 81 mg PO QDAY #30 tablet. 05/07/23/20 07/20/20 09:00 Rx Aspirin [Aspirin BABY CHEW TAB] 81 mg PO QDAY #30 tab.chew 07/11/18 07/23/20 07/20/20 09:00 Rx AtorvaSTATin [Lipitor] 40 mg PO QHS #30 tablet 07/11/18 07/23/20 07/20/20 09:00 Rx Clopidogrel [Plavix] 75 mg PO QDAY #30 tablet 07/11/18 07/23/20 07/20/20 09:00 Rx Dicyclomine [Bentyl] 20 mg PO QID #14 tablet 07/11/18 07/23/20 07/20/20 09:00 Rx HYDROmorphone [Dilaudid] 1 mg PO Q4HR #7 tablet 07/11/18 07/23/20 07/20/20 09:00 Rx Insulin Glargine [Lantus VIAL] 25 units SUB-Q BID@0800,2000 #10 ml 07/11/18 07/23/20 07/20/20 09:00 Rx Isosorbide Mononitrate 60 mg PO DAILY #30 tablet 07/11/18 07/23/20 07/20/20 09:00 Rx LORazepam [Ativan] 0.5 mg PO BID PRN #5 tab 07/11/18 07/23/20 07/20/20 09:00 Rx Ondansetron (Nf) [Zofran TAB] 8 mg PO Q8HR PRN #10 tablet 07/11/18 07/23/20 07/20/20 09:00 Rx Pantoprazole [Protonix TAB] 40 mg PO QDAY #30 tablet 07/11/18 07/23/20 07/20/20 09:00 Rx Sucralfate [Carafate] 1 gm PO Q6HR #60 tablet 07/11/18 07/23/20 07/20/20 09:00 Rx amLODIPine 10 mg PO QDAY #30 tablet 07/11/18 07/23/20 07/20/20 09:00 Rx ursodioL [Ursodiol] 500 mg PO TIDDIAB #60 tablet 07/11/18 07/23/20 07/20/20 09:00 Rx Docusate Sodium [Colace] 100 mg PO BID #60 capsule 04/07/0107/23/20 07/20/20 09:00 Rx Famotidine [Pepcid] 20 mg PO BID #60 tablet 05/16/20 07/23/20 07/20/20 09:00 Rx Lactulose [Cephulac] 20 gm PO QDAY PRN #90 ml 05/16/20 07/23/20 07/20/20 09:00 Rx Ondansetron [Zofran ODT TAB] 8 mg PO Q8HR #20 tab.rapdis 05/16/20 07/23/20 07/20/20 09:00 Rx Baclofen [Lioresal] 10 mg PO TID 07/23/20 07/23/20 07/20/20 09:00 History Bumetanide [Bumetanide 2 mg tab] 1 tab .ROUTE DAILY 07/23/20 07/23/20 07/20/20 09:00 History Cyclobenzaprine [Flexeril] 10 mg PO DAILY 07/23/20 07/23/20 07/20/20 09:00 History Gabapentin 400 mg PO TID 07/23/20 07/23/20 07/20/20 09:00 History HYDROcodone/APAP 5-325 [[place] 1 each PO TID 07/23/20 07/23/20 07/20/20 09:00 History 5/325] Tamsulosin [Flomax] 0.4 mg PO QDAY 07/23/20 07/23/20 07/20/20 09:00 History Torsemide [Demadex] 100 mg PO QDAY 07/23/20 07/23/20 07/20/20 09:00 History carvediloL [Coreg] 12.5 mg PO BID 07/23/20 07/23/20 07/20/20 09:00 History Active Medications: Generic Name Dose Route Start Last Admin Trade Name Freq PRN Reason Stop Dose Admin Acetaminophen 650 mg 07/21/20 23:28 Acetaminophen 325 Mg Tab PO Q4H PRN Pain MILD(1-3)/Fever >100.5/SHARPE Aspirin 81 mg 07/22/20 10:30 07/26/20 10:56 Aspirin 81 Mg Tab Chew PO 81 mg QDAY BRINA Administration Atorvastatin Calcium 40 mg 07/22/20 22:00 07/26/20 21:40 Atorvastatin 40 Mg Tab PO 40 mg QHS BRINA Administration Bumetanide 2 mg 07/26/20 13:00 07/26/20 21:39 Bumetanide 1 Mg Tab PO 2 mg Q12HR BRINA Administration Carvedilol 3.125 mg 07/25/20 11:15 07/26/20 21:39 Carvedilol 3.125 Mg Tab PO 3.125 mg BID BRINA Administration Clopidogrel Bisulfate 75 mg 07/23/20 10:00 07/26/20 10:56 Clopidogrel 75 Mg Tab PO 75 mg QDAY BRINA Administration Dextrose 0 ml 07/21/20 23:28 07/26/20 10:59 Dextrose 50% In Water (25gm) 50 Ml Syringe IV 50 ml Q30MIN PRN Administration Hypoglycemia Protocol Famotidine 20 mg 07/24/20 04:05 07/26/20 10:57 Famotidine 20 Mg Tab PO 20 mg QAM BRINA Administration Gabapentin 400 mg 07/23/20 22:05 07/26/20 21:40 Gabapentin 400 Mg Cap PO 400 mg TID BRINA Administration Heparin Sodium (Porcine) 5,000 unit 07/22/20 06:00 07/27/20 06:40 Heparin 5,000 Unit/1 Ml Vial SUB-Q 5,000 unit Q8HR BRINA Administration Insulin Human Lispro 0 unit 07/22/20 07:30 07/26/20 21:41 Insulin Lispro 100 Unit/Ml SUB-Q 3 unit ACHS BRINA Administration Protocol Isosorbide Mononitrate 30 mg 07/23/20 10:00 07/26/20 10:56 Isosorbide Mononitrate Er 30 Mg Tab PO 30 mg QDAY BRINA Administration Morphine Sulfate 2 mg 07/21/20 23:28 07/27/20 04:31 Morphine 2 Mg/1 Ml Inj IV 2 mg Q4H PRN Administration Pain, Moderate (4-6) Ondansetron HCl 4 mg 07/21/20 23:28 07/26/20 05:19 Ondansetron 4 Mg/2 Ml Inj IV 4 mg Q8H PRN Administration Nausea And Vomiting Ranolazine 500 mg 07/22/20 22:00 07/26/20 21:40 Ranolazine Er 500 Mg Tab 12hr PO 500 mg BID BRINA Administration Sodium Chloride 10 ml 07/22/20 10:00 07/26/20 22:00 Sodium Chloride 0.9% 10 Ml Flush Syringe IV 10 ml BID BRINA Administration Sodium Chloride 10 ml 07/21/20 23:28 Sodium Chloride 0.9% 10 Ml Flush Syringe IV PRN PRN LINE FLUSH Tramadol HCl 50 mg 07/23/20 20:42 07/25/20 09:39 Tramadol 50 Mg Tab PO 50 mg Q6H PRN Administration Pain, Moderate (4-6)
--- NOTE | 2020-07-27 10:49 | Progress Note ---
Assessment and Plan NSTEMI * Patient is currently chest pain-free * Troponin is currently elevated trending downwards, subacute and nonspecific. Appears consistent with NSTEMI type II in setting of heart failure and DONAL. Patient has chronically elevated troponins currently in similar range as previous admissions. Continue to trend [place] Coronary artery disease with stented coronary artery * [facility] 02/2019 revealed occluded RCA and diffuse multi-vessel disease, not amenable to intervention. Medical mgmt recommended. * Continue long-term DAPT regimen of ASA 81 mg, Plavix 75 mg, and cardioprotective regimen atorvastatin 40, Coreg 3.125 mg twice daily Acute on chronic heart failure with preserved ejection fraction * 24-hour I/O is -2320 mL. Pt is on PO Bumex 2mg BID as an outpatient. Patient appears to be nearing euvolemia, convert Bumex IV to Bumex 2 mg p.o. twice daily. Elevated D-dimer * D-dimer is 496. CTA Chest is negative for PTE. BLE duplex US is negative for DVT. DONAL superimposed on CKD * No MARIUM/ARB in setting of DONAL. Avoid nephrotoxic agents. DVT Prophylaxis * Heparin SQ Patient is currently stable cardiac status, near euvolemia. Continue to wean O2. Will Follow. Patient should follow-up with Dr Valencia [place], [facility] heart specialists within 1 to 2 weeks of discharge (scheduling pending). #[phone] Pt seen in conjunction with Dr. Rondon, who agrees with the assessment and plan of care. - Patient Problems (1) Abdominal pain Current Visit: Yes Status: Acute (2) Acute on chronic heart failure with preserved ejection fraction (HFpEF) Current Visit: Yes Status: Acute (3) Hyponatremia Current Visit: Yes Status: Acute (4) Acute kidney injury superimposed on CKD Current Visit: Yes Status: Acute (5) Chronic anemia Current Visit: Yes Status: Chronic (6) CAD (coronary artery disease) Current Visit: Yes Status: Chronic Qualifiers: Coronary Disease-Associated Artery/Lesion type: [place] artery [place] vs. transplanted heart: [place] heart Associated angina: without angina Qualified Code(s): I25.10 - Atherosclerotic heart disease of [place] coronary artery without angina pectoris (7) Stented coronary artery Current Visit: Yes Status: Chronic (8) NSTEMI (non-ST elevated myocardial infarction) Current Visit: Yes Status: Acute Plan to address problem: Type 2 (9) HTN (hypertension) Current Visit: Yes Status: Chronic Qualifiers: Hypertension type: essential hypertension Qualified Code(s): I10 - Essential (primary) hypertension (10) Hyperlipidemia Current Visit: Yes Status: Chronic Qualifiers: Hyperlipidemia type: mixed hyperlipidemia Qualified Code(s): E78.2 - Mixed hyperlipidemia (11) DM2 (diabetes mellitus, type 2) Current Visit: Yes Status: Chronic (12) Obesity Current Visit: Yes Status: Chronic (13) GERD without esophagitis Current Visit: Yes Status: Chronic (14) Chronic constipation Current Visit: Yes Status: Chronic (15) Chronic pain syndrome Current Visit: Yes Status: Chronic (16) Recurrent falls Current Visit: Yes Status: Chronic Subjective Date of service: 07/27/20 Principal diagnosis: A/C HFpEF, DONAL/CKD Interval history: Patient is resting comfortably in bed. No shortness of breath or chest pain overnight Telemetry reviewed: Sinus rhythm 81. No events Objective Last Vital Signs Temp 98.3 F 07/27/20 04:02 Pulse 80 07/27/20 08:24 Resp 20 07/27/20 08:24 BP 135/69 07/27/20 08:24 Pulse Ox 93 07/27/20 08:24 - Physical Examination General: No Apparent Distress HEENT: Positive: EOMI, Normocephaly, Mucus Membranes Moist Neck: Positive: neck supple, trachea midline Cardiac: Positive: Reg Rate and Rhythm, S1/S2 Lungs: Positive: Normal Exam, Normal Breath Sounds Neuro: Positive: Grossly Intact Abdomen: Positive: Tender, Distended Skin: Negative: Rash Musculoskeletal: No Pain Extremities: Present: lower extr. pulses, +1 Edema - Labs and Meds CBC 07/27/20 Range/Units 04:56 WBC 7.9 (4.5-11.0) K/mm3 RBC 3.39 L (3.65-5.03) M/mm3 Hgb 9.0 L (10.1-14.3) gm/dl Hct 27.8 L (30.3-42.9) % Plt Count 233 (140-440) K/mm3 Comprehensive Metabolic Panel 07/26/20 07/27/20 Range/Units 17:15 04:56 Sodium 131 L 134 L (137-145) mmol/L Potassium 5.4 H 4.6 (3.6-5.0) mmol/L Chloride 93.6 L 90.9 L (98-107) mmol/L Carbon Dioxide 26 33 H D (22-30) mmol/L BUN 69 H 60 H (7-17) mg/dL Creatinine 2.1 H 1.8 H (0.6-1.2) mg/dL Glucose 274 H 212 H (65-100) mg/dL Calcium 9.3 9.0 (8.4-10.2) mg/dL - Imaging and Cardiology EKG: report reviewed, image reviewed Echo: report reviewed (06/18/2020 - EF 60-65%, grade 3 diastolic dysfxn, mod dilated LA, mild PI) Cardiac cath: report reviewed (02/2019 - prox LAD 50%, mid-distal LAD/diag 90% - small caliber vessel (not amenable to intervention), Cfx/obtuse fortino diffusely diseased w/moderately stenosed distal Cfx stent and distal OM - Cfx small caliber vessel, mid RCA 100% occluded w/collaterals from the left system, EF 60%, LVEDP 18-22mmHg), other (06/2018 - occluded RCA w/excellent collaterals, patent mid LAD, significant distal Cfx lesion s/p PCI w/LUZ) - Telemetry EKG Rhythm: Sinus Rhythm - EKG Sinus rhythms and dysrhythmias: sinus rhythm Chamber hypertrophy or enlargement: left ventricular hypertro Repolarization changes or abnormalities: nonspecific abnormality, ST segment, and/or T wave
[2020-07-27] MEDS: BUMETANIDE 1 MG TAB PO SCH (10:52)
[2020-07-27] MEDS: CLOPIDOGREL 75 MG TAB PO SCH (10:52)
[2020-07-27] MEDS: carvediloL 3.125 MG TAB PO SCH (10:52)
[2020-07-27] MEDS: ASPIRIN 81 MG TAB CHEW PO SCH (10:52)
[2020-07-27] MEDS: RANOLAZINE ER 500 MG TAB 12HR PO SCH (10:52)
[2020-07-27] MEDS: FAMOTIDINE 20 MG TAB PO SCH (10:52)
[2020-07-27] MEDS: GABAPENTIN 400 MG CAP PO SCH ×2 (10:54→13:58)
[2020-07-27] MEDS: INSULIN LISPRO 100 UNIT/ML SUB-Q SCH ×2 (10:54→12:35)
--- NOTE | 2020-07-27 11:46 | Discharge Summary ---
Providers - Providers Date of Admission: 07/21/20 22:55 Date of discharge: 07/27/20 Attending physician: CONNIE DUARTE 07/21/20 23:28 Consult to Physician [CONS] Routine Comment: Consulting Provider: RUDY RHOADES Physician Instructions: Reason For Exam: CHF Exac. 07/21/20 23:29 Consult to Dietitian/Nutrition [CONS] Routine Physician Instructions: Reason For Exam: Reason for Consult: Diet education 07/22/20 05:05 Consult to Physician [CONS] Routine Comment: Consulting Provider: KEITH ARMENTA Physician Instructions: Reason For Exam: Acute on chronic kidney failure 07/22/20 12:23 Physical Therapy Evaluation and Treat [CONS] Routine Comment: Reason For Exam: for gait training Primary care physician: PRIMARY CARE NURSE PRACTITIONER Hospitalization Condition: Fair Hospital course: Patient is 59-year-old female with past medical history of congestive heart failure, hypertension, coronary artery disease with [place] in the past, COPD, diabetes mellitus and neuropathy presented to the emergency room today complaining of abdominal swelling. She has also been having decreased urine output for the past few days. She also complained of shortness of breath but denies any cough, chest pain fever or chills. Patient denies any headache or dizziness, no nausea or vomiting. She indicates that she follows up at [facility] for her CHF and chronic kidney disease. Work-up in the emergency room revealed elevated BNP, and elevated creatinine of 1.9. Chest x-ray significant for congestive heart failure and persistent central pulmonary vascular congestion. She was diagnosed with acute on chronic CHF and acute on CKD. Acute on chronic heart failure with preserved ejection fraction Acute kidney injury on CKD Hyperkalemia Chronic anemia Coronary artery disease Hypertension Hyperlipidemia Diabetes mellitus type 2 Abdominal pain Obesity History of GERD without esophagitis. History of biliary dyskinesia 07/22/2020. Continue diuresis per cardiology and nephrology recommendations. Patient does have a history of biliary dyskinesia and chronic right upper quadrant abdominal pain. We will check CT scan of the abdomen pelvis for further evaluation. Continue antihypertensive medications. Continue statins. Continue sliding scale regular insulin and Accu-Cheks. 07/23/2020. CT scan of the abdomen essentially negative. Etiology of abdominal pain likely secondary to biliary dyskinesia. Creatinine increased today to 2.6. Baseline creatinine approximately 1.4. Continue diuresis per nephrology recommendations. Avoid nephrotoxic agents and continue strict I&Os. 07/24/2020. Continue fluid restriction for hyponatremia. Continue diuretics per nephrology recommendations. Avoid nephrotoxic agents. Creatinine slightly improved today. Etiology of abdominal pain likely associated to biliary dyskinesia. 07/25/2020. Hyponatremia improved. Continue fluid restriction and diuretics per nephrology recommendations. Creatinine appears to be stable at 2.0. Etiology abdominal pain likely associated with biliary dyskinesia. Consider surgery evaluation. Avoid nephrotoxic agents and continue strict I&Os. Physical therapy recommends home health PT. 07/26/2020 Patient with acute on chronic CHF with preserved ejection fraction. She also has DONAL. Today has hyperkalemia of 5.6. Give Insulin, Dextrose, Kayexalate and recheck. Patient not stable for discharge yet because elevated Creatinine and hyperkalemia. 07/27/2020 Patient with acute on chronic CHF with preserved ejection fraction. H yperkalemia resolved. Patient stable to discharge home and follow as outpatient. Disposition: [id number] HOME UNDER [facility] Final Discharge Diagnosis (Prints w/discharge instructions): 1.Acute on chronic diastolic CHF. 2.Acute on CKD - Discharge Diagnoses (1) Acute on chronic diastolic (congestive) heart failure Status: Acute (2) Acute kidney injury superimposed on CKD Status: Acute (3) Acute on chronic heart failure with preserved ejection fraction (HFpEF) Status: Acute (4) Anasarca Status: Acute (5) Diabetes mellitus with hyperglycemia Status: Acute (6) Hyperkalemia Status: Acute (7) Diabetes mellitus type 2 in obese Status: Chronic (8) HTN (hypertension) Status: Chronic Qualifiers: Hypertension type: essential hypertension Qualified Code(s): I10 - Essential (primary) hypertension (9) Hyperlipidemia Status: Chronic Qualifiers: Hyperlipidemia type: mixed hyperlipidemia Qualified Code(s): E78.2 - Mixed hyperlipidemia Core Measure Documentation - Palliative Care Palliative Care/ Comfort Measures: Not Applicable - Core Measures Any of the following diagnoses?: heart failure - Heart Failure Discharge Requirements MARIUM/ARB for LVSD if EF <40%: Not Applicable Beta edborah at discharge: Yes Exam - Constitutional Vitals: Temp Pulse Resp BP Pulse Ox 98.3 F 80 20 135/69 93 07/27/20 04:02 07/27/20 08:24 07/27/20 08:24 07/27/20 08:24 07/27/20 08:24 Plan Activity: no restrictions Diet: low fat, low cholesterol, low salt, diabetic, renal Special Instructions: other (1.Follow up with PCP in 1 week. 2. Follow up Nephrology in 1 week. 3[address] Follow up [address] Janessa Carolina cardiology in 1-2 weeks) Plan of Treatment: 1.Follow up with PCP in 1 week. 2.Follow up with Nephrology in 1 week 3.Follow up with Dr. Janessa Carolina, Cardiology in 1 -2 weeks Follow up with: PRIMARY CARE, [Primary Care Provider] - 7 Days Forms: Discharge Signature Page Prescriptions: Ranolazine ER [Ranexa ER] 500 mg PO BID #60 tab.er.12h
--- NOTE | 2020-07-28 11:10 | Electrocardiograph Report ---
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
--- NOTE | 2020-07-29 19:20 | Electrocardiograph Report ---
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
== END 2020-07-27 14:53 | disposition home health service (06) | DRG 280 ==
LOC: ED 20:13 → 4A 22:55 → OBSVTOIN 22:55 → 4A 23:52
PROVIDERS: ADMIT Internal Medicine Geriatric Medicine; ATTEND Internal Medicine
DX: I13.0 Hypertensive heart and chronic kidney disease with heart failure and stage 1 through stage 4 chronic kidney disease, or unspecified chronic kidney disease (principal); I50.33 Acute on chronic diastolic (congestive) heart failure; I21.A1 Myocardial infarction type 2; N17.9 Acute kidney failure, unspecified; Z68.41 Body mass index [BMI] 40.0-44.9, adult; N18.30 Chronic kidney disease, stage 3 unspecified; I25.10 Atherosclerotic heart disease of native coronary artery without angina pectoris; E11.8 Type 2 diabetes mellitus with unspecified complications; E66.9 Obesity, unspecified; K21.9 Gastro-esophageal reflux disease without esophagitis; K59.00 Constipation, unspecified; E87.1 Hypo-osmolality and hyponatremia; J44.9 Chronic obstructive pulmonary disease, unspecified; D63.8 Anemia in other chronic diseases classified elsewhere; E78.2 Mixed hyperlipidemia; G89.4 Chronic pain syndrome; E87.5 Hyperkalemia; Z82.49 Family history of ischemic heart disease and other diseases of the circulatory system; Z83.3 Family history of diabetes mellitus; Z79.899 Other long term (current) drug therapy; I25.2 Old myocardial infarction; Z79.82 Long term (current) use of aspirin; Z79.4 Long term (current) use of insulin
CPT/HCPCS: 36415; 71045; 74176; 80048; 80053; 80061; 82550; 82553; 82962; 83735; 83880; 84484; 85007; 85025; 85027; 85379; 85610; 93005; 96374; G0378; J0610; J1644; J1815; J1940; J2270; J2405

== ENCOUNTER 2020-11-22 05:16 | Emergency (ER) | payer MEDICAID ==
[2020-11-22] MEDS ORDERED: SODIUM CHLORIDE 0.9% 1000 ML 1,000 ML IV ONE (05:57)
--- NOTE | 2020-11-22 06:14 | Emergency Department Report ---
ED General Adult HPI - General Chief complaint: Hyperglycemia Stated complaint: HIGH BLOOD SUGAR,VOMITING Time Seen by Provider: 11/22/20 05:56 Source: patient, EMS Mode of arrival: Stretcher Limitations: No Limitations - History of Present Illness Initial comments: Patient presents secondary to elevated blood sugar. History is obtained from nursing staff and EMS as reported by family. Patient is somewhat. She is arousable, but cannot provide a cogent history. Patient was found to have an elevated blood sugar at home. It was in the 500- 600 range. The daughter was concerned. Humalog was administered. EMS was called. EMS found the patient to have a glucose of 520. They transported the patient here. She had received approximately 1 L of saline upon arrival. There was no history of recent travel or trauma. There has been no history of vomiting or diarrhea. Patient cannot really answer questions at this time. She will arouse and answer her name, but that is the extent of her history at this time. - Related Data Home Medications Medication Instructions Recorded Confirmed Last Taken Gabapentin 400 mg PO TID 11/01/15 07/23/20 07/20/20 09:00 Escitalopram [Lexapro] 20 mg PO DAILY 02/28/17 07/23/20 07/20/20 09:00 lisinopriL [Zestril TAB] 20 mg PO QDAY 02/28/17 07/23/20 07/20/20 09:00 Brimonidine Tartrate/Timolol 1 drop OP BID 07/01/18 07/23/20 07/20/20 09:00 [Combigan 0.2%-0.5% Eye Drops] Buspirone HCl [busPIRone] 15 mg PO BID 07/01/18 07/23/20 07/20/20 09:00 Baclofen [Lioresal] 10 mg PO TID 07/23/20 07/23/20 07/20/20 09:00 Bumetanide [Bumetanide 2 mg tab] 1 tab .ROUTE DAILY 07/23/20 07/23/20 07/20/20 09:00 Cyclobenzaprine [Flexeril 10 MG 10 mg PO DAILY 07/23/20 07/23/20 07/20/20 09:00 TAB] Tamsulosin [Flomax] 0.4 mg PO QDAY 07/23/20 07/23/2007/20/21 09:00 carvediloL [Coreg] 12.5 mg PO BID 07/23/20 07/23/20 07/20/20 09:00 Previous Rx's Medication Instructions Recorded Last Taken Type Aspirin EC [Halfprin EC] 81 mg PO QDAY #30 tablet. 07/11/18 07/20/20 09:00 Rx AtorvaSTATin [Lipitor] 40 mg PO QHS #30 tablet 07/11/18 07/20/20 09:00 Rx Clopidogrel [Plavix] 75 mg PO QDAY #30 tablet 07/11/18 07/20/20 09:00 Rx Dicyclomine [Bentyl] 20 mg PO QID #14 tablet 07/11/18 07/20/20 09:00 Rx Insulin Glargine [Lantus VIAL] 25 units SUB-Q BID@0800,1999 #10 ml 07/11/18 07/20/20 09:00 Rx Isosorbide Mononitrate 60 mg PO DAILY #30 tablet 07/11/18 07/20/20 09:00 Rx LORazepam [Ativan] 0.5 mg PO BID PRN #5 tab 07/11/18 07/20/20 09:00 Rx Pantoprazole [Protonix TAB] 40 mg PO QDAY #30 tablet 07/11/18 07/20/20 09:00 Rx Sucralfate [Carafate] 1 gm PO Q6HR #60 tablet 07/11/18 07/20/20 09:00 Rx amLODIPine 10 mg PO QDAY #30 tablet 07/11/18 07/20/20 09:00 Rx ursodioL [Ursodiol] 500 mg PO TIDDIAB #60 tablet 07/11/18 07/20/20 09:00 Rx Docusate Sodium [Colace CAP] 100 mg PO BID #60 capsule 05/16/20 07/20/20 09:00 Rx Famotidine [Pepcid] 20 mg PO BID #60 tablet 05/16/20 07/20/20 09:00 Rx Lactulose [Cephulac] 20 gm PO QDAY PRN #90 ml 05/16/20 07/20/20 09:00 Rx Ondansetron [Zofran ODT TAB] 8 mg PO Q8HR #20 tab.rapdis 05/16/20 07/20/20 09:00 Rx Ranolazine ER [Ranexa ER] 500 mg PO BID #60 tab.er.12h 07/27/20 Unknown Rx Allergies Allergy/AdvReac Type Severity Reaction Status Date / Time No Known Allergies Allergy Verified 11/22/20 05:29 ED Review of Systems ROS: Stated complaint: HIGH BLOOD SUGAR,VOMITING Other details as noted in HPI Comment: Unobtainable due to pts medical conditions (Somnolence and confusion) ED Past Medical Hx - Past Medical History Hx Hypertension: Yes Hx Heart Attack/AMI: Yes Hx Congestive Heart Failure: Yes Hx Diabetes: Yes Hx Renal Disease: Yes (DONAL) Hx COPD: Yes Additional medical history: neuropathy - Surgical History Hx Coronary Stent: Yes Additional Surgical History: Infection right great toe. Cataract surgery - Family History Family history: diabetes - Social History Smoking Status: Never Smoker - Medications Home Medications: Home Medications Medication Instructions Recorded Confirmed Last Taken Type Gabapentin 400 mg PO TID 11/01/15 07/23/20 07/20/20 09:00 History Escitalopram [Lexapro] 20 mg PO DAILY 02/28/17 07/23/20 07/20/20 09:00 History lisinopriL [Zestril TAB] 20 mg PO QDAY 02/28/17 07/23/20 07/20/20 09:00 History Brimonidine Tartrate/Timolol 1 drop OP BID 07/01/18 07/23/20 07/20/20 09:00 History [Combigan 0.2%-0.5% Eye Drops] Buspirone HCl [busPIRone] 15 mg PO BID 07/01/18 07/23/20 07/20/20 09:00 History Aspirin EC [Halfprin EC] 81 mg PO QDAY #30 tablet. 07/11/18 07/23/20 07/20/20 09:00 Rx AtorvaSTATin [Lipitor] 40 mg PO QHS #30 tablet 07/11/18 07/23/20 07/20/20 09:00 Rx Clopidogrel [Plavix] 75 mg PO QDAY #30 tablet 07/11/18 07/23/20 07/20/20 09:00 Rx Dicyclomine [Bentyl] 20 mg PO QID #14 tablet 07/11/18 07/23/20 07/20/20 09:00 Rx Insulin Glargine [Lantus VIAL] 25 units SUB-Q BID@0800,2000 #10 ml 07/11/18 07/23/20 07/20/20 09:00 Rx Isosorbide Mononitrate 60 mg PO DAILY #30 tablet 07/11/18 07/23/20 07/20/20 09:00 Rx LORazepam [Ativan] 0.5 mg PO BID PRN #5 tab 07/11/18 07/23/20 07/20/20 09:00 Rx Pantoprazole [Protonix TAB] 40 mg PO QDAY #30 tablet 07/11/18 07/23/20 07/20/20 09:00 Rx Sucralfate [Carafate] 1 gm PO Q6HR #60 tablet 07/11/18 07/23/20 07/20/20 09:00 Rx amLODIPine 10 mg PO QDAY #30 tablet 07/11/18 07/23/20 07/20/20 09:00 Rx ursodioL [Ursodiol] 500 mg PO TIDDIAB #60 tablet 07/11/18 07/23/20 07/20/20 09:00 Rx Docusate Sodium [Colace CAP] 100 mg PO BID #60 capsule 05/16/20 07/23/20 07/20/20 09:00 Rx Famotidine [Pepcid] 20 mg PO BID #60 tablet 05/16/20 07/23/20 07/20/20 09:00 Rx Lactulose [Cephulac] 20 gm PO QDAY PRN #90 ml 05/16/20 07/23/20 07/20/20 09:00 Rx Ondansetron [Zofran ODT TAB] 8 mg PO Q8HR #20 tab.rapdis 05/16/20 07/23/20 07/20/20 09:00 Rx Baclofen [Lioresal] 10 mg PO TID 07/23/20 07/23/20 07/20/20 09:00 History Bumetanide [Bumetanide 2 mg tab] 1 tab .ROUTE DAILY 07/23/20 07/23/20 07/20/20 09:00 History Cyclobenzaprine [Flexeril 10 MG 10 mg PO DAILY 07/23/20 07/23/20 07/20/20 09:00 History TAB] Tamsulosin [Flomax] 0.4 mg PO QDAY 07/23/20 07/23/20 07/20/20 09:00 History carvediloL [Coreg] 12.5 mg PO BID 07/23/20 07/23/20 07/20/20 09:00 History Ranolazine ER [Ranexa ER] 500 mg PO BID #60 tab.er.12h 07/27/20 Unknown Rx ED Physical Exam - General Limitations: No Limitations, Altered Mental Status, Other (Pulse ox is noted to normal. Is not hypoxic.) General appearance: obese, other (Somnolent but arousable) - Head Head exam: Present: atraumatic, normocephalic, normal inspection - Eye Eye exam: Present: normal appearance, EOMI. Absent: scleral icterus - ENT ENT exam: Present: mucous membranes dry, normal external ear exam - Neck Neck exam: Present: normal inspection. Absent: lymphadenopathy - Respiratory Respiratory exam: Present: normal lung sounds bilaterally. Absent: respiratory distress - Cardiovascular Cardiovascular Exam: Present: regular rate, normal rhythm - GI/Abdominal GI/Abdominal exam: Present: soft. Absent: distended, tenderness, pulsatile mass - Extremities Exam Extremities exam: Present: normal capillary refill, pedal edema (Bilateral 1+) - Back Exam Back exam: Present: normal inspection - Neurological Exam Neurological exam: Present: reflexes normal, other (Somnolent but arousable. She has no obvious pronator drift, but her exam is limited due to confusion and somnolence.) - Psychiatric Psychiatric exam: Present: other (Somnolent) - Skin Skin exam: Present: warm, dry ED Course Vital Signs 11/22/20 11/22/20 11/22/20 05:35 05:45 06:01 Temperature 98.7 F Pulse Rate 84 67 Respiratory 18 20 20 Rate Blood Pressure 110/62 Blood Pressure 141/69 [Right] O2 Sat by Pulse 98 96 Oximetry 11/22/20 11/22/20 11/22/20 06:15 06:31 06:45 Temperature Pulse Rate 76 66 66 Respiratory 21 20 19 Rate Blood Pressure 100/64 102/72 115/67 Blood Pressure [Right] O2 Sat by Pulse 96 92 91 Oximetry 11/22/20 11/22/20 11/22/20 07:01 08:01 08:07 Temperature Pulse Rate 77 81 Respiratory 21 20 Rate Blood Pressure 120/72 132/69 Blood Pressure [Right] O2 Sat by Pulse 86 96 96 Oximetry 11/22/20 11/22/20 11/22/20 08:11 08:12 08:28 Temperature 98.2 F Pulse Rate 77 76 75 Respiratory 17 Rate Blood Pressure Blood Pressure 162/84 138/81 [Right] O2 Sat by Pulse 96 Oximetry - Reevaluation(s) Reevaluation #1: 11/22/20 06:00 IV labs were ordered. ABG was ordered. Fingerstick glucose have been noted. Saline will be repeated. Reevaluation #2: 11/22/20 07:54 Labs of been reviewed. Patient is now complaining of "body pain." She is retching. Tylenol and Zofran have been ordered. We will repeat a fingerstick. Reevaluation #3: 11/22/20 09:08 Patient is much more relaxed after haloperidol. She is awake and conversant. She has no complaints at this time. History and physical exam were now completed and the patient is lucid. ED Medical Decision Making - Lab Data Result diagrams: 11/22/20 06:01 11/22/20 06:01 - Medical Decision Making Patient presents with elevated blood sugar. She was found to be hyperglycemic and this corrected with fluids. No insulin was required. There was no other metabolic derangement. She has chronic kidney disease which appears to be fairly stable. Patient does not have any obvious infectious pathology. There is no focal neurologic deficits suggestive of stroke or bleed. She did not complain of a headache. There is no fever suggestive of any kind of infectious pathology. Patient did require Haldol for sedation as she became agitated. She was not found to be hypoxic. There was no evidence of CO2 retention. After Haldol, she was feeling better. Critical Care Time: No Critical care attestation.: If time is entered above; I have spent that time in minutes in the direct care of this critically ill patient, excluding procedure time. ED Disposition Clinical Impression: Hyperglycemia due to type 1 diabetes mellitus, Somnolence CKD (chronic kidney disease) Qualifiers: Chronic kidney disease stage: unspecified stage Qualified Code(s): N18.9 - Chronic kidney disease, unspecified Disposition: HOME / SELF CARE / HOMELESS Is pt being admited?: No Condition: Stable Instructions: Diabetes Mellitus Type 2 in Adults (ED), Diabetes Mellitus and Sick Day Management, Food Basics for Chronic Kidney Disease, Correction Insulin, Chronic Kidney Disease, Adult, Geyf-of-Wwtd Additional Instructions: Continue home medication. Drink water. Return for problems. Follow-up with your regular doctor for recheck. Referrals: PRIMARY CAREMD [Primary Care Provider] - 3-5 Days DIEGO ANGUIANO MD [Staff Physician] - 3-5 Days
[2020-11-22 06:21] LABS: Hematocrit 30.5 % (30.3-42.9); Hemoglobin 10.2 gm/dl (10.1-14.3); Mean Corpuscular HGB Conc 33 % (30-34); Mean Corpuscular Volume 79 fl (79-97); Platelet Count 199 K/mm3 (140-440); Red Blood Count 3.86 M/mm3 (3.65-5.03); Red Cell Distribution Width 16.2 % (13.2-15.2)
[2020-11-22 06:35] LABS: Calcium 9.2 mg/dL (8.4-10.2)
[2020-11-22] MEDS ORDERED: ONDANSETRON 4 MG/2 ML INJ IV ONE (07:52)
[2020-11-22] MEDS ORDERED: ACETAMINOPHEN 500 MG TAB PO ONE (07:52)
[2020-11-22] MEDS ORDERED: HALOPERIDOL LACTATE 5 MG/1 ML INJ IV ONE (08:09)
[2020-11-22 10:34] VITALS: BP 138/61
[2020-11-22 12:57] LABS: ABG Base Excess 1.9 mmol/L (-2.0-3.0); ABG HCO3 26.8 mmol/L (20.0-26.0); ABG Methemoglobin 0.3 % (0.0-1.5); ABG Oxygen Saturation 90.8 % (95.0-99.0); ABG PCO2 43.6 mm Hg; ABG PH 7.407 pH Units (7.350-7.450); ABG PO2 59.4 mm Hg (80.0-90.0)
== END 2020-11-22 10:35 | disposition home or self-care (01) ==
LOC: ED 05:16
DX: E10.65 Type 1 diabetes mellitus with hyperglycemia (principal); I13.0 Hypertensive heart and chronic kidney disease with heart failure and stage 1 through stage 4 chronic kidney disease, or unspecified chronic kidney disease; E10.22 Type 1 diabetes mellitus with diabetic chronic kidney disease; N18.9 Chronic kidney disease, unspecified; I50.9 Heart failure, unspecified; J44.9 Chronic obstructive pulmonary disease, unspecified; G62.9 Polyneuropathy, unspecified; Z98.890 Other specified postprocedural states; Z79.4 Long term (current) use of insulin
CPT/HCPCS: 36415; 80048; 80320; 82803; 82962; 85027; 96361; 96374; 96375; 99284; G0480; J1630; J2405; J7030